=== PATIENT | female | born 1950 | race Caucasian/White ===

== ENCOUNTER 2016-11-11 15:58 | Observation (INO) ==
--- NOTE | 2016-11-11 16:28 | Emergency Department Note ---
Disposition Clinical Impression: Dehydration, Hyperglycemia, Delirium UTI (urinary tract infection) Qualifiers: Urinary tract infection type: site unspecified Hematuria presence: without hematuria Qualified Code(s): N39.0 - Urinary tract infection, site not specified Disposition: Admitted As Inpatient Condition: Good Referrals: Ronnell Spann MD [Primary Care Provider] - Forms: ED Satisfaction Letter Nausea/Vomiting/Diarrhea HPI - General Chief complaint: ED Nausea/Vomiting/Diarrhea Stated complaint: high BG Time Seen by Provider: 11/11/16 16:00 Source: patient, EMS Mode of arrival: private vehicle Limitations: no limitations Nursing Notes Reviewed: Yes Vital Signs Reviewed: Yes - History of Present Illness HPI Narrative: 66-year-old female history of diabetes, hypertension, CK D, chronic anemia requiring multiple transfusions in the past presents to the ER with a chief complaint of nausea vomiting generalized weakness and chest pain. Patient reports that she has felt weak for the last 2-3 days at home. She states during that time that she has been checking her blood glucose and that the machine just keeps registering high. She reports that her primary care provider contacted her as well telling her that he had changed her insulin but gave her the wrong type. Patient reports that she is not nauseated during this time and has had some retching at home. She has had decreased oral intake secondary to nauseated him. Patient reports this morning she also had some bleeding per rectum noted as dark. She is not on anticoagulation. She also states she has had chest pain this morning worse with exertion as well as shortness of breath. No other complaints. Pt Subjective Complaint: nausea, vomiting, other (Weakness) Onset (ago): day(s) (3) Associated Abdominal Pain: No Consistency: intermittent Improves with: nothing Worsens with: nonthing Context: other (History of similar symptoms) Associated symptoms: Reports: chest pain (Currently resolved), nausea/vomiting, weakness. Denies: cough, fever/chills - Related Data Home Medications Medication Instructions Recorded Confirmed Ondansetron HCl [Zofran] 4 mg PO TID PRN 05/18/16 11/11/16 Bupropion HCl [Wellbutrin Xl] 300 mg PO QAM 05/19/16 11/11/16 Pantoprazole Sodium [Protonix] 40 mg PO BID 05/19/16 11/11/16 Allopurinol [Zyloprim 100 MG] 100 mg PO DAILY 11/11/16 11/11/16 Duloxetine [Cymbalta] 30 mg PO DAILY 11/11/16 11/11/16 Hydroxychloroquine [Plaquenuil] 200 mg PO DAILY 11/11/16 11/11/16 Insulin Regular U-500 [HumuLIN R 75 unit SQ BID 11/11/16 11/11/16 U-500] Levothyroxine [Synthroid] 75 mcg PO QAM 11/11/16 11/11/16 Lisinopril [Zestril] 10 mg PO DAILY 11/11/16 11/11/16 OxyCODONE Immed Rel [Roxicodone 15 15 mg PO Q8H PRN 11/11/16 11/11/16 MG] Sucralfate [Carafate] 1 gm PO BID 11/11/16 11/11/16 Allergies Allergy/AdvReac Type Severity Reaction Status Date / Time benzoin AdvReac Rash Verified 07/07/16 12:14 morphine AdvReac Altered Verified 11/11/16 19:41 Mental Status All systems ED: reviewed and negative except as stated. Constitutional: Reports: weakness. Denies: fever Cardiovascular: Reports: chest pain, dyspnea on exertion Respiratory: Reports: dyspnea. Denies: cough Gastrointestinal: Reports: nausea, vomiting. Denies: abdominal pain, diarrhea Genitourinary: Reports: frequency (Decreased) Past Medical History - Past Medical History Attestation: Yes The following information was validated with the patient. Source: patient Medical history: Reports: arthritis, atrial fibrillation, diabetes, fibromyalgia , RA, other Surgical history: Reports: hysterectomy, knee replacement Psychiatric history: Reports: no psych history [employer] history: Reports: no [employer] history - Social History Smoking Status: Never smoker Smokeless Tobacco Status: No Alcohol use: Reports: none Drug use: Reports: none Physical Exam - General Limitations: no limitations General appearance: alert, in no apparent distress - Head Head exam: atraumatic, normocephalic, normal inspection - Eye Eye exam: Present: normal appearance, EOMI - ENT ENT exam: normal exam, mucous membranes dry - Neck Neck exam: Present: normal inspection - Chest Chest inspection: Present: normal inspection, symmetric chest wall rise - Respiratory Respiratory exam: Present: normal lung sounds bilaterally - Cardiovascular Cardiovascular exam: Present: normal rhythm, tachycardia, normal heart sounds - Abdominal Exam Abdominal exam: Present: soft, Non-Tender. Absent: tenderness - Extremities Exam Extremities exam: Present: normal inspection, full ROM - Expanded Upper Extremity Exam Shoulder exam: Present: normal inspection, full ROM Arm exam: Present: normal inspection, full ROM Elbow exam: Present: normal inspection, full ROM Forearm/Wrist exam: Present: normal inspection, full ROM Hand exam: Present: normal inspection, full ROM - Expanded Lower Extremity Exam Hip/Pelvis exam: Present: normal inspection, full ROM Upper leg exam: Present: normal inspection, full ROM Knee exam: Present: normal inspection, full ROM Lower leg exam: Present: normal inspection, full ROM Ankle exam: Present: normal inspection, full ROM Foot/toe exam: Present: normal inspection, full ROM - Neurological Exam Neurological exam: Present: alert - Psychiatric Psychiatric exam: Present: normal affect, normal mood - Skin Skin exam: Present: warm, dry, intact, normal color Course Course Narrative: Patient seen and examined. Vital signs reviewed. She is tachycardic here in the 110s. She appears dry on exam. We will start IV fluids with a 2 L bolus. Also will check labs to evaluate for DKA as the patient has a history in the past. We will also check a chest x-ray and UA for infectious etiologies of her hyperglycemia. Disposition pending. Will likely require admission. - Reevaluation(s) Reevaluation #1: Discussed results of lab work and imaging with the patient. Reevaluation #2: Patient became anxious, began screaming and pulled her IV. She reports that she is upset and that she will go to [place] so that she can have an oophorectomy. Patient seems to be confused at this time. We will get blood cultures and a CT scan of the head for evaluation. Reevaluation #3: Patient requested to speak with me. She is currently crying and wants to know what is going on. I discussed with her that we were scanning her head due to her acting different here. I asked her if she felt confused here and she says yes. She also reports that she has a lot going on and broke into tears at that time. Patient sent to CT for evaluation. Vital Signs Temperature 97.9 F 11/11/16 16:01 Pulse Rate 117 11/11/16 16:01 Respiratory Rate 16 11/11/16 16:01 Blood Pressure 137/84 11/11/16 16:01 O2 Sat by Pulse Oximetry 94 L 11/11/16 16:01 Temperature 97.9 F 11/11/16 16:01 Pulse Rate 117 11/11/16 16:01 Respiratory Rate 16 11/11/16 16:01 Blood Pressure 137/84 11/11/16 16:01 O2 Sat by Pulse Oximetry 94 L 11/11/16 16:01 Oxygen Delivery Oxygen Delivery Room Air Nausea/Vomiting/Diarrhea - MDM Narrative Medical decision making narrative: 66-year-old female presents to the ER due to generalized weakness nausea, vomiting and hyperglycemia. Patient reports symptoms for a few days in duration. She also reported that she was having blood in her stool however she is occult negative here. Her initial Accu-Chek was 379. Her VBG shows that she is not acidotic. We provided her with IV insulin here. Patient did appear dry on exam. She was given 3 L of normal saline for resuscitation. Her urinalysis does show positive nitrates with too numerous to count WBCs. Patient provided with IV antibiotics here. Patient attempted to get out of bed and removed her IV. She is emotionally labile here. She is confused reporting that she is going to [place] to have her ovaries removed now. Patient will be admitted to the hospital service for UTI altered mental status. - Lab Data Lab results reviewed: Yes I reviewed the patient's lab results. Result diagrams: 11/11/16 16:48 11/11/16 16:48 Lab Results 11/11/16 11/11/16 11/11/16 Range/Units 16:03 16:20 16:48 WBC 7.2 (4.3-11.1) K/mcL RBC 4.03 (3.82-4.97) M/mcL Hgb 11.8 (11.5-15.4) g/dL Hct 36.1 (35.3-44.9) % MCV 89.6 (83.0-100.0) fL MCH 29.3 (28.0-33.3) pg MCHC 32.7 (31.6-35.5) g/dL RDW 13.4 (11.5-14.5) % Plt Count 239 (140-400) K/mcL MPV 11.7 (9.4-12.4) fL Immature Gran % 0.4 (0-4) % Seg Neutrophils % 64.8 % Lymphocytes % 24.3 % Monocytes % 8.1 % Eosinophils % 1.7 % Basophils % 0.7 % Neutrophils # 4.6 (1.6-8.9) K/mcL Lymphocytes # 1.7 (0.6-4.6) K/mcL Monocytes # 0.6 (0.0-1.3) K/mcL Eosinophils # 0.1 (0.0-0.6) K/mcL Basophils # 0.1 (0.0-0.2) K/mcL VBG pH (7.32-7.42) pH Units VBG pCO2 (41-51) mmHg VBG pO2 (25-40) mmHg VBG HCO3 (21-27) mEq/L Sodium (136-145) mEq/L Potassium (3.5-4.5) mEq/L Chloride (98-109) mEq/L Carbon Dioxide (19-29) mEq/L BUN (7-20) mg/dL Creatinine (0.57-1.11) mg/dL Est GFR ( Amer) (> 60) Est GFR (Non-Af Amer) (> 60) BUN/Creatinine Ratio (6-26) Glucose (70-99) mg/dL POC Glucose 379 H (58-89) Calculated Osmolality (280-300) Calcium (8.6-10.8) mg/dL Total Bilirubin (0.2-1.2) mg/dL Direct Bilirubin (0.0-0.5) mg/dL Indirect Bilirubin (0.0-1.2) mg/dL AST (5-34) Units/L ALT (0-55) Units/L Alkaline Phosphatase (38-126) Units/L Troponin I (0-0.03) ng/mL Serum Total Protein (6.0-8.3) g/dL Albumin (3.5-5.0) g/dL Globulin (2.4-3.5) g/dL Albumin/Globulin Ratio (1.1-2.2) Beta-Hydroxybutyric Acd (0.02-0.27) mmol/L Urine Color (Yellow) Urine Clarity (Clear) Urine pH (5.0-8.0) pH Units Ur Specific [place] (1.010-1.025) Urine Protein (Neg-Trace) mg/dL Urine Glucose (UA) (Normal) mg/dL Urine Ketones (Negative) mg/dL Urine Blood (Negative) Urine Nitrite (Negative) Urine Bilirubin (Negative) Urine Urobilinogen (Normal) mg/dL Ur Leukocyte Esterase (Negative) Urine Microscopic RBC (0-3) per hpf Urine Microscopic WBC (0-3) per hpf Ur Squamous Epith Cells (None-Few) per lpf Urine Bacteria (None-Few) per hpf Hyaline Casts (None-Few) per lpf Ur Culture Indicated? (NO) Stool Occult Blood Negative (Negative) 11/11/16 11/11/16 11/11/16 Range/Units 16:48 16:48 16:48 WBC (4.3-11.1) K/mcL RBC (3.82-4.97) M/mcL Hgb (11.5-15.4) g/dL Hct (35.3-44.9) % MCV (83.0-100.0) fL MCH (28.0-33.3) pg MCHC (31.6-35.5) g/dL RDW (11.5-14.5) % Plt Count (140-400) K/mcL MPV (9.4-12.4) fL Immature Gran % (0-4) % Seg Neutrophils % % Lymphocytes % % Monocytes % % Eosinophils % % Basophils % % Neutrophils # (1.6-8.9) K/mcL Lymphocytes # (0.6-4.6) K/mcL Monocytes # (0.0-1.3) K/mcL Eosinophils # (0.0-0.6) K/mcL Basophils # (0.0-0.2) K/mcL VBG pH 7.40 (7.32-7.42) pH Units VBG pCO2 44 (41-51) mmHg VBG pO2 107 H (25-40) mmHg VBG HCO3 27.3 H (21-27) mEq/L Sodium 138 (136-145) mEq/L Potassium 4.3 (3.5-4.5) mEq/L Chloride 105 (98-109) mEq/L Carbon Dioxide 24 (19-29) mEq/L BUN 43 H (7-20) mg/dL Creatinine 1.06 (0.57-1.11) mg/dL Est GFR ( Amer) > 60 (> 60) Est GFR (Non-Af Amer) 52 L (> 60) BUN/Creatinine Ratio 41 H (6-26) Glucose 384 H (70-99) mg/dL POC Glucose (58-89) Calculated Osmolality 313 H (280-300) Calcium 9.1 (8.6-10.8) mg/dL Total Bilirubin 0.5 (0.2-1.2) mg/dL Direct Bilirubin 0.2 (0.0-0.5) mg/dL Indirect Bilirubin 0.3 (0.0-1.2) mg/dL AST 105 H (5-34) Units/L ALT 84 H (0-55) Units/L Alkaline Phosphatase 123 (38-126) Units/L Troponin I 0.02 (0-0.03) ng/mL Serum Total Protein 7.2 (6.0-8.3) g/dL Albumin 2.9 L (3.5-5.0) g/dL Globulin 4.3 H (2.4-3.5) g/dL Albumin/Globulin Ratio 0.7 L (1.1-2.2) Beta-Hydroxybutyric Acd 0.17 (0.02-0.27) mmol/L Urine Color (Yellow) Urine Clarity (Clear) Urine pH (5.0-8.0) pH Units Ur Specific [place] (1.010-1.025) Urine Protein (Neg-Trace) mg/dL Urine Glucose (UA) (Normal) mg/dL Urine Ketones (Negative) mg/dL Urine Blood (Negative) Urine Nitrite (Negative) Urine Bilirubin (Negative) Urine Urobilinogen (Normal) mg/dL Ur Leukocyte Esterase (Negative) Urine Microscopic RBC (0-3) per hpf Urine Microscopic WBC (0-3) per hpf Ur Squamous Epith Cells (None-Few) per lpf Urine Bacteria (None-Few) per hpf Hyaline Casts (None-Few) per lpf Ur Culture Indicated? (NO) Stool Occult Blood (Negative) 11/11/16 11/11/16 Range/Units 17:16 18:20 WBC (4.3-11.1) K/mcL RBC (3.82-4.97) M/mcL Hgb (11.5-15.4) g/dL Hct (35.3-44.9) % MCV (83.0-100.0) fL MCH (28.0-33.3) pg MCHC (31.6-35.5) g/dL RDW (11.5-14.5) % Plt Count (140-400) K/mcL MPV (9.4-12.4) fL Immature Gran % (0-4) % Seg Neutrophils % % Lymphocytes % % Monocytes % % Eosinophils % % Basophils % % Neutrophils # (1.6-8.9) K/mcL Lymphocytes # (0.6-4.6) K/mcL Monocytes # (0.0-1.3) K/mcL Eosinophils # (0.0-0.6) K/mcL Basophils # (0.0-0.2) K/mcL VBG pH (7.32-7.42) pH Units VBG pCO2 (41-51) mmHg VBG pO2 (25-40) mmHg VBG HCO3 (21-27) mEq/L Sodium (136-145) mEq/L Potassium (3.5-4.5) mEq/L Chloride (98-109) mEq/L Carbon Dioxide (19-29) mEq/L BUN (7-20) mg/dL Creatinine (0.57-1.11) mg/dL Est GFR ( Amer) (> 60) Est GFR (Non-Af Amer) (> 60) BUN/Creatinine Ratio (6-26) Glucose (70-99) mg/dL POC Glucose 286 H (58-89) Calculated Osmolality (280-300) Calcium (8.6-10.8) mg/dL Total Bilirubin (0.2-1.2) mg/dL Direct Bilirubin (0.0-0.5) mg/dL Indirect Bilirubin (0.0-1.2) mg/dL AST (5-34) Units/L ALT (0-55) Units/L Alkaline Phosphatase (38-126) Units/L Troponin I (0-0.03) ng/mL Serum Total Protein (6.0-8.3) g/dL Albumin (3.5-5.0) g/dL Globulin (2.4-3.5) g/dL Albumin/Globulin Ratio (1.1-2.2) Beta-Hydroxybutyric Acd (0.02-0.27) mmol/L Urine Color Yellow (Yellow) Urine Clarity Cloudy A (Clear) Urine pH 6.0 (5.0-8.0) pH Units Ur Specific [place] 1.024 (1.010-1.025) Urine Protein Negative (Neg-Trace) mg/dL Urine Glucose (UA) 500 H (Normal) mg/dL Urine Ketones Trace H (Negative) mg/dL Urine Blood Small H (Negative) Urine Nitrite Positive A (Negative) Urine Bilirubin Negative (Negative) Urine Urobilinogen Normal (Normal) mg/dL Ur Leukocyte Esterase Large H (Negative) Urine Microscopic RBC 0-3 (0-3) per hpf Urine Microscopic WBC TNTC H (0-3) per hpf Ur Squamous Epith Cells Many H (None-Few) per lpf Urine Bacteria Many H (None-Few) per hpf Hyaline Casts None Seen (None-Few) per lpf Ur Culture Indicated? YES A (NO) Stool Occult Blood (Negative) - Radiology Data Radiology results reviewed: Yes I reviewed the patient's radiology results. Chest X-Ray 11/11/16 16:17 IMPRESSION: No acute cardiopulmonary disease. Large retrocardiac hiatal hernia. D/ / Jose Stevens MD / Jose Stevens MD Interpreting Provider: Jose Stevens MD - EKG Data EKG attestation: Yes I reviewed and interpreted this EKG. EKG results narrative: EKG demonstrates sinus tachycardia with a rate of 114. Normal axis. [place] interval 151 QRS duration 81 QTC 398 there are T-wave inversions in leads [address] elevations or depressions. No acute ischemic findings. S.B.ALiza - S.Hafsa.Robe Situation: Demographics, MOA Background: Presenting Complaint, Relevant PMH, Meds, & Allergies Assessment: Vital Signs, Course and respsone to treatment, Exam Concerns, Patient/Family Expectation, Pertinant Lab Results, Outstanding Labs Recommendation: Barrier(s) to disposition, Recommendation based on pending studies, treatments, or consults SKaushikBRubens Report Given to: Dr. Mamadou Denney Repor Time: 19:52
[2016-11-11 17:01] LABS: Basophils # 0.1 K/mcL (0.0-0.2); Basophils % 0.7 %; Eosinophils # 0.1 K/mcL (0.0-0.6); Eosinophils % 1.7 %; Hematocrit 36.1 % (35.3-44.9); Hemoglobin 11.8 g/dL (11.5-15.4); Immature Granulocytes % 0.4 % (0-4); Lymphocytes # 1.7 K/mcL (0.6-4.6); Lymphocytes % 24.3 %; Mean Corpuscular HGB Conc 32.7 g/dL (31.6-35.5); Mean Corpuscular Hemoglobin 29.3 pg (28.0-33.3); Mean Corpuscular Volume 89.6 fL (83.0-100.0); Mean Platelet Volume 11.7 fL (9.4-12.4); Monocytes # 0.6 K/mcL (0.0-1.3); Monocytes % 8.1 %; Neutrophils # 4.6 K/mcL (1.6-8.9); Platelet Count 239 K/mcL (140-400); Red Blood Count 4.03 M/mcL (3.82-4.97); Red Cell Distribution Width 13.4 % (11.5-14.5); Segmented Neutrophils % 64.8 %
[2016-11-11 17:02] LABS: VBG HCO3 27.3 mEq/L (21-27); VBG PH 7.4 pH Units (7.32-7.42)
[2016-11-11 17:14] LABS: Beta-Hydroxybutyric Acid 0.17 mmol/L (0.02-0.27)
[2016-11-11 17:16] LABS: Alanine Aminotransferase 84 Units/L (0-55); Albumin 2.9 g/dL (3.5-5.0); Albumin/Globulin Ratio 0.7 (1.1-2.2); Alkaline Phosphatase 123 Units/L (38-126); Aspartate Amino Transferase 105 Units/L (5-34); BUN/Creatinine Ratio 41 (6-26); Bilirubin,Direct 0.2 mg/dL (0.0-0.5); Bilirubin,Indirect 0.3 mg/dL (0.0-1.2); Bilirubin,Total 0.5 mg/dL (0.2-1.2); Blood Urea Nitrogen 43 mg/dL (7-20); Calcium 9.1 mg/dL (8.6-10.8); Carbon Dioxide 24 mEq/L (19-29); Chloride 105 mEq/L (98-109); Globulin 4.3 g/dL (2.4-3.5); Glucose 384 mg/dL (70-99); Osmolality,Calculated 313 (280-300); Potassium 4.3 mEq/L (3.5-4.5); Sodium 138 mEq/L (136-145); Total Protein 7.2 g/dL (6.0-8.3); eGFR For African Americans > 60 (> 60); eGFR For Non-African Americans 52 (> 60)
[2016-11-11 17:23] LABS: Bilirubin,Urine Negative (Negative); Blood,Urine Small (Negative); Clarity,Urine Cloudy (Clear); Color,Urine Yellow (Yellow); Glucose,Urine (UA) 500 mg/dL (Normal); Ketones,Urine Trace mg/dL (Negative); Leukocyte Esterase,Urine Large (Negative); Nitrite,Urine Positive (Negative); Protein,Urine Negative (Neg-Trace); Specific Gravity,Urine 1.024 (1.010-1.025); Urobilinogen,Urine Normal (Normal)
[2016-11-11 17:35] LABS: Bacteria,Urine Many per hpf (None-Few); Hyaline Casts,Urine None Seen per lpf (None-Few); RBC,Urine 0-3 per hpf (0-3); Squamous Epithelial Cell,Urine Many per lpf (None-Few); WBC,Urine TNTC per hpf (0-3)
--- NOTE | 2016-11-11 17:48 | Emergency Department Note ---
Disposition Clinical Impression: UTI (urinary tract infection), Dehydration, Hyperglycemia, Delirium Disposition: Admitted As Inpatient Condition: Good General Adult HPI - General Chief complaint: ED Nausea/Vomiting/Diarrhea Stated complaint: high BG Time Seen by Provider: 11/11/16 16:00 Source: patient, EMS Mode of arrival: private vehicle Limitations: no limitations - History of Present Illness Pain Scale: 0 - Related Data Home Medications Medication Instructions Recorded Confirmed Ondansetron HCl [Zofran] 4 mg PO TID PRN 05/18/16 11/11/16 Bupropion HCl [Wellbutrin Xl] 300 mg PO QAM 05/19/16 11/11/16 Pantoprazole Sodium [Protonix] 40 mg PO BID 05/19/16 11/11/16 Allopurinol [Zyloprim 100 MG] 100 mg PO DAILY 11/11/16 11/11/16 Duloxetine [Cymbalta] 30 mg PO DAILY 11/11/16 11/11/16 Hydroxychloroquine [Plaquenuil] 200 mg PO DAILY 11/11/16 11/11/16 Insulin Regular U-500 [HumuLIN R 75 unit SQ BID 11/11/16 11/11/16 U-500] Levothyroxine [Synthroid] 75 mcg PO QAM 11/11/16 11/11/16 Lisinopril [Zestril] 10 mg PO DAILY 11/11/16 11/11/16 OxyCODONE Immed Rel [Roxicodone 15 15 mg PO Q8H PRN 11/11/16 11/11/16 MG] Sucralfate [Carafate] 1 gm PO BID 11/11/16 11/11/16 Allergies Allergy/AdvReac Type Severity Reaction Status Date / Time benzoin AdvReac Rash Verified 07/07/16 12:14 morphine AdvReac Altered Verified 11/11/16 19:41 Mental Status Constitutional: Reports: weakness. Denies: fever Cardiovascular: Reports: chest pain, dyspnea on exertion Respiratory: Reports: dyspnea. Denies: cough Gastrointestinal: Reports: nausea, vomiting. Denies: abdominal pain, diarrhea Genitourinary: Reports: frequency (Decreased) Past Medical History - Past Medical History Medical history: Reports: arthritis, atrial fibrillation, diabetes, fibromyalgia , RA, other Surgical history: Reports: hysterectomy, knee replacement Psychiatric history: Reports: no psych history INSURANCE ADMINISTRATIVE ASSISTANT history: Reports: no INSURANCE ADMINISTRATIVE ASSISTANT history - Social History Smoking Status: Never smoker Smokeless Tobacco Status: No Alcohol use: Reports: none Drug use: Reports: none Physical Exam - General Limitations: no limitations General appearance: alert, in no apparent distress Course - Reevaluation(s) Reevaluation #1: I saw the patient with the resident, Dr. Chambers. Patient presents with complaint of high sugar. Her sugar is high here. She talks about increased urine output. She a bit tachycardic but clinically looks a bit dehydrated. Lab workup does not show evidence of DKA. There is evidence of an elevated BUN which corroborates dehydration. Urinalysis also shows evidence of urinary tract infection. We are going to hydrate the patient with IV fluids. We will give her a dose of antibiotics to treat UTI. We counseled her on up appropriate use of insulin at home. Patient will be discharged to home. Time: 17:47 Vital Signs Temperature 97.9 F 11/11/16 16:01 Pulse Rate 117 11/11/16 16:01 Respiratory Rate 16 11/11/16 16:01 Blood Pressure 137/84 11/11/16 16:01 O2 Sat by Pulse Oximetry 94 L 11/11/16 16:01 Temperature 97.8 F 11/11/16 22:05 Pulse Rate 121 11/11/16 22:05 Respiratory Rate 14 11/11/16 22:05 Blood Pressure 136/82 11/11/16 22:05 O2 Sat by Pulse Oximetry 93 L 11/11/16 22:05 Oxygen Delivery Oxygen Delivery Room Air Medical Decision Making - Lab Data Result diagrams: 11/11/16 16:48 11/11/16 16:48 Lab Results 11/11/16 11/11/16 11/11/16 Range/Units 16:03 16:20 16:48 WBC 7.2 (4.3-11.1) K/mcL RBC 4.03 (3.82-4.97) M/mcL Hgb 11.8 (11.5-15.4) g/dL Hct 36.1 (35.3-44.9) % MCV 89.6 (83.0-100.0) fL MCH 29.3 (28.0-33.3) pg MCHC 32.7 (31.6-35.5) g/dL RDW 13.4 (11.5-14.5) % Plt Count 239 (140-400) K/mcL MPV 11.7 (9.4-12.4) fL Immature Gran % 0.4 (0-4) % Seg Neutrophils % 64.8 % Lymphocytes % 24.3 % Monocytes % 8.1 % Eosinophils % 1.7 % Basophils % 0.7 % Neutrophils # 4.6 (1.6-8.9) K/mcL Lymphocytes # 1.7 (0.6-4.6) K/mcL Monocytes # 0.6 (0.0-1.3) K/mcL Eosinophils # 0.1 (0.0-0.6) K/mcL Basophils # 0.1 (0.0-0.2) K/mcL VBG pH (7.32-7.42) pH Units VBG pCO2 (41-51) mmHg VBG pO2 (25-40) mmHg VBG HCO3 (21-27) mEq/L Sodium (136-145) mEq/L Potassium (3.5-4.5) mEq/L Chloride (98-109) mEq/L Carbon Dioxide (19-29) mEq/L BUN (7-20) mg/dL Creatinine (0.57-1.11) mg/dL Est GFR ( Amer) (> 60) Est GFR (Non-Af Amer) (> 60) BUN/Creatinine Ratio (6-26) Glucose (70-99) mg/dL POC Glucose 379 H (58-89) Calculated Osmolality (280-300) Calcium (8.6-10.8) mg/dL Total Bilirubin (0.2-1.2) mg/dL Direct Bilirubin (0.0-0.5) mg/dL Indirect Bilirubin (0.0-1.2) mg/dL AST (5-34) Units/L ALT (0-55) Units/L Alkaline Phosphatase (38-126) Units/L Troponin I (0-0.03) ng/mL Serum Total Protein (6.0-8.3) g/dL Albumin (3.5-5.0) g/dL Globulin (2.4-3.5) g/dL Albumin/Globulin Ratio (1.1-2.2) Beta-Hydroxybutyric Acd (0.02-0.27) mmol/L Urine Color (Yellow) Urine Clarity (Clear) Urine pH (5.0-8.0) pH Units Ur Specific Paige (1.010-1.025) Urine Protein (Neg-Trace) mg/dL Urine Glucose (UA) (Normal) mg/dL Urine Ketones (Negative) mg/dL Urine Blood (Negative) Urine Nitrite (Negative) Urine Bilirubin (Negative) Urine Urobilinogen (Normal) mg/dL Ur Leukocyte Esterase (Negative) Urine Microscopic RBC (0-3) per hpf Urine Microscopic WBC (0-3) per hpf Ur Squamous Epith Cells (None-Few) per lpf Urine Bacteria (None-Few) per hpf Hyaline Casts (None-Few) per lpf Ur Culture Indicated? (NO) Stool Occult Blood Negative (Negative) 11/11/16 11/11/16 11/11/16 Range/Units 16:48 16:48 16:48 WBC (4.3-11.1) K/mcL RBC (3.82-4.97) M/mcL Hgb (11.5-15.4) g/dL Hct (35.3-44.9) % MCV (83.0-100.0) fL MCH (28.0-33.3) pg MCHC (31.6-35.5) g/dL RDW (11.5-14.5) % Plt Count (140-400) K/mcL MPV (9.4-12.4) fL Immature Gran % (0-4) % Seg Neutrophils % % Lymphocytes % % Monocytes % % Eosinophils % % Basophils % % Neutrophils # (1.6-8.9) K/mcL Lymphocytes # (0.6-4.6) K/mcL Monocytes # (0.0-1.3) K/mcL Eosinophils # (0.0-0.6) K/mcL Basophils # (0.0-0.2) K/mcL VBG pH 7.40 (7.32-7.42) pH Units VBG pCO2 44 (41-51) mmHg VBG pO2 107 H (25-40) mmHg VBG HCO3 27.3 H (21-27) mEq/L Sodium 138 (136-145) mEq/L Potassium 4.3 (3.5-4.5) mEq/L Chloride 105 (98-109) mEq/L Carbon Dioxide 24 (19-29) mEq/L BUN 43 H (7-20) mg/dL Creatinine 1.06 (0.57-1.11) mg/dL Est GFR ( Amer) > 60 (> 60) Est GFR (Non-Af Amer) 52 L (> 60) BUN/Creatinine Ratio 41 H (6-26) Glucose 384 H (70-99) mg/dL POC Glucose (58-89) Calculated Osmolality 313 H (280-300) Calcium 9.1 (8.6-10.8) mg/dL Total Bilirubin 0.5 (0.2-1.2) mg/dL Direct Bilirubin 0.2 (0.0-0.5) mg/dL Indirect Bilirubin 0.3 (0.0-1.2) mg/dL AST 105 H (5-34) Units/L ALT 84 H (0-55) Units/L Alkaline Phosphatase 123 (38-126) Units/L Troponin I 0.02 (0-0.03) ng/mL Serum Total Protein 7.2 (6.0-8.3) g/dL Albumin 2.9 L (3.5-5.0) g/dL Globulin 4.3 H (2.4-3.5) g/dL Albumin/Globulin Ratio 0.7 L (1.1-2.2) Beta-Hydroxybutyric Acd 0.17 (0.02-0.27) mmol/L Urine Color (Yellow) Urine Clarity (Clear) Urine pH (5.0-8.0) pH Units Ur Specific Paige (1.010-1.025) Urine Protein (Neg-Trace) mg/dL Urine Glucose (UA) (Normal) mg/dL Urine Ketones (Negative) mg/dL Urine Blood (Negative) Urine Nitrite (Negative) Urine Bilirubin (Negative) Urine Urobilinogen (Normal) mg/dL Ur Leukocyte Esterase (Negative) Urine Microscopic RBC (0-3) per hpf Urine Microscopic WBC (0-3) per hpf Ur Squamous Epith Cells (None-Few) per lpf Urine Bacteria (None-Few) per hpf Hyaline Casts (None-Few) per lpf Ur Culture Indicated? (NO) Stool Occult Blood (Negative) 11/11/16 11/11/16 11/11/16 Range/Units 17:16 18:20 20:17 WBC (4.3-11.1) K/mcL RBC (3.82-4.97) M/mcL Hgb (11.5-15.4) g/dL Hct (35.3-44.9) % MCV (83.0-100.0) fL MCH (28.0-33.3) pg MCHC (31.6-35.5) g/dL RDW (11.5-14.5) % Plt Count (140-400) K/mcL MPV (9.4-12.4) fL Immature Gran % (0-4) % Seg Neutrophils % % Lymphocytes % % Monocytes % % Eosinophils % % Basophils % % Neutrophils # (1.6-8.9) K/mcL Lymphocytes # (0.6-4.6) K/mcL Monocytes # (0.0-1.3) K/mcL Eosinophils # (0.0-0.6) K/mcL Basophils # (0.0-0.2) K/mcL VBG pH (7.32-7.42) pH Units VBG pCO2 (41-51) mmHg VBG pO2 (25-40) mmHg VBG HCO3 (21-27) mEq/L Sodium (136-145) mEq/L Potassium (3.5-4.5) mEq/L Chloride (98-109) mEq/L Carbon Dioxide (19-29) mEq/L BUN (7-20) mg/dL Creatinine (0.57-1.11) mg/dL Est GFR ( Amer) (> 60) Est GFR (Non-Af Amer) (> 60) BUN/Creatinine Ratio (6-26) Glucose (70-99) mg/dL POC Glucose 286 H 260 H (58-89) Calculated Osmolality (280-300) Calcium (8.6-10.8) mg/dL Total Bilirubin (0.2-1.2) mg/dL Direct Bilirubin (0.0-0.5) mg/dL Indirect Bilirubin (0.0-1.2) mg/dL AST (5-34) Units/L ALT (0-55) Units/L Alkaline Phosphatase (38-126) Units/L Troponin I (0-0.03) ng/mL Serum Total Protein (6.0-8.3) g/dL Albumin (3.5-5.0) g/dL Globulin (2.4-3.5) g/dL Albumin/Globulin Ratio (1.1-2.2) Beta-Hydroxybutyric Acd (0.02-0.27) mmol/L Urine Color Yellow (Yellow) Urine Clarity Cloudy A (Clear) Urine pH 6.0 (5.0-8.0) pH Units Ur Specific Paige 1.024 (1.010-1.025) Urine Protein Negative (Neg-Trace) mg/dL Urine Glucose (UA) 500 H (Normal) mg/dL Urine Ketones Trace H (Negative) mg/dL Urine Blood Small H (Negative) Urine Nitrite Positive A (Negative) Urine Bilirubin Negative (Negative) Urine Urobilinogen Normal (Normal) mg/dL Ur Leukocyte Esterase Large H (Negative) Urine Microscopic RBC 0-3 (0-3) per hpf Urine Microscopic WBC TNTC H (0-3) per hpf Ur Squamous Epith Cells Many H (None-Few) per lpf Urine Bacteria Many H (None-Few) per hpf Hyaline Casts None Seen (None-Few) per lpf Ur Culture Indicated? YES A (NO) Stool Occult Blood (Negative) Attestation Statement - Attestation Attestation: I, Dr. Breaux, examined this patient [id number] and my medical decision- making was reviewed with Dr. Chambers, Resident Physician. I agree with the documented findings, disposition and treatment plan as described except to the extent set forth below. Please see my progress notes for details.
[2016-11-11] MEDS ORDERED: 0.9 % Sodium Chloride 1,000 ML IVC ONE (17:55)
[2016-11-11] MEDS ORDERED: Insulin Regular, Human 100 UNIT/ML IV ONE (18:05)
[2016-11-11] MEDS ORDERED: *HR* LORazepam 0.5 MG TABLET PO ONE (18:13)
--- NOTE | 2016-11-11 21:12 | Internal Med History&Physical ---
Date of Encounter: 11/11/16 Time of Encounter: 21:09 Assessment and Plan (1) UTI (urinary tract infection) Current visit: No Status: Acute Patient admitted due to generalized weakness and dehydration. Secondary to urinary tract infection, currently also with hyperglycemia. Will give IV fluids, continue with antibiotic therapy, follow cultures. Avoid nephrotoxic agents. DVT prophylaxis. Insulin therapy. Qualifiers: Urinary tract infection type: site unspecified Hematuria presence: with hematuria Qualified Code(s): N39.0 - Urinary tract infection, site not specified; R31.9 - Hematuria, unspecified (2) GLO (acute kidney injury) Current visit: No Status: Acute Continue with IV fluids. Likely prerenal in the setting of dehydration, nausea and vomiting. (3) Dehydration Current visit: Yes Status: Acute (4) Hyperglycemia Current visit: Yes Status: Acute Internal Medicine - H&P: HPI Chief complaint: Generalized weakness Admitted From: Emergency Dept Plans for Post Hospital Care: Home History of present illness: Ms. Ramachandran is a 66 year old female with past medical history of type 2 diabetes, rheumatoid arthritis, fibromyalgia, chronic kidney disease, renal disease, hepatitis C, hypertension, hypothyroidism. The patient states that since the last week has been feeling sick, weak, complaining of dysuria, intermittent chills and has been throwing up. Her appetite is poor. She went to see her primary care physician a few days ago. Today she was called by her doctor and she was recommended to come to the emergency department. Upon admission to the ER her blood pressure was 137/84, heart rate was 117, respiratory rate was 16 per minute, oxygen saturation was 94%. Temperature was 97.9. Initial workup revealed a WBC count of 7.2, hemoglobin 11.8, hematocrit 36.1 platelet count 239 ,000. Sodium 138, potassium 4.3, chloride 105, bicarbonate 24, BUN 43, creatinine 1.06, glucose 384. A urinalysis revealed numerous to count WBC. Chest x-ray did not reveal acute cardiopulmonary lesions, however it showed a retrocardiac hiatal hernia. A head CT was performed which revealed diffuse atrophy and mild chronic small vessel ischemic changes. The patient was admitted for further management and workup. In the emergency department she did receive a dose of Rocephin, some insulin and a dose of Ativan by mouth 0.5 mg. Past Med Surg Social Fam HX - Past Medical History Medical history: arthritis, atrial fibrillation, diabetes, fibromyalgia, RA, other Psychiatric history: no psych history - Past Surgical History Surgical History: hysterectomy, knee replacement - Social History Smoking Status: Never smoker Smokeless Tobacco Status: No Alcohol use: none Drug use: none - Family History Mother Adopted: No Family Member Ethnicity: Non- Living Status: Still Living Hx Family Cardiac Disorders: No Hx Family Respiratory Disorders: No Hx Family Cancer: Yes (Ovarian Ca METS to colon) Hx Family GI Disorders: No Hx Family Endocrine Disorder: No Hx Family Neuromuscular Disorders: No Hx Family Neurologic Disorders: No Hx Family HEENT Disorders: No Hx Family Autoimmune Disorders: No Internal Medicine - H&P: Meds Ondansetron HCl [Zofran] 4 mg PO TID PRN 05/18/16 [History] Bupropion HCl [Wellbutrin Xl] 300 mg PO QAM 05/19/16 [History] Pantoprazole Sodium [Protonix] 40 mg PO BID 05/19/16 [History] Allopurinol [Zyloprim 100 MG] 100 mg PO DAILY 11/11/16 [History] Duloxetine [Cymbalta] 30 mg PO DAILY 11/11/16 [History] Hydroxychloroquine [Plaquenuil] 200 mg PO DAILY 11/11/16 [History] Insulin Regular U-500 [HumuLIN R U-500] 75 unit SQ BID 11/11/16 [History] Levothyroxine [Synthroid] 75 mcg PO QAM 11/11/16 [History] Lisinopril [Zestril] 10 mg PO DAILY 11/11/16 [History] OxyCODONE Immed Rel [Roxicodone 15 MG] 15 mg PO Q8H PRN 11/11/16 [History] Sucralfate [Carafate] 1 gm PO BID 11/11/16 [History] Allergies benzoin Adverse Reaction (Verified 07/07/16 12:14) Rash morphine Adverse Reaction (Verified 11/11/16 19:41) Altered Mental Status Per ECW list. All Systems PM: A 10-system review of systems was performed and is negative for pertinent findings except as documented above in the HPI. - Constitutional Constitutional: as per HPI, anorexia, chills, fatigue, malaise, weakness, no fever(s), no night sweats - EENT Eyes: as per HPI, no change in vision, no discharge, no pain, no photophobia Ears: as per HPI, no ear discharge, no ear pain, no tinnitus Nose, mouth and throat: as per HPI, no dysphagia, no nasal discharge, no neck pain, no sore throat - Breasts Breasts: as per HPI - Cardiovascular Cardiovascular ROS IM: as per HPI, no chest pain, no diaphoresis, no dyspnea, no lightheadedness, no palpitations, no syncope - Respiratory Respiratory: as per HPI, no cough, no dyspnea, no wheezing, no excessive phlegm production - Gastrointestinal Gastrointestinal: as per HPI, no abdominal pain, no diarrhea, no hematemesis, no hematochezia, no melena, no nausea, no vomiting - Genitourinary Genitourinary: as per HPI, no change in urinary stream, no dysuria, no flank pain, no hematuria Menstruation: as per HPI - Musculoskeletal Musculoskeletal ROS IM: as per HPI, no numbness, no tingling - Integumentary Integumentary IM: as per HPI, no rash, no unusual bruising - Neurological Neurological ROS: as per HPI, no confusion, no convulsions, no focal weakness, no numbness, no tingling, no tremor(s) - Psychiatric Psychiatric: as per HPI - Endocrine Endocrine IM: as per HPI - Hematologic/Lymphatic Hematologic/Lymphatic: as per HPI, no easy bruising - Allergic/Immunologic Allergic/Immunologic: as per HPI - Constitutional Vitals: Temp Pulse Resp BP Pulse Ox 97.9 F 117 18 149/105 94 L 11/11/16 16:01 11/11/16 16:01 11/11/16 20:20 11/11/16 20:20 11/11/16 16:01 General appearance: Present: cooperative, A&O X 2, mild distress, pleasant Exam: Diet mucous membranes. Patient is alert, awake, oriented in person and place, not fully oriented in time. - Head Head exam: Present: atraumatic, normocephalic - Eye Eye exam: Present: PERRL, conjuntiva pink, sclera anicteric Pupils: Present: PERRL - Neck Neck exam general surgery: Present: supple, trachea midline. Absent: lymphadenopathy - Respiratory Respiratory exam: Present: CTAB. Absent: accessory muscle use, rales, rhonchi, wheezes - Cardiovascular Cardiovascular exam: Present: RRR, +S1, +S2. Absent: diastolic murmur, gallop, rubs, systolic murmur - GI/Abdominal GI/Abdominal exam: Present: normal bowel sounds, soft, no peritoneal signs. Absent: distended, tenderness - Extremities Exam Extremities exam: Present: warm, radial pulses palpable and symetrical. Absent : calf tenderness, cyanotic, pedal edema - Neurological Exam Neurological exam: Present: CN II-XII intact, oriented X3, no focal deficits. Absent: pronater drift, facial droop, speech deficit - Skin Skin exam: Present: dry, intact Internal Med - H&P Results - Labs CBC & Chem 7: 11/11/16 16:48 11/11/16 16:48
[2016-11-11] MEDS ORDERED: Acetaminophen 325 MG TABLET PO PRN (21:18)
[2016-11-11] MEDS ORDERED: *HR* Dextrose 50 % in Water (Syg) 50 ML SYRINGE IVP PRN (21:18)
[2016-11-11] MEDS ORDERED: Ondansetron 4 MG/2 ML VIAL IVP PRN (21:18)
[2016-11-11] MEDS ORDERED: D5% in Water 1,000 ML IVC PRN (21:18)
[2016-11-11] MEDS ORDERED: Dextrose Gel 15 GM PO PRN ×2 (21:18)
[2016-11-11] MEDS ORDERED: Naloxone 0.4 MG/ML INJ IVP PRN (21:18)
[2016-11-11] MEDS ORDERED: 0.9 % Sodium Chloride 500 ML IVC ONE (21:22)
[2016-11-11] MEDS ORDERED: Insulin DETEMIR 100 UNIT/ML X5UNITS SQ SCH (21:30)
[2016-11-11] MEDS: 0.9 % Sodium Chloride 1,000 ML IVC SCH ×3 (21:51→23:14)
[2016-11-12] MEDS: *HR* OxyCODONE Immed Rel 15 MG TABLET PO PRN ×3 (01:06→19:38)
[2016-11-12] MEDS: 0.9 % Sodium Chloride 1,000 ML IVC SCH ×2 (04:56→09:40)
[2016-11-12 05:04] LABS: Basophils % 0.5 %; Eosinophils # 0.1 K/mcL (0.0-0.6); Eosinophils % 1.5 %; Hematocrit 28.4 % (35.3-44.9); Immature Granulocytes % 0.4 % (0-4); Lymphocytes # 2.8 K/mcL (0.6-4.6); Lymphocytes % 35.2 %; Mean Corpuscular HGB Conc 33.5 g/dL (31.6-35.5); Mean Corpuscular Hemoglobin 29.9 pg (28.0-33.3); Mean Corpuscular Volume 89.3 fL (83.0-100.0); Mean Platelet Volume 12.1 fL (9.4-12.4); Monocytes # 0.8 K/mcL (0.0-1.3); Monocytes % 9.5 %; Neutrophils # 4.3 K/mcL (1.6-8.9); Platelet Count 230 K/mcL (140-400); Red Blood Count 3.18 M/mcL (3.82-4.97); Red Cell Distribution Width 13.6 % (11.5-14.5); Segmented Neutrophils % 52.9 %
[2016-11-12 05:15] LABS: Hemoglobin 9.5 g/dL (11.5-15.4)
[2016-11-12 05:17] LABS: Alanine Aminotransferase 77 Units/L (0-55); Albumin 2.6 g/dL (3.5-5.0); Albumin/Globulin Ratio 0.7 (1.1-2.2); Alkaline Phosphatase 116 Units/L (38-126); Aspartate Amino Transferase 90 Units/L (5-34); BUN/Creatinine Ratio 48 (6-26); Bilirubin,Total 0.4 mg/dL (0.2-1.2); Blood Urea Nitrogen 41 mg/dL (7-20); Calcium 8.2 mg/dL (8.6-10.8); Carbon Dioxide 23 mEq/L (19-29); Chloride 111 mEq/L (98-109); Globulin 3.6 g/dL (2.4-3.5); Glucose 314 mg/dL (70-99); Osmolality,Calculated 310 (280-300); Sodium 139 mEq/L (136-145); Total Protein 6.2 g/dL (6.0-8.3); eGFR For African Americans > 60 (> 60); eGFR For Non-African Americans > 60 (> 60)
[2016-11-12] MEDS: *HR* Heparin 5,000 UNIT/ML VIAL SQ SCH ×2 (05:37→17:23)
[2016-11-12] MEDS ORDERED: Famotidine 20 MG/2 ML VIAL IVP SCH (06:00)
[2016-11-12] MEDS ORDERED: Insulin LISPRO 300 UNITS/3 ML VIAL SQ SCH ×2 (07:30→21:00)
[2016-11-12] MEDS: BuPROPion XL (24 HR) 150 MG TABLET PO SCH (08:25)
[2016-11-12] MEDS: Insulin LISPRO 300 UNITS/3 ML VIAL SQ SCH ×6 (08:30→21:52)
[2016-11-12] MEDS: Insulin DETEMIR 100 UNIT/ML X5UNITS SQ SCH ×2 (08:37→21:53)
[2016-11-12] MEDS ORDERED: Magnesium Sulfate 2 GM in D5% in Water 100 ML IVPB ONE (11:25)
--- NOTE | 2016-11-12 16:20 | Internal Med Progress Note ---
Date of Encounter: 11/12/16 Time of Encounter: 09:55 - Assessment and plan (1) UTI (urinary tract infection) Current Visit: Yes Status: Acute Assessment and plan: Continue IV antibiotics. Urine culture positive for gram-positive cocci. Patient currently on ceftriaxone. Patient has previously been positive for staph aureus that is methicillin sensitive. For now will give 1 dose of IV vancomycin. Follow culture results. Qualifiers: Urinary tract infection type: acute cystitis Hematuria presence: with hematuria Qualified Code(s): N30.01 - Acute cystitis with hematuria (2) GLO (acute kidney injury) Current Visit: No Status: Acute Assessment and plan: With prerenal azotemia. Continue IV hydration. (3) Dehydration Current Visit: Yes Status: Acute (4) Hyperglycemia Current Visit: Yes Status: Acute Assessment and plan: From diabetes mellitus type 2. Improving. (5) Diabetes mellitus, type 2 Current Visit: Yes Status: Chronic Assessment and plan: Improving blood sugars. Adjusting insulin regimen accordingly. Continue diabetic diet. 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 Complains of nausea and feels hungry. Denies any dysuria. No fever or chills or night sweats. Tolerating clear liquid diet well. - Constitutional Vitals: Temp Pulse Resp BP Pulse Ox 98.7 F 75 17 145/93 98 11/12/16 15:25 11/12/16 15:25 11/12/16 15:25 11/12/16 15:25 11/12/16 15:25 General appearance: Present: cooperative, mild distress, A&O X 3, pleasant, answers questions appropriately - Neck Neck exam general surgery: Present: supple, trachea midline. Absent: lymphadenopathy - Respiratory Respiratory exam: Present: CTAB. Absent: accessory muscle use, rales, rhonchi, wheezes - Cardiovascular Cardiovascular exam: Present: RRR, +S1, +S2. Absent: diastolic murmur, gallop, rubs, systolic murmur - GI/Abdominal GI/Abdominal exam: Present: normal bowel sounds, soft, no peritoneal signs. Absent: distended, tenderness - Extremities Exam Extremities exam: Present: warm, radial pulses palpable and symetrical. Absent : calf tenderness, cyanotic, pedal edema - Neurological Exam Neurological exam: Present: CN II-XII intact, oriented X3, no focal deficits. Absent: facial droop, speech deficit - Skin Skin exam: Present: dry, intact Internal Medicine: Result - Labs CBC & Chem 7: 11/12/16 04:36 11/12/16 04:36 Labs: Short CBC 11/12/16 Range/Units 04:36 WBC 8.0 (4.3-11.1) K/mcL Hgb 9.5 L D (11.5-15.4) g/dL Hct 28.4 L (35.3-44.9) % Plt Count 230 (140-400) K/mcL Neutrophils # 4.3 (1.6-8.9) K/mcL BMP 11/12/16 04:36 Sodium 139 Potassium 4.0 Chloride 111 H Carbon Dioxide 23 BUN 41 H Creatinine 0.86 Glucose 314 H Calcium 8.2 L Liver Function 11/12/16 Range/Units 04:36 Total Bilirubin 0.4 (0.2-1.2) mg/dL AST 90 H (5-34) Units/L ALT 77 H (0-55) Units/L Alkaline Phosphatase 116 (38-126) Units/L Albumin 2.6 L (3.5-5.0) g/dL Consult Discharge Plan - Plan Referrals: Ronnell Spann MD [Primary Care Provider] - - Attending Attestation This document has been at least partially created by [employer] recognition technology by Dr. Umanzor. Errors in grammar, wording or other phrases may exist. If errors are found after the documentation is signed, they will be addressed individually in the addendum section of this document when appropriate.
[2016-11-12] MEDS ORDERED: Vancomycin 1,250 MG in D5% in Water 250 ML IVPB ONE (17:00)
[2016-11-12] MEDS ORDERED: Vancomycin 1,250 MG in D5% in Water 250 ML IVPB SCH (17:00)
--- NOTE | 2016-11-12 20:46 | Electrocardiograph Report ---
[place] [id number] Test Date: 2016-11-11 Pat Name: Yanci Ramacahndran Department: 103 Room: 3A13 Gender: F R D Internship: ERIC : 1950 Requested By: Dedrick Chambers Order Number: [id number] Reading MD: Geovany Stephens MD Measurements Intervals [place] Rate: 114 P: 21 [place]: 151 QRS: -16 QRSD: 81 T: 120 QT: 331 QTc: 398 Interpretive Statements SINUS TACHYCARDIA LEFT VENTRICULAR HYPERTROPHY AND ST-T CHANGE Electronically Signed On 11-12-2016 20:45:15 EDT by Geovany Stephens MD
[2016-11-13] MEDS: 0.9 % Sodium Chloride 1,000 ML IVC SCH ×5 (03:07→22:52)
[2016-11-13] MEDS: *HR* OxyCODONE Immed Rel 15 MG TABLET PO PRN ×3 (04:27→20:54)
[2016-11-13] MEDS: *HR* Heparin 5,000 UNIT/ML VIAL SQ SCH ×2 (05:44→17:34)
[2016-11-13 06:07] LABS: Basophils % 0.7 %; Eosinophils # 0.2 K/mcL (0.0-0.6); Eosinophils % 3.3 %; Hematocrit 24.1 % (35.3-44.9); Immature Granulocytes % 0.2 % (0-4); Lymphocytes # 2.3 K/mcL (0.6-4.6); Lymphocytes % 38.2 %; Mean Corpuscular Hemoglobin 28.9 pg (28.0-33.3); Mean Corpuscular Volume 90.6 fL (83.0-100.0); Mean Platelet Volume 11.4 fL (9.4-12.4); Monocytes # 0.4 K/mcL (0.0-1.3); Monocytes % 6.8 %; Neutrophils # 3.1 K/mcL (1.6-8.9); Platelet Count 209 K/mcL (140-400); Red Blood Count 2.66 M/mcL (3.82-4.97); Red Cell Distribution Width 14.5 % (11.5-14.5); Segmented Neutrophils % 50.8 %
[2016-11-13 06:08] LABS: Hemoglobin 7.7 g/dL (11.5-15.4)
[2016-11-13 06:18] LABS: BUN/Creatinine Ratio 22 (6-26); Blood Urea Nitrogen 18 mg/dL (7-20); Calcium 8.2 mg/dL (8.6-10.8); Carbon Dioxide 19 mEq/L (19-29); Chloride 114 mEq/L (98-109); Glucose 166 mg/dL (70-99); Osmolality,Calculated 300 (280-300); Potassium 3.8 mEq/L (3.5-4.5); Sodium 142 mEq/L (136-145); eGFR For African Americans > 60 (> 60); eGFR For Non-African Americans > 60 (> 60)
[2016-11-13] MEDS: BuPROPion XL (24 HR) 150 MG TABLET PO SCH (07:55)
[2016-11-13] MEDS: Insulin LISPRO 300 UNITS/3 ML VIAL SQ SCH ×7 (08:26→20:55)
[2016-11-13] MEDS: Insulin DETEMIR 100 UNIT/ML X5UNITS SQ SCH ×2 (08:27→20:55)
[2016-11-13] MEDS ORDERED: Famotidine 20 MG TABLET PO SCH ×2 (09:00)
[2016-11-13 12:36] LABS: Hematocrit 23.1 % (35.3-44.9); Hemoglobin 7.5 g/dL (11.5-15.4)
--- NOTE | 2016-11-13 15:48 | Internal Med Progress Note ---
Date of Encounter: 11/13/16 Time of Encounter: 09:50 - Assessment and plan (1) UTI (urinary tract infection) Current Visit: Yes Status: Acute Assessment and plan: Urine culture positive for sensitive staph aureus. Stop vancomycin and ceftriaxone. Change to oral Augmentin. Qualifiers: Urinary tract infection type: acute cystitis Hematuria presence: with hematuria Qualified Code(s): N30.01 - Acute cystitis with hematuria (2) GLO (acute kidney injury) Current Visit: No Status: Resolved Assessment and plan: This has now resolved. (3) Dehydration Current Visit: Yes Status: Acute Assessment and plan: Resolved now with IV hydration. (4) Hyperglycemia Current Visit: Yes Status: Acute (5) Diabetes mellitus, type 2 Current Visit: Yes Status: Chronic Assessment and plan: Blood sugars are elevated today. We will adjust insulin regimen. Continue to monitor blood sugars closely. Qualifiers: Diabetes mellitus complication status: with hyperglycemia Diabetes mellitus fpc insulin use: with rat exterminator use Qualified Code(s): E11.65 - Type 2 diabetes mellitus with hyperglycemia; Z79.4 - exterminator termite (current) use of insulin (6) Symptomatic anemia Current Visit: Yes Status: Acute Assessment and plan: Patient's hemoglobin is 7.7 this morning. Her hemoglobin level at baseline it is around 8 and 9. On initial presentation during this visit, her hemoglobin was 11.8 which is most likely due to hemoconcentration. With IV hydration and her levels have trended towards her baseline. However patient is asymptomatic currently and as such we will transfuse her 1 unit packed red blood cells. Recheck levels in the morning. Reviewing her labs, patient has had severe iron deficiency. Will start total Replacement therapy. - Subjective Interval history: Patient complains of dizziness while standing. Denies any melena or hematochezia. She has had chronic anemia and has received blood transfusions in the past. This was suspected to be related to uterine fibroids and she is in the process of scheduling a hysterectomy. - Constitutional Vitals: Temp Pulse Resp BP Pulse Ox 97.8 F 86 18 133/69 96 11/13/16 11:37 11/13/16 11:37 11/13/16 11:37 11/13/16 11:37 11/13/16 15:27 General appearance: Present: cooperative, mild distress, A&O X 3, pleasant, answers questions appropriately - Respiratory Respiratory exam: Present: CTAB. Absent: accessory muscle use, rales, rhonchi, wheezes - Cardiovascular Cardiovascular exam: Present: RRR, +S1, +S2. Absent: diastolic murmur, gallop, rubs, systolic murmur - GI/Abdominal GI/Abdominal exam: Present: normal bowel sounds, soft, no peritoneal signs. Absent: distended, tenderness - Extremities Exam Extremities exam: Present: warm, radial pulses palpable and symetrical. Absent : calf tenderness, cyanotic, pedal edema - Skin Skin exam: Present: dry, intact, pallor Internal Medicine: Result - Labs CBC & Chem 7: 11/13/16 12:30 11/13/16 05:37 Labs: Short CBC 11/13/16 11/13/16 Range/Units 05:37 12:30 WBC 6.1 (4.3-11.1) K/mcL Hgb 7.7 L D 7.5 L (11.5-15.4) g/dL Hct 24.1 L 23.1 L (35.3-44.9) % Plt Count 209 (140-400) K/mcL Neutrophils # 3.1 (1.6-8.9) K/mcL BMP 11/13/16 05:37 Sodium 142 Potassium 3.8 Chloride 114 H Carbon Dioxide 19 BUN 18 D Creatinine 0.82 Glucose 166 H Calcium 8.2 L Consult Discharge Plan - Plan Referrals: Ronnell Spann MD [Primary Care Provider] - 11/20/16 10:15 am - Attending Attestation This document has been at least partially created by [employer] recognition technology by Dr. Umanzor. Errors in grammar, wording or other phrases may exist. If errors are found after the documentation is signed, they will be addressed individually in the addendum section of this document when appropriate.
[2016-11-13] MEDS ORDERED: 0.9 % Sodium Chloride 250 ML ONE (16:06)
[2016-11-14] MEDS: *HR* Heparin 5,000 UNIT/ML VIAL SQ SCH (05:13)
[2016-11-14] MEDS: *HR* OxyCODONE Immed Rel 15 MG TABLET PO PRN ×2 (05:13→13:37)
[2016-11-14 06:15] LABS: Basophils # 0.1 K/mcL (0.0-0.2); Basophils % 0.8 %; Eosinophils # 0.3 K/mcL (0.0-0.6); Eosinophils % 4.1 %; Hematocrit 26.2 % (35.3-44.9); Hemoglobin 8.8 g/dL (11.5-15.4); Immature Granulocytes % 0.8 % (0-4); Lymphocytes # 1.8 K/mcL (0.6-4.6); Lymphocytes % 28.2 %; Mean Corpuscular HGB Conc 33.6 g/dL (31.6-35.5); Mean Corpuscular Volume 89.4 fL (83.0-100.0); Mean Platelet Volume 11.2 fL (9.4-12.4); Monocytes # 0.6 K/mcL (0.0-1.3); Monocytes % 9.5 %; Neutrophils # 3.6 K/mcL (1.6-8.9); Platelet Count 213 K/mcL (140-400); Red Blood Count 2.93 M/mcL (3.82-4.97); Red Cell Distribution Width 14.5 % (11.5-14.5); Segmented Neutrophils % 56.6 %
[2016-11-14] MEDS: 0.9 % Sodium Chloride 1,000 ML IVC SCH ×21 (07:55→09:07)
[2016-11-14] MEDS: BuPROPion XL (24 HR) 150 MG TABLET PO SCH (08:14)
[2016-11-14] MEDS: Insulin LISPRO 300 UNITS/3 ML VIAL SQ SCH ×4 (08:17→11:56)
[2016-11-14] MEDS: Insulin DETEMIR 100 UNIT/ML X5UNITS SQ SCH (08:37)
[2016-11-14] MEDS ORDERED: Famotidine 20 MG TABLET PO SCH (09:00)
[2016-11-14 11:53] VITALS: BP 121/65
--- NOTE | 2016-11-14 11:59 | Discharge Summary ---
Date of Encounter: 11/14/16 Time of Encounter: 11:30 - Discharge Diagnosis (1) UTI (urinary tract infection) Priority: Primary Status: Acute Qualifiers: Urinary tract infection type: acute cystitis Hematuria presence: with hematuria Qualified Code(s): N30.01 - Acute cystitis with hematuria (2) GLO (acute kidney injury) Priority: Secondary Status: Resolved (3) Dehydration Priority: Secondary Status: Acute (4) Hyperglycemia Priority: Secondary Status: Acute (5) Diabetes mellitus, type 2 Priority: Secondary Status: Chronic Qualifiers: Diabetes mellitus complication status: with hyperglycemia Diabetes mellitus terminologist insulin use: with terminologist use Qualified Code(s): E11.65 - Type 2 diabetes mellitus with hyperglycemia; Z79.4 - terminal gauger (current) use of insulin (6) Symptomatic anemia Priority: Secondary Status: Acute - Discharge Medications Prescriptions: Amoxicillin/Clavulanate [Augmentin] 875 mg PO BIDWM #22 tablet Ferrous Sulfate 325 mg PO BIDWM #60 tablet Home Medications: Ondansetron HCl [Zofran] 4 mg PO TID PRN 05/18/16 [History] Bupropion HCl [Wellbutrin Xl] 300 mg PO QAM 05/19/16 [History] Pantoprazole Sodium [Protonix] 40 mg PO BID 05/19/16 [History] Allopurinol [Zyloprim 100 MG] 100 mg PO DAILY 11/11/16 [History] Duloxetine [Cymbalta] 30 mg PO DAILY 11/11/16 [History] Hydroxychloroquine [Plaquenuil] 200 mg PO DAILY 11/11/16 [History] Insulin Regular U-500 [HumuLIN R U-500] 75 unit SQ BID 11/11/16 [History] Levothyroxine [Synthroid] 75 mcg PO QAM 11/11/16 [History] Lisinopril [Zestril] 10 mg PO DAILY 11/11/16 [History] OxyCODONE Immed Rel [Roxicodone 15 MG] 15 mg PO Q8H PRN 11/11/16 [History] Sucralfate [Carafate] 1 gm PO BID 11/11/16 [History] Amoxicillin/Clavulanate [Augmentin] 875 mg PO BIDWM #22 tablet 11/14/16 [Rx] Ferrous Sulfate 325 mg PO BIDWM #60 tablet 11/14/16 [Rx] Allergies/Adverse Reactions: Allergies benzoin Adverse Reaction (Verified 07/07/16 12:14) Rash morphine Adverse Reaction (Verified 11/11/16 19:41) Altered Mental Status Per ECW list. Date of admission: 11/11/16 20:07 Primary care physician: Ronnell Spann MD Consults: 11/11/16 21:20 Consult to Occupational Therapy [CONS] Routine Comment: Evaluate, develop and implement POC Consult to Physical Therapy [CONS] Routine Comment: Evaluate, develop and implement POC Consult to Shipping And Receiving Assistant [CONS] Routine Reason for SW Consult: serivces upon discharge Discharging clinician: Hubert Umanzor Anticipated date of discharge: 11/14/16 - Patient Status Disposition: Home, Self-Care Condition: Good Functional capacity at discharge: independent ambulation Overall status at discharge: patient is progressing back to baseline - Discharge Instructions Instructions: Urinary Tract Infection in Women (DC), Diabetes Mellitus Type 2 in Adults (DC), Anemia (GEN) Follow Up With: Ronnell Spann MD [Primary Care Provider] - 11/20/16 10:15 am - Diet and Activity Activity: resume usual activities as tolerated Diet: diabetic diet, low fat, low cholesterol, low salt diet Hospital course: Ms. Ramachandran is a 66 year old female patient with history of diabetes, rheumatoid arthritis, fibromyalgia hepatitis C, hypertension and hypothyroidism who was admitted she is with mild acute kidney injury, hyperglycemia and acute urinary tract infection. She was treated for this with IV antibiotic and IV hydration. Her urine culture was positive for staph aureus methicillin sensitive. She has now been placed on Augmentin to complete treatment course which she will continue to take at home. Her blood sugars have also improved overall. Her renal function has returned to baseline. Patient also has chronic anemia and has had previous negative GI workup. She is in the process of getting scheduled for hysterectomy due to suspected ovarian lesion And fibroids. Her hemoglobin decreased to 7.5 while here after IV hydration. Her baseline is usually around 8 and 9. She received 1 unit of packed red blood cell transfusion with improvement in her blood counts. She is now feeling much better and is stable to be discharged home. She will follow up with her primary care provider for further management. She plans to get her hysterectomy scheduled next week. At this time, I am also placing her on iron supplements. - Time Spent with Patient Total time spent providing and/or coordinating discharge services: Less than 30 minutes (25 min) - Constitutional Vitals: Temp Pulse Resp BP Pulse Ox 98.1 F 98 16 122/72 94 L 11/14/16 08:26 11/14/16 08:26 11/14/16 08:26 11/14/16 08:26 11/14/16 08:26 General appearance: Present: cooperative, A&O X 3, pleasant, no acute distress, answers questions appropriately - Respiratory Respiratory exam: Present: CTAB. Absent: accessory muscle use, rales, rhonchi, wheezes - Cardiovascular Cardiovascular exam: Present: RRR, +S1, +S2. Absent: diastolic murmur, gallop, rubs, systolic murmur - GI/Abdominal GI/Abdominal exam: Present: normal bowel sounds, soft, no peritoneal signs. Absent: distended, tenderness - Extremities Exam Extremities exam: Present: warm, radial pulses palpable and symetrical. Absent : calf tenderness, cyanotic, pedal edema - Neurological Exam Neurological exam: Present: CN II-XII intact, oriented X3, no focal deficits. Absent: facial droop, speech deficit - Skin Skin exam: Present: dry, intact - Attending Attestation This document has been at least partially created by [employer] voice recognition technology by Dr. Umanzor. Errors in grammar, wording or other phrases may exist. If errors are found after the documentation is signed, they will be addressed individually in the addendum section of this document when appropriate.
[2016-11-14] MEDS ORDERED: Aminoglycoside Consult 1 EACH MC ONE (14:10)
== END 2016-11-14 14:11 | disposition home or self-care (01) ==
LOC: EMEROO 15:58 → 3ANU 15:58 → SUATTDRO 21:33
PROVIDERS: ADMIT Internal Medicine; ATTEND Internal Medicine

== ENCOUNTER 2017-01-04 08:39 | Inpatient (IN) ==
[2017-01-04] MEDS ORDERED: Tdap (Boostrix) Vaccine 0.5 ML SYRINGE IM ONE (08:57)
[2017-01-04] MEDS ORDERED: 0.9 % Sodium Chloride 1,000 ML IVC ONE ×2 (08:57→09:39)
--- NOTE | 2017-01-04 09:02 | Emergency Department Note ---
Disposition Clinical Impression: Hyperglycemia, Sinus tachycardia Fall Qualifiers: Encounter type: initial encounter Qualified Code(s): W19.XXXA - Unspecified fall, initial encounter Disposition: Admitted As Inpatient Condition: Fair Referrals: Whit Valle CNP [Primary Care Provider] - Forms: ED Satisfaction Letter General Adult HPI - General Chief complaint: ED Fall Stated complaint: Fall/Hyperglycemia Time Seen by Provider: 01/04/17 08:43 Source: patient, EMS Mode of arrival: EMS Limitations: no limitations Nursing Notes Reviewed: Yes Vital Signs Reviewed: Yes - History of Present Illness HPI Narrative: 66-year-old female history of diabetes presents for evaluation for lightheadedness and fall. Patient reports that she felt lightheaded and dizzy this morning. Notes that she fell 3 this morning as well. Not able to accurately describe the fall. Patient denies any LOC. Denies any type of anticoagulation. Denies any specific head injury. States that she does live with family. Patient denies any specific prodrome prior to. No chest pain or short of breath. No fevers. No abdominal pain. Denies any diarrhea or constipation. Does note urinary frequency. Patient states she is postop from bilateral oophorectomy by Dr. Pollock at [facility] for ovarian mass which was benign. Reports that she does have some postoperative pain related to her incisions. Notes that she is "terrible diabetic". Has not taken her diabetes medication today. On arrival patient's blood sugar was noted to be 507. Reports she did take her insulin this morning. Pain Scale: 10 - Related Data Home Medications Medication Instructions Recorded Confirmed Ondansetron HCl [Zofran] 4 mg PO TID PRN 05/18/16 01/04/17 Bupropion HCl [Wellbutrin Xl] 300 mg PO QAM 05/19/16 01/04/17 Pantoprazole Sodium [Protonix] 40 mg PO BID 05/19/16 01/04/17 Allopurinol [Zyloprim 100 MG] 100 mg PO DAILY 11/11/16 01/04/17 Hydroxychloroquine [Plaquenuil] 200 mg PO DAILY 11/11/16 01/04/17 Levothyroxine [Synthroid] 75 mcg PO QAM 11/11/16 01/04/17 Lisinopril [Zestril] 10 mg PO DAILY 11/11/16 01/04/17 OxyCODONE Immed Rel [Roxicodone 15 15 mg PO Q8H PRN 11/11/16 01/04/17 MG] Sucralfate [Carafate] 1 gm PO BID 11/11/16 01/04/17 Insulin Glargine [Lantus] 30 unit SQ HS 01/04/17 01/04/17 Insulin LISPRO [Humalog Kwikpen 0 unit SQ TIDWM 01/04/17 01/04/17 U-100] Previous Rx's Medication Instructions Recorded Ferrous Sulfate 325 mg PO BIDWM #60 tablet 11/14/16 Allergies Allergy/AdvReac Type Severity Reaction Status Date / Time benzoin AdvReac Rash Verified 07/07/16 12:14 morphine AdvReac Altered Verified 11/11/16 19:41 Mental Status All systems ED: reviewed and negative except as stated. Constitutional: Reports: as per HPI. Denies: fever Eyes: Reports: as per HPI ENT ED: Reports: as per HPI Cardiovascular: Reports: as per HPI. Denies: chest pain, palpitations Respiratory: Reports: as per HPI. Denies: cough Gastrointestinal: Reports: as per HPI. Denies: nausea, vomiting Genitourinary: Reports: as per HPI Musculoskeletal: Reports: as per HPI Integumentary: Reports: as per HPI Neurological: Reports: as per HPI, weakness. Denies: headache Psychiatric: Reports: as per HPI Endocrine: Reports: as per HPI Hematological/Lymphatic: Reports: as per HPI Allergic/Immunologic: Reports: as per HPI Past Medical History - Past Medical History Medical history: Reports: arthritis, atrial fibrillation, diabetes, fibromyalgia , RA, other Surgical history: Reports: hysterectomy, knee replacement Psychiatric history: Reports: no psych history AIRDOX FITTER history: Reports: no AIRDOX FITTER history - Social History Smoking Status: Never smoker Smokeless Tobacco Status: No Alcohol use: Reports: none Drug use: Reports: none Physical Exam - General Limitations: no limitations General appearance: alert, in no apparent distress - Head Head exam: atraumatic, normocephalic, normal inspection, other (Superficial occipital scratch) - Eye Eye exam: Present: normal appearance, EOMI - ENT ENT exam: normal exam, mucous membranes dry - Neck Neck exam: Present: normal inspection, trachea midline - Chest Chest inspection: Present: normal inspection, symmetric chest wall rise - Respiratory Respiratory exam: Present: normal lung sounds bilaterally. Absent: respiratory distress - Cardiovascular Cardiovascular exam: Present: normal rhythm, tachycardia - Abdominal Exam Abdominal exam: Present: soft, tenderness (Mild), other (Suprapubic ecchymosis consistent with recent surgery. Small healing incisions consistent with recent laproscopic surgery). Absent: distention, guarding, rebound - Extremities Exam Extremities exam: Present: normal inspection. Absent: pedal edema - Expanded Upper Extremity Exam Shoulder exam: Present: normal inspection Arm exam: Present: normal inspection Elbow exam: Present: normal inspection Forearm/Wrist exam: Present: normal inspection Hand exam: Present: normal inspection - Expanded Lower Extremity Exam Hip/Pelvis exam: Present: normal inspection Upper leg exam: Present: normal inspection Knee exam: Present: normal inspection Lower leg exam: Present: normal inspection Ankle exam: Present: normal inspection - Back Exam Back exam: Present: normal inspection. Absent: CVA tenderness (R), CVA tenderness (L) - Neurological Exam Neurological exam: Present: alert, oriented X3, CN II-XII intact - Skin Skin exam: Present: warm, dry, intact, normal color Course Course Narrative: 66 yo female presents for evaluation of fall as well as hyperglycemia. Patient' s blood glucose was 507. Patient will get labs including CBC electrolytes ketones as well as a urine. Patient will also get an EKG and a head CT due to her fall. Patient's symptoms were treated with IV fluid hydration and likely require admission for further evaluation. - Reevaluation(s) Reevaluation #1: Patient reports that she is in pain primarily in her head has been taking Percocet at home for postoperative pain in her abdomen. Time: 09:35 Reevaluation #2: Patient seen and examined. Patient appears to be persistently tachycardic. Patient also appears to be dehydrated. Patient will get a another liter of fluid. Patient will be admitted to the hospitalist service for further evaluation monitoring. Time: 10:18 Reevaluation #3: Patient notes that her back hurts from the bed. Attempted to reposition the bed for comfort. Awaiting bed upstairs. Time: 11:08 Vital Signs Temperature 97.9 F 01/04/17 08:41 Pulse Rate 124 01/04/17 08:41 Respiratory Rate 16 01/04/17 08:41 Blood Pressure 168/93 01/04/17 08:41 O2 Sat by Pulse Oximetry 94 01/04/17 08:41 Temperature 97.9 F 01/04/17 08:41 Pulse Rate 122 01/04/17 10:00 Respiratory Rate 20 01/04/17 10:00 Blood Pressure 167/83 01/04/17 10:00 O2 Sat by Pulse Oximetry 97 01/04/17 10:00 Oxygen Delivery Oxygen Delivery Room Air Medical Decision Making - MDM Narrative Medical decision making narrative: 66-year-old female history of diabetes insulin-dependent presents for evaluation of fall and hyperglycemia. Patient states that she does not feel safe at home. Patient has fallen 3 times with no LOC. Does have superficial scratch on her occiput. Patient had a head CT which shows no acute outer maladies. Patient's tetanus was updated. Patient lab work shows hyperglycemia without evidence of DKA. Patient urine shows no signs of infection. Patient does have leukocytosis possibly related to her hyperglycemia. Patient will get a chest x-ray to screen for sources of infection. Patient will be admitted to the hospital service for further evaluation and monitoring for her hyperglycemia. Patient requests to go to [facility] as she does not feel safe at home patient has also been noncompliant with some of her home medications including her blood pressure and diabetes. Patient would likely benefit from PT OT evaluation. The patient's sugar was addressed with IV fluid hydration as well as insulin in the emergency department. Patient's pain was addressed with oral pain medicine. Patient's abdomen is soft and properly tender following her postoperative surgery. Do not feel the need for any abdominal imaging at this time. Patient does have a leukocytosis likely related to postoperative surgery or hyperglycemia stress-induced patient is also tachycardic. Do not believe that these 2 are appropriate to diagnose SEPSIS. Patient was not started on any antibiotics as there is no likely source of infection. There is no concerns for intra-abdominal infection. Discussed plan of care with the patient who agrees and all questions were answered. - Medical Records Medical records reviewed: Yes I reviewed the patient's medical records. - Lab Data Lab results reviewed: Yes I reviewed the patient's lab results. Result diagrams: 01/04/17 09:07 01/04/17 09:07 Lab Results 01/04/17 01/04/17 01/04/17 Range/Units 08:45 09:03 09:07 WBC 13.5 H (4.3-11.1) K/mcL RBC 4.11 (3.82-4.97) M/mcL Hgb 9.5 L (11.5-15.4) g/dL Hct 31.7 L (35.3-44.9) % MCV 77.1 L (83.0-100.0) fL MCH 23.1 L (28.0-33.3) pg MCHC 30.0 L (31.6-35.5) g/dL RDW 17.6 H (11.5-14.5) % Plt Count 376 (140-400) K/mcL MPV 10.3 (9.4-12.4) fL Immature Gran % 0.7 (0-4) % Seg Neutrophils % 79.2 % Lymphocytes % 12.0 % Monocytes % 7.0 % Eosinophils % 0.4 % Basophils % 0.7 % Neutrophils # 10.7 H (1.6-8.9) K/mcL Lymphocytes # 1.6 (0.6-4.6) K/mcL Monocytes # 1.0 (0.0-1.3) K/mcL Eosinophils # 0.1 (0.0-0.6) K/mcL Basophils # 0.1 (0.0-0.2) K/mcL VBG pH (7.32-7.42) pH Units VBG pCO2 (41-51) mmHg VBG pO2 (25-40) mmHg VBG HCO3 (21-27) mEq/L Sodium (136-145) mEq/L Potassium (3.5-4.5) mEq/L Chloride (98-109) mEq/L Carbon Dioxide (19-29) mEq/L BUN (7-20) mg/dL Creatinine (0.57-1.11) mg/dL Est GFR ( Amer) (> 60) Est GFR (Non-Af Amer) (> 60) BUN/Creatinine Ratio (6-26) Glucose (70-99) mg/dL POC Glucose 507 H* (58-89) Calculated Osmolality (280-300) Calcium (8.6-10.8) mg/dL Total Bilirubin (0.2-1.2) mg/dL AST (5-34) Units/L ALT (0-55) Units/L Alkaline Phosphatase (38-126) Units/L Troponin I (0-0.03) ng/mL Serum Total Protein (6.0-8.3) g/dL Albumin (3.5-5.0) g/dL Globulin (2.4-3.5) g/dL Albumin/Globulin Ratio (1.1-2.2) Beta-Hydroxybutyric Acd (0.02-0.27) mmol/L Urine Color Yellow (Yellow) Urine Clarity Clear (Clear) Urine pH 7.0 (5.0-8.0) pH Units Ur Specific [place] 1.024 (1.010-1.025) Urine Protein 100 H (Neg-Trace) mg/dL Urine Glucose (UA) >=1000 H (Normal) mg/dL Urine Ketones Negative (Negative) mg/dL Urine Blood Small H (Negative) Urine Nitrite Negative (Negative) Urine Bilirubin Negative (Negative) Urine Urobilinogen Normal (Normal) mg/dL Ur Leukocyte Esterase Negative (Negative) Urine Microscopic RBC 3-5 H (0-3) per hpf Urine Microscopic WBC 0-3 (0-3) per hpf Ur Squamous Epith Cells Many H (None-Few) per lpf Urine Bacteria None Seen (None-Few) per hpf Hyaline Casts None Seen (None-Few) per lpf 01/04/17 01/04/17 01/04/17 Range/Units 09:07 09:07 09:07 WBC (4.3-11.1) K/mcL RBC (3.82-4.97) M/mcL Hgb (11.5-15.4) g/dL Hct (35.3-44.9) % MCV (83.0-100.0) fL MCH (28.0-33.3) pg MCHC (31.6-35.5) g/dL RDW (11.5-14.5) % Plt Count (140-400) K/mcL MPV (9.4-12.4) fL Immature Gran % (0-4) % Seg Neutrophils % % Lymphocytes % % Monocytes % % Eosinophils % % Basophils % % Neutrophils # (1.6-8.9) K/mcL Lymphocytes # (0.6-4.6) K/mcL Monocytes # (0.0-1.3) K/mcL Eosinophils # (0.0-0.6) K/mcL Basophils # (0.0-0.2) K/mcL VBG pH (7.32-7.42) pH Units VBG pCO2 (41-51) mmHg VBG pO2 (25-40) mmHg VBG HCO3 (21-27) mEq/L Sodium 132 L (136-145) mEq/L Potassium 4.3 (3.5-4.5) mEq/L Chloride 98 (98-109) mEq/L Carbon Dioxide 23 (19-29) mEq/L BUN 20 (7-20) mg/dL Creatinine 1.14 H (0.57-1.11) mg/dL Est GFR ( Amer) 58 L (> 60) Est GFR (Non-Af Amer) 48 L (> 60) BUN/Creatinine Ratio 18 (6-26) Glucose 518 H* (70-99) mg/dL POC Glucose (58-89) Calculated Osmolality 300 (280-300) Calcium 9.4 (8.6-10.8) mg/dL Total Bilirubin 0.6 (0.2-1.2) mg/dL AST 59 H (5-34) Units/L ALT 46 (0-55) Units/L Alkaline Phosphatase 159 H (38-126) Units/L Troponin I 0.02 (0-0.03) ng/mL Serum Total Protein 8.8 H (6.0-8.3) g/dL Albumin 3.1 L (3.5-5.0) g/dL Globulin 5.7 H (2.4-3.5) g/dL Albumin/Globulin Ratio 0.5 L (1.1-2.2) Beta-Hydroxybutyric Acd 0.25 (0.02-0.27) mmol/L Urine Color (Yellow) Urine Clarity (Clear) Urine pH (5.0-8.0) pH Units Ur Specific [place] (1.010-1.025) Urine Protein (Neg-Trace) mg/dL Urine Glucose (UA) (Normal) mg/dL Urine Ketones (Negative) mg/dL Urine Blood (Negative) Urine Nitrite (Negative) Urine Bilirubin (Negative) Urine Urobilinogen (Normal) mg/dL Ur Leukocyte Esterase (Negative) Urine Microscopic RBC (0-3) per hpf Urine Microscopic WBC (0-3) per hpf Ur Squamous Epith Cells (None-Few) per lpf Urine Bacteria (None-Few) per hpf Hyaline Casts (None-Few) per lpf 01/04/17 Range/Units 09:07 WBC (4.3-11.1) K/mcL RBC (3.82-4.97) M/mcL Hgb (11.5-15.4) g/dL Hct (35.3-44.9) % MCV (83.0-100.0) fL MCH (28.0-33.3) pg MCHC (31.6-35.5) g/dL RDW (11.5-14.5) % Plt Count (140-400) K/mcL MPV (9.4-12.4) fL Immature Gran % (0-4) % Seg Neutrophils % % Lymphocytes % % Monocytes % % Eosinophils % % Basophils % % Neutrophils # (1.6-8.9) K/mcL Lymphocytes # (0.6-4.6) K/mcL Monocytes # (0.0-1.3) K/mcL Eosinophils # (0.0-0.6) K/mcL Basophils # (0.0-0.2) K/mcL VBG pH 7.41 (7.32-7.42) pH Units VBG pCO2 43 (41-51) mmHg VBG pO2 46 H (25-40) mmHg VBG HCO3 27.3 H (21-27) mEq/L Sodium (136-145) mEq/L Potassium (3.5-4.5) mEq/L Chloride (98-109) mEq/L Carbon Dioxide (19-29) mEq/L BUN (7-20) mg/dL Creatinine (0.57-1.11) mg/dL Est GFR ( Amer) (> 60) Est GFR (Non-Af Amer) (> 60) BUN/Creatinine Ratio (6-26) Glucose (70-99) mg/dL POC Glucose (58-89) Calculated Osmolality (280-300) Calcium (8.6-10.8) mg/dL Total Bilirubin (0.2-1.2) mg/dL AST (5-34) Units/L ALT (0-55) Units/L Alkaline Phosphatase (38-126) Units/L Troponin I (0-0.03) ng/mL Serum Total Protein (6.0-8.3) g/dL Albumin (3.5-5.0) g/dL Globulin (2.4-3.5) g/dL Albumin/Globulin Ratio (1.1-2.2) Beta-Hydroxybutyric Acd (0.02-0.27) mmol/L Urine Color (Yellow) Urine Clarity (Clear) Urine pH (5.0-8.0) pH Units Ur Specific [place] (1.010-1.025) Urine Protein (Neg-Trace) mg/dL Urine Glucose (UA) (Normal) mg/dL Urine Ketones (Negative) mg/dL Urine Blood (Negative) Urine Nitrite (Negative) Urine Bilirubin (Negative) Urine Urobilinogen (Normal) mg/dL Ur Leukocyte Esterase (Negative) Urine Microscopic RBC (0-3) per hpf Urine Microscopic WBC (0-3) per hpf Ur Squamous Epith Cells (None-Few) per lpf Urine Bacteria (None-Few) per hpf Hyaline Casts (None-Few) per lpf - Radiology Data Radiology results reviewed: Yes I reviewed the patient's radiology results. Head CT 01/04/17 08:57 IMPRESSION: No acute intracranial abnormality. D/ / Reji Shah MD / Reji Shah MD Interpreting Provider: Reji Shah MD Chest X-Ray 01/04/17 09:45 IMPRESSION: Stable large hiatal hernia. No focal airspace consolidation or pulmonary vascular congestion. D/ / Carlyle Taveras / Carlyle Taveras Interpreting Provider: Carlyle Taveras - EKG Data EKG #1 EKG attestation: Yes I reviewed and interpreted this EKG. EKG shows normal: sinus rhythm Rate: tachycardia Rhythm: NSR [place]/QRS: left axis deviation Voltage: c/w LVH QTc: other (386) Interpretation: no acute changes, unchanged when compared to prior tracing (date ) (11/11/16), nonspecific ST-T wave changes, LVH S.B.A.R. - S.B.A.R. Situation: Demographics Background: Presenting Complaint Assessment: Vital Signs, Course and respsone to treatment, Patient/Family Expectation, Pertinant Lab Results Recommendation: Barrier(s) to disposition, Recommendation based on pending studies, treatments, or consults [place] Report Given to: Dr. Nini Denney Repor Time: 10:16 Attestation Statement - Attestation Attestation: I examined this patient and my medical decision-making was reviewed with the PALLETIZER/PA/Advanced Practice Nurse/Resident Physician. I agree with the documented findings, disposition and treatment plan as described except to the extent set forth below. Patient to the emergency department with a chief complaint of feeling well. Frequent falls. Hit her head. Weakness. Belly pain. Patient had a recent nephrectomy. She has been weak and falling. Hit her head last night. Patient states she has a is chronically ill and cannot take care of her. Requesting placement to [facility]. On examination she has abrasion to her parietal scalp. Pupils equally reactive. Alert and oriented. Abdomen soft. Incisions healing with no signs of infection. Plan. Patient weak and falling. Unsafe for discharge. Hyperglycemic in the 500s. Patient is unable to care for herself. Patient will be admitted.
[2017-01-04 09:15] LABS: Bilirubin,Urine Negative (Negative); Blood,Urine Small (Negative); Clarity,Urine Clear (Clear); Color,Urine Yellow (Yellow); Glucose,Urine (UA) >=1000 mg/dL (Normal); Ketones,Urine Negative (Negative); Leukocyte Esterase,Urine Negative (Negative); Nitrite,Urine Negative (Negative); Protein,Urine 100 mg/dL (Neg-Trace); Specific Gravity,Urine 1.024 (1.010-1.025); Urobilinogen,Urine Normal (Normal)
[2017-01-04 09:16] LABS: Basophils # 0.1 K/mcL (0.0-0.2); Basophils % 0.7 %; Eosinophils # 0.1 K/mcL (0.0-0.6); Eosinophils % 0.4 %; Hematocrit 31.7 % (35.3-44.9); Hemoglobin 9.5 g/dL (11.5-15.4); Immature Granulocytes % 0.7 % (0-4); Lymphocytes # 1.6 K/mcL (0.6-4.6); Mean Corpuscular Hemoglobin 23.1 pg (28.0-33.3); Mean Corpuscular Volume 77.1 fL (83.0-100.0); Mean Platelet Volume 10.3 fL (9.4-12.4); Neutrophils # 10.7 K/mcL (1.6-8.9); Platelet Count 376 K/mcL (140-400); Red Blood Count 4.11 M/mcL (3.82-4.97); Red Cell Distribution Width 17.6 % (11.5-14.5); Segmented Neutrophils % 79.2 %
[2017-01-04 09:18] LABS: Bacteria,Urine None Seen per hpf (None-Few); Hyaline Casts,Urine None Seen per lpf (None-Few); Squamous Epithelial Cell,Urine Many per lpf (None-Few); WBC,Urine 0-3 per hpf (0-3)
[2017-01-04 09:24] LABS: VBG HCO3 27.3 mEq/L (21-27); VBG PH 7.41 pH Units (7.32-7.42)
[2017-01-04 09:30] LABS: Albumin 3.1 g/dL (3.5-5.0); Albumin/Globulin Ratio 0.5 (1.1-2.2); Bilirubin,Total 0.6 mg/dL (0.2-1.2); Calcium 9.4 mg/dL (8.6-10.8); Globulin 5.7 g/dL (2.4-3.5); Potassium 4.3 mEq/L (3.5-4.5); Total Protein 8.8 g/dL (6.0-8.3)
[2017-01-04] MEDS ORDERED: *HR* OxyCODONE/APAP 5/325 TABLET PO ONE (09:31)
[2017-01-04] MEDS ORDERED: Insulin Human Regular 10 UNIT in 0.9 % Sodium Chloride 10 ML IV ONE (09:39)
[2017-01-04] MEDS ORDERED: Naloxone 0.4 MG/ML INJ IVP PRN (13:12)
[2017-01-04] MEDS ORDERED: *HR* OxyCODONE Immed Rel 15 MG TABLET PO PRN (13:15)
[2017-01-04] MEDS ORDERED: *HR* Dextrose 50 % in Water (Syg) 50 ML SYRINGE IVP PRN (13:20)
[2017-01-04] MEDS ORDERED: Dextrose Gel 15 GM PO PRN ×2 (13:20)
[2017-01-04] MEDS ORDERED: D5% in Water 1,000 ML IVC PRN (13:20)
--- NOTE | 2017-01-04 13:40 | Internal Med History&Physical ---
<Lucille Scruggs - Last Filed: 01/04/17 14:08> Date of Encounter: 01/04/17 Time of Encounter: 13:36 Assessment and Plan (1) Hyperglycemia Current visit: Yes Status: Acute 1atient is a type II diabetic she has been unable to care for herself due to physical deconditioning. At times not eating or taking her insulin. On presentation today her blood sugar was 578. She appears dry. PH is 7.41 and iron gap was 11. We will continue with IV fluids 2 Accu-Cheks before meals at bedtime with sliding scale insulin as well as basal -goal is to maintain postprandial less than 180 3 diabetic diet (2) Physical deconditioning Current visit: Yes Status: Acute 1 patient states that she has been experiencing physical weakness as well as falls for several months. She recently underwent surgery and feels now unable to care for herself. She does not have any home health at home and relies on her who also is debilitated. We will consult PT and OT 2 will consult healthcare social worker for possible ECF placement 3 fall precautions (3) Fall Current visit: Yes Status: Acute 1 patient states that she falls frequently due to weakness and instability. Patient fell today striking her head no loss of consciousness she has superficial laceration to the back of her head. We will place patient on fall precautions 2 PT OT for evaluation Qualifiers: Encounter type: initial encounter Qualified Code(s): W19.XXXA - Unspecified fall, initial encounter (4) CKD (chronic kidney disease), stage III Current visit: No Status: Chronic 1atient has history of CK D stage creatinines 1.14 which is slightly elevated from baseline. We will give IV fluids 2 monitor creatinine as well as electrolytes 3 avoid nephrotoxins 4 monitor intake and output daily weight (5) Hypertension Current visit: No Status: Chronic 1 Will hold lisinopril for now due to elevated creatinine Will resume once back to baseline 2 low sodium diet Qualifiers: Hypertension type: essential hypertension Qualified Code(s): I10 - Essential (primary) hypertension (6) Depression Current visit: Yes Status: Acute 1Patient has a hx of depression, and has been experiencing life stresses as well as feeling overwhelmed, no interest in eating, fatigue . She is on wellbutrin and was to be added on a new antidepressant, however has not received in mail. We will conitnue wellbutrin and add celexa. She may benefit from outpt psych Qualifiers: Depression Type: unspecified Qualified Code(s): F32.9 - Major depressive disorder, single episode, unspecified (7) DVT prophylaxis Current visit: No Status: Acute Lovenox subcutaneous Internal Medicine - H&P: HPI Chief complaint: fall Admitted From: Emergency Dept Plans for Post Hospital Care: Home History of present illness: Ms. Ramachandran is a 66 year old female past medical history of diabetes type 2 hypertension CK 63 hepatitis C hypothyroidism anemia. According to the patient she has had a history of frequent falls and a decline in her ability to perform her ADLs. Approximately 1 week ago she underwent an oophorectomy at [place] for benign tumor. She states that she has been doing well postoperatively and has been taking it easy however this a.m. she got up to use the bathroom she felt unsteady and fell and hit her head. She did not lose consciousness however she did have a superficial wound to the back of her head. According to the patient she frequently feels lightheaded and weak when ambulating and frequency has her help her however he also is debilitated. Questionable performing ADLs she normally prepares meals however if she feels tired or weak she just does not cook and they do not eat. She denies any fevers chills nausea vomiting diarrhea cough or chest pain. She admits to surgical site pain which she states is controlled with pain medication. Patient was brought to the ER for further evaluation according to ER records CT of head was negative for any intracranial abnormalities but did reveal glucose of 518 creatinine 1.14 . Venous blood gas pH 7.4 anion gap was 11 urinalysis with no UTI chest x-ray was stable slight leukocytosis WBC 13.5 patient has been admitted for evaluation. Presently patient does not appear to be in respiratory distress she denies any chest pain or abdominal pain. Lung sounds are clear heart sounds S1 and S2 with no rubs clicks gallops or murmurs noted. No peripheral edema. Abdomen soft nontender incision site right lower quad without any redness swelling or drainage. During assessment patient requested several times to be placed in ECF for further strengthening. Requesting definitive treatment dictation. She voiced concerned about her safety as well as her that they both are unable take care of themselves. Patient does use a walker to ambulate she does not have any home health services at this time. We did speak about CODE STATUS patient became very tearful stating she would like to think about it. Presently patient is hemodynamically stable blood sugars down to 360 at this time. I reviewed this case with agrees with plan. Past Med Surg Social Fam HX - Past Medical History Medical history: arthritis, atrial fibrillation, diabetes, fibromyalgia, RA, other Psychiatric history: anxiety, depression - Past Surgical History Surgical History: hysterectomy, knee replacement - Social History Smoking Status: Never smoker Smokeless Tobacco Status: No Alcohol use: none Drug use: none - Family History Brother Hx Family Cardiac Disorders: Yes (cardiac bypass) Hx Family Cancer: Yes (colorectal) Mother Adopted: No Family Member Ethnicity: Non- Living Status: Still Living Hx Family Cardiac Disorders: No Hx Family Respiratory Disorders: No Hx Family Cancer: Yes (ovarian) Hx Family GI Disorders: No Hx Family Endocrine Disorder: No Hx Family Neuromuscular Disorders: No Hx Family Neurologic Disorders: No Hx Family HEENT Disorders: No Hx Family Autoimmune Disorders: No Internal Medicine - H&P: Meds Ondansetron HCl [Zofran] 4 mg PO TID PRN 05/18/16 [History] Bupropion HCl [Wellbutrin Xl] 300 mg PO QAM 05/19/16 [History] Pantoprazole Sodium [Protonix] 40 mg PO BID 05/19/16 [History] Allopurinol [Zyloprim 100 MG] 100 mg PO DAILY 11/11/16 [History] Hydroxychloroquine [Plaquenuil] 200 mg PO DAILY 11/11/16 [History] Levothyroxine [Synthroid] 75 mcg PO QAM 11/11/16 [History] Lisinopril [Zestril] 10 mg PO DAILY 11/11/16 [History] OxyCODONE Immed Rel [Roxicodone 15 MG] 15 mg PO Q8H PRN 11/11/16 [History] Sucralfate [Carafate] 1 gm PO BID 11/11/16 [History] Ferrous Sulfate 325 mg PO BIDWM #60 tablet 11/14/16 [Rx] Insulin Glargine [Lantus] 30 unit SQ HS 01/04/17 [History] Insulin LISPRO [Humalog Kwikpen U-100] 0 unit SQ TIDWM 01/04/17 [History] Allergies benzoin Adverse Reaction (Verified 07/07/16 12:14) Rash morphine Adverse Reaction (Verified 11/11/16 19:41) Altered Mental Status Per ECW list. All Systems PM: A 10-system review of systems was performed and is negative for pertinent findings except as documented above in the HPI. - Constitutional Constitutional: fatigue, falls, weakness, no chills, no fever(s), no night sweats - EENT Nose, mouth and throat: no dysphagia, no nasal discharge, no neck pain, no sore throat - Cardiovascular Cardiovascular ROS IM: no chest pain, no diaphoresis, no dyspnea, no lightheadedness, no palpitations, no syncope - Respiratory Respiratory: no cough, no dyspnea, no wheezing, no excessive phlegm production - Gastrointestinal Gastrointestinal: no abdominal pain, no diarrhea, no hematemesis, no hematochezia, no melena, no nausea, no vomiting - Genitourinary Genitourinary: no change in urinary stream, no dysuria, no flank pain, no hematuria - Musculoskeletal Musculoskeletal ROS IM: no numbness, no tingling - Integumentary Integumentary IM: no rash, no unusual bruising - Neurological Neurological ROS: no confusion, no convulsions, no focal weakness, no numbness, no tingling, no tremor(s) - Hematologic/Lymphatic Hematologic/Lymphatic: no easy bruising - Constitutional Vitals: Temp Pulse Resp BP Pulse Ox 96.4 F L 60 16 157/84 95 01/04/17 12:49 01/04/17 12:49 01/04/17 12:49 01/04/17 12:49 01/04/17 12:49 General appearance: Present: A&O X 3, answers questions appropriately - Head Head exam: Present: atraumatic, normocephalic - Eye Eye exam: Present: PERRL, conjuntiva pink, sclera anicteric Pupils: Present: PERRL - Neck Neck exam general surgery: Present: supple, trachea midline. Absent: lymphadenopathy - Respiratory Respiratory exam: Present: CTAB. Absent: accessory muscle use, rales, rhonchi, wheezes - Cardiovascular Cardiovascular exam: Present: RRR, +S1, +S2. Absent: diastolic murmur, gallop, rubs, systolic murmur - GI/Abdominal GI/Abdominal exam: Present: normal bowel sounds, soft, no peritoneal signs. Absent: distended, tenderness Additional comments: ncision to right lower quadrant well approximated with no redness swelling or drainage noted - Extremities Exam Extremities exam: Present: warm, radial pulses palpable and symetrical. Absent : calf tenderness, cyanotic, pedal edema - Neurological Exam Neurological exam: Present: CN II-XII intact, oriented X3, no focal deficits. Absent: pronater drift, facial droop, speech deficit - Skin Skin exam: Present: dry, intact Internal Med - H&P Results - Labs CBC & Chem 7: 01/04/17 09:07 01/04/17 09:07 - EKG Data EKG shows normal: sinus rhythm - EKG Data Prior EKG available for review: yes When compared to previous EKG: there is no significant change - Diagnostic Studies Other Images Additional comments: Head CT 01/04/17 08:57 IMPRESSION: No acute intracranial abnormality. D/ / Reji Shah MD / Reji Shah MD Interpreting Provider: Reji Shah MD Chest X-Ray 01/04/17 09:45 IMPRESSION: Stable large hiatal hernia. No focal airspace consolidation or pulmonary vascular congestion. D/ / Carlyle Taveras / Carlyle Taveras Interpreting Provider: Carlyle Taveras <Derek Terrazas - Last Filed: 01/04/17 15:50> Date of Encounter: 01/04/17 Internal Medicine - H&P: HPI History of present illness: Ms. Ramachandran is a 66 year old female All Systems PM: A 10-system review of systems was performed and is negative for pertinent findings except as documented above in the HPI. - Constitutional Vitals: Temp Pulse Resp BP Pulse Ox 96.4 F L 60 16 157/84 95 01/04/17 12:49 01/04/17 12:49 01/04/17 12:49 01/04/17 12:49 01/04/17 12:49 Internal Med - H&P Results - Labs CBC & Chem 7: 01/04/17 09:07 01/04/17 09:07 - Attending Attestation I examined this patient and my medical decision-making was reviewed with Ms. Scruggs. I agree with the documented findings, disposition and treatment plan as described except to the extent set forth below. Briefly, 66 yo CF wtih DM-2, HTN, Chronic Hep C presented due to recurrent falls and decline in her functional status. She recently underwent an oopherectomy at [place]. She recently fell but did not loose consciousness. On exam, clear lung sound. Heart sounds present with tachycardia. Labs reviewed. CXR personally reviewed - Stable large hiatal hernia Place under observation for uncontrolled DM-2 and falls. PT/OT IV fluids Adjust insulin regiment for optimal glucose control. CKD-3 HTN Depression - inadequately controlled on welbutrin. Add 2nd antidepressant and titrate gradually for optimal control. HARLAN Azevedo
[2017-01-04] MEDS: 0.9 % Sodium Chloride 1,000 ML IVC SCH (14:17)
[2017-01-04] MEDS: Insulin LISPRO 300 UNITS/3 ML VIAL SQ SCH ×2 (16:43→21:32)
[2017-01-04] MEDS: Sucralfate 1 GM TABLET PO SCH (20:07)
[2017-01-04] MEDS: *HR* OxyCODONE Immed Rel 15 MG TABLET PO PRN (20:08)
[2017-01-04] MEDS: Insulin DETEMIR 100 UNIT/ML X5UNITS SQ SCH (21:32)
[2017-01-04] MEDS ORDERED: *HR* HYDROmorphone (PF) 1 MG/ML SYRINGE IVP ONE (22:24)
[2017-01-05] MEDS: 0.9 % Sodium Chloride 1,000 ML IVC SCH ×2 (04:42→17:12)
[2017-01-05 06:04] LABS: Basophils # 0.1 K/mcL (0.0-0.2); Basophils % 0.5 %; Eosinophils # 0.3 K/mcL (0.0-0.6); Eosinophils % 2.2 %; Hematocrit 27.3 % (35.3-44.9); Hemoglobin 8.1 g/dL (11.5-15.4); Immature Granulocytes % 0.5 % (0-4); Lymphocytes # 2.5 K/mcL (0.6-4.6); Lymphocytes % 21.3 %; Mean Corpuscular HGB Conc 29.7 g/dL (31.6-35.5); Mean Corpuscular Hemoglobin 23.1 pg (28.0-33.3); Mean Platelet Volume 11.2 fL (9.4-12.4); Monocytes # 0.9 K/mcL (0.0-1.3); Platelet Count 320 K/mcL (140-400); Red Cell Distribution Width 17.7 % (11.5-14.5); Segmented Neutrophils % 67.5 %
[2017-01-05 06:30] LABS: BUN/Creatinine Ratio 18 (6-26); Blood Urea Nitrogen 14 mg/dL (7-20); Calcium 8.7 mg/dL (8.6-10.8); Carbon Dioxide 23 mEq/L (19-29); Chloride 108 mEq/L (98-109); Glucose 165 mg/dL (70-99); Osmolality,Calculated 292 (280-300); Potassium 3.5 mEq/L (3.5-4.5); eGFR For African Americans > 60 (> 60); eGFR For Non-African Americans > 60 (> 60)
[2017-01-05 06:33] LABS: Sodium 139 mEq/L (136-145)
[2017-01-05 06:39] LABS: Thyroid Stimulating Hormone 1.728 mcIU/mL (0.350-4.840)
[2017-01-05] MEDS: *HR* OxyCODONE Immed Rel 15 MG TABLET PO PRN ×3 (06:44→21:32)
[2017-01-05] MEDS: *HR* Enoxaparin 40 MG/0.4 ML SYRINGE SQ SCH (06:44)
[2017-01-05] MEDS: BuPROPion XL (24 HR) 150 MG TABLET PO SCH (08:39)
[2017-01-05] MEDS: Insulin LISPRO 300 UNITS/3 ML VIAL SQ SCH ×4 (08:40→21:35)
[2017-01-05] MEDS: Sucralfate 1 GM TABLET PO SCH ×2 (08:40→16:34)
[2017-01-05] MEDS ORDERED: *HR* Morphine 2 MG/ML SYRINGE IVP STA (16:06)
[2017-01-05] MEDS ORDERED: *HR* HYDROmorphone (PF) 1 MG/ML SYRINGE IVP STA (16:26)
--- NOTE | 2017-01-05 17:02 | Electrocardiograph Report ---
[place] [id number] Test Date: 2017-01-04 Pat Name: Yanci Ramachandran Department: 105 Room: 2A Gender: F Hotel [employer] Concierge: MSC : 1950 Requested By: Wilmer Barr Order Number: [id number] Reading MD: Kalia Jain Measurements Intervals [place] Rate: 120 P: 29 MT: 156 QRS: -11 QRSD: 77 T: 92 QT: 315 QTc: 386 Interpretive Statements SINUS TACHYCARDIA LEFT VENTRICULAR HYPERTROPHY AND ST-T CHANGE Electronically Signed On 01-05-2017 17:01:00 EDT by Kalia Jain
--- NOTE | 2017-01-05 17:07 | Internal Med Progress Note ---
Date of Encounter: 01/05/17 Time of Encounter: 11:30 - Assessment and plan (1) Hyperglycemia Current Visit: No Status: Acute Assessment and plan: Glucose initially over 500. It has improved after insulin therapy. We will continue monitoring fingerstick and insulin therapy for now. (2) Physical deconditioning Current Visit: Yes Status: Acute Assessment and plan: Evaluated by physical therapy, recommendation is rehabilitation at [facility] facility. (3) CKD (chronic kidney disease), stage III Current Visit: No Status: Chronic (4) Diabetes Current Visit: No Status: Chronic Qualifiers: Diabetes mellitus type: type 2 Diabetes mellitus complication status: with kidney complications Diabetes mellitus complication detail: with chronic kidney disease Diabetes mellitus longterm insulin use: with ferry terminal agent use Chronic kidney disease stage: stage 3 (moderate) Qualified Code(s): E11.22 - Type 2 diabetes mellitus with diabetic chronic kidney disease; N18.3 - Chronic kidney disease, stage 3 (moderate); Z79.4 - [facility] (current) use of insulin (5) DVT prophylaxis Current Visit: No Status: Acute Assessment and plan: lovenox - Subjective Interval history: The patient was seen and examined in rounds. She was complaining of back pain. She states that has had multiple falls at home. She lives with her . Denies fever. - Constitutional Vitals: Temp Pulse Resp BP Pulse Ox 98.8 F 110 18 174/77 93 01/05/17 15:49 01/05/17 15:49 01/05/17 15:49 01/05/17 15:49 01/05/17 15:49 General appearance: Present: cooperative, A&O X 3, obese, answers questions appropriately - Head Head exam: Present: atraumatic, normocephalic - Eye Eye exam: Present: PERRL, conjuntiva pink, sclera anicteric Pupils: Present: PERRL - Neck Neck exam general surgery: Present: supple, trachea midline. Absent: lymphadenopathy - Respiratory Respiratory exam: Present: CTAB. Absent: accessory muscle use, rales, rhonchi, wheezes - Cardiovascular Cardiovascular exam: Present: RRR, +S1, +S2. Absent: diastolic murmur, gallop, rubs, systolic murmur - GI/Abdominal GI/Abdominal exam: Present: normal bowel sounds, soft, no peritoneal signs. Absent: distended, tenderness - Extremities Exam Extremities exam: Present: warm, radial pulses palpable and symetrical. Absent : calf tenderness, cyanotic, pedal edema - Neurological Exam Neurological exam: Present: CN II-XII intact, oriented X3, no focal deficits. Absent: pronater drift, facial droop, speech deficit - Skin Skin exam: Present: dry, intact Internal Medicine: Result - Labs CBC & Chem 7: 01/05/17 05:05 01/05/17 05:05 Labs: Short CBC 01/05/17 Range/Units 05:05 WBC 11.8 H (4.3-11.1) K/mcL Hgb 8.1 L (11.5-15.4) g/dL Hct 27.3 L (35.3-44.9) % Plt Count 320 (140-400) K/mcL Neutrophils # 8.0 (1.6-8.9) K/mcL BMP 01/05/17 05:05 Sodium 139 D Potassium 3.5 Chloride 108 Carbon Dioxide 23 BUN 14 Creatinine 0.79 Glucose 165 H Calcium 8.7 Consult Discharge Plan - Plan Referrals: Whit Valle CNP [Primary Care Provider] - 01/14/17 10:40 am (Web Requested 01/04/17)
[2017-01-05] MEDS: Insulin DETEMIR 100 UNIT/ML X5UNITS SQ SCH (21:36)
[2017-01-05] MEDS ORDERED: *HR* HYDROmorphone (PF) 1 MG/ML SYRINGE IVP ONE (22:03)
--- NOTE | 2017-01-05 23:10 | Event Note ---
Date of Encounter: 01/05/17 Time of Encounter: 22:30 On-call Hospitalist note: RN paged me to evaluate the pt with Left eye lid droop and suspected facial droop. I have seen the pt. Pt reports that nurses before this shift told her that she has lid droop. She does not feel it and has no visual disturbances. She denies any droolind or speech problems. Denies new weakness of the extremities. O/E: Left upper eyelid droop present. Pupils equal size and reactive to light. No gross facial weakness or other cranial nerve weakness. No gross extremity weakness. Pt has some difficulty with movements due her RA. I do not think the pt has acute CVA or neurological insult. 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 I will sign out to the day team for further w/u or get info from PCP.
[2017-01-06] MEDS ORDERED: *HR* HYDROmorphone (PF) 1 MG/ML SYRINGE IVP ONE ×2 (03:35→08:22)
[2017-01-06 04:32] LABS: Basophils # 0.1 K/mcL (0.0-0.2); Basophils % 0.6 %; Eosinophils # 0.2 K/mcL (0.0-0.6); Eosinophils % 2.1 %; Hematocrit 25.7 % (35.3-44.9); Hemoglobin 7.8 g/dL (11.5-15.4); Lymphocytes # 2.8 K/mcL (0.6-4.6); Mean Corpuscular HGB Conc 30.4 g/dL (31.6-35.5); Mean Corpuscular Hemoglobin 23.8 pg (28.0-33.3); Mean Corpuscular Volume 78.4 fL (83.0-100.0); Mean Platelet Volume 10.6 fL (9.4-12.4); Monocytes # 1.1 K/mcL (0.0-1.3); Monocytes % 9.5 %; Neutrophils # 7.2 K/mcL (1.6-8.9); Platelet Count 294 K/mcL (140-400); Red Blood Count 3.28 M/mcL (3.82-4.97); Segmented Neutrophils % 62.8 %
[2017-01-06 04:49] LABS: BUN/Creatinine Ratio 15 (6-26); Blood Urea Nitrogen 12 mg/dL (7-20); Calcium 8.2 mg/dL (8.6-10.8); Carbon Dioxide 23 mEq/L (19-29); Chloride 107 mEq/L (98-109); Glucose 202 mg/dL (70-99); Osmolality,Calculated 290 (280-300); Potassium 3.5 mEq/L (3.5-4.5); Sodium 137 mEq/L (136-145); eGFR For African Americans > 60 (> 60); eGFR For Non-African Americans > 60 (> 60)
[2017-01-06] MEDS: Sucralfate 1 GM TABLET PO SCH ×2 (05:54→16:59)
[2017-01-06] MEDS: *HR* Enoxaparin 40 MG/0.4 ML SYRINGE SQ SCH (05:54)
[2017-01-06] MEDS: 0.9 % Sodium Chloride 1,000 ML IVC SCH (05:55)
[2017-01-06] MEDS: *HR* OxyCODONE Immed Rel 15 MG TABLET PO PRN ×3 (07:48→22:02)
[2017-01-06] MEDS: BuPROPion XL (24 HR) 150 MG TABLET PO SCH (08:03)
[2017-01-06] MEDS ORDERED: Sennosides/Docusate Sodium TABLET PO PRN (08:39)
[2017-01-06] MEDS: Ondansetron 4 MG/2 ML VIAL IVP PRN (10:00)
[2017-01-06] MEDS: Insulin LISPRO 300 UNITS/3 ML VIAL SQ SCH ×5 (10:00→21:01)
--- NOTE | 2017-01-06 11:46 | Internal Med Progress Note ---
Date of Encounter: 01/06/17 Time of Encounter: 11:44 - Subjective Interval history: Pt seen and examined at bedside. REports of headache at the site of the fall and states that she has chronic diffuse pain secondary to her rheumatoid arthritis. States the IV pain medications helped with her pain. As per patient's , patient has had a facial droop and droopy left eye lid for the past month. - Assessment and plan (1) Hyperglycemia Current Visit: No Status: Acute Assessment and plan: Glucose initially over 500. Improved with current insulin therapy will closely monitor continue SS insulin algorithm monitor FS and BG. (2) Headache Current Visit: No Status: Acute Assessment and plan: Concern for stroke overnight given facial droop and left eyelid droop, however after further evaluation, appears to be a chronic process Headache at the site of fall Pt reports of pain only being appropriately controlled with Dilaudid MRI report noted: No evidence of an acute infarct or intracranial mass. There is cerebral and cerebellar parenchymal volume loss with moderate chronic microvascular white matter ischemic disease noted supratentorially. Neurology consultation requested. (3) CKD (chronic kidney disease), stage III Current Visit: No Status: Chronic (4) Diabetes Current Visit: No Status: Chronic Qualifiers: Diabetes mellitus type: type 2 Diabetes mellitus complication status: with kidney complications Diabetes mellitus complication detail: with chronic kidney disease Diabetes mellitus mandrel puller insulin use: with mandrel puller use Chronic kidney disease stage: stage 3 (moderate) Qualified Code(s): E11.22 - Type 2 diabetes mellitus with diabetic chronic kidney disease; N18.3 - Chronic kidney disease, stage 3 (moderate); Z79.4 - nursing home (current) use of insulin (5) DVT prophylaxis Current Visit: No Status: Acute Assessment and plan: lovenox (6) Physical deconditioning Current Visit: Yes Status: Acute Assessment and plan: Evaluated by physical therapy, recommendation is rehabilitation at [facility]. (7) Hypertension: Current Visit: Yes Status: Chronic Assessment and plan: Continue home medications added Hydralazine 10mg IVP q6h PRN SBP>160 closely monitor BP - Constitutional Vitals: Temp Pulse Resp BP Pulse Ox 98.1 F 105 20 182/71 97 01/06/17 08:56 01/06/17 08:56 01/06/17 08:56 01/06/17 08:56 01/06/17 08:56 General appearance: Present: cooperative, A&O X 3, obese, answers questions appropriately - Head Head exam: Present: atraumatic, normocephalic - Eye Eye exam: Present: EOMI, conjuntiva pink, sclera anicteric (droopy left eye lid) - Respiratory Respiratory exam: Present: CTAB. Absent: accessory muscle use, rales, rhonchi, wheezes - Cardiovascular Cardiovascular exam: Present: RRR, +S1, +S2. Absent: diastolic murmur, gallop, rubs, systolic murmur - GI/Abdominal GI/Abdominal exam: Present: normal bowel sounds, soft, no peritoneal signs. Absent: distended, tenderness - Extremities Exam Extremities exam: Present: warm, radial pulses palpable and symetrical. Absent : calf tenderness, pedal edema - Neurological Exam Neurological exam: Present: alert, oriented X3, strengths equal and symetr throughout. Absent: pronater drift, facial droop, speech deficit - Psychiatric Psychiatric exam: Present: normal affect, normal mood Internal Medicine: Result - Labs CBC & Chem 7: 01/06/17 03:44 01/06/17 03:44 Labs: Short CBC 01/06/17 Range/Units 03:44 WBC 11.5 H (4.3-11.1) K/mcL Hgb 7.8 L (11.5-15.4) g/dL Hct 25.7 L (35.3-44.9) % Plt Count 294 (140-400) K/mcL Neutrophils # 7.2 (1.6-8.9) K/mcL BMP 01/06/17 03:44 Sodium 137 Potassium 3.5 Chloride 107 Carbon Dioxide 23 BUN 12 Creatinine 0.80 Glucose 202 H Calcium 8.2 L - Impressions Impressions Brain MRI 01/06/17 08:04 IMPRESSION: 1. Cerebral and cerebellar parenchymal volume loss with moderate chronic microvascular white matter ischemic disease noted supratentorially. 2. No evidence of an acute infarct or intracranial mass. 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 No acute fracture. D/ / 01/06/2017 10:36:02 Lalo Amezquita MD / chiquis Interpreting Provider: Lalo Amezquita MD Consult Discharge Plan - Plan Referrals: Whit Valle CNP [Primary Care Provider] - 01/14/17 10:40 am (Web Requested 01/04/17)
[2017-01-06] MEDS: *HR* OxyCODONE ER (12 HR) 10 MG TABLET PO SCH ×2 (13:16→20:57)
[2017-01-06] MEDS ORDERED: *HR* OxyCODONE Immed Rel 15 MG TABLET PO ONE (15:07)
--- NOTE | 2017-01-06 17:32 | Neurology - Consult Note ---
Date of Encounter: 01/06/17 Time of Encounter: 17:26 Assessment and Plan (1) Ptosis of eyelid, right Current Visit: Yes Status: Acute I believe that the right-sided ptosis is old. 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 I see no evidence to suspect an acute cerebral infarct. Although she does have slight flattening of the right nasolabial fold however the muscles of facial expression innervate equally symmetrically. She has no focal or lateralizing deficits. No further testing or workup are necessary at this time. Risk factor management for vascular disease processes is paramount. I will reevaluate her at your request. (2) Diabetic polyneuropathy Current Visit: Yes Status: Acute Patient does have decreased sensation to pinprick distally. She also has diminished deep tendon reflexes distally. She has some distal paresthesias. 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 Qualifiers: Diabetes mellitus type: type 2 Qualified Code(s): E11.42 - Type 2 diabetes mellitus with diabetic polyneuropathy History of Present Illness HPI: Ms. Ramachandran is a 66 year old female was seen for neurologic evaluation secondary to concerns about right-sided ptosis, and the question of a right facial droop. She is hospitalized secondary to hyperglycemia. She came in with a initial glucose of over 500. She also had generalized weakness due to deconditioning. She had a recent oophorectomy and had been at home unable to take care of herself. And with one of her falls she did strike the back of her head and encountered a scalp contusion. She denies any acute onset of visual changes, this includes diplopia, however she states that she has had intermittent diplopia in the past.. This includes monocular blindness or amaurosis. She denies any new onset numbness tingling or weakness of the face arms or legs. She does however have diabetic polyneuropathy. Apparently her told her that these changes and nothing new is noticed them for quite some time now. Upon admission her temperature was 97.9, pulse 124, blood pressure 168/93, respirations 16. She has had an MRI scan of the brain which reveals no evidence of an acute infarct. She does have generalized cerebral and cerebellar atrophy consistent with age. There are also microvascular ischemic changes present which is to be expected with a history of diabetes and hypertension. Past Med Surg Social Fam HX - Past Medical History Medical history: arthritis, atrial fibrillation, diabetes, fibromyalgia, RA, other Psychiatric history: anxiety, depression - Past Surgical History Surgical History: hysterectomy, knee replacement - Social History Smoking Status: Never smoker Smokeless Tobacco Status: No Alcohol use: none Drug use: none - Family History Brother Hx Family Cardiac Disorders: Yes (cardiac bypass) Hx Family Cancer: Yes (colorectal) Mother Adopted: No Family Member Ethnicity: Non- Living Status: Still Living Hx Family Cardiac Disorders: No Hx Family Respiratory Disorders: No Hx Family Cancer: Yes (ovarian) Hx Family GI Disorders: No Hx Family Endocrine Disorder: No Hx Family Neuromuscular Disorders: No Hx Family Neurologic Disorders: No Hx Family HEENT Disorders: No Hx Family Autoimmune Disorders: No Medications and Allergies Ondansetron HCl [Zofran] 4 mg PO TID PRN 05/18/16 [History] Bupropion HCl [Wellbutrin Xl] 300 mg PO QAM 05/19/16 [History] Pantoprazole Sodium [Protonix] 40 mg PO BID 05/19/16 [History] Allopurinol [Zyloprim 100 MG] 100 mg PO DAILY 11/11/16 [History] Hydroxychloroquine [Plaquenuil] 200 mg PO DAILY 11/11/16 [History] Levothyroxine [Synthroid] 75 mcg PO QAM 11/11/16 [History] Lisinopril [Zestril] 10 mg PO DAILY 11/11/16 [History] OxyCODONE Immed Rel [Roxicodone 15 MG] 15 mg PO Q8H PRN 11/11/16 [History] Sucralfate [Carafate] 1 gm PO BID 11/11/16 [History] Ferrous Sulfate 325 mg PO BIDWM #60 tablet 11/14/16 [Rx] Insulin Glargine [Lantus] 30 unit SQ HS 01/04/17 [History] Insulin LISPRO [Humalog Kwikpen U-100] 0 unit SQ TIDWM 01/04/17 [History] Allergies benzoin Adverse Reaction (Verified 07/07/16 12:14) Rash morphine Adverse Reaction (Verified 11/11/16 19:41) Altered Mental Status Per ECW list. All Systems: A 10-system review of systems was performed and is negative for pertinent findings except as documented above in the HPI. Review of Systems: 10 point review of systems is consistent with the history of present illness and otherwise negative. Physical Examination - Vital Signs Vital Signs: Initial Vital Signs Temp Pulse Resp BP Pulse Ox 97.9 F 124 16 168/93 94 01/04/17 08:41 01/04/17 08:41 01/04/17 08:41 01/04/17 08:41 01/04/17 08:41 - Neurologic Motor examination - right side: 4/5: hip flexors, tibialis Anterior, quadriceps , toe extension (EHL), plantarflexion, 5/5: deltoids, biceps, triceps, box repairer Motor examination - left side: 4/5: hip flexors, quadriceps, tibialis Anterior, toe extension (EHL), plantarflexion, 5/5: deltoids, biceps, triceps, box repairer Detailed sensory examination: other (There is decreased sensation to pinprick in a distal to proximal gradient.) Reflexes: Biceps: 1+ (Symmetrically), Triceps: 1+ (Symmetrically), Brachioradialis: 2+ (Symmetrically), Patella: 0 (Symmetrically), Achilles: 0 ( Symmetrically) Mental Status Examination: awake, alert, oriented to person, oriented to place, oriented to time, follows commands appropriately, answers questions appropriately, no agnosia, no aphasia, no aproxia Cranial nerve examination: PERRL, EOMI, corneal reflexes brisk symmetrically, sensory to face intact, mastication intact, no dysarthria, hearing is intact symmetrically, soft palate elevates bilaterally upon phonation, tongue protrudes midline Cranial Nerve Exam: ptosis: Right, flattening of masolabic/folds: Right Cerebellar examination: no dysmetria Results - Laboratory Findings CBC and BMP: 01/06/17 03:44 01/06/17 03:44 Abnormal lab findings: Abnormal lab results WBC 11.5 K/mcL (4.3-11.1) H 01/06/17 03:44 RBC 3.28 M/mcL (3.82-4.97) L 01/06/17 03:44 Hgb 7.8 g/dL (11.5-15.4) L 01/06/17 03:44 Hct 25.7 % (35.3-44.9) L 01/06/17 03:44 MCV 78.4 fL (83.0-100.0) L 01/06/17 03:44 MCH 23.8 pg (28.0-33.3) L 01/06/17 03:44 MCHC 30.4 g/dL (31.6-35.5) L 01/06/17 03:44 RDW 18.0 % (11.5-14.5) H 01/06/17 03:44 VBG pO2 46 mmHg (25-40) H 01/04/17 09:07 VBG HCO3 27.3 mEq/L (21-27) H 01/04/17 09:07 Glucose 202 mg/dL (70-99) H 01/06/17 03:44 POC Glucose 234 (58-89) H 01/05/17 21:05 Calcium 8.2 mg/dL (8.6-10.8) L 01/06/17 03:44 AST 59 Units/L (5-34) H 01/04/17 09:07 Alkaline Phosphatase 159 Units/L (38-126) H 01/04/17 09:07 Serum Total Protein 8.8 g/dL (6.0-8.3) H 01/04/17 09:07 Albumin 3.1 g/dL (3.5-5.0) L 01/04/17 09:07 Globulin 5.7 g/dL (2.4-3.5) H 01/04/17 09:07 Albumin/Globulin Ratio 0.5 (1.1-2.2) L 01/04/17 09:07 Urine Protein 100 mg/dL (Neg-Trace) H 01/04/17 09:03 Urine Glucose (UA) >=1000 mg/dL (Normal) H 01/04/17 09:03 Urine Blood Small (Negative) H 01/04/17 09:03 Urine Microscopic RBC 3-5 per hpf (0-3) H 01/04/17 09:03 Ur Squamous Epith Cells Many per lpf (None-Few) H 01/04/17 09:03 Consult Discharge Plan - Plan Referrals: Whit Valle, BLENDER CONVEYOR OPERATOR [Primary Care Provider] - 01/14/17 10:40 am (Web Requested 01/04/17)
[2017-01-06] MEDS: Insulin DETEMIR 100 UNIT/ML X5UNITS SQ SCH (21:00)
[2017-01-06] MEDS ORDERED: 0.9 % Sodium Chloride 500 ML IVC ONE (23:51)
[2017-01-07] MEDS ORDERED: *HR* HYDROmorphone (PF) 1 MG/ML SYRINGE IVP ONE (01:26)
[2017-01-07] MEDS: Acetaminophen 325 MG TABLET PO PRN ×2 (02:08→22:03)
[2017-01-07 06:27] LABS: Basophils % 0.4 %; Eosinophils % 0.2 %; Immature Granulocytes % 1.3 % (0-4); Mean Corpuscular Volume 79.4 fL (83.0-100.0)
[2017-01-07 06:29] LABS: Basophils # 0.1 K/mcL (0.0-0.2); Hematocrit 23.5 % (35.3-44.9); Hemoglobin 7.1 g/dL (11.5-15.4); Lymphocytes # 2.2 K/mcL (0.6-4.6); Lymphocytes % 15.9 %; Mean Corpuscular HGB Conc 30.2 g/dL (31.6-35.5); Mean Platelet Volume 10.9 fL (9.4-12.4); Monocytes # 1.9 K/mcL (0.0-1.3); Monocytes % 13.6 %; Neutrophils # 9.5 K/mcL (1.6-8.9); Platelet Count 285 K/mcL (140-400); Red Blood Count 2.96 M/mcL (3.82-4.97); Red Cell Distribution Width 18.8 % (11.5-14.5); Segmented Neutrophils % 68.6 %
[2017-01-07 06:43] LABS: BUN/Creatinine Ratio 13 (6-26); Blood Urea Nitrogen 14 mg/dL (7-20); Calcium 8.2 mg/dL (8.6-10.8); Carbon Dioxide 25 mEq/L (19-29); Chloride 104 mEq/L (98-109); Glucose 242 mg/dL (70-99); Osmolality,Calculated 288 (280-300); Phosphorous 3.5 mg/dL (2.3-4.7); Potassium 3.8 mEq/L (3.5-4.5); Sodium 135 mEq/L (136-145); eGFR For African Americans > 60 (> 60); eGFR For Non-African Americans 51 (> 60)
[2017-01-07 07:38] LABS: Anisocytosis 1+ (Not Present); Platelet Estimate Normal (Normal); Polychromasia 2+ (Not Present)
[2017-01-07] MEDS ORDERED: Magnesium Sulfate 2 GM in D5% in Water 100 ML IVPB ONE (08:01)
[2017-01-07 08:19] LABS: Basophils # 0.1 K/mcL (0.0-0.2); Basophils % 0.3 %; Eosinophils # 0.1 K/mcL (0.0-0.6); Eosinophils % 0.4 %; Hematocrit 26.3 % (35.3-44.9); Hemoglobin 7.8 g/dL (11.5-15.4); Lymphocytes # 2.6 K/mcL (0.6-4.6); Lymphocytes % 17.8 %; Mean Corpuscular HGB Conc 29.7 g/dL (31.6-35.5); Mean Corpuscular Hemoglobin 23.7 pg (28.0-33.3); Mean Corpuscular Volume 79.9 fL (83.0-100.0); Mean Platelet Volume 9.7 fL (9.4-12.4); Monocytes # 1.8 K/mcL (0.0-1.3); Monocytes % 12.8 %; Neutrophils # 9.7 K/mcL (1.6-8.9); Platelet Count 294 K/mcL (140-400); Red Blood Count 3.29 M/mcL (3.82-4.97); Red Cell Distribution Width 18.7 % (11.5-14.5); Segmented Neutrophils % 67.7 %
[2017-01-07] MEDS: Sucralfate 1 GM TABLET PO SCH ×2 (08:53→16:39)
[2017-01-07] MEDS: *HR* OxyCODONE ER (12 HR) 10 MG TABLET PO SCH ×2 (08:54→22:03)
[2017-01-07] MEDS: BuPROPion XL (24 HR) 150 MG TABLET PO SCH (08:54)
[2017-01-07] MEDS: *HR* Enoxaparin 40 MG/0.4 ML SYRINGE SQ SCH (08:56)
[2017-01-07] MEDS: Insulin LISPRO 300 UNITS/3 ML VIAL SQ SCH ×7 (08:56→22:05)
[2017-01-07] MEDS: Insulin DETEMIR 100 UNIT/ML X5UNITS SQ SCH ×2 (09:05→22:03)
[2017-01-07] MEDS ORDERED: Insulin DETEMIR 100 UNIT/ML X5UNITS SQ ONE (11:48)
[2017-01-07] MEDS: *HR* OxyCODONE Immed Rel 15 MG TABLET PO PRN ×2 (12:34→18:39)
[2017-01-07] MEDS ORDERED: Magnesium Sulfate 1 GM in D5% in Water 100 ML IVPB ONE (14:00)
[2017-01-07] MEDS ORDERED: *HR* OxyCODONE ER (12 HR) 10 MG TABLET PO ONE (14:24)
--- NOTE | 2017-01-07 15:06 | Internal Med Progress Note ---
Date of Encounter: 01/07/17 Time of Encounter: 12:35 - Subjective Interval history: Pt seen and examined at bedside. Reports of feeling better compared to the previous day but continues to have diffuse body pain. Noted to have worsening leukocytosis without any clear source. - Assessment and plan (1) Hyperglycemia Current Visit: No Status: Acute Assessment and plan: Hyperglycemia persists increased Levemir to 27units sq BID and premeal insulin to 10units sq TID will closely monitor continue SS insulin algorithm monitor FS and BG. (2) Headache Current Visit: No Status: Acute Assessment and plan: Improved at this time Neurology input appreciated and no further intervention recommended (3) CKD (chronic kidney disease), stage III Current Visit: No Status: Chronic (4) Diabetes Current Visit: No Status: Chronic Qualifiers: Diabetes mellitus type: type 2 Diabetes mellitus complication status: with kidney complications Diabetes mellitus complication detail: with chronic kidney disease Diabetes mellitus detention insulin use: with wire twister use Chronic kidney disease stage: stage 3 (moderate) Qualified Code(s): E11.22 - Type 2 diabetes mellitus with diabetic chronic kidney disease; N18.3 - Chronic kidney disease, stage 3 (moderate); Z79.4 - supervisor audit clerks (current) use of insulin (5) DVT prophylaxis Current Visit: No Status: Acute Assessment and plan: lovenox (6) Physical deconditioning Current Visit: Yes Status: Acute Assessment and plan: Evaluated by physical therapy, recommendation is rehabilitation at alf facility. Diffuse body pain, chronic in nature started long acting opioids (7) Hypertension: Current Visit: Yes Status: Chronic Assessment and plan: Continue home medications added Hydralazine 10mg IVP q6h PRN SBP>160 closely monitor BP (8) Leukocytosis: Current Visit: Yes Status: Acute Of unclear etiology Repeat CXR negative Clinically asymptomatic will obtain repeat UA, urine culture, blood culture, influenza screen monitor off abx at this time (9) Anemia Current Visit: Yes Status: Chronic H&H low but acceptable will obtain stool occult no active bleeding reported at this time continue to monitor and transfuse as needed - Constitutional Vitals: Temp Pulse Resp BP Pulse Ox 98.4 F 105 18 134/65 91 01/07/17 11:00 01/07/17 11:00 01/07/17 11:00 01/07/17 11:00 01/07/17 11:00 General appearance: Present: cooperative, A&O X 3, obese, answers questions appropriately - Head Head exam: Present: atraumatic, normocephalic - Eye Eye exam: Present: normal appearance, conjuntiva pink, sclera anicteric - Respiratory Respiratory exam: Present: CTAB. Absent: respiratory distress, wheezes - Cardiovascular Cardiovascular exam: Present: RRR, +S1, +S2. Absent: diastolic murmur, gallop, rubs, systolic murmur - GI/Abdominal GI/Abdominal exam: Present: normal bowel sounds, soft, no peritoneal signs. Absent: distended, tenderness - Extremities Exam Extremities exam: Present: warm, radial pulses palpable and symetrical. Absent : calf tenderness, cyanotic, pedal edema - Neurological Exam Neurological exam: Present: alert, oriented X3 Internal Medicine: Result - Labs CBC & Chem 7: 01/07/17 08:13 01/07/17 06:11 Labs: Short CBC 01/07/17 01/07/17 Range/Units 06:11 08:13 WBC 13.9 H 14.4 H (4.3-11.1) K/mcL Hgb 7.1 L 7.8 L (11.5-15.4) g/dL Hct 23.5 L 26.3 L (35.3-44.9) % Plt Count 285 294 (140-400) K/mcL Neutrophils # 9.5 H 9.7 H (1.6-8.9) K/mcL BMP 01/07/17 06:11 Sodium 135 L Potassium 3.8 Chloride 104 Carbon Dioxide 25 BUN 14 Creatinine 1.08 Glucose 242 H Calcium 8.2 L - Impressions Impressions Foot X-Ray 01/06/17 08:33 IMPRESSION: 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 No acute fracture. D/ / 01/06/2017 10:36:02 Lalo Amezquita MD / [facility] Interpreting Provider: Lalo Amezquita MD Chest X-Ray 01/07/17 11:46 IMPRESSION: 1. Pulmonary vascular congestion and mild cardiomegaly. 2. Moderate to large hiatal hernia. D/ / Geovany Davila MD / Geovany Davila MD Interpreting Provider: Geovany Davila MD Consult Discharge Plan - Plan Referrals: Whit Valle CNP [Primary Care Provider] - 01/14/17 10:40 am (Web Requested 01/04/17)
--- NOTE | 2017-01-07 16:41 | Electrocardiograph Report ---
[address] [place], [place] [address] Test Date: 2017-01-07 Pat Name: Yanci Ramachandran Department: 112 Room: 2A Gender: F Community Health Consultant: : 1950 Requested By: Jennifer Peguero Order Number: [id number] Reading MD: Sena Jain Measurements Intervals [place] Rate: 114 P: 25 MI: 156 QRS: -12 QRSD: 78 T: 94 QT: 345 QTc: 413 Interpretive Statements SINUS TACHYCARDIA VOLTAGE CRITERIA FOR LVH MODERATE T-WAVE ABNORMALITY, CONSIDER LATERAL ISCHEMIA Electronically Signed On 01-07-2017 16:39:14 EDT by Sena Jain
[2017-01-08] MEDS: *HR* OxyCODONE Immed Rel 15 MG TABLET PO PRN ×4 (04:17→23:14)
[2017-01-08 05:55] LABS: Hemoglobin 6.9 g/dL (11.5-15.4); Mean Corpuscular Volume 79.9 fL (83.0-100.0); Mean Platelet Volume 10.7 fL (9.4-12.4); Platelet Count 290 K/mcL (140-400); Red Blood Count 2.88 M/mcL (3.82-4.97); Red Cell Distribution Width 19.6 % (11.5-14.5)
[2017-01-08] MEDS: *HR* Enoxaparin 40 MG/0.4 ML SYRINGE SQ SCH (06:00)
[2017-01-08 06:21] LABS: Calcium 8.4 mg/dL (8.6-10.8); Potassium 3.8 mEq/L (3.5-4.5)
[2017-01-08 06:23] LABS: Lymphocytes # 2.5 K/mcL (0.6-4.6); Monocytes # 1.4 K/mcL (0.0-1.3)
[2017-01-08 06:24] LABS: Anisocytosis 1+ (Not Present); Platelet Estimate Normal (Normal); Polychromasia 2+ (Not Present)
[2017-01-08 06:55] LABS: Bilirubin,Urine Small (Negative); Blood,Urine Small (Negative); Clarity,Urine Cloudy (Clear); Color,Urine Dark Yellow (Yellow); Glucose,Urine (UA) 250 mg/dL (Normal); Ketones,Urine Negative (Negative); Leukocyte Esterase,Urine Moderate (Negative); Nitrite,Urine Negative (Negative); PH,Urine 5.5 pH Units (5.0-8.0); Protein,Urine 30 mg/dL (Neg-Trace); Specific Gravity,Urine 1.024 (1.010-1.025); Urobilinogen,Urine Normal (Normal)
[2017-01-08 06:58] LABS: Hyaline Casts,Urine Few per lpf (None-Few); RBC,Urine 0-3 per hpf (0-3); Squamous Epithelial Cell,Urine Many per lpf (None-Few)
[2017-01-08 07:09] LABS: WBC,Urine 30-50 per hpf (0-3)
[2017-01-08 07:10] LABS: Bacteria,Urine Many per hpf (None-Few)
[2017-01-08] MEDS ORDERED: Vancomycin 1,500 MG in D5% in Water 250 ML IVPB SCH (08:14)
[2017-01-08] MEDS: Sucralfate 1 GM TABLET PO SCH ×2 (08:42→15:56)
[2017-01-08] MEDS: BuPROPion XL (24 HR) 150 MG TABLET PO SCH (08:43)
[2017-01-08] MEDS: *HR* OxyCODONE ER (12 HR) 10 MG TABLET PO SCH ×2 (08:43→22:18)
[2017-01-08] MEDS: 0.9 % Sodium Chloride 1,000 ML IVC SCH ×2 (08:44→18:44)
[2017-01-08] MEDS: Insulin DETEMIR 100 UNIT/ML X5UNITS SQ SCH ×2 (08:44→22:19)
[2017-01-08] MEDS: Insulin LISPRO 300 UNITS/3 ML VIAL SQ SCH ×7 (08:44→22:19)
[2017-01-08] MEDS: Piperacillin/Tazobactam 3.375 GM in D5% in Water (Mini-Bag+) 100 ML IVPB SCH ×2 (11:43→15:47)
--- NOTE | 2017-01-08 12:22 | Internal Med Progress Note ---
Date of Encounter: 01/08/17 Time of Encounter: 12:20 - Subjective Interval history: Pt seen and examined at bedside. Reports of being slightly better than yesterday. Reports of dysuria continues to have diffuse body aches - Assessment and plan (1) Sepsis Likely secondary to UTI, however unclear etiology and given worsening leukocytosis, will empirically treat for sepsis for unknown etiology Started empiric IV abx IV fluids f/u blood and urine cultures monitor temp (2)Anemia Noted to have drop in H&H noed history of iron deficiency anemia and currently on iron supplementation will transfuse 2unit PRBC will send occult stool closely monitor no acute bleeding reported at this time (3) Hyperglycemia Current Visit: No Status: Acute Assessment and plan: BG better controlled continue Levemir and humalog continue sliding scale insulin algorithm will closely monitor continue SS insulin algorithm monitor FS and BG. (4) Headache Current Visit: No Status: Acute Assessment and plan: Improved at this time Neurology input appreciated and no further intervention recommended (5) CKD (chronic kidney disease), stage III Current Visit: No Status: Chronic (6) Diabetes Current Visit: No Status: Chronic Qualifiers: Diabetes mellitus type: type 2 Diabetes mellitus complication status: with kidney complications Diabetes mellitus complication detail: with chronic kidney disease Diabetes mellitus roasterman insulin use: with roasterman use Chronic kidney disease stage: stage 3 (moderate) Qualified Code(s): E11.22 - Type 2 diabetes mellitus with diabetic chronic kidney disease; N18.3 - Chronic kidney disease, stage 3 (moderate); Z79.4 - rn long term care (current) use of insulin (7) DVT prophylaxis Current Visit: No Status: Acute Assessment and plan: IPCD (8) Physical deconditioning Current Visit: Yes Status: Acute Assessment and plan: Evaluated by physical therapy, recommendation is rehabilitation at long-term facility. Diffuse body pain, chronic in nature started long acting opioids (Oxycodone 15 q4h prn breakthrough pain Oxocontin 20bid ) (9) Hypertension: Current Visit: Yes Status: Chronic Assessment and plan: Continue home medications added Hydralazine 10mg IVP q6h PRN SBP>160 closely monitor BP (10) Leukocytosis: Current Visit: Yes Status: Acute as listed above - Constitutional Vitals: Temp Pulse Resp BP Pulse Ox 97.9 F 101 16 102/56 96 01/08/17 11:04 01/08/17 11:04 01/08/17 11:04 01/08/17 11:04 01/08/17 11:04 General appearance: Present: cooperative, A&O X 3, morbidly obese, answers questions appropriately - Head Head exam: Present: atraumatic, normocephalic - Respiratory Respiratory exam: Present: CTAB. Absent: accessory muscle use, rales, rhonchi, wheezes - Cardiovascular Cardiovascular exam: Present: RRR, +S1, +S2. Absent: diastolic murmur, gallop, rubs, systolic murmur - GI/Abdominal GI/Abdominal exam: Present: normal bowel sounds, soft, no peritoneal signs. Absent: distended, tenderness - Extremities Exam Extremities exam: Present: warm, radial pulses palpable and symetrical. Absent : calf tenderness, cyanotic, pedal edema - Neurological Exam Neurological exam: Present: alert, oriented X3 - Psychiatric Psychiatric exam: Present: normal affect, normal mood Internal Medicine: Result - Labs CBC & Chem 7: 01/08/17 12:29 01/08/17 05:30 Labs: Short CBC 01/08/17 Range/Units 05:30 WBC 17.9 H (4.3-11.1) K/mcL Hgb 6.9 L (11.5-15.4) g/dL Hct 23.0 L (35.3-44.9) % Plt Count 290 (140-400) K/mcL Neutrophils # 14.0 H (1.6-8.9) K/mcL BMP 01/08/17 05:30 Sodium 134 L Potassium 3.8 Chloride 103 Carbon Dioxide 24 BUN 20 Creatinine 1.28 H Glucose 183 H Calcium 8.4 L Urine 01/08/17 Range/Units 06:30 Urine Color Dark Yellow (Yellow) Urine Clarity Cloudy A (Clear) Urine pH 5.5 (5.0-8.0) pH Units Ur Specific [employer] [place] 1.024 (1.010-1.025) Urine Protein 30 H (Neg-Trace) mg/dL Urine Glucose (UA) 250 H (Normal) mg/dL - Impressions Impressions Chest X-Ray 01/07/17 11:46 IMPRESSION: 1. Pulmonary vascular congestion and mild cardiomegaly. 2. Moderate to large hiatal hernia. D/ / Geovany Davila MD / Geovany Davila MD Interpreting Provider: Geovany Davila MD Consult Discharge Plan - Plan Referrals: Whit Valle CNP [Primary Care Provider] - 01/14/17 10:40 am (Web Requested 01/04/17)
[2017-01-08 12:36] LABS: Basophils % 0.2 %; Eosinophils # 0.1 K/mcL (0.0-0.6); Eosinophils % 0.3 %; Hematocrit 24.4 % (35.3-44.9); Lymphocytes # 2.1 K/mcL (0.6-4.6); Lymphocytes % 13.2 %; Mean Corpuscular HGB Conc 28.7 g/dL (31.6-35.5); Mean Corpuscular Hemoglobin 23.3 pg (28.0-33.3); Mean Corpuscular Volume 81.1 fL (83.0-100.0); Mean Platelet Volume 10.7 fL (9.4-12.4); Monocytes # 1.4 K/mcL (0.0-1.3); Monocytes % 8.6 %; Neutrophils # 12.2 K/mcL (1.6-8.9); Platelet Count 318 K/mcL (140-400); Red Blood Count 3.01 M/mcL (3.82-4.97); Red Cell Distribution Width 19.8 % (11.5-14.5); Segmented Neutrophils % 76.7 %
[2017-01-08] MEDS: Sennosides/Docusate Sodium TABLET PO SCH ×2 (13:00→22:19)
[2017-01-08 13:06] LABS: Anisocytosis 1+ (Not Present); Hypochromasia Present (Not Present); Platelet Estimate Normal (Normal); Polychromasia 1+ (Not Present)
[2017-01-08] MEDS ORDERED: 0.9 % Sodium Chloride 250 ML ONE ×2 (15:15→18:49)
[2017-01-09] MEDS: Vancomycin 1,250 MG in D5% in Water 250 ML IVPB SCH ×2 (00:18→12:00)
[2017-01-09] MEDS: Piperacillin/Tazobactam 3.375 GM in D5% in Water (Mini-Bag+) 100 ML IVPB SCH ×3 (00:19→17:17)
[2017-01-09] MEDS: Acetaminophen 325 MG TABLET PO PRN (00:20)
[2017-01-09] MEDS ORDERED: *HR* Metoprolol 5 MG/5 ML VIAL IVP ONE (01:26)
[2017-01-09] MEDS ORDERED: Furosemide 40 MG/4 ML VIAL IVP ONE (01:27)
[2017-01-09 05:38] LABS: Basophils # 0.1 K/mcL (0.0-0.2); Basophils % 0.3 %; Eosinophils # 0.1 K/mcL (0.0-0.6); Eosinophils % 0.4 %; Hematocrit 30.6 % (35.3-44.9); Immature Granulocytes % 1.1 % (0-4); Lymphocytes # 2.5 K/mcL (0.6-4.6); Mean Corpuscular HGB Conc 29.7 g/dL (31.6-35.5); Mean Corpuscular Hemoglobin 24.1 pg (28.0-33.3); Mean Corpuscular Volume 81.2 fL (83.0-100.0); Mean Platelet Volume 10.7 fL (9.4-12.4); Monocytes # 1.8 K/mcL (0.0-1.3); Monocytes % 9.6 %; Neutrophils # 14.3 K/mcL (1.6-8.9); Platelet Count 354 K/mcL (140-400); Red Blood Count 3.77 M/mcL (3.82-4.97); Red Cell Distribution Width 19.7 % (11.5-14.5); Segmented Neutrophils % 75.6 %
[2017-01-09 05:45] LABS: Hemoglobin 9.1 g/dL (11.5-15.4)
[2017-01-09 05:52] LABS: Magnesium 1.8 mg/dL (1.6-2.6); Phosphorous 3.8 mg/dL (2.3-4.7); Potassium 4.2 mEq/L (3.5-4.5)
[2017-01-09] MEDS: Sucralfate 1 GM TABLET PO SCH ×2 (06:17→17:17)
[2017-01-09] MEDS: *HR* OxyCODONE Immed Rel 15 MG TABLET PO PRN ×4 (06:17→22:42)
[2017-01-09] MEDS: BuPROPion XL (24 HR) 150 MG TABLET PO SCH (08:35)
[2017-01-09] MEDS: Sennosides/Docusate Sodium TABLET PO SCH ×2 (08:36→20:24)
[2017-01-09] MEDS: *HR* OxyCODONE ER (12 HR) 10 MG TABLET PO SCH ×2 (08:36→20:24)
[2017-01-09] MEDS: Insulin LISPRO 300 UNITS/3 ML VIAL SQ SCH ×7 (08:38→20:36)
[2017-01-09] MEDS: Insulin DETEMIR 100 UNIT/ML X5UNITS SQ SCH ×2 (08:44→20:32)
[2017-01-09] MEDS ORDERED: Insulin DETEMIR 100 UNIT/ML X5UNITS SQ ONE (11:05)
--- NOTE | 2017-01-09 12:41 | Internal Med Progress Note ---
Date of Encounter: 01/09/17 Time of Encounter: 08:50 - Subjective Interval history: Pt seen and examined at bedside. Reports of feeling significantly better compared to the previous day. Denies any headache, fever, chills at this time. States this is the best she has felt in days. - Assessment and plan (1) Sepsis Of unclear etiology continues to have worsening leukocytosis despite empiric IV abx coverage Urine and blood cultures NGTD no clinical signs of infectious etiology present Infectious disease consultation request pt has no clinical signs suspicious for meningitis therefore will hold off on LP at this time until further input from Infectious disease (2)Anemia s/p PRBC transfusion H&H within acceptable range will closely monitor will send occult stool closely monitor no acute bleeding reported at this time (3) Hyperglycemia secondary to DM Current Visit: No Status: Acute Assessment and plan: hyperglycemia persists but better controlled levemir and humalog dosing adjusted continue Levemir and humalog continue sliding scale insulin algorithm will closely monitor continue SS insulin algorithm monitor FS and BG. (4) Headache Current Visit: No Status: Acute Assessment and plan: Improved at this time Neurology input appreciated and no further intervention recommended (5) CKD (chronic kidney disease), stage III Current Visit: No Status: Chronic (6) Diabetes Current Visit: No Status: Chronic Qualifiers: Diabetes mellitus type: type 2 Diabetes mellitus complication status: with kidney complications Diabetes mellitus complication detail: with chronic kidney disease Diabetes mellitus termite helper insulin use: with penitentiary use Chronic kidney disease stage: stage 3 (moderate) Qualified Code(s): E11.22 - Type 2 diabetes mellitus with diabetic chronic kidney disease; N18.3 - Chronic kidney disease, stage 3 (moderate); Z79.4 - half-way (current) use of insulin (7) DVT prophylaxis Current Visit: No Status: Acute Assessment and plan: IPCD (8) Physical deconditioning Current Visit: Yes Status: Acute Assessment and plan: Evaluated by physical therapy, recommendation is rehabilitation at detention facility. Diffuse body pain, chronic in nature continue long acting opioids (Oxycodone 15 q4h prn breakthrough pain Oxocontin 20bid ) stool softeners for constipation (9) Hypertension: Current Visit: Yes Status: Chronic Assessment and plan: BP within acceptable range Continue home medications added Hydralazine 10mg IVP q6h PRN SBP>160 closely monitor BP (10) Leukocytosis: Current Visit: Yes Status: Acute as listed above - Constitutional Vitals: Temp Pulse Resp BP Pulse Ox 97.8 F 100 18 128/65 90 01/09/17 10:23 01/09/17 10:23 01/09/17 10:23 01/09/17 10:23 01/09/17 10:23 General appearance: Present: cooperative, A&O X 3, morbidly obese, no acute distress, answers questions appropriately - Head Head exam: Present: atraumatic, normocephalic - Eye Eye exam: Present: normal appearance, conjuntiva pink, sclera anicteric - Respiratory Respiratory exam: Present: CTAB. Absent: accessory muscle use, rales, rhonchi, wheezes - Cardiovascular Cardiovascular exam: Present: RRR, +S1, +S2. Absent: diastolic murmur, gallop, rubs, systolic murmur - GI/Abdominal GI/Abdominal exam: Present: normal bowel sounds, soft, no peritoneal signs. Absent: distended, tenderness - Extremities Exam Extremities exam: Present: warm, radial pulses palpable and symetrical. Absent : calf tenderness, cyanotic, pedal edema - Neurological Exam Neurological exam: Present: alert, oriented X3 - Psychiatric Psychiatric exam: Present: normal affect, normal mood Internal Medicine: Result - Labs CBC & Chem 7: 01/09/17 04:58 01/09/17 04:58 Labs: Short CBC 01/09/17 Range/Units 04:58 WBC 18.9 H (4.3-11.1) K/mcL Hgb 9.1 L D (11.5-15.4) g/dL Hct 30.6 L (35.3-44.9) % Plt Count 354 (140-400) K/mcL Neutrophils # 14.3 H (1.6-8.9) K/mcL BMP 01/09/17 04:58 Sodium 134 L Potassium 4.2 Chloride 102 Carbon Dioxide 23 BUN 28 H Creatinine 1.43 H Glucose 244 H Calcium 9.0 - VTE Documentation of Mechanical Device: Intermittent pneumatic compression device Consult Discharge Plan - Plan Referrals: Whit Valle CNP [Primary Care Provider] - 01/14/17 10:40 am (Web Requested 01/04/17)
--- NOTE | 2017-01-09 15:03 | Infectious Disease Consult ---
Date of Encounter: 01/09/17 Time of Encounter: 15:02 Assessment and Plan (1) Sepsis Status: Acute Assessment and plan: Patient has severe sepsis. 3 SIRS criteria plus endorgan damage. Source of sepsis not clear. Possible sources include dental. Noninfectious etiology is high on my differential especially with the patient has history of rheumatoid arthritis and gout. Patient stated that she had severe joint pain all over 2 days ago. Other possible causes of fever and leukocytosis would include ileus. Patient has not had a bowel movement since admission which been 5 days Chest x-ray was done, urinalysis was done, blood cultures were obtained, influenza A and B antigen were done and patient workup has been negative so far. She has been on vancomycin and Zosyn 2 days, not sure what we are treating at this point, contemplating stopping antibiotics adverse and continuing until we find out what else could be going on. Since patient does meet severe sepsis criteria, I'll probably continue the Vanco and Zosyn for at least another 24 hours while at check abdominal KUB, dental x-ray, inflammatory markers. Fever reviewed labs to see if the patient was on steroids but she wasn't. This presents a complex case that is very interesting. The other issue is patient does not appear ill or toxic. Qualifiers: Sepsis type: sepsis due to unspecified organism Qualified Code(s): A41.9 - Sepsis, unspecified organism (2) Hepatitis C Status: Acute Qualifiers: Viral hepatitis chronicity: chronic Hepatic coma status: without hepatic coma Qualified Code(s): B18.2 - Chronic viral hepatitis C (3) Rheumatoid arthritis Status: Acute Qualifiers: Rheumatoid arthritis location: unspecified site Rheumatoid factor presence : unspecified presence Qualified Code(s): M06.9 - Rheumatoid arthritis, unspecified (4) Gout Status: Acute Assessment and plan: No obvious gout attack Could theoretically still be a culprit for fever and leukocytosis Recommend checking uric acid level Qualifiers: Gout site: ankle Gout etiology: idiopathic Laterality: unspecified laterality Chronicity: unspecified Qualified Code(s): M10.079 - Idiopathic gout, unspecified ankle and foot (5) Arthralgia Status: Acute Assessment and plan: No obvious joint deformity, edema, erythema or tenderness at this point Qualifiers: Joint pain location: unspecified Qualified Code(s): M25.50 - Pain in unspecified joint (6) Constipation Status: Acute Assessment and plan: Get KUB Notify hospitalist to give her aggressive laxative since today is day 546 with no bowel movement Qualifiers: Constipation type: unspecified constipation type Qualified Code(s): K59.00 - Constipation, unspecified (7) Poor dentition Status: Acute Assessment and plan: No obvious infection noted but I believe it's worth it to get an x-ray of this teeth to rule out dental abscess. Especially that the patient is diabetic and maybe she has decreased pain sensation. (8) Status post oophorectomy Status: Acute Assessment and plan: Surgical wound okay, abdominal exam is benign I don't believe Intra-Op abdominal issues is the source for the fever and leukocytosis, but if we can't find any other source, consider getting either ultrasound or repeat abdominal CT scan with oral contrast. (9) Diabetes mellitus, type 2 Status: Chronic Qualifiers: Diabetes mellitus complication status: with hyperglycemia Diabetes mellitus longterm insulin use: with longterm use Qualified Code(s): E11.65 - Type 2 diabetes mellitus with hyperglycemia; Z79.4 - senior care (current) use of insulin (10) Hypertension Status: Chronic Qualifiers: Hypertension type: essential hypertension Qualified Code(s): I10 - Essential (primary) hypertension (11) GLO (acute kidney injury) Status: Resolved Infectious Disease HPI - Data of Consult Patient: new to practice Consult date: 01/09/17 Requesting Physician: Jennifer Peguero MD Primary Care Provider: Whit Valle CNP - Consult Narrative Reason for consult: sepsis History of present illness: Ms. Ramachandran is a 66 year old female Patient is a 66-year-old gentleman admitted on 01/04/2017 with a fall and deconditioning, we are consult on 01/09/2017 for sepsis with patient has leukocytosis of 19,000 and persistent fever. Patient is 66-year-old woman with significant past medical history including diabetes mellitus type 2, hypertension, hepatitis C, hypothyroidism, anemia and chronic kidney disease stage III came in to [place] on 01/04/17 status post fall that is recurrent and decline in her ability to perform her daily activities. Records patient underwent an oophorectomy at [facility] for a benign tumor. Apparently postoperatively she did well but then upon discharge she was weak at home and had multiple falls. Patient has been feeling weak and lightheaded since then. Patient apparently denied any fevers or chills prior to admission no nausea or vomiting no diarrhea no cough no chest pain no URI symptoms. Patient was evaluated in the ER and admitted for further workup. Since admission, patient initially had no fever and initial WBC was 13.5 with normal differential. Her glucose was 518. A UA was done and came back negative. A chest x-ray was obtained and revealed stable large hiatal hernia. No focal airspace consolidation or pulmonary vascular congestion. During the hospital stay, patient spiked a fever of 101.4 on 01/07/2017 and her WBC jumped up to 14.4. Patient had blood cultures obtained on 524 2 out of 2 sets nasotracheal swab for influenza A and B antigen a UA and urine culture and patient was started on empiric vancomycin and Zosyn. So far all the cultures have been negative influenza and B antigen swab was also negative. Patient had MRI of the brain which was not impressive for any acute process. Repeat chest x-ray reveals no consolidation or pneumonia. Repeat urine culture reveals no growth. We were asked to evaluate the patients make further recommendations. On further questioning, patient tells me that she has rheumatoid arthritis diagnosed with 15 years ago not on any immunosuppressive therapy or biological. She also has hepatitis C that she acquired from her work. Review of system on the patient is positive for constipation, patient has not had a bowel movement since she has been here. Patient denies any abdominal pain nausea or vomiting or diarrhea. Patient had a lot of scopic oophorectomy and the wound looks great no signs of infection. Patient also denies any headache, neck stiffness, URI symptoms, sore throat, chest pain, shortness of breath, cough, urinary symptoms. On further questioning she does tell me that she has poor dentition that she needs to take out but she hasnt but is not having active dental pain. I also asked her if she has any joint pain because she also has a history of gout which usually at fax her feet she states. She states that 2 days ago she thought she was in a have a rheumatoid arthritis flare because every joint in her body was hurting. Patient tells me now shes feeling somewhat better. CC: Jennifer Peguero MD Past Med Surg Social Fam HX - Past Medical History Medical history: arthritis, atrial fibrillation, diabetes, fibromyalgia, RA, other Psychiatric history: anxiety, depression - Past Surgical History Surgical History: hysterectomy, knee replacement - Social History Smoking Status: Never smoker Smokeless Tobacco Status: No Alcohol use: none Drug use: none - Family History Brother Hx Family Cardiac Disorders: Yes (cardiac bypass) Hx Family Cancer: Yes (colorectal) Mother Adopted: No Family Member Ethnicity: Non- Living Status: Still Living Hx Family Cardiac Disorders: No Hx Family Respiratory Disorders: No Hx Family Cancer: Yes (ovarian) Hx Family GI Disorders: No Hx Family Endocrine Disorder: No Hx Family Neuromuscular Disorders: No Hx Family Neurologic Disorders: No Hx Family HEENT Disorders: No Hx Family Autoimmune Disorders: No Infectious Disease-CN:Meds Ondansetron HCl [Zofran] 4 mg PO TID PRN 05/18/16 [History] Bupropion HCl [Wellbutrin Xl] 300 mg PO QAM 05/19/16 [History] Pantoprazole Sodium [Protonix] 40 mg PO BID 05/19/16 [History] Allopurinol [Zyloprim 100 MG] 100 mg PO DAILY 11/11/16 [History] Hydroxychloroquine [Plaquenuil] 200 mg PO DAILY 11/11/16 [History] Levothyroxine [Synthroid] 75 mcg PO QAM 11/11/16 [History] Lisinopril [Zestril] 10 mg PO DAILY 11/11/16 [History] OxyCODONE Immed Rel [Roxicodone 15 MG] 15 mg PO Q8H PRN 11/11/16 [History] Sucralfate [Carafate] 1 gm PO BID 11/11/16 [History] Ferrous Sulfate 325 mg PO BIDWM #60 tablet 11/14/16 [Rx] Insulin Glargine [Lantus] 30 unit SQ HS 01/04/17 [History] Insulin LISPRO [Humalog Kwikpen U-100] 0 unit SQ TIDWM 01/04/17 [History] Allergies benzoin Adverse Reaction (Verified 07/07/16 12:14) Rash morphine Adverse Reaction (Verified 11/11/16 19:41) Altered Mental Status Per ECW list. Review of systems: 10 point review of systems done, negative other for what is mentioned in history of present illness. Exam - Constitutional Vitals: Temp Pulse Resp BP Pulse Ox 97.8 F 100 18 128/65 90 01/09/17 10:23 01/09/17 10:23 01/09/17 10:23 01/09/17 10:23 01/09/17 12:00 General appearance: cooperative, no acute distress, no febrile - Head Head exam: Present: atraumatic, normocephalic - Eye Eye exam: Present: EOMI, PERRL, sclera anicteric - ENT Additional comments: Poor dentition. No oral lesions or oral thrush noted. No obvious dental abscesses noted - Neck Neck exam: Present: full ROM. Absent: meningismus - Respiratory Respiratory exam: Present: CTAB. Absent: wheezes - Cardiovascular Cardiovascular exam: Present: RRR, +S1, +S2 - GI/Abdominal GI/Abdominal exam: Present: hypoactive bowel sounds, soft. Absent: tenderness Additional comments: Surgical wound fully healed. No abdominal wall erythema. - Extremities Exam Extremities exam: Present: full ROM. Absent: pedal edema Additional comments: Joints appear normal, no obvious joint edema, erythema or tenderness. - Neurological Exam Neurological exam: Present: alert, oriented X3 - Psychiatric Psychiatric exam: Present: normal affect, normal mood - Skin Skin exam: Present: normal color. Absent: rash Infectious Disease CN: Results - Labs CBC & Chem 7: 01/09/17 04:58 01/09/17 04:58 - VTE Documentation of Mechanical Device: Intermittent pneumatic compression device Consult Discharge Plan - Plan Referrals: Whit Valle CNP [Primary Care Provider] - 01/14/17 10:40 am (Web Requested 01/04/17)
[2017-01-10] MEDS ORDERED: Vancomycin 1,250 MG in D5% in Water 250 ML IVPB SCH
[2017-01-10] MEDS: Piperacillin/Tazobactam 3.375 GM in D5% in Water (Mini-Bag+) 100 ML IVPB SCH ×4 (00:01→23:52)
[2017-01-10] MEDS ORDERED: *HR* HYDROmorphone (PF) 1 MG/ML SYRINGE IVP ONE ×2 (02:11→09:39)
[2017-01-10] MEDS: *HR* OxyCODONE Immed Rel 15 MG TABLET PO PRN ×5 (04:11→22:40)
[2017-01-10 05:00] LABS: Basophils # 0.1 K/mcL (0.0-0.2); Basophils % 0.4 %; Eosinophils # 0.1 K/mcL (0.0-0.6); Eosinophils % 0.5 %; Hematocrit 30.7 % (35.3-44.9); Hemoglobin 9.4 g/dL (11.5-15.4); Immature Granulocytes % 0.9 % (0-4); Lymphocytes # 1.4 K/mcL (0.6-4.6); Lymphocytes % 9.9 %; Mean Corpuscular HGB Conc 30.6 g/dL (31.6-35.5); Mean Corpuscular Hemoglobin 23.9 pg (28.0-33.3); Mean Corpuscular Volume 77.9 fL (83.0-100.0); Mean Platelet Volume 10.2 fL (9.4-12.4); Monocytes # 1.2 K/mcL (0.0-1.3); Monocytes % 8.5 %; Neutrophils # 11.3 K/mcL (1.6-8.9); Platelet Count 401 K/mcL (140-400); Red Blood Count 3.94 M/mcL (3.82-4.97); Red Cell Distribution Width 19.6 % (11.5-14.5); Segmented Neutrophils % 79.8 %
[2017-01-10 05:15] LABS: BUN/Creatinine Ratio 21 (6-26); Blood Urea Nitrogen 19 mg/dL (7-20); Carbon Dioxide 25 mEq/L (19-29); Chloride 103 mEq/L (98-109); Glucose 92 mg/dL (70-99); Magnesium 1.5 mg/dL (1.6-2.6); Osmolality,Calculated 284 (280-300); Phosphorous 2.9 mg/dL (2.3-4.7); Potassium 3.6 mEq/L (3.5-4.5); Sodium 136 mEq/L (136-145); eGFR For African Americans > 60 (> 60); eGFR For Non-African Americans > 60 (> 60)
[2017-01-10] MEDS: Sucralfate 1 GM TABLET PO SCH ×2 (06:39→16:51)
[2017-01-10] MEDS ORDERED: *HR* Metoprolol 5 MG/5 ML VIAL IVP PRN (07:42)
[2017-01-10] MEDS ORDERED: Magnesium Sulfate 1 GM in D5% in Water 100 ML IVPB ONE (07:42)
[2017-01-10] MEDS: Insulin LISPRO 300 UNITS/3 ML VIAL SQ SCH ×7 (07:44→20:51)
[2017-01-10] MEDS: BuPROPion XL (24 HR) 150 MG TABLET PO SCH (08:33)
[2017-01-10] MEDS: *HR* OxyCODONE ER (12 HR) 10 MG TABLET PO SCH ×2 (08:33→20:37)
[2017-01-10] MEDS: Insulin DETEMIR 100 UNIT/ML X5UNITS SQ SCH ×2 (08:34→20:51)
[2017-01-10] MEDS: Sennosides/Docusate Sodium TABLET PO SCH ×2 (08:34→20:37)
[2017-01-10] MEDS: Vancomycin 1,000 MG in D5% in Water 250 ML IVPB SCH ×2 (09:24→20:33)
[2017-01-10 10:29] LABS: C-Reactive Protein 238 mg/L (Less than 5)
--- NOTE | 2017-01-10 10:55 | Internal Med Progress Note ---
Date of Encounter: 01/10/17 Time of Encounter: 09:15 - Subjective Interval history: Pt seen and examined at bedside. Reports of diffuse body pain consistent with her rheumatoid arthritis flare up. States the pain is always this severe when she gets her flare ups. She was lying in bed crying because of the pain. Noted to be hypertensive and tachycardic - Assessment and plan (1) Sepsis Of unclear etiology improvement in leukocytosis will continue empiric IV abx at this time Urine and blood cultures NGTD no clinical signs of infectious etiology present Infectious disease consultation appreciated GLO resolved noted to elevated ESR and CRP which are consistent with a RA flare, will start Prednisolone 15mg PO qd in addition to continuation of her home medications (2)Anemia s/p PRBC transfusion (11/08/16) H&H within acceptable range will closely monitor will send occult stool closely monitor no acute bleeding reported at this time (3) Hyperglycemia secondary to DM Current Visit: No Status: Acute Assessment and plan: BG better controlled continue Levemir and humalog continue sliding scale insulin algorithm will closely monitor continue SS insulin algorithm monitor FS and BG. 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 Diffuse body pain, chronic in nature continue long acting opioids (Oxycodone 15 q4h prn breakthrough pain Oxocontin 20bid ) stool softeners for constipation (9) Hypertension: Current Visit: Yes Status: Chronic Assessment and plan: BP within acceptable range Continue home medications added Hydralazine 10mg IVP q6h PRN SBP>160 closely monitor BP (10) Leukocytosis: Current Visit: Yes Status: Acute as listed above (11) Rheumatoid Arthritis appears to have RA flare will start Prednisolone 15mg PO qd continue pain meds closely monitor continue home meds - Constitutional Vitals: Temp Pulse Resp BP Pulse Ox 98.7 F 95 16 741/74 91 01/10/17 09:41 01/10/17 09:41 01/10/17 09:41 01/10/17 09:41 01/10/17 09:41 General appearance: Present: cooperative, mild distress (diffuse body pain), A& O X 3, morbidly obese, answers questions appropriately - Head Head exam: Present: atraumatic, normocephalic - Eye Eye exam: Present: normal appearance, conjuntiva pink, sclera anicteric - Respiratory Respiratory exam: Present: CTAB. Absent: accessory muscle use, rales, rhonchi, wheezes - Cardiovascular Cardiovascular exam: Present: RRR, +S1, +S2. Absent: diastolic murmur, gallop, rubs, systolic murmur - GI/Abdominal GI/Abdominal exam: Present: normal bowel sounds, soft, no peritoneal signs. Absent: distended, tenderness - Extremities Exam Extremities exam: Present: warm, radial pulses palpable and symetrical. Absent : calf tenderness, pedal edema - Neurological Exam Neurological exam: Present: alert, oriented X3. Absent: speech deficit - Psychiatric Psychiatric exam: Present: normal affect, normal mood Internal Medicine: Result - Labs CBC & Chem 7: 01/10/17 04:49 01/10/17 04:49 Labs: Short CBC 01/10/17 Range/Units 04:49 WBC 14.1 H (4.3-11.1) K/mcL Hgb 9.4 L (11.5-15.4) g/dL Hct 30.7 L (35.3-44.9) % Plt Count 401 H (140-400) K/mcL Neutrophils # 11.3 H (1.6-8.9) K/mcL BMP 01/10/17 04:49 Sodium 136 Potassium 3.6 Chloride 103 Carbon Dioxide 25 BUN 19 Creatinine 0.91 Glucose 92 Calcium 9.0 - Impressions Impressions KUB X-Ray 01/09/17 16:38 IMPRESSION: No air-filled dilated loops of bowel. Right basilar atelectasis. D/ / Jena Richmond MD / Jena Richmond MD Interpreting Provider: Jena Richmond MD - VTE Documentation of Mechanical Device: Intermittent pneumatic compression device Consult Discharge Plan - Plan Referrals: Whit Valle CNP [Primary Care Provider] - 01/14/17 10:40 am (Web Requested 01/04/17)
[2017-01-10] MEDS: PrednisoLONE Oral Soln 15 MG/5 ML UDC PO SCH (11:52)
[2017-01-11] MEDS: Acetaminophen 325 MG TABLET PO PRN (01:20)
[2017-01-11] MEDS: *HR* OxyCODONE Immed Rel 15 MG TABLET PO PRN ×5 (02:55→20:18)
[2017-01-11] MEDS: Sucralfate 1 GM TABLET PO SCH ×2 (06:58→16:09)
[2017-01-11 07:07] LABS: Hematocrit 30.1 % (35.3-44.9); Hemoglobin 9.2 g/dL (11.5-15.4); Immature Granulocytes % 0.9 % (0-4); Lymphocytes % 14.1 %; Mean Corpuscular HGB Conc 30.6 g/dL (31.6-35.5); Mean Corpuscular Volume 78.4 fL (83.0-100.0); Mean Platelet Volume 10.4 fL (9.4-12.4); Monocytes % 9.9 %; Platelet Count 434 K/mcL (140-400); Red Blood Count 3.84 M/mcL (3.82-4.97); Red Cell Distribution Width 19.9 % (11.5-14.5); Segmented Neutrophils % 73.8 %
[2017-01-11 07:08] LABS: Basophils # 0.1 K/mcL (0.0-0.2); Basophils % 0.4 %; Eosinophils # 0.1 K/mcL (0.0-0.6); Eosinophils % 0.9 %; Lymphocytes # 1.8 K/mcL (0.6-4.6); Monocytes # 1.3 K/mcL (0.0-1.3); Neutrophils # 9.5 K/mcL (1.6-8.9)
[2017-01-11 07:14] LABS: BUN/Creatinine Ratio 20 (6-26); Blood Urea Nitrogen 17 mg/dL (7-20); Carbon Dioxide 28 mEq/L (19-29); Chloride 102 mEq/L (98-109); Glucose 108 mg/dL (70-99); Magnesium 1.4 mg/dL (1.6-2.6); Osmolality,Calculated 286 (280-300); Sodium 137 mEq/L (136-145); eGFR For African Americans > 60 (> 60); eGFR For Non-African Americans > 60 (> 60)
[2017-01-11] MEDS: Insulin LISPRO 300 UNITS/3 ML VIAL SQ SCH ×7 (07:16→21:21)
[2017-01-11] MEDS: Insulin DETEMIR 100 UNIT/ML X5UNITS SQ SCH ×2 (07:26→21:21)
[2017-01-11] MEDS: Piperacillin/Tazobactam 3.375 GM in D5% in Water (Mini-Bag+) 100 ML IVPB SCH ×2 (07:41→16:09)
[2017-01-11] MEDS: Vancomycin 1,000 MG in D5% in Water 250 ML IVPB SCH ×2 (07:41→20:15)
[2017-01-11] MEDS: BuPROPion XL (24 HR) 150 MG TABLET PO SCH (07:48)
[2017-01-11] MEDS: *HR* OxyCODONE ER (12 HR) 10 MG TABLET PO SCH ×2 (07:49→21:22)
[2017-01-11] MEDS: Sennosides/Docusate Sodium TABLET PO SCH ×2 (07:49→20:17)
[2017-01-11] MEDS ORDERED: Potassium Chloride 40 MEQ, Lidocaine 1% 2 ML in D5% in Water 500 ML IVPB ONE (08:03)
[2017-01-11] MEDS ORDERED: Magnesium Sulfate 2 GM in D5% in Water 100 ML IVPB ONE (08:03)
[2017-01-11] MEDS: PrednisoLONE Oral Soln 15 MG/5 ML UDC PO SCH (10:34)
--- NOTE | 2017-01-11 12:06 | Internal Med Progress Note ---
Date of Encounter: 01/11/17 Time of Encounter: 12:03 - Subjective Interval history: Pt seen and examined at bedside. Reports of feeling significantly better compared to the previous day. States she was able to get up and go shower. She as started on steroid therapy yesterday. continues to remain hypertensive but denies any headache or distress at this time. - Assessment and plan (1) Sepsis Improving Of unclear etiology improvement in leukocytosis will continue empiric IV abx at this time Urine and blood cultures NGTD no clinical signs of infectious etiology present Infectious disease consultation appreciated GLO resolved noted to elevated ESR and CRP which are consistent with a RA flare, continue Prednisolone 15mg PO qd in addition to continuation of her home medications (2)Anemia s/p PRBC transfusion (11/08/16) H&H within acceptable range will closely monitor occult stool positive closely monitor no acute bleeding reported at this time clinically stable, will consult GI (3) Hyperglycemia secondary to DM Current Visit: No Status: Acute Assessment and plan: BG better controlled continue Levemir and humalog continue sliding scale insulin algorithm will closely monitor continue SS insulin algorithm monitor FS and BG. (4) Headache Current Visit: No Status: Acute Assessment and plan: Improved at this time Neurology input appreciated and no further intervention recommended (5) CKD (chronic kidney disease), stage III Current Visit: No Status: Chronic (6) Diabetes Current Visit: No Status: Chronic Qualifiers: Diabetes mellitus type: type 2 Diabetes mellitus complication status: with kidney complications Diabetes mellitus complication detail: with chronic kidney disease Diabetes mellitus fpc insulin use: with fpc use Chronic kidney disease stage: stage 3 (moderate) Qualified Code(s): E11.22 - Type 2 diabetes mellitus with diabetic chronic kidney disease; N18.3 - Chronic kidney disease, stage 3 (moderate); Z79.4 - shelter (current) use of insulin (7) DVT prophylaxis Current Visit: No Status: Acute Assessment and plan: IPCD (8) Physical deconditioning Current Visit: Yes Status: Acute Assessment and plan: Evaluated by physical therapy, recommendation is rehabilitation at [facility] facility. Diffuse body pain, chronic in nature continue long acting opioids (Oxycodone 15 q4h prn breakthrough pain Oxocontin 20bid ) stool softeners for constipation (9) Hypertension: Current Visit: Yes Status: Chronic Assessment and plan: continues to remain hypertensive Added Metoprolol 12.5mg PO q12h continue Lisinopril Hydralazine 10mg IVP q6h PRN SBP>160 closely monitor BP (10) Leukocytosis: Current Visit: Yes Status: Acute as listed above (11) Rheumatoid Arthritis clinically improving will continue Prednisolone 15mg PO qd continue pain meds closely monitor continue home meds (12) Electrolyte abnormality Hypomagnesemia and Hypokalemia Mg and K supplemented continue to monitor electrolytes and replace as needed - Constitutional Vitals: Temp Pulse Resp BP Pulse Ox 98.3 F 94 16 160/56 94 01/11/17 10:45 01/11/17 10:45 01/11/17 10:45 01/11/17 10:45 01/11/17 10:45 General appearance: Present: cooperative, A&O X 3, morbidly obese, no acute distress, answers questions appropriately - Head Head exam: Present: atraumatic, normocephalic - Eye Eye exam: Present: normal appearance, conjuntiva pink, sclera anicteric - Respiratory Respiratory exam: Present: CTAB. Absent: accessory muscle use, rales, rhonchi, wheezes - Cardiovascular Cardiovascular exam: Present: RRR, +S1, +S2. Absent: diastolic murmur, gallop, rubs, systolic murmur - GI/Abdominal GI/Abdominal exam: Present: distended (obese), normal bowel sounds, soft, no peritoneal signs. Absent: tenderness - Extremities Exam Extremities exam: Present: warm, radial pulses palpable and symetrical. Absent : calf tenderness, cyanotic, pedal edema - Neurological Exam Neurological exam: Present: alert, oriented X3 - Psychiatric Psychiatric exam: Present: normal affect, normal mood Internal Medicine: Result - Labs CBC & Chem 7: 01/11/17 06:50 01/11/17 06:50 Labs: Short CBC 01/11/17 Range/Units 06:50 WBC 12.8 H (4.3-11.1) K/mcL Hgb 9.2 L (11.5-15.4) g/dL Hct 30.1 L (35.3-44.9) % Plt Count 434 H (140-400) K/mcL Neutrophils # 9.5 H (1.6-8.9) K/mcL BMP 01/11/17 06:50 Sodium 137 Potassium 3.0 L Chloride 102 Carbon Dioxide 28 BUN 17 Creatinine 0.83 Glucose 108 H Calcium 9.0 - VTE Documentation of Mechanical Device: Intermittent pneumatic compression device Consult Discharge Plan - Plan Referrals: Whit Valle CNP [Primary Care Provider] - 01/14/17 10:40 am (Web Requested 01/04/17)
[2017-01-12] MEDS: Piperacillin/Tazobactam 3.375 GM in D5% in Water (Mini-Bag+) 100 ML IVPB SCH ×2 (00:18→07:56)
[2017-01-12] MEDS: *HR* OxyCODONE Immed Rel 15 MG TABLET PO PRN ×5 (00:19→19:46)
[2017-01-12] MEDS: Sennosides/Docusate Sodium TABLET PO SCH (07:14)
[2017-01-12] MEDS: *HR* OxyCODONE ER (12 HR) 10 MG TABLET PO SCH ×2 (07:54→21:55)
[2017-01-12] MEDS: BuPROPion XL (24 HR) 150 MG TABLET PO SCH (07:54)
[2017-01-12] MEDS: Sucralfate 1 GM TABLET PO SCH ×3 (07:54→17:19)
[2017-01-12] MEDS: Vancomycin 1,000 MG in D5% in Water 250 ML IVPB SCH (07:55)
[2017-01-12] MEDS: Insulin LISPRO 300 UNITS/3 ML VIAL SQ SCH ×7 (07:57→21:12)
[2017-01-12 07:58] LABS: Basophils # 0.1 K/mcL (0.0-0.2); Basophils % 0.5 %; Eosinophils # 0.1 K/mcL (0.0-0.6); Eosinophils % 0.5 %; Hematocrit 33.3 % (35.3-44.9); Immature Granulocytes % 0.8 % (0-4); Lymphocytes # 1.5 K/mcL (0.6-4.6); Mean Corpuscular Hemoglobin 23.5 pg (28.0-33.3); Mean Corpuscular Volume 78.4 fL (83.0-100.0); Monocytes # 1.3 K/mcL (0.0-1.3); Monocytes % 9.8 %; Neutrophils # 10.3 K/mcL (1.6-8.9); Platelet Count 466 K/mcL (140-400); Red Blood Count 4.25 M/mcL (3.82-4.97); Red Cell Distribution Width 19.7 % (11.5-14.5); Segmented Neutrophils % 77.4 %
[2017-01-12] MEDS: Lisinopril 20 MG TABLET PO SCH ×2 (08:01→10:01)
[2017-01-12] MEDS: Insulin DETEMIR 100 UNIT/ML X5UNITS SQ SCH ×2 (08:01→21:55)
[2017-01-12] MEDS: Ondansetron 4 MG/2 ML VIAL IVP PRN (08:08)
[2017-01-12 08:11] LABS: BUN/Creatinine Ratio 17 (6-26); Blood Urea Nitrogen 14 mg/dL (7-20); Calcium 9.1 mg/dL (8.6-10.8); Carbon Dioxide 26 mEq/L (19-29); Chloride 102 mEq/L (98-109); Glucose 161 mg/dL (70-99); Magnesium 1.2 mg/dL (1.6-2.6); Osmolality,Calculated 290 (280-300); Phosphorous 2.7 mg/dL (2.3-4.7); Potassium 3.2 mEq/L (3.5-4.5); Sodium 138 mEq/L (136-145); eGFR For African Americans > 60 (> 60); eGFR For Non-African Americans > 60 (> 60)
[2017-01-12] MEDS ORDERED: Lisinopril 20 MG TABLET PO SCH (09:00)
[2017-01-12] MEDS ORDERED: Aminoglycoside Consult 1 EACH MC ONE (09:09)
[2017-01-12] MEDS: PrednisoLONE Oral Soln 15 MG/5 ML UDC PO SCH (10:04)
[2017-01-12] MEDS ORDERED: Magnesium Sulfate 2 GM in D5% in Water 100 ML IVPB ONE (13:23)
[2017-01-12] MEDS ORDERED: Sennosides/Docusate Sodium TABLET PO PRN (13:25)
--- NOTE | 2017-01-12 13:29 | Internal Med Progress Note ---
Date of Encounter: 01/12/17 Time of Encounter: 13:25 - Subjective Interval history: Pt seen and examined at bedside. States she feels better but the pain persists. Reports of diarrhea however noted to be on multiple laxatives. Clinically improving, vitals WNL, afebrile, blood and urine cultures negative. Will d/c abx at this time. Pt informed about the positive occult stool. She wishes to do further GI work up as outpatient - Assessment and plan (1) Sepsis Resolved Blood, Respiratory, Influenza, Urine cultures negative Clinically improving afebrile Will discontinue all antibiotics at this time Leukocytosis can be secondary to the RA flare and current steroid use if becomes febrile, will repeat cultures and restart abx Likely d/c to ECF if remains clinically stable overnight noted to elevated ESR and CRP which are consistent with a RA flare, continue Prednisolone 15mg PO qd in addition to continuation of her home medications (2)Anemia s/p PRBC transfusion (11/08/16) H&H within acceptable range will closely monitor occult stool positive: pt does not want any GI work up as inpatient, would defer to outpatient closely monitor no acute bleeding reported at this time (3) Hyperglycemia secondary to DM Current Visit: No Status: Acute Assessment and plan: BG better controlled continue Levemir and humalog continue sliding scale insulin algorithm will closely monitor continue SS insulin algorithm monitor FS and BG. (4) Headache Current Visit: No Status: Acute Assessment and plan: Improved at this time Neurology input appreciated and no further intervention recommended (5) CKD (chronic kidney disease), stage III Current Visit: No Status: Chronic (6) Diabetes Current Visit: No Status: Chronic Qualifiers: Diabetes mellitus type: type 2 Diabetes mellitus complication status: with kidney complications Diabetes mellitus complication detail: with chronic kidney disease Diabetes mellitus fci insulin use: with terminologist use Chronic kidney disease stage: stage 3 (moderate) Qualified Code(s): E11.22 - Type 2 diabetes mellitus with diabetic chronic kidney disease; N18.3 - Chronic kidney disease, stage 3 (moderate); Z79.4 - terminal operator (current) use of insulin (7) DVT prophylaxis Current Visit: No Status: Acute Assessment and plan: IPCD (8) Physical deconditioning Current Visit: Yes Status: Acute Assessment and plan: Evaluated by physical therapy, recommendation is rehabilitation at [facility]. Diffuse body pain, chronic in nature continue long acting opioids (Oxycodone 15 q4h prn breakthrough pain Oxocontin 20bid ) discontinued stool softeners/laxatives (9) Hypertension: Current Visit: Yes Status: Chronic Assessment and plan: BP better controlled continue Metoprolol 12.5mg PO q12h continue Lisinopril Hydralazine 10mg IVP q6h PRN SBP>160 closely monitor BP (10) Leukocytosis: Current Visit: Yes Status: Acute as listed above (11) Rheumatoid Arthritis clinically improving will continue Prednisolone 15mg PO qd continue pain meds closely monitor continue home meds (12) Electrolyte abnormality Hypomagnesemia and Hypokalemia Mg and K supplemented continue to monitor electrolytes and replace as needed - Constitutional Vitals: Temp Pulse Resp BP Pulse Ox 98 F 73 18 147/64 94 01/12/17 10:33 01/12/17 10:33 01/12/17 10:33 01/12/17 10:33 01/12/17 10:33 General appearance: Present: cooperative, A&O X 3, morbidly obese, no acute distress, answers questions appropriately - Head Head exam: Present: atraumatic, normocephalic - Eye Eye exam: Present: normal appearance, conjuntiva pink, sclera anicteric - Respiratory Respiratory exam: Present: CTAB. Absent: accessory muscle use, rales, rhonchi, wheezes - Cardiovascular Cardiovascular exam: Present: RRR, +S1, +S2. Absent: diastolic murmur, gallop, rubs, systolic murmur - GI/Abdominal GI/Abdominal exam: Present: normal bowel sounds, soft, no peritoneal signs. Absent: distended, tenderness - Extremities Exam Extremities exam: Present: warm, radial pulses palpable and symetrical. Absent : calf tenderness, pedal edema - Neurological Exam Neurological exam: Present: alert, oriented X3 - Psychiatric Psychiatric exam: Present: normal affect, normal mood Internal Medicine: Result - Labs CBC & Chem 7: 01/12/17 07:46 01/12/17 07:46 Labs: Short CBC 01/12/17 Range/Units 07:46 WBC 13.2 H (4.3-11.1) K/mcL Hgb 10.0 L (11.5-15.4) g/dL Hct 33.3 L (35.3-44.9) % Plt Count 466 H (140-400) K/mcL Neutrophils # 10.3 H (1.6-8.9) K/mcL BMP 01/12/17 07:46 Sodium 138 Potassium 3.2 L Chloride 102 Carbon Dioxide 26 BUN 14 Creatinine 0.84 Glucose 161 H Calcium 9.1 - VTE Documentation of Mechanical Device: Intermittent pneumatic compression device Consult Discharge Plan - Plan Referrals: Whit Valle CNP [Primary Care Provider] - 01/14/17 10:40 am (Web Requested 01/04/17)
[2017-01-12] MEDS ORDERED: Magnesium Sulfate 1 GM in D5% in Water 100 ML IVPB ONE (18:00)
[2017-01-13] MEDS: *HR* OxyCODONE Immed Rel 15 MG TABLET PO PRN ×5 (00:58→22:21)
[2017-01-13 05:14] LABS: Basophils # 0.1 K/mcL (0.0-0.2); Basophils % 0.4 %; Eosinophils # 0.1 K/mcL (0.0-0.6); Eosinophils % 0.6 %; Hematocrit 34.2 % (35.3-44.9); Hemoglobin 10.1 g/dL (11.5-15.4); Immature Granulocytes % 1.1 % (0-4); Lymphocytes # 1.6 K/mcL (0.6-4.6); Lymphocytes % 13.6 %; Mean Corpuscular HGB Conc 29.5 g/dL (31.6-35.5); Mean Corpuscular Hemoglobin 23.6 pg (28.0-33.3); Mean Corpuscular Volume 79.9 fL (83.0-100.0); Mean Platelet Volume 10.2 fL (9.4-12.4); Monocytes % 8.2 %; Neutrophils # 8.8 K/mcL (1.6-8.9); Platelet Count 522 K/mcL (140-400); Red Blood Count 4.28 M/mcL (3.82-4.97); Red Cell Distribution Width 19.9 % (11.5-14.5); Segmented Neutrophils % 76.1 %
[2017-01-13 05:30] LABS: BUN/Creatinine Ratio 17 (6-26); Blood Urea Nitrogen 15 mg/dL (7-20); Calcium 9.2 mg/dL (8.6-10.8); Carbon Dioxide 28 mEq/L (19-29); Chloride 104 mEq/L (98-109); Glucose 91 mg/dL (70-99); Osmolality,Calculated 290 (280-300); Phosphorous 3.9 mg/dL (2.3-4.7); Potassium 3.4 mEq/L (3.5-4.5); Sodium 140 mEq/L (136-145); eGFR For African Americans > 60 (> 60); eGFR For Non-African Americans > 60 (> 60)
[2017-01-13] MEDS: *HR* OxyCODONE ER (12 HR) 10 MG TABLET PO SCH ×2 (07:55→20:31)
[2017-01-13] MEDS: Sucralfate 1 GM TABLET PO SCH ×2 (07:55→15:48)
[2017-01-13] MEDS: BuPROPion XL (24 HR) 150 MG TABLET PO SCH (07:55)
[2017-01-13] MEDS: Lisinopril 20 MG TABLET PO SCH (07:55)
[2017-01-13] MEDS: Insulin LISPRO 300 UNITS/3 ML VIAL SQ SCH ×7 (08:00→20:30)
[2017-01-13] MEDS: Insulin DETEMIR 100 UNIT/ML X5UNITS SQ SCH ×2 (08:04→20:30)
[2017-01-13] MEDS: predniSONE 10 MG TABLET PO SCH (10:16)
--- NOTE | 2017-01-13 10:27 | Infectious Disease Progress No ---
Date of Encounter: 01/14/17 Time of Encounter: 10:24 - Assessment and Plan (1) Sepsis Current Visit: Yes Status: Acute The patient had severe sepsis. She had three SIRS criteria plus EOD. Source unclear, but possible sources include dental. Improved. She has been afebrile since 01/07/17. She continues to have leukocytosis, but this is improved and she remains on steroids, which is likely contributing to the leukocytosis. Tachycardia has resolved. Non-infectious etiology also possibility --> gout + RA. Patient has very poor dentition with history of broken teeth. She was scheduled to see a dentist for extraction this week. Get dental x-rays to evaluate for infectious etiology. ESR and CRP markedly elevated. Blood cultures drawn 01/07/17 and 01/08/17 are NGTD x 4 sets. Urine culture was interpreted as grossly mixed yohan, but the patient has no urinary complaints. Antibiotics discontinued by the primary team 01/12/17. The patient remains afebrile. Continue to observe off antibiotics. Qualifiers: Sepsis type: sepsis due to unspecified organism Qualified Code(s): A41.9 - Sepsis, unspecified organism (2) Gout Current Visit: Yes Status: Acute No obvious gout attach, but theoretically could still be the cause of the patient's fever and leukocytosis. Check uric acid level. Qualifiers: Gout site: ankle Gout etiology: idiopathic Laterality: unspecified laterality Chronicity: unspecified Qualified Code(s): M10.079 - Idiopathic gout, unspecified ankle and foot (3) Arthralgia Current Visit: Yes Status: Acute Location: generalized. No evidence of joint deformity, edema, erythema, or tenderness noted on exam. Qualifiers: Joint pain location: unspecified Qualified Code(s): M25.50 - Pain in unspecified joint (4) Poor dentition Current Visit: Yes Status: Acute The patient reports that she has several broken teeth on the bottom and was scheduled to see a dentist this week for extraction. Clinically, there does not appear to be pain or tenderness or abscess, but given that the patient has diabetes, she could have a decreased pain sensation. Get dental x-ray to evaluate for possible infectious etiology. (5) Constipation Current Visit: Yes Status: Resolved KUB negative for ileus or obstruction. Received aggressive laxative regimen with good results. Qualifiers: Constipation type: unspecified constipation type Qualified Code(s): K59.00 - Constipation, unspecified (6) Rheumatoid arthritis Current Visit: Yes Status: Acute ESR and CRP markedly elevated. Not on treatment prior to admission due to history of Hep C. Follows with Rheumatology in [place]. Qualifiers: Rheumatoid arthritis location: unspecified site Rheumatoid factor presence : unspecified presence Qualified Code(s): M06.9 - Rheumatoid arthritis, unspecified (7) Status post oophorectomy Current Visit: Yes Status: Acute (8) Diabetes mellitus, type 2 Current Visit: No Status: Chronic Qualifiers: Diabetes mellitus complication status: with hyperglycemia Diabetes mellitus senior contracts administrator insulin use: with fpc use Qualified Code(s): E11.65 - Type 2 diabetes mellitus with hyperglycemia; Z79.4 - FDC (current) use of insulin (9) Hepatitis C Current Visit: Yes Status: Acute Qualifiers: Viral hepatitis chronicity: chronic Hepatic coma status: without hepatic coma Qualified Code(s): B18.2 - Chronic viral hepatitis C (10) Hypertension Current Visit: No Status: Chronic Qualifiers: Hypertension type: essential hypertension Qualified Code(s): I10 - Essential (primary) hypertension - Subjective Interval history: Patient seen and examined. Weekend notes reviewed. No acute events noted. Patient lying flat in bed with legs elevated. States she has generalized pain in several joints, but states it seems to be better today. She denies any fevers , chills, or rigors. Denies chest pain, shortness of breath, or cough. She reports some intermittent nausea that she attributes to taking a lot of medications. She denies abdominal pain and states her appetite is okay. She denies any vomiting, but does report diarrhea since being given an aggressive laxative regimen a few days ago. She denies any warm or erythematous joints. She denies any urinary complaints. She denies any oral thrush or skin lesions. Infect Dis PN-Objective Data - Labs CBC & Chem 7: 01/13/17 04:54 01/13/17 04:54 Labs: Laboratory Results - last 24 hr 01/12/17 01/13/17 01/13/17 20:53 04:54 04:54 WBC 11.5 H RBC 4.28 Hgb 10.1 L Hct 34.2 L MCV 79.9 L MCH 23.6 L MCHC 29.5 L RDW 19.9 H Plt Count 522 H MPV 10.2 Immature Gran % 1.1 Seg Neutrophils % 76.1 Lymphocytes % 13.6 Monocytes % 8.2 Eosinophils % 0.6 Basophils % 0.4 Neutrophils # 8.8 Lymphocytes # 1.6 Monocytes # 1.0 Eosinophils # 0.1 Basophils # 0.1 Sodium 140 Potassium 3.4 L Chloride 104 Carbon Dioxide 28 BUN 15 Creatinine 0.87 Est GFR ( Amer) > 60 Est GFR (Non-Af Amer) > 60 BUN/Creatinine Ratio 17 Glucose 91 POC Glucose 103 H Calculated Osmolality 290 Calcium 9.2 Phosphorus 3.9 Magnesium 2.0 01/13/17 07:17 WBC RBC Hgb Hct MCV MCH MCHC RDW Plt Count MPV Immature Gran % Seg Neutrophils % Lymphocytes % Monocytes % Eosinophils % Basophils % Neutrophils # Lymphocytes # Monocytes # Eosinophils # Basophils # Sodium Potassium Chloride Carbon Dioxide BUN Creatinine Est GFR ( Amer) Est GFR (Non-Af Amer) BUN/Creatinine Ratio Glucose POC Glucose 168 H Calculated Osmolality Calcium Phosphorus Magnesium Cultures: Serology 01/10/17 Range/Units 11:55 Stool Occult Blood Positive A (Negative) Exam - Constitutional Vitals: Temp Pulse Resp BP Pulse Ox 97.7 F 78 16 158/80 92 01/13/17 07:08 01/13/17 07:08 01/13/17 07:08 01/13/17 07:08 01/13/17 07:08 General appearance: cooperative, no acute distress, obese - Head Head exam: Present: atraumatic, normal inspection, normocephalic - Eye Eye exam: Present: EOMI, normal appearance, PERRL Pupils: Present: normal accommodation - ENT ENT exam: Present: mucous membranes moist - Neck Neck exam: Present: normal inspection. Absent: full ROM (ROM limited due to pain.) - Respiratory Respiratory exam: Present: CTAB. Absent: rales, respiratory distress, rhonchi, wheezes - Cardiovascular Cardiovascular exam: Present: RRR, +S1, +S2 - GI/Abdominal GI/Abdominal exam: Present: normal bowel sounds, soft. Absent: distended, tenderness - Extremities Exam Extremities exam: Present: normal inspection. Absent: joint swelling, pedal edema, tenderness - Neurological Exam Neurological exam: Present: alert, oriented X3, no focal deficits - Psychiatric Psychiatric exam: Present: normal affect, normal mood - Skin Skin exam: Present: dry, intact, normal color, warm - VTE Documentation of Mechanical Device: Intermittent pneumatic compression device Consult Discharge Plan - Plan Additional Instructions: Please have your PCP or [facility] PCP refer you to:Dr. Kuldip Cary, Rheumatology - [address] [facility], [place] [address] Phone [phone] Please follow-up with your primary care physician within 5 days after your discharge from the hospital. Please continue steroid taper. Prednisone 15 mg 4 days followed by prednisone 10 mg 4 days followed by prednisone 5 mg 4 days. Your home dose of lisinopril has been increased to 20 mg daily due to elevated blood pressure readings. Please call closely monitor her blood pressure after discharge and informe your primary care physician of this change. Resume all your other home medications as prescribed by your primary care physician. Referrals: Whit Valle, SAM [Primary Care Provider] - (Please follow up with your PCP at the [facility]) Stew Aviles DO [Partnered Physician] - 02/02/17 9:30 am (GI BLEED) Prescriptions: OxyCODONE ER (12 HR) [OxyCONTIN] 20 mg PO BID #20 tab.er.12h OxyCODONE Immed Rel [Roxicodone 15 MG] 15 mg PO Q8H PRN #20 tablet PRN Reason: Pain - Attending Attestation I examined this patient and my medical decision-making was reviewed with the FOUR H AGENT/PA/Advanced Practice Nurse/Resident Physician. I agree with the documented findings, disposition and treatment plan as described except to the extent set forth below.
--- NOTE | 2017-01-13 14:17 | Discharge Summary ---
Date of Encounter: 01/13/17 Time of Encounter: 14:13 - Discharge Diagnosis (1) Diabetes Priority: Secondary Status: Chronic Qualifiers: Diabetes mellitus type: type 2 Diabetes mellitus complication status: with kidney complications Diabetes mellitus complication detail: with chronic kidney disease Diabetes mellitus client service representative insulin use: with client service representative use Chronic kidney disease stage: stage 3 (moderate) Qualified Code(s): E11.22 - Type 2 diabetes mellitus with diabetic chronic kidney disease; N18.3 - Chronic kidney disease, stage 3 (moderate); Z79.4 - retirement (current) use of insulin (2) GLO (acute kidney injury) Priority: Secondary Status: Resolved (3) Chronic pain Priority: Secondary Status: Chronic Qualifiers: Qualified Code(s): G89.29 - Other chronic pain (4) DVT prophylaxis Priority: Secondary Status: Acute (5) Anemia Priority: Secondary Status: Acute Qualifiers: Anemia type: iron deficiency Iron deficiency anemia type: unspecified iron deficiency Qualified Code(s): D50.9 - Iron deficiency anemia, unspecified (6) Hyperglycemia Priority: Primary Status: Acute (7) Fall Priority: Primary Status: Acute Qualifiers: Encounter type: initial encounter Qualified Code(s): W19.XXXA - Unspecified fall, initial encounter (8) Physical deconditioning Priority: Primary Status: Acute (9) Hypertension Priority: Secondary Status: Chronic Qualifiers: Hypertension type: essential hypertension Qualified Code(s): I10 - Essential (primary) hypertension (10) Depression Priority: Secondary Status: Acute Qualifiers: Depression Type: unspecified Qualified Code(s): F32.9 - Major depressive disorder, single episode, unspecified - Discharge Medications Prescriptions: RX: OxyCODONE ER (12 HR) [OxyCONTIN] 20 mg PO BID #20 tab.er.12h RX: OxyCODONE Immed Rel [Roxicodone 15 MG] 15 mg PO Q8H PRN #20 tablet PRN Reason: Pain Home Medications: RX: Ondansetron HCl [Zofran] 4 mg PO TID PRN 05/18/16 [History] RX: Bupropion HCl [Wellbutrin Xl] 300 mg PO QAM 05/19/16 [History] RX: Pantoprazole Sodium [Protonix] 40 mg PO BID 05/19/16 [History] RX: Allopurinol [Zyloprim 100 MG] 100 mg PO DAILY 11/11/16 [History] RX: Hydroxychloroquine [Plaquenuil] 200 mg PO DAILY 11/11/16 [History] RX: Levothyroxine [Synthroid] 75 mcg PO QAM 11/11/16 [History] RX: Sucralfate [Carafate] 1 gm PO BID 11/11/16 [History] RX: Ferrous Sulfate 325 mg PO BIDWM #60 tablet 11/14/16 [Rx] RX: Insulin Glargine [Lantus] 30 unit SQ HS 01/04/17 [History] RX: Insulin LISPRO [Humalog Kwikpen U-100] 0 unit SQ TIDWM 01/04/17 [History] RX: Lisinopril [Zestril] 20 mg PO DAILY tablet 01/13/17 [Rx] RX: OxyCODONE ER (12 HR) [OxyCONTIN] 20 mg PO BID #20 tab.er.12h 01/13/17 [Rx] RX: OxyCODONE Immed Rel [Roxicodone 15 MG] 15 mg PO Q8H PRN #20 tablet 01/13/17 [Rx] RX: Sennosides/Docusate Sodium [Senna Plus] 2 each PO BID PRN #0 tablet [Rx] RX: predniSONE [PredniSONE] 5 mg PO DAILY@1100 tablet 01/13/17 [Rx] RX: predniSONE [PredniSONE] 10 mg PO DAILY@1100 tablet 01/13/17 [Rx] RX: predniSONE [PredniSONE] 15 mg PO DAILY@1100 tablet 01/13/17 [Rx] Allergies/Adverse Reactions: Allergies benzoin Adverse Reaction (Verified 07/07/16 12:14) Rash morphine Adverse Reaction (Verified 11/11/16 19:41) Altered Mental Status Per ECW list. Date of admission: 01/08/17 14:16 Primary care physician: Whit Valle CNP Consults: 01/09/17 07:35 Consult to Infectious Diseases [CONS] Stat Consulting Provider: Infectious Disease Ivonne Reason for Consult: sepsis of unknown etiology Call Completed: Yes Discharging clinician: Jennifer Peguero Anticipated date of discharge: 01/13/17 - Patient Status Disposition: Transfer SNF Condition: Good Functional capacity at discharge: uses cane/walker Overall status at discharge: patient is back to baseline - Discharge Instructions Follow Up With: Whit Valle CNP [Primary Care Provider] - (Please follow up with your PCP at the [facility]) Stew Aviles DO [Partnered Physician] - 02/02/17 9:30 am (GI BLEED) Additional Instructions: Please have your PCP or ECF PCP refer you to:Dr. Kuldip Cary, Rheumatology - [address] [place] [address] Phone [phone] Please follow-up with your primary care physician within 5 days after your discharge from the hospital. Please continue steroid taper. Prednisone 15 mg 4 days followed by prednisone 10 mg 4 days followed by prednisone 5 mg 4 days. Your home dose of lisinopril has been increased to 20 mg daily due to elevated blood pressure readings. Please call closely monitor her blood pressure after discharge and informe your primary care physician of this change. Resume all your other home medications as prescribed by your primary care physician. - Diet and Activity Activity: as per physical therapy Diet: diabetic diet, low salt diet Hospital course: Ms. Ramachandran is a 66 year old female with past medical history of diabetes, hypertension, CKD, hepatitis C, hypothyroidism, rheumatoid arthritis who was admitted status post fall and was noted to have hyperglycemia. Patient reported of having generalized weakness due to which she was unable to care for herself and unable to take her insulin dosing as prescribed. Patient's hospital course was complicated with sepsis of unclear etiology for which she was empirically treated with IV antibiotics. Patient was also noted to have rheumatoid arthritis flareup for which he was started on PO steroids. Patient responded well to therapy with improvement in her pain and her leukocytosis. No clear etiology of her sepsis was identified and her antibiotics were discontinued as patient began to clinically improve. She was evaluated by physical therapy and ECF was recommended. At this time patient is hemodynamically stable and will be discharged to [facility] with a steroid taper. She is to follow-up with her primary care physician, front desk worker after her discharge from the hospital. Patient demonstrates understanding of her diagnosis and agrees with the discharge care and plan. - Time Spent with Patient Total time spent providing and/or coordinating discharge services: Greater than 30 minutes - Constitutional Vitals: Temp Pulse Resp BP Pulse Ox 97.6 F 78 16 134/73 93 01/13/17 12:36 01/13/17 12:36 01/13/17 12:36 01/13/17 12:36 01/13/17 12:36 General appearance: Present: cooperative, A&O X 3, morbidly obese, no acute distress, answers questions appropriately - Head Head exam: Present: atraumatic, normocephalic - Eye Eye exam: Present: normal appearance, conjuntiva pink, sclera anicteric - Respiratory Respiratory exam: Present: CTAB. Absent: accessory muscle use, rales, rhonchi, wheezes - Cardiovascular Cardiovascular exam: Present: RRR, +S1, +S2. Absent: diastolic murmur, gallop, rubs, systolic murmur - GI/Abdominal GI/Abdominal exam: Present: normal bowel sounds, soft, no peritoneal signs. Absent: distended, tenderness - Extremities Exam Extremities exam: Present: warm, radial pulses palpable and symetrical. Absent : calf tenderness - Neurological Exam Neurological exam: Present: alert, oriented X3 - Psychiatric Psychiatric exam: Present: normal affect, normal mood - VTE Documentation of Mechanical Device: Intermittent pneumatic compression device
--- NOTE | 2017-01-13 14:25 | Physician Discharge Referral ---
ExtendedCare Referral Info Transfer To: [facility] Provider in Charge after Transfer: PCP - Diagnosis (1) Diabetes Priority: Secondary Status: Chronic (2) GLO (acute kidney injury) Priority: Secondary Status: Resolved (3) Chronic pain Priority: Secondary Status: Chronic (4) DVT prophylaxis Priority: Secondary Status: Acute (5) Anemia Priority: Secondary Status: Acute (6) Hyperglycemia Priority: Secondary Status: Acute (7) Fall Priority: Primary Status: Acute (8) Physical deconditioning Priority: Primary Status: Acute (9) Hypertension Priority: Secondary Status: Chronic (10) Depression Priority: Secondary Status: Acute - Transfer Medications Prescriptions: OxyCODONE ER (12 HR) [OxyCONTIN] 20 mg PO BID #20 tab.er.12h OxyCODONE Immed Rel [Roxicodone 15 MG] 15 mg PO Q8H PRN #20 tablet PRN Reason: Pain Home Medications: Ondansetron HCl [Zofran] 4 mg PO TID PRN 05/18/16 [History] Bupropion HCl [Wellbutrin Xl] 300 mg PO QAM 05/19/16 [History] Pantoprazole Sodium [Protonix] 40 mg PO BID 05/19/16 [History] Allopurinol [Zyloprim 100 MG] 100 mg PO DAILY 11/11/16 [History] Hydroxychloroquine [Plaquenuil] 200 mg PO DAILY 11/11/16 [History] Levothyroxine [Synthroid] 75 mcg PO QAM 11/11/16 [History] Sucralfate [Carafate] 1 gm PO BID 11/11/16 [History] Ferrous Sulfate 325 mg PO BIDWM #60 tablet 11/14/16 [Rx] Insulin Glargine [Lantus] 30 unit SQ HS 01/04/17 [History] Insulin LISPRO [Humalog Kwikpen U-100] 0 unit SQ TIDWM 01/04/17 [History] Lisinopril [Zestril] 20 mg PO DAILY tablet 01/13/17 [Rx] OxyCODONE ER (12 HR) [OxyCONTIN] 20 mg PO BID #20 tab.er.12h 01/13/17 [Rx] OxyCODONE Immed Rel [Roxicodone 15 MG] 15 mg PO Q8H PRN #20 tablet 01/13/17 [Rx] Sennosides/Docusate Sodium [Senna Plus] 2 each PO BID PRN #0 tablet 01/13/17 [Rx ] predniSONE [PredniSONE] 5 mg PO DAILY@1100 tablet 01/13/17 [Rx] predniSONE [PredniSONE] 10 mg PO DAILY@1100 tablet 01/13/17 [Rx] predniSONE [PredniSONE] 15 mg PO DAILY@1100 tablet 01/13/17 [Rx] Allergies/Adverse Reactions: Allergies benzoin Adverse Reaction (Verified 07/07/16 12:14) Rash morphine Adverse Reaction (Verified 11/11/16 19:41) Altered Mental Status Per ECW list. - Respiratory Orders Smoking Cessation: Smoking cessation has been advised. For more information, call the [place] Tobacco Quit Line at 1-508-VWGR-NOW. - Treatments List/Other: Please have your PCP or ECF PCP refer you to:Dr. Kuldip Cary, Rheumatology - [address] [id number] Phone [phone] Please follow-up with your primary care physician within 5 days after your discharge from the hospital. Please continue steroid taper. Prednisone 15 mg 4 days followed by prednisone 10 mg 4 days followed by prednisone 5 mg 4 days. Your home dose of lisinopril has been increased to 20 mg daily due to elevated blood pressure readings. Please call closely monitor her blood pressure after discharge and informe your primary care physician of this change. Resume all your other home medications as prescribed by your primary care physician. Please follow up with Dr. Aviles FOR positive stool occult test to rule out any GI bleed. CERTIFICATION: I certify that the transfer of the above named patient to an Extended Care Facility is necessary for the continuing treatment of the diagnosis listed. The above information is true and accurate reflection of patient's current condition. Confidential - Redisclosure prohibited without a patient's written consent.
[2017-01-14] MEDS: *HR* OxyCODONE Immed Rel 15 MG TABLET PO PRN ×3 (02:55→17:16)
[2017-01-14] MEDS: Sucralfate 1 GM TABLET PO SCH ×2 (07:47→17:17)
[2017-01-14] MEDS: Lisinopril 20 MG TABLET PO SCH (07:53)
[2017-01-14] MEDS: *HR* OxyCODONE ER (12 HR) 10 MG TABLET PO SCH ×2 (07:53→20:32)
[2017-01-14] MEDS: Insulin LISPRO 300 UNITS/3 ML VIAL SQ SCH ×7 (07:54→23:58)
[2017-01-14] MEDS: BuPROPion XL (24 HR) 150 MG TABLET PO SCH (07:54)
[2017-01-14] MEDS: Insulin DETEMIR 100 UNIT/ML X5UNITS SQ SCH ×2 (07:54→23:58)
--- NOTE | 2017-01-14 10:38 | Infectious Disease Progress No ---
Date of Encounter: 01/14/17 Time of Encounter: 10:36 - Assessment and Plan (1) Sepsis Status: Acute The patient had severe sepsis. She had three SIRS criteria plus EOD. Source remains unclear, possible non-infectious etiologies are possible --> gout or RA flare. Improved. She has been afebrile since 01/07/17. She continues to have leukocytosis, but this is improved and she remains on steroids, which is likely contributing to the leukocytosis. Tachycardia has resolved. Patient has very poor dentition with history of broken teeth. She was scheduled to see a dentist for extraction this week. Get dental x-rays to evaluate for infectious etiology. ESR and CRP markedly elevated. Blood cultures drawn 01/07/17 and 01/08/17 are negative x 4 sets. Urine culture was interpreted as grossly mixed yohan, but the patient has no urinary complaints. Antibiotics discontinued by the primary team 01/12/17. The patient remains afebrile. Continue to observe off antibiotics. Qualifiers: Sepsis type: sepsis due to unspecified organism Qualified Code(s): A41.9 - Sepsis, unspecified organism (2) Gout Status: Acute No obvious gout attack, but theoretically could still be the cause of the patient's fever and leukocytosis. Check uric acid level. Qualifiers: Gout site: ankle Gout etiology: idiopathic Laterality: unspecified laterality Chronicity: unspecified Qualified Code(s): M10.079 - Idiopathic gout, unspecified ankle and foot (3) Arthralgia Status: Acute Location: generalized. No evidence of joint deformity, edema, erythema, or tenderness noted on exam. Qualifiers: Joint pain location: unspecified Qualified Code(s): M25.50 - Pain in unspecified joint (4) Poor dentition Status: Acute The patient reports that she has several broken teeth on the bottom and was scheduled to see a dentist this week for extraction. Clinically, there does not appear to be pain or tenderness or abscess, but given that the patient has diabetes, she could have a decreased pain sensation. Get dental x-ray to evaluate for possible infectious etiology. (5) Diarrhea Status: Acute The patient reports several loose stools yesterday with bowel incontinence. Likely secondary to aggressive laxative regimen given 01/09-01/11, but given that the patient has had antibiotics during her hospital stay, C. diff is a possibility. Today, she reports one loose stool as of the time of the exam, but states it seems more formed today. If diarrhea persists, consider checking C. diff given the patient's recent antibiotic use, but as of right now, the patient does not meet testing criteria. If she has four loose, watery stools, place in contact/C. diff precautions, start empiric Flagyl 500mg PO TID until testing complete and send stool for C. diff PCR. Advised the patient to force fluids to maintain hydration. Qualifiers: Diarrhea type: unspecified type Qualified Code(s): R19.7 - Diarrhea, unspecified (6) Constipation Status: Resolved KUB negative for ileus or obstruction. Received aggressive laxative regimen and now has diarrhea. Qualifiers: Constipation type: unspecified constipation type Qualified Code(s): K59.00 - Constipation, unspecified (7) Rheumatoid arthritis Status: Acute ESR and CRP markedly elevated. Not on treatment prior to admission due to history of Hep C. Follows with Rheumatology in [place]. Qualifiers: Rheumatoid arthritis location: unspecified site Rheumatoid factor presence : unspecified presence Qualified Code(s): M06.9 - Rheumatoid arthritis, unspecified (8) Status post oophorectomy Status: Acute Abdominal incisions well-healed with no abdominal exam abnormalities. 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 No acute events noted overnight. Patient lying flat in bed during exam. States she has generalized pain in several joints, but states it seems to be better today. She denies any new pain. She denies any fevers, chills, or rigors. Denies chest pain, shortness of breath, or cough. She reports some intermittent nausea. She denies abdominal pain and states her appetite is okay. She denies any vomiting, but does report diarrhea since being given an aggressive laxative regimen a few days ago. She states she had several loose bowel movements yesterday and reports some incontinence. She reports she thinks her stool is more formed today and she has only had 1 BM this morning. She denies any warm or erythematous joints. She denies any urinary complaints, but reports only voided a small amount of urine this morning. She denies any oral thrush or skin lesions. Infect Dis PN-Objective Data - Labs CBC & Chem 7: 01/13/17 04:54 01/13/17 04:54 Labs: Laboratory Results - last 24 hr 01/13/17 01/13/17 01/13/17 01:12 11:49 15:58 POC Glucose 62 98 H 221 H 01/14/17 07:51 POC Glucose 171 H Cultures: Serology 01/10/17 Range/Units 11:55 Stool Occult Blood Positive A (Negative) Exam - Constitutional Vitals: Temp Pulse Resp BP Pulse Ox 98 F 77 18 147/72 94 01/14/17 04:34 01/14/17 04:34 01/14/17 04:34 01/14/17 04:34 01/14/17 08:00 General appearance: cooperative, no acute distress, obese - Head Head exam: Present: atraumatic, normal inspection, normocephalic - Eye Eye exam: Present: EOMI, normal appearance, PERRL Pupils: Present: normal accommodation - ENT ENT exam: Present: mucous membranes moist Additional comments: Poor dentition noted with several broken teeth noted to the lower gum line. - Neck Neck exam: Present: normal inspection - Respiratory Respiratory exam: Present: CTAB. Absent: rales, respiratory distress, rhonchi, wheezes - Cardiovascular Cardiovascular exam: Present: irregular rhythm. Absent: tachycardia - GI/Abdominal GI/Abdominal exam: Present: distended (obese), normal bowel sounds, soft. Absent: tenderness Additional comments: Well-healed surgical stab incisions noted x 3. Scabs noted to the umbilical and RLQ incisions. No erythema, warmth, or tenderness noted. - Extremities Exam Extremities exam: Present: normal inspection. Absent: joint swelling, pedal edema, tenderness - Neurological Exam Neurological exam: Present: alert, oriented X3, no focal deficits - Psychiatric Psychiatric exam: Present: normal affect, normal mood - Skin Skin exam: Present: dry, intact, normal color, warm - VTE Documentation of Mechanical Device: Intermittent pneumatic compression device Consult Discharge Plan - Plan Instructions: Fall Prevention (DC) Additional Instructions: Please have your PCP or [facility] PCP refer you to:Dr. Kuldip Cary, Rheumatology - [address] [facility], [place] [address] Phone [phone] Please follow-up with your primary care physician within 5 days after your discharge from the hospital. Please continue steroid taper. Prednisone 15 mg 4 days followed by prednisone 10 mg 4 days followed by prednisone 5 mg 4 days. Your home dose of lisinopril has been increased to 20 mg daily due to elevated blood pressure readings. Please call closely monitor her blood pressure after discharge and informe your primary care physician of this change. Resume all your other home medications as prescribed by your primary care physician. Referrals: Whit Valle, RODEO CLOWN [Primary Care Provider] - (Please follow up with your PCP at the [facility]) Stew Aviles DO [Partnered Physician] - 02/02/17 9:30 am (GI BLEED) Prescriptions: OxyCODONE ER (12 HR) [OxyCONTIN] 20 mg PO BID #20 tab.er.12h OxyCODONE Immed Rel [Roxicodone 15 MG] 15 mg PO Q8H PRN #20 tablet PRN Reason: Pain - Attending Attestation I examined this patient and my medical decision-making was reviewed with the RANCH COOK/PA/Advanced Practice Nurse/Resident Physician. I agree with the documented findings, disposition and treatment plan as described except to the extent set forth below.
--- NOTE | 2017-01-14 10:52 | Internal Med Progress Note ---
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 insulin use: with longterm use Chronic kidney disease stage: stage 3 (moderate) Qualified Code(s): E11.22 - Type 2 diabetes mellitus with diabetic chronic kidney disease; N18.3 - Chronic kidney disease, stage 3 (moderate); Z79.4 - MCC (current) use of insulin (2) GLO (acute kidney injury) Current Visit: No Status: Resolved (3) Chronic pain Current Visit: No Status: Chronic Qualifiers: Chronic pain type: other chronic pain Qualified Code(s): G89.29 - Other chronic pain (4) DVT prophylaxis Current Visit: No Status: Acute (5) Anemia Current Visit: No Status: Acute Qualifiers: Anemia type: iron deficiency Iron deficiency anemia type: unspecified iron deficiency Qualified Code(s): D50.9 - Iron deficiency anemia, unspecified (6) Hyperglycemia Current Visit: Yes Status: Acute (7) Fall Current Visit: Yes Status: Acute Qualifiers: Encounter type: initial encounter Qualified Code(s): W19.XXXA - Unspecified fall, initial encounter (8) Physical deconditioning Current Visit: Yes Status: Acute (9) Hypertension Current Visit: No Status: Chronic Qualifiers: Hypertension type: essential hypertension Qualified Code(s): I10 - Essential (primary) hypertension (10) Depression Current Visit: Yes Status: Acute Qualifiers: Depression Type: unspecified Qualified Code(s): F32.9 - Major depressive disorder, single episode, unspecified - Subjective Interval history: Pt seen and examined at bedside. Reports of feeling significantly better and states she had two bowel movements this morning. Pt denies any discomfort at this time. discharge pending ECF placement Vitals WNL continue prednisone taper and home meds - Constitutional Vitals: Temp Pulse Resp BP Pulse Ox 98 F 77 18 147/72 94 01/14/17 04:34 01/14/17 04:34 01/14/17 04:34 01/14/17 04:34 01/14/17 08:00 General appearance: Present: cooperative, A&O X 3, morbidly obese, no acute distress, answers questions appropriately - Head Head exam: Present: atraumatic, normocephalic - Eye Eye exam: Present: normal appearance, conjuntiva pink, sclera anicteric - Respiratory Respiratory exam: Present: CTAB. Absent: respiratory distress, wheezes - Cardiovascular Cardiovascular exam: Present: RRR, +S1, +S2 - GI/Abdominal GI/Abdominal exam: Present: normal bowel sounds, soft. Absent: tenderness - Extremities Exam Extremities exam: Present: warm, radial pulses palpable and symetrical. Absent : calf tenderness, pedal edema, tenderness - Neurological Exam Neurological exam: Present: alert, oriented X3 - Psychiatric Psychiatric exam: Present: normal affect, normal mood Internal Medicine: Result - Labs CBC & Chem 7: 01/13/17 04:54 01/13/17 04:54 - VTE Documentation of Mechanical Device: Intermittent pneumatic compression device Consult Discharge Plan - Plan Additional Instructions: Please have your PCP or [facility] PCP refer you to:Dr. Kuldip Cary, Rheumatology - [address] [place] [address] Phone [phone] Please follow-up with your primary care physician within 5 days after your discharge from the hospital. Please continue steroid taper. Prednisone 15 mg 4 days followed by prednisone 10 mg 4 days followed by prednisone 5 mg 4 days. Your home dose of lisinopril has been increased to 20 mg daily due to elevated blood pressure readings. Please call closely monitor her blood pressure after discharge and informe your primary care physician of this change. Resume all your other home medications as prescribed by your primary care physician. Referrals: Whit Valle CNP [Primary Care Provider] - (Please follow up with your PCP at the [facility]) Stew Aviles DO [Partnered Physician] - 02/02/17 9:30 am (GI BLEED) Prescriptions: OxyCODONE ER (12 HR) [OxyCONTIN] 20 mg PO BID #20 tab.er.12h OxyCODONE Immed Rel [Roxicodone 15 MG] 15 mg PO Q8H PRN #20 tablet PRN Reason: Pain
[2017-01-14] MEDS: predniSONE 10 MG TABLET PO SCH (11:44)
[2017-01-14 19:46] LABS: Bilirubin,Urine Negative (Negative); Blood,Urine Negative (Negative); Clarity,Urine Clear (Clear); Color,Urine Yellow (Yellow); Glucose,Urine (UA) Normal (Normal); Ketones,Urine Negative (Negative); Leukocyte Esterase,Urine Small (Negative); Nitrite,Urine Negative (Negative); Protein,Urine 30 mg/dL (Neg-Trace); Specific Gravity,Urine 1.018 (1.010-1.025); Urobilinogen,Urine Normal (Normal)
[2017-01-14 19:56] LABS: Squamous Epithelial Cell,Urine Moderate per lpf (None-Few)
[2017-01-14 19:57] LABS: Bacteria,Urine Few per hpf (None-Few); RBC,Urine 0-3 per hpf (0-3); WBC,Urine 0-3 per hpf (0-3); Yeast,Urine Few per hpf (None Seen)
[2017-01-15] MEDS: *HR* OxyCODONE Immed Rel 15 MG TABLET PO PRN ×2 (01:43→13:39)
[2017-01-15] MEDS: Sucralfate 1 GM TABLET PO SCH (07:58)
[2017-01-15] MEDS: *HR* OxyCODONE ER (12 HR) 10 MG TABLET PO SCH (08:02)
[2017-01-15] MEDS: Lisinopril 20 MG TABLET PO SCH (08:02)
[2017-01-15] MEDS: BuPROPion XL (24 HR) 150 MG TABLET PO SCH (08:03)
[2017-01-15] MEDS: Insulin LISPRO 300 UNITS/3 ML VIAL SQ SCH ×4 (08:03→11:54)
[2017-01-15] MEDS: Insulin DETEMIR 100 UNIT/ML X5UNITS SQ SCH (08:03)
[2017-01-15] MEDS: predniSONE 10 MG TABLET PO SCH (10:56)
--- NOTE | 2017-01-15 11:08 | Infectious Disease Progress No ---
Date of Encounter: 01/15/17 Time of Encounter: 11:04 - Assessment and Plan (1) Sepsis Current Visit: Yes Status: Acute The patient had severe sepsis. She had three SIRS criteria plus EOD. Source unclear, but possible sources include dental. Improved. She has been afebrile since 01/07/17. Her persistent leukocytosis was likely secondary to steroid use. Non-infectious etiology also possibility --> gout + RA. ESR and CRP markedly elevated. Blood cultures drawn 01/07/17 and 01/08/17 are negative x 4 sets. Urine culture was interpreted as grossly mixed yohan, but the patient has no urinary complaints. A repeat UA was completed yesterday that showed small leukocyte esterase, but a large amount of epithelial cells, indicating contamination of the specimen. Urine culture is pending. Low index of suspicion for UTI given that the patient is asymptomatic. Antibiotics discontinued by the primary team 01/12/17. The patient remains afebrile. Continue to observe off antibiotics. Qualifiers: Sepsis type: sepsis due to unspecified organism Qualified Code(s): A41.9 - Sepsis, unspecified organism (2) Gout Current Visit: Yes Status: Acute No obvious gout attach, but theoretically could still be the cause of the patient's fever and leukocytosis. Qualifiers: Gout site: ankle Gout etiology: idiopathic Laterality: unspecified laterality Chronicity: unspecified Qualified Code(s): M10.079 - Idiopathic gout, unspecified ankle and foot (3) Arthralgia Current Visit: Yes Status: Acute Location: generalized. No evidence of joint deformity, edema, erythema, or tenderness noted on exam. Improved based on patient reports. Qualifiers: Joint pain location: unspecified Qualified Code(s): M25.50 - Pain in unspecified joint (4) Poor dentition Current Visit: Yes Status: Acute The patient reports that she has several broken teeth on the bottom and was scheduled to see a dentist this week for extraction. Clinically, there does not appear to be pain or tenderness or abscess, but given that the patient has diabetes, she could have a decreased pain sensation. (5) Diarrhea Current Visit: Yes Status: Acute Improved. Continue to force fluids. Low index of suspicion for C. diff. Qualifiers: Diarrhea type: unspecified type Qualified Code(s): R19.7 - Diarrhea, unspecified (6) Constipation Current Visit: Yes Status: Resolved KUB negative for ileus or obstruction. Received aggressive laxative regimen with good results. Qualifiers: Constipation type: unspecified constipation type Qualified Code(s): K59.00 - Constipation, unspecified (7) Rheumatoid arthritis Current Visit: Yes Status: Acute ESR and CRP markedly elevated. Not on treatment prior to admission due to history of Hep C. Follows with Rheumatology in [place]. Qualifiers: Rheumatoid arthritis location: unspecified site Rheumatoid factor presence : unspecified presence Qualified Code(s): M06.9 - Rheumatoid arthritis, unspecified (8) Status post oophorectomy Current Visit: Yes Status: Acute Abdominal incisions well-healed with no abdominal exam abnormalities. 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 No acute events noted overnight. Patient lying in bed during exam. States she has generalized pain in several joints, but states it seems to be better today. She denies any new pain. She denies any fevers, chills, or rigors. Denies chest pain, shortness of breath, or cough. Denies nausea, vomiting, or constipation. Reports two loose stools yesterday, but none today. She denies abdominal pain and states her appetite is okay. She denies any urinary complaints, but states she was told she has a UTI. She denies any oral thrush or skin lesions. Infect Dis PN-Objective Data - Labs CBC & Chem 7: 01/13/17 04:54 01/13/17 04:54 Labs: Laboratory Results - last 24 hr 01/13/17 01/13/17 01/13/17 19:57 19:58 20:29 POC Glucose 45 L* 47 L* 75 Urine Color Urine Clarity Urine pH Ur Specific [place] Urine Protein Urine Glucose (UA) Urine Ketones Urine Blood Urine Nitrite Urine Bilirubin Urine Urobilinogen Ur Leukocyte Esterase Urine Microscopic RBC Urine Microscopic WBC Ur Squamous Epith Cells Urine Bacteria Urine Yeast Ur Culture Indicated? 01/14/17 01/14/17 01/14/17 11:16 16:12 19:15 POC Glucose 74 153 H Urine Color Yellow Urine Clarity Clear Urine pH 6.0 Ur Specific [place] 1.018 Urine Protein 30 H Urine Glucose (UA) Normal Urine Ketones Negative Urine Blood Negative Urine Nitrite Negative Urine Bilirubin Negative Urine Urobilinogen Normal Ur Leukocyte Esterase Small H Urine Microscopic RBC 0-3 Urine Microscopic WBC 0-3 Ur Squamous Epith Cells Moderate H Urine Bacteria Few Urine Yeast Few H Ur Culture Indicated? YES A 01/14/17 01/15/17 20:56 08:02 POC Glucose 141 H 171 H Urine Color Urine Clarity Urine pH Ur Specific [place] Urine Protein Urine Glucose (UA) Urine Ketones Urine Blood Urine Nitrite Urine Bilirubin Urine Urobilinogen Ur Leukocyte Esterase Urine Microscopic RBC Urine Microscopic WBC Ur Squamous Epith Cells Urine Bacteria Urine Yeast Ur Culture Indicated? Cultures: Serology 01/14/17 01/10/17 Range/Units 19:15 11:55 Urine Color Yellow (Yellow) Urine Clarity Clear (Clear) Urine pH 6.0 (5.0-8.0) pH Units Ur Specific [place] 1.018 (1.010-1.025) Urine Protein 30 H (Neg-Trace) mg/dL Urine Glucose (UA) Normal (Normal) mg/dL Urine Ketones Negative (Negative) mg/dL Urine Blood Negative (Negative) Urine Nitrite Negative (Negative) Urine Bilirubin Negative (Negative) Urine Urobilinogen Normal (Normal) mg/dL Ur Leukocyte Esterase Small H (Negative) Urine Microscopic RBC 0-3 (0-3) per hpf Urine Microscopic WBC 0-3 (0-3) per hpf Ur Squamous Epith Cells Moderate H (None-Few) per lpf Urine Bacteria Few (None-Few) per hpf Urine Yeast Few H (None Seen) per hpf Ur Culture Indicated? YES A (NO) Stool Occult Blood Positive A (Negative) Exam - Constitutional Vitals: Temp Pulse Resp BP Pulse Ox 98.3 F 86 16 176/80 95 01/15/17 07:59 01/15/17 07:59 01/15/17 07:59 01/15/17 07:59 01/15/17 08:17 General appearance: cooperative, no acute distress, obese - Head Head exam: Present: atraumatic, normal inspection, normocephalic - Eye Eye exam: Present: EOMI, normal appearance, PERRL Pupils: Present: normal accommodation - ENT ENT exam: Present: mucous membranes moist - Neck Neck exam: Present: normal inspection - Respiratory Respiratory exam: Present: CTAB. Absent: rales, respiratory distress, rhonchi, wheezes - Cardiovascular Cardiovascular exam: Present: RRR, +S1, +S2 - GI/Abdominal GI/Abdominal exam: Present: normal bowel sounds, soft. Absent: distended, tenderness - Extremities Exam Extremities exam: Present: normal inspection. Absent: joint swelling, pedal edema, tenderness - Neurological Exam Neurological exam: Present: alert, oriented X3, no focal deficits - Psychiatric Psychiatric exam: Present: normal affect, normal mood - Skin Skin exam: Present: dry, intact, normal color, warm - VTE Documentation of Mechanical Device: Intermittent pneumatic compression device Consult Discharge Plan - Plan Additional Instructions: Please have your PCP or [facility] PCP refer you to:Dr. Kuldip Cary, Rheumatology - [address] [place] [address] Phone [phone] Please follow-up with your primary care physician within 5 days after your discharge from the hospital. Please continue steroid taper. Prednisone 15 mg 4 days followed by prednisone 10 mg 4 days followed by prednisone 5 mg 4 days. Your home dose of lisinopril has been increased to 20 mg daily due to elevated blood pressure readings. Please call closely monitor her blood pressure after discharge and informe your primary care physician of this change. Resume all your other home medications as prescribed by your primary care physician. Referrals: Whit Valle CNP [Primary Care Provider] - (Please follow up with your PCP at the [facility]) Stew Aviles DO [Partnered Physician] - 02/02/17 9:30 am (GI BLEED) Prescriptions: OxyCODONE ER (12 HR) [OxyCONTIN] 20 mg PO BID #20 tab.er.12h OxyCODONE Immed Rel [Roxicodone 15 MG] 15 mg PO Q8H PRN #20 tablet PRN Reason: Pain
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
[2017-01-15 15:13] VITALS: BP 146/67
[2017-01-17] MEDS ORDERED: predniSONE 10 MG TABLET PO SCH (11:00)
[2017-01-21] MEDS ORDERED: predniSONE 5 MG TABLET PO SCH (11:00)
== END 2017-01-15 16:05 | DRG 872 ==
LOC: 2ANU 08:39 → EMEROO 08:39 → 2ANU 12:40 → SUATTDRO 12:43
PROVIDERS: ADMIT Internal Medicine; ATTEND Internal Medicine

== ENCOUNTER 2017-02-19 10:32 | Observation (INO) ==
[2017-02-19 10:55] LABS: Hematocrit 38.4 % (35.3-44.9); Hemoglobin 11.7 g/dL (11.5-15.4); Immature Platelets 7.9 % (1.1-6.1); Mean Corpuscular HGB Conc 30.5 g/dL (31.6-35.5); Mean Corpuscular Hemoglobin 23.3 pg (28.0-33.3); Mean Corpuscular Volume 76.5 fL (83.0-100.0); Red Blood Count 5.02 M/mcL (3.82-4.97); Red Cell Distribution Width 21.7 % (11.5-14.5)
[2017-02-19 11:08] LABS: BUN/Creatinine Ratio 14 (6-26); Blood Urea Nitrogen 14 mg/dL (7-20); Calcium 9.5 mg/dL (8.6-10.8); Carbon Dioxide 24 mEq/L (19-29); Chloride 101 mEq/L (98-109); Glucose 414 mg/dL (70-99); Osmolality,Calculated 300 (280-300); Potassium 4.5 mEq/L (3.5-4.5); Sodium 136 mEq/L (136-145); eGFR For African Americans > 60 (> 60); eGFR For Non-African Americans 57 (> 60)
--- NOTE | 2017-02-19 11:34 | Emergency Department Note ---
Disposition Clinical Impression: Toe abrasion, non-infected, Syncope Fall Qualifiers: Encounter type: initial encounter Qualified Code(s): W19.XXXA - Unspecified fall, initial encounter Contusion of arm, left Qualifiers: Encounter type: initial encounter Qualified Code(s): S40.022A - Contusion of left upper arm, initial encounter Disposition: Admitted As Inpatient Condition: Fair Neuro HPI - General Chief Complaint: ED Neuro Symptoms/Deficit Stated Complaint: R/O CVA Time Seen by Provider: 02/19/17 10:38 Source: EMS Limitations: no limitations Nursing Notes Reviewed: Yes Vital Signs Reviewed: Yes - History of Present Illness HPI Narrative: I did see the patient upon arrival and the story is that her has recently been admitted to the hospital and she has a difficult time with ambulation and she did fall last night and thinks this is because she tripped and fell but is not positive. She did hit her head. No known loss of consciousness. Does have chronic pain from rheumatoid arthritis but no new pain. She does not have any numbness or weakness of extremities. The patient was recently diagnosed with bronchitis and does have rhinorrhea, cough, sneezing. No fever or blurred vision. No bruising of the skin or skin rash, blood in the urine or stool. Social history: No smoking. Lives at home. - Related Data Home Medications: Home Medications Medication Instructions Recorded Confirmed Ondansetron HCl [Zofran] 4 mg PO TID PRN 05/18/16 01/04/17 Bupropion HCl [Wellbutrin Xl] 300 mg PO QAM 05/19/16 01/04/17 Pantoprazole Sodium [Protonix] 40 mg PO BID 05/19/16 01/04/17 Allopurinol [Zyloprim 100 MG] 100 mg PO DAILY 11/11/16 01/04/17 Hydroxychloroquine [Plaquenuil] 200 mg PO DAILY 11/11/16 01/04/17 Levothyroxine [Synthroid] 75 mcg PO QAM 11/11/16 01/04/17 Sucralfate [Carafate] 1 gm PO BID 11/11/16 01/04/17 Insulin Glargine [Lantus] 30 unit SQ HS 01/04/17 01/04/17 Insulin LISPRO [Humalog Kwikpen 0 unit SQ TIDWM 01/04/17 01/04/17 U-100] Previous Rx's Medication Instructions Recorded Ferrous Sulfate 325 mg PO BIDWM #60 tablet 11/14/16 Lisinopril [Zestril] 20 mg PO DAILY tablet 01/13/17 OxyCODONE ER (12 HR) [OxyCONTIN] 20 mg PO BID #20 tab.er.12h 01/13/17 OxyCODONE Immed Rel [Roxicodone 15 15 mg PO Q8H PRN #20 tablet 01/13/17 MG] Sennosides/Docusate Sodium [Senna 2 each PO BID PRN #0 tablet 01/13/17 Plus] predniSONE [PredniSONE] 5 mg PO DAILY@1100 tablet 01/13/17 predniSONE [PredniSONE] 10 mg PO DAILY@1100 tablet 01/13/17 predniSONE [PredniSONE] 15 mg PO DAILY@1100 tablet 01/13/17 Allergies/Adverse Reactions: Allergies Allergy/AdvReac Type Severity Reaction Status Date / Time benzoin AdvReac Rash Verified 07/07/16 12:14 morphine AdvReac Altered Verified 11/11/16 19:41 Mental Status Review of Systems: No known loss of consciousness. Does have chronic pain from rheumatoid arthritis but no new pain. She does not have any numbness or weakness of extremities. The patient was recently diagnosed with bronchitis and does have rhinorrhea, cough, sneezing. No fever or blurred vision. No bruising of the skin or skin rash, blood in the urine or stool. Past Medical History - Past Medical History Medical history: Reports: arthritis, atrial fibrillation, diabetes, fibromyalgia , RA, other Surgical history: Reports: hysterectomy, knee replacement Psychiatric history: Reports: anxiety, depression DISTRIBUTION ASSOCIATE history: Reports: no DISTRIBUTION ASSOCIATE history - Social History Smoking Status: Never smoker Smokeless Tobacco Status: No Alcohol use: Reports: none Drug use: Reports: none Physical Exam CONSTITUTIONAL: Chronically debilitated appearing, she is alert, she does not know the month, does know the year HEAD: Normocephalic; atraumatic. EYES: PERRL, EOMI, no scleral icterus NOSE: The nose is normal in appearance without rhinorrhea NECK: Supple without rigidity, no MELISA, does have minimal to moderate midline posterior cervical spine pain with palpation. RESP: Normal chest excursion with respiration; breath sounds clear and equal bilaterally; no wheezes, rhonchi, or rales CARD: Regular rhythm, without murmurs, rub or gallop ABD: Non-distended; non-tender, soft, without rigidity, rebound or guarding SKIN: Normal for age and race; warm and dry; no apparent lesions, no rash NEUROLOGICAL: Patient is alert and oriented times three. Cranial nerves III- XII are intac except that there is a droop of the left eyelid and possibly some droop of the face when asked to smile but this is not definitive . Sensory and motor functions are intact. Strength is 5/5 for flexion and extension in all 4 extremities. Finger to nose testing is equal and normal bilaterally. - General Limitations: no limitations General appearance: alert, in no apparent distress Course Vital Signs Temperature 97.5 F L 02/19/17 10:33 Pulse Rate 111 02/19/17 10:33 Respiratory Rate 22 02/19/17 10:33 Blood Pressure 154/104 02/19/17 10:33 O2 Sat by Pulse Oximetry 95 02/19/17 10:33 Temperature 97.5 F L 02/19/17 10:33 Pulse Rate 101 02/19/17 12:27 Respiratory Rate 18 02/19/17 12:49 Blood Pressure 129/80 02/19/17 12:49 O2 Sat by Pulse Oximetry 98 02/19/17 12:27 Oxygen Delivery Oxygen Delivery Nasal Cannula Neuro Symptoms/Deficit - MDM Narrative Medical decision making narrative: I did review the patient's labs without significant abnormality, head CT, neck CT will be done. The patient will be admitted due to her altered consciousness and facial droop symptoms. Also does have a torn toenail on the right great toe and this will get a x-ray as well as an x-ray of left shoulder and humerus because she does have a bruise over the left mid upper arm [address] is negative. Left humerus x-rays negative. Right great toe foot x-ray is pending. I have spoke with Dr. Orellana who is the hospitalist involvement the patient. Concern is possible syncope. The patient will be monitored. She is not sure if she tripped and fell or passed out and fell. She also does have some minor neurologic symptoms including some minimal confusion. This will need to be further assessed as an inpatient. The social services counselor did see the patient here and is going to speak with the who is currently admitted. I did review the patient's EKG showing sinus tachycardia with a rate of 102 and some T-wave inversion in 1 and aVL which is similar to the previous EKG from January 08. Patient is remained stable during her emergency department course. 1231 I did speak with the radiologist and the foot x-ray does not show a fracture of the great toe. 1319 - Medical Records Medical records reviewed: Yes I reviewed the patient's medical records. - Lab Data Lab results reviewed: Yes I reviewed the patient's lab results. Result diagrams: 02/19/17 10:49 02/19/17 10:45 Lab Results 02/19/17 02/19/17 02/19/17 Range/Units 10:36 10:45 10:49 WBC 9.1 (4.3-11.1) K/mcL RBC 5.02 H (3.82-4.97) M/mcL Hgb 11.7 (11.5-15.4) g/dL Hct 38.4 (35.3-44.9) % MCV 76.5 L (83.0-100.0) fL MCH 23.3 L (28.0-33.3) pg MCHC 30.5 L (31.6-35.5) g/dL RDW 21.7 H (11.5-14.5) % Plt Count 284 (140-400) K/mcL MPV 11.0 (9.4-12.4) fL Immature Plt Fraction 7.9 H (1.1-6.1) % Sodium 136 (136-145) mEq/L Potassium 4.5 (3.5-4.5) mEq/L Chloride 101 (98-109) mEq/L Carbon Dioxide 24 (19-29) mEq/L BUN 14 (7-20) mg/dL Creatinine 0.98 (0.57-1.11) mg/dL Est GFR ( Amer) > 60 (> 60) Est GFR (Non-Af Amer) 57 L (> 60) BUN/Creatinine Ratio 14 (6-26) Glucose 414 H (70-99) mg/dL POC Glucose 339 H (58-89) Calculated Osmolality 300 (280-300) Calcium 9.5 (8.6-10.8) mg/dL - Radiology Data Radiology results reviewed: Yes I reviewed the patient's radiology results. Head CT 02/19/17 10:41 IMPRESSION: No acute intracranial abnormality. Diffuse atrophic changes with findings suggesting chronic microvascular ischemia D/ / Geovany Worley MD / Geovany Worley MD Interpreting Provider: Geovany Worley MD Humerus X-Ray 02/19/17 11:36 IMPRESSION: 1. Unremarkable radiographs of the left humerus. D/ / Alvaro Gomez MD / Alvaro Gomez MD Interpreting Provider: Alvaro Gomez MD - EKG Data EKG attestation: Yes I reviewed and interpreted this EKG. TPA Checklist - LKW: 3-4.5 hrs Add. Warnings/Precautions Patient/family understanding: The patient/family members have been counseled and understood the risk, benefit , and alternatives of treatment.
[2017-02-19] MEDS ORDERED: Ketorolac 15 MG/ML VIAL IVP ONE (12:47)
[2017-02-19] MEDS ORDERED: Acetaminophen 325 MG TABLET PO PRN (13:08)
[2017-02-19] MEDS ORDERED: Naloxone 0.4 MG/ML INJ IVP PRN (13:08)
--- NOTE | 2017-02-19 13:20 | Electrocardiograph Report ---
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
--- NOTE | 2017-02-19 13:44 | Internal Med History&Physical ---
<Enrico Melendrez - Last Filed: 02/19/17 16:27> Date of Encounter: 02/19/17 Time of Encounter: 12:30 Assessment and Plan (1) CVA (cerebral vascular accident) Current visit: Yes Status: Acute Mrs. Ramachandran presents with chief complaint of fall and stroke symptoms. Patient reports that she fell yesterday and the day before yesterday. She states that she falls frequently but is not sure why. She states she has a history of falls for over a year. She does not recall if she blacked out during her falls or what happened. Upon admission to the ED, Mrs. Ramachandran has marked dropping in the right eye as well as the right side of her mouth. Her speech is markedly slurred as well. She also has some drooling from the right side of her mouth. She reports bilateral weakness of her extremities during examination. Tongue is midline in examination and she is alert and oriented x3. Patient has a large bruise on her left upper arm that she states is from her fall yesterday. XR of humerus shows no fracture. Will follow NIHSS protocol with patient being placed on bed rest. Patient is outside of window for TPA. Will administer aspirin 325 mg daily and will hold patient's BP medication to allow for permissive HTN. Will begin statin therapy with Lipitor 40 mg daily. Echocardiogram, MRI of head/ brain, and bilateral carotid Doppler duplex imaging ordered. IV fluids 0.9 NS ordered. SW, PT, and OT consults ordered for possible placement to skilled rehab facility post-discharge. Speech therapy and neuro consults ordered. Medium -dose insulin sliding scale ordered to address current hyperglycemia. Continuous cardiac telemetry ordered. Patient to be monitored closely for signs of additional stroke or bleeding. Qualifiers: CVA mechanism: unspecified Qualified Code(s): I63.9 - Cerebral infarction, unspecified (2) Sinus tachycardia Current visit: Yes Status: Acute Patient presents with acute sinus tachycardia. By stress and anxiety related to current health condition and being hospitalized. Will consider IV or PO cardizem for heart rate control. (3) Generalized weakness Current visit: Yes Status: Acute Patient presents with acute generalized weakness which she reports became worse over the past 48 hours. She has a history of arthritis, fibromyalgia, and rheumatoid arthritis which she states is debilitating at times. Patient also reports a history of falls related to weakness. Patient to be placed on bedrest. Consult PT and OT placed to assess patient for ambulation needs and possible skilled rehabilitation post discharge. (4) Toe abrasion, non-infected Current visit: Yes Status: Acute Patient presents with acute abrasion right foot with trauma to toenail of great toe. X-ray ordered right foot. Will await results. (5) Contusion of arm, left Current visit: Yes Status: Acute Patient presents with acute contusion of left arm related to fall she sustained yesterday. Patient has no idea how she fell or what happened. 2-view XR of left humerus shows the left humerus is intact with no fracture or osseous destructive lesion. No appreciable soft tissue swelling. Will administer pain medication when necessary. Qualifiers: Encounter type: initial encounter Qualified Code(s): S40.022A - Contusion of left upper arm, initial encounter (6) Atrial fibrillation Current visit: Yes Status: Chronic Patient has a history of chronic atrial fibrillation without anticoagulation. Patient states she was previously on blood thinners which made her sick. Aspirin 325 mg daily ordered. Continuous cardiac telemetry ordered. Qualifiers: Atrial fibrillation type: unspecified Qualified Code(s): I48.91 - Unspecified atrial fibrillation (7) Musculoskeletal pain, chronic Current visit: Yes Status: Chronic Patient has a history of chronic arthritis, fibromyalgia, and severe RA. Will monitor patient for pain and administer pain medications when necessary based on severity. (8) Fall Current visit: Yes Status: Chronic Patient has history of chronic falls that she reports have been occurring for the past year. Most recently, patient fell yesterday and day before yesterday most likely due to CVA. Patient be placed on bedrest status. Consults for social work, physical therapy, and occupational therapy placed to assess patient 's ambulation deeds and possible need for rehabilitation skilled services post discharge. Qualifiers: Encounter type: initial encounter Qualified Code(s): W19.XXXA - Unspecified fall, initial encounter (9) Diabetes Current visit: Yes Status: Chronic Patient presents with history of chronic diabetes. Will continue patient's insulin. Blood glucose checks ACHS. Hypoglycemia protocol ordered. 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 Heparin 5,000 units SQ Q8 ordered. Monitor patient for signs of bleeding. Internal Medicine - H&P: HPI Chief complaint: Stroke symptoms/Fall Admitted From: Emergency Dept Plans for Post Hospital Care: Transfer Inp Rehab Fac History of present illness: Mrs. Ramachandran is a 66 year old female who presents from the ED with chief complaint of fall and stroke symptoms. Patient reports that she fell yesterday and the day before yesterday. She states that she falls frequently but is not sure why. She states she has a history of falls for over a year. Patient reports that she was at [facility] for rehab January 15 for approximately two weeks and was sent home. She states she felt ill and weak from being in rehab and came to the hospital because she thought she had bronchitis or pneumonia. She states her WBC was >20,000 and was placed on IV antibiotics during admission. She also reports that she has arthritis and RA that is very painful and debilitating. She does not recall if she blacked out during her falls or what happened. Upon admission to the ED, Mrs. Ramachandran has marked dropping in the right eye as well as the right side of her mouth. Her speech is markedly slurred as well. She also has some drooling from the right side of her mouth. She reports bilateral weakness of her extremities during examination. Tongue is midline in examination and she is alert and oriented x3. Patient has a large bruise on her left upper arm that she states is from her fall yesterday. She states that she cannot get up on her own and this causes falls at home. Patient is very tearful and anxious during examination regarding her prognosis as well as her being admitted here currently. She states repeatedly that she wants to see him. She denies any nausea, vomiting, headache, vision changes, fever, chills, no unusual bleeding in stool or urine. Overall impression of the CT performed of the head today w/o contrast shows diffuse atrophic changes with findings suggesting chronic microvascular ischemia. 2-View XR of the humerus shows left humerus is intact with no fracture or osseous destructive lesion. No appreciable soft tissue swelling. Patient has a medical history of arthritis, atrial fibrillation, diabetes with insulin dependency, thyroid disease, fibromyalgia and severe RA. Patient is currently not on any anticoagulation. She states she was on blood thinners previously but they made her sick. Patient is at high risk for additional CVA and will be placed as inpatient with stroke protocol and continuous cardiac telemetry. Patient is outside the window for TPA since her fall related to stroke symptoms occurred yesterday. Will hold patient's BP medication to allow for permissive HTN due to CVA. Social work, physical therapy, and occupational therapy consult placed. Patient will require inpatient rehabilitation services post discharge. Patient to be monitored closely for additional signs of stroke or CVA. Time spent with patient greater than 50 minutes Past Med Surg Social Fam HX - Past Medical History Source: patient Medical history: arthritis, atrial fibrillation, diabetes, fibromyalgia, RA, thyroid disease Psychiatric history: anxiety, depression - Past Surgical History Surgical History: cholecystectomy, hysterectomy (Total), knee replacement ( Bilateral ), other (Mass removed from ovary prior to hysterectomy) - Social History Smoking Status: Never smoker Smokeless Tobacco Status: No Alcohol use: none Drug use: none Occupational status: retired Current living situation: With Family Activity Level: Uses cane/walker Recent Out of Country Travel Within the Last 8 Weeks: No Exposure or Possible Exposure to Illness During Travel: No - Family History Brother Race: Family Member Ethnicity: Non- Living Status: Still Living Hx Family Cardiac Disorders: Yes (CABG, HD) Hx Family Cancer: Yes (Colon) Hx Family Endocrine Disorder: Yes (DM) Mother Adopted: No Race: Family Member Ethnicity: Non- Living Status: Still Living Hx Family Cardiac Disorders: No Hx Family Respiratory Disorders: No Hx Family Cancer: Yes (Ovarian with metastatis to colon) Hx Family GI Disorders: No Hx Family Endocrine Disorder: No Hx Family Neuromuscular Disorders: No Hx Family Neurologic Disorders: No Hx Family HEENT Disorders: No Hx Family Autoimmune Disorders: No Father Race: Family Member Ethnicity: Non- Living Status: Age at : 63 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 Hx Family Respiratory Disorders: Yes (COPD, silicosis of the lung from coal mine ) Internal Medicine - H&P: Meds Ondansetron HCl [Zofran] 4 mg PO TID PRN 05/18/16 [History] Bupropion HCl [Wellbutrin Xl] 300 mg PO QAM 05/19/16 [History] Pantoprazole Sodium [Protonix] 40 mg PO BID 05/19/16 [History] Allopurinol [Zyloprim 100 MG] 100 mg PO DAILY 11/11/16 [History] Hydroxychloroquine [Plaquenuil] 200 mg PO DAILY 11/11/16 [History] Levothyroxine [Synthroid] 75 mcg PO QAM 11/11/16 [History] Sucralfate [Carafate] 1 gm PO BID 11/11/16 [History] Ferrous Sulfate 325 mg PO BIDWM #60 tablet 11/14/16 [Rx] Insulin Glargine [Lantus] 30 unit SQ HS 01/04/17 [History] Insulin LISPRO [Humalog Kwikpen U-100] 0 unit SQ TIDWM 01/04/17 [History] Lisinopril [Zestril] 20 mg PO DAILY tablet 01/13/17 [Rx] OxyCODONE ER (12 HR) [OxyCONTIN] 20 mg PO BID #20 tab.er.12h 01/13/17 [Rx] OxyCODONE Immed Rel [Roxicodone 15 MG] 15 mg PO Q8H PRN #20 tablet 01/13/17 [Rx] Sennosides/Docusate Sodium [Senna Plus] 2 each PO BID PRN #0 tablet 01/13/17 [Rx ] predniSONE [PredniSONE] 5 mg PO DAILY@1100 tablet 01/13/17 [Rx] predniSONE [PredniSONE] 10 mg PO DAILY@1100 tablet 01/13/17 [Rx] predniSONE [PredniSONE] 15 mg PO DAILY@1100 tablet 01/13/17 [Rx] Allergies benzoin Adverse Reaction (Verified 07/07/16 12:14) Rash morphine Adverse Reaction (Verified 11/11/16 19:41) Altered Mental Status Per ECW list. All Systems PM: A 10-system review of systems was performed and is negative for pertinent findings except as documented above in the HPI. - Constitutional Constitutional: as per HPI, falls, weakness, no chills, no fever(s), no night sweats - EENT Eyes: no change in vision, no discharge, no pain, no photophobia Ears: no ear discharge, no ear pain, no tinnitus Nose, mouth and throat: no dysphagia, no nasal discharge, no neck pain, no sore throat - Breasts Breasts: as per HPI - Cardiovascular Cardiovascular ROS IM: as per HPI, irregular heart rhythm, no chest pain, no diaphoresis, no dyspnea, no lightheadedness, no palpitations, no syncope - Respiratory Respiratory: no cough, no dyspnea, no wheezing, no excessive phlegm production - Gastrointestinal Gastrointestinal: no abdominal pain, no diarrhea, no hematemesis, no hematochezia, no melena, no nausea, no vomiting - Genitourinary Genitourinary: no change in urinary stream, no dysuria, no flank pain, no hematuria Menstruation: as per HPI, post hysterectomy - Musculoskeletal Musculoskeletal ROS IM: as per HPI, arthralgias, muscle weakness, myalgias - Integumentary Integumentary IM: no rash, no unusual bruising - Neurological Neurological ROS: as per HPI, abnormal speech, disequilibrium, frequent falls, weakness - Psychiatric Psychiatric: as per HPI, anxiety (Related to 's current hospitalization and her unknown prognosis), depression - Endocrine Endocrine IM: as per HPI - Hematologic/Lymphatic Hematologic/Lymphatic: no easy bruising - Allergic/Immunologic Allergic/Immunologic: as per HPI - Constitutional Vitals: Temp Pulse Resp BP Pulse Ox 97.5 F L 101 18 129/80 98 02/19/17 10:33 02/19/17 12:27 02/19/17 12:49 02/19/17 12:49 02/19/17 12:27 General appearance: Present: cooperative, A&O X 3, obese, severe distress ( Related to her current prognosis and hospitalized ), answers questions appropriately (Speech is markedly slurred) - Head Head exam: Present: atraumatic, normocephalic - Eye Eye exam: Present: PERRL, conjuntiva pink, sclera anicteric Pupils: Present: PERRL Additional comments: Visible right eye droop. - ENT ENT exam: Present: normal exam, normal external ear exam - Neck Neck exam general surgery: Present: normal inspection, supple, trachea midline. Absent: lymphadenopathy - Respiratory Respiratory exam: Present: CTAB. Absent: accessory muscle use, rales, rhonchi, wheezes - Cardiovascular Cardiovascular exam: Present: irregular rhythm, tachycardia - GI/Abdominal GI/Abdominal exam: Present: hernia, normal bowel sounds, soft, no peritoneal signs. Absent: distended, tenderness - Rectal Rectal exam: Present: deferred - Additional comments: exam deferred. - Extremities Exam Extremities exam: Present: warm, radial pulses palpable and symetrical. Absent : calf tenderness, cyanotic, pedal edema Additional comments: Patient has dislodged toenail of right great toe due to her fall. She is not sure how it happened. - Back Exam Back exam: Present: normal inspection - Neurological Exam Neurological exam: Present: alert, oriented X3, facial droop, speech deficit - Psychiatric Psychiatric exam: Present: anxious, depressed - Skin Skin exam: Present: abrasion (Right great toe has loose toenail due to her fall yesterday. ), dry, intact Internal Med - H&P Results - Labs CBC & Chem 7: 02/19/17 13:30 02/19/17 13:30 - EKG Data EKG shows normal: sinus rhythm Rate: tachycardia - EKG Data Prior EKG available for review: no EKG comments: 02/19/17 13:57 EKG dated 02/19/17 shows sinus tachycardia with frequent supraventricular premature complexes, voltage criteria for LVH, nonspecific T-wave abnormality. <Jm Holman - Last Filed: 02/19/17 16:46> Date of Encounter: 02/19/17 Internal Medicine - H&P: HPI History of present illness: Ms. Ramachandran is a 66 year old female All Systems PM: A 10-system review of systems was performed and is negative for pertinent findings except as documented above in the HPI. - Constitutional Vitals: Temp Pulse Resp BP Pulse Ox 97.9 F 93 18 150/73 98 02/19/17 13:34 02/19/17 13:34 02/19/17 13:34 02/19/17 13:34 02/19/17 13:34 Internal Med - H&P Results - Labs CBC & Chem 7: 02/19/17 13:30 02/19/17 13:30 Labs: Short CBC 02/19/17 Range/Units 13:30 WBC 8.2 (4.3-11.1) K/mcL Hgb 12.0 (11.5-15.4) g/dL Hct 39.7 (35.3-44.9) % Plt Count 295 (140-400) K/mcL Neutrophils # 5.6 (1.6-8.9) K/mcL BMP 02/19/17 13:30 Sodium 138 Potassium 4.7 H Chloride 102 Carbon Dioxide 29 BUN 14 Creatinine 0.92 Glucose 391 H Calcium 9.1 Cardiac Enzymes 02/19/17 Range/Units 13:30 Troponin I 0.01 (0-0.03) ng/mL - Attending Attestation I have seen and examined the patient at around 15:45. I will discuss about the patient with Enrico Melendrez NP. I have reviewed the orders and the note. Patient is a 66-year-old female with a past history of arthritis, atrial fibrillation, diabetes, fibromyalgia, rheumatoid arthritis, anxiety and depression and thyroid disease. She presents to the ED with complaints of fall and slurred speech. Symptoms seemed to have started yesterday. No aggravating or alleviating factors. No other associated symptoms. Patient states she fell yesterday and the day before as well. She has been having frequent falls and is unsure why. Patient is unable to recall if she had a syncopal episode. Patient does have obvious facial drooping or slurred speech. She does have multiple bruises likely due to falls. Patient denies chest pain, denies shortness of breath denies palpitations or headache. Denies vomiting or abdominal pain or diarrhea. On examination patient is somnolent but easily arousable. Not in any distress. No family members at bedside. Initial evaluation in the ED with CT head negative for acute intracranial process. Symptoms seem to have started more than 12 hours ago, and patient is likely poor candidate for TPA for this reason. EKG shows sinus tachycardia with no acute ST changes from previous EKG. Patient is being admitted for acute CVA. Neurology consult is needed. MRI brain is pending along with the echocardiogram and carotid Doppler. Patient has been explained about her condition and plan of care. CODE STATUS full code. Heart rate 93, blood pressure 150/73, O2 sat 98% on 2 L nasal cannula, heart S1- S2 positive no murmurs or rubs lungs bilateral good entry no wheezes or crackles , abdomen soft nontender no masses or guarding. Neuro - left eyelid drooping and drooping of the face, slurred speech, no obvious deficits in extremities.
[2017-02-19 13:56] LABS: Basophils % 0.5 %; Eosinophils # 0.1 K/mcL (0.0-0.6); Eosinophils % 1.2 %; Hematocrit 39.7 % (35.3-44.9); Immature Granulocytes % 0.6 % (0-4); Lymphocytes # 1.8 K/mcL (0.6-4.6); Lymphocytes % 22.2 %; Mean Corpuscular HGB Conc 30.2 g/dL (31.6-35.5); Mean Corpuscular Hemoglobin 23.2 pg (28.0-33.3); Mean Corpuscular Volume 76.6 fL (83.0-100.0); Mean Platelet Volume 11.4 fL (9.4-12.4); Monocytes # 0.6 K/mcL (0.0-1.3); Monocytes % 7.4 %; Neutrophils # 5.6 K/mcL (1.6-8.9); Platelet Count 295 K/mcL (140-400); Red Blood Count 5.18 M/mcL (3.82-4.97); Red Cell Distribution Width 21.8 % (11.5-14.5); Segmented Neutrophils % 68.1 %
[2017-02-19 14:01] LABS: INR 1.1; Prothrombin Time 12.1 Seconds (9.4-12.1)
[2017-02-19 14:04] LABS: Activated Partial Thrombo Time 31.1 Seconds (26.0-36.0)
[2017-02-19] MEDS ORDERED: *HR* Dextrose 50 % in Water (Syg) 50 ML SYRINGE IVP PRN ×2 (14:06→14:36)
[2017-02-19] MEDS ORDERED: D5% in Water 1,000 ML IVC PRN ×2 (14:06→14:36)
[2017-02-19] MEDS ORDERED: Dextrose Gel 15 GM PO PRN ×4 (14:06→14:36)
[2017-02-19 14:08] LABS: BUN/Creatinine Ratio 15 (6-26); Blood Urea Nitrogen 14 mg/dL (7-20); Calcium 9.1 mg/dL (8.6-10.8); Carbon Dioxide 29 mEq/L (19-29); Chloride 102 mEq/L (98-109); Glucose 391 mg/dL (70-99); Osmolality,Calculated 303 (280-300); Potassium 4.7 mEq/L (3.5-4.5); Sodium 138 mEq/L (136-145); eGFR For African Americans > 60 (> 60); eGFR For Non-African Americans > 60 (> 60)
[2017-02-19 14:10] LABS: Chol/HDL Ratio 4.1 (0-4.9)
[2017-02-19] MEDS ORDERED: 0.9 % Sodium Chloride 1,000 ML IVC SCH (14:30)
[2017-02-19] MEDS: *HR* Heparin 5,000 UNIT/ML VIAL SQ SCH ×2 (19:05→21:28)
[2017-02-19] MEDS: Aspirin Enteric Coated 325 MG Tablet PO SCH (19:05)
[2017-02-19] MEDS: Insulin LISPRO 300 UNITS/3 ML VIAL SQ SCH ×2 (19:08→23:55)
[2017-02-19] MEDS ORDERED: *HR* OxyCODONE Immed Rel 15 MG TABLET PO PRN ×2 (20:18→20:29)
[2017-02-19] MEDS ORDERED: Sennosides/Docusate Sodium TABLET PO PRN (20:18)
[2017-02-19] MEDS ORDERED: *HR* OxyCODONE ER (12 HR) 10 MG TABLET PO SCH (21:00)
[2017-02-19] MEDS ORDERED: Insulin Human Regular 7 UNIT in 0.9 % Sodium Chloride 10 ML IV ONE (21:16)
[2017-02-19] MEDS: *HR* OxyCODONE ER (12 HR) 20 MG TABLET PO SCH (21:28)
[2017-02-20] MEDS: *HR* Heparin 5,000 UNIT/ML VIAL SQ SCH ×3 (04:53→21:29)
[2017-02-20] MEDS: Insulin LISPRO 300 UNITS/3 ML VIAL SQ SCH ×4 (04:59→21:32)
[2017-02-20] MEDS: *HR* OxyCODONE ER (12 HR) 20 MG TABLET PO SCH (08:45)
[2017-02-20] MEDS: Lisinopril 20 MG TABLET PO SCH (08:46)
[2017-02-20] MEDS: Aspirin Enteric Coated 325 MG Tablet PO SCH (08:46)
[2017-02-20] MEDS: BuPROPion XL (24 HR) 150 MG TABLET PO SCH (08:46)
[2017-02-20] MEDS ORDERED: Pantoprazole 40 MG VIAL IVP SCH (09:00)
[2017-02-20] MEDS ORDERED: NON-FORMULARY MEDICATION 1 EACH EACH (Insulin Glargine [Lantus] 30 UNIT) SQ SCH (12:15)
[2017-02-20] MEDS: *HR* OxyCODONE Immed Rel 15 MG TABLET PO PRN ×2 (12:56→19:34)
[2017-02-20] MEDS: Insulin DETEMIR 100 UNIT/ML X5UNITS SQ SCH (12:59)
--- NOTE | 2017-02-20 15:33 | Neurology - Consult Note ---
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 However she does have slight ptosis of the left eye with sparing of pupillary function. She does report some left orbital pain to 3 days ago. This is a common scenario involved with a pupillary sparing cranial nerve III palsy. Although she does have slight flattening of the left nasolabial fold, the muscles of facial expression elevate normally. I see no evidence on her examination to support cerebral infarct. (2) Sensory ataxia Current Visit: Yes Status: Acute I believe that the repeated falls that she is experiencing is due to sensory ataxia associated with poorly controlled diabetes mellitus. Essentially she has a very significant sensory polyneuropathy, which interferes with proprioception. This therefore places her at significant risk for falls. Her diabetes is poorly controlled. I would simply recommend ongoing aggressive management of her diabetes and other stroke risk factors. I will reevaluate her at your request. History of Present Illness HPI: Ms. Ramachandran is a 66 year old female who is being seen for neurologic consultation secondary to repeated episodes of falling as well as ptosis of the left eye and a question of left facial droop and possible cerebral infarct. She informs me that she has been falling quite frequently as of late. She does have diabetes and states that her sugars have been running in the 300s lately. She states that she has had some pain of the left orbit over the last several days.. Apparently after being hospitalized and was noticed that she may also had some left facial drooping and he was a question of cerebral infarct. The MRI however does not reveal evidence of an acute infarct. She denies diplopia. She is just received some pain medicines she states and was initially confused however during the course of my visit she became more coherent. Past Med Surg Social Fam HX - Past Medical History Medical history: arthritis, atrial fibrillation, diabetes, fibromyalgia, RA, thyroid disease Psychiatric history: anxiety, depression - Past Surgical History Surgical History: cholecystectomy, hysterectomy (Total), knee replacement ( Bilateral ), other (Mass removed from ovary prior to hysterectomy) - Social History Smoking Status: Never smoker Smokeless Tobacco Status: No Alcohol use: none Drug use: none - Family History Brother Race: Family Member Ethnicity: Non- Living Status: Still Living Hx Family Cardiac Disorders: Yes (CABG, HD) Hx Family Cancer: Yes (Colon) Hx Family Endocrine Disorder: Yes (DM) Father Race: Family Member Ethnicity: Non- Living Status: Age at : 63 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 Hx Family Respiratory Disorders: Yes (COPD, silicosis of the lung from coal mine ) Mother Adopted: No Race: Family Member Ethnicity: Non- Living Status: Still Living Hx Family Cardiac Disorders: No Hx Family Respiratory Disorders: No Hx Family Cancer: Yes (Ovarian with metastatis to colon) Hx Family GI Disorders: No Hx Family Endocrine Disorder: No Hx Family Neuromuscular Disorders: No Hx Family Neurologic Disorders: No Hx Family HEENT Disorders: No Hx Family Autoimmune Disorders: No Medications and Allergies Ondansetron HCl [Zofran] 4 mg PO TID PRN 05/18/16 [History] Bupropion HCl [Wellbutrin Xl] 300 mg PO QAM 05/19/16 [History] Pantoprazole Sodium [Protonix] 40 mg PO BID 05/19/16 [History] Allopurinol [Zyloprim 100 MG] 100 mg PO DAILY 11/11/16 [History] Hydroxychloroquine [Plaquenuil] 200 mg PO DAILY 11/11/16 [History] Levothyroxine [Synthroid] 75 mcg PO QAM 11/11/16 [History] Ferrous Sulfate 325 mg PO BIDWM #60 tablet 11/14/16 [Rx] Insulin Glargine [Lantus] 30 unit SQ HS 01/04/17 [History] Insulin LISPRO [Humalog Kwikpen U-100] 0 unit SQ TIDWM 01/04/17 [History] Lisinopril [Zestril] 20 mg PO DAILY tablet 01/13/17 [Rx] Sennosides/Docusate Sodium [Senna Plus] 2 each PO BID PRN #0 tablet 01/13/17 [Rx ] Allergies benzoin Adverse Reaction (Verified 07/07/16 12:14) Rash morphine Adverse Reaction (Verified 11/11/16 19:41) Altered Mental Status Per ECW list. All Systems: A 10-system review of systems was performed and is negative for pertinent findings except as documented above in the HPI. Review of Systems: Review of systems is consistent with a history of present illness and otherwise negative. Physical Examination - Vital Signs Vital Signs: Initial Vital Signs Temp Pulse Resp BP Pulse Ox 97.5 F L 111 22 154/104 95 02/19/17 10:33 02/19/17 10:33 02/19/17 10:33 02/19/17 10:33 02/19/17 10:33 - Exam Exam: Neurologic examination is performed and finds the following: Cerebral functions-she is alert and oriented to person place and time, follows commands and answers questions appropriately. There is no agnosia, aphasia, or apraxia. Judgment and abstract thinking are currently intact. Cranial nerve was-pupils are equal and reactive at about 3 mm. She does have a slight left ptosis. Extraocular motility is intact. Sensory to face is intact , mastication is intact. There is slight flattening of the left nasolabial fold. However when she smiles the muscles of facial expression elevate normally of the upper and lower face. I see no evidence to support a central 7 or a peripheral seventh nerve palsy. Hearing is intact symmetrically, soft palate elevates bilaterally upon phonation, tongue protrudes midline. Motor exam-is normal strength bulk and tone of both upper and lower extremities. Tone is equal bilaterally. There is no atrophy present. Distal strength of the upper and lower extremities is fairly good. Sensory exam-she does have a profound sensory gradient distal to proximal. She does not identify the pinprick is normal into leg above her knee. Proprioception of the small joints distally is somewhat diminished. Deep tendon reflexes-absent at the Achilles and patellar symmetrically. Trace of the right biceps triceps and brachial radialis. No long tract signs are present. Results - Laboratory Findings CBC and BMP: 02/19/17 13:30 02/19/17 13:30 Abnormal lab findings: Abnormal lab results RBC 5.18 M/mcL (3.82-4.97) H 02/19/17 13:30 MCV 76.6 fL (83.0-100.0) L 02/19/17 13:30 MCH 23.2 pg (28.0-33.3) L 02/19/17 13:30 MCHC 30.2 g/dL (31.6-35.5) L 02/19/17 13:30 RDW 21.8 % (11.5-14.5) H 02/19/17 13:30 Immature Plt Fraction 7.9 % (1.1-6.1) H 02/19/17 10:49 Potassium 4.7 mEq/L (3.5-4.5) H 02/19/17 13:30 Glucose 391 mg/dL (70-99) H 02/19/17 13:30 POC Glucose 305 (58-89) H 02/20/17 04:57 Calculated Osmolality 303 (280-300) H 02/19/17 13:30 HDL Cholesterol 33 mg/dL (40-59) L 02/19/17 13:30 Consult Discharge Plan - Plan Referrals: Whit Valle, HYDRAULIC GOVERNOR ASSEMBLER [Primary Care Provider] -
--- NOTE | 2017-02-20 15:38 | Internal Med Progress Note ---
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 No clear signs of 7 he as patient does have good motor activity. Evaluated by neurology. We will continue current management with risk reduction including aspirin, statin. Control blood sugars better. Physical therapy and speech therapy. (2) Atrial fibrillation Current Visit: Yes Status: Chronic Assessment and plan: Patient has history of A. fib but is currently in sinus rhythm and in sinus tachycardia. Not on anticoagulation per patient preference. Has been placed on aspirin 325 mg. Awaiting results of 2-D echocardiogram. Qualifiers: Atrial fibrillation type: unspecified Qualified Code(s): I48.91 - Unspecified atrial fibrillation (3) Contusion of arm, left Current Visit: Yes Status: Acute Assessment and plan: No signs of fracture. Supportive care. Pain control. Qualifiers: Encounter type: initial encounter Qualified Code(s): S40.022A - Contusion of left upper arm, initial encounter (4) CVA (cerebral vascular accident) Current Visit: Yes Status: Ruled-out Assessment and plan: MRI of the brain does not show any acute stroke. Patient does not appear to be having acute CVA. Qualifiers: CVA mechanism: unspecified Qualified Code(s): I63.9 - Cerebral infarction, unspecified (5) Diabetes mellitus, type 2 Current Visit: Yes Status: Chronic Assessment and plan: Uncontrolled blood sugars. We will increase insulin regimen. Place patient on diabetic diet. Diabetes education. Qualifiers: Diabetes mellitus complication status: with hyperglycemia Diabetes mellitus long term acute care registered nurse insulin use: with senior living use Qualified Code(s): E11.65 - Type 2 diabetes mellitus with hyperglycemia; Z79.4 - [facility] (current) use of insulin (6) Fall Current Visit: Yes Status: Chronic Assessment and plan: Physical therapy evaluation. Patient may need placement to skilled rehabilitation. Qualifiers: Encounter type: initial encounter Qualified Code(s): W19.XXXA - Unspecified fall, initial encounter (7) Musculoskeletal pain, chronic Current Visit: Yes Status: Chronic Assessment and plan: On chronic narcotic therapy and Plaquenil for rheumatoid arthritis. (8) Sensory ataxia Current Visit: Yes Status: Acute (9) Sinus tachycardia Current Visit: Yes Status: Acute Assessment and plan: Patient remains tachycardic. Check TSH. As patient also has underlying history of A. fib, We will start patient on metoprolol. (10) DVT prophylaxis Current Visit: Yes Status: Acute Assessment and plan: On subcutaneous heparin - Subjective Interval history: Patient is awake and alert. In her left leg over her foot since her fall. She also has drooping of her left eyelid. Complains of drooling from the left side of her mouth. Denies any upper or lower extremity weakness. Also concerned about hiatal hernia for which she was supposed to see his surgeon yesterday but could not make it to her appointment. - Constitutional Vitals: Temp Pulse Resp BP Pulse Ox 97.5 F L 105 20 143/87 92 02/20/17 06:57 02/20/17 08:10 02/20/17 08:10 02/20/17 08:10 02/20/17 09:37 General appearance: Present: cooperative, mild distress, A&O X 3, obese, answers questions appropriately - Eye Eye exam: Present: EOMI, PERRL, conjuntiva pink, sclera anicteric Additional comments: Left Sided ptosis - Neck Neck exam general surgery: Present: supple, trachea midline. Absent: lymphadenopathy - Respiratory Respiratory exam: Present: CTAB. Absent: accessory muscle use, rales, rhonchi, wheezes - Cardiovascular Cardiovascular exam: Present: RRR, +S1, +S2. Absent: diastolic murmur, gallop, rubs, systolic murmur - GI/Abdominal GI/Abdominal exam: Present: normal bowel sounds, soft, no peritoneal signs. Absent: distended, tenderness - Extremities Exam Extremities exam: Present: warm, radial pulses palpable and symetrical. Absent : calf tenderness, cyanotic, pedal edema Additional comments: Erythema and subtotal dislocation of the left great toenail. - Neurological Exam Neurological exam: Present: oriented X3, no focal deficits. Absent: facial droop, speech deficit Additional comments: Ptosis of the left eye. Flattening of the left nasolabial fold. Does have good facial movements. Decreased sensation over her feet. Normal strength in all 4 extremities. - Skin Skin exam: Present: dry, intact Internal Medicine: Result - Labs CBC & Chem 7: 02/19/17 13:30 02/19/17 13:30 - ABG Interpretation ABG results: PT/INR, D-dimer PT 12.1 Seconds (9.4-12.1) 02/19/17 13:30 - Impressions Impressions Brain MRI 02/19/17 14:32 IMPRESSION: 1. No acute intracranial abnormality. 2. Mild chronic white matter microvascular ischemic changes. D/ / Shyam Thornton MD / Shyam Thornton MD Interpreting Provider: Shyam Thornton MD Videofluoroscopic Swallow 02/20/17 00:01 IMPRESSION: Transient penetration with thin liquids. No evidence of erica aspiration. Please see separate speech pathology report for full discussion of findings and recommendations. D/ / Marcus Duarte MD / Marcus Duarte MD Interpreting Provider: Marcus Duarte MD Humerus X-Ray 02/20/17 09:30 IMPRESSION: No acute osseous abnormality. AC joint degenerative changes D/ / Geovany Worley MD / Geovany Worley MD Interpreting Provider: Geovany Worley MD Consult Discharge Plan - Plan Referrals: Ronnell Spann MD [Non-Partnered Physician] -
[2017-02-20] MEDS: *HR* HYDROmorphone (PF) 1 MG/ML SYRINGE IVP PRN ×2 (17:59→22:09)
[2017-02-20] MEDS: Metoprolol XL (24 HR) Succ 25 MG TAB.ER.24H PO SCH (17:59)
--- NOTE | 2017-02-20 18:51 | Carotid Imaging Report ---
Carotid Duplex Patient Name:Yanci Ramachandran Order Number:[id number] Procedure Date:02/20/2017 Date:1950ge:66 yrs Gender:Female Location:[facility] Room #: 2NE19 Business Planning Analyst:Maira Marie MD:Jm Holman MD organic section technical lead:Whit Valle, PLASTIC MOLDING OPERATOR Reading MD:Heriberto Louise MD Study Quality:Good Primary Indications:Acute cerebrovascular accident Risk Factors Yes/No Hypertension Yes Diabetes Yes Hypercholesterolemia Yes Impressions: The bilateral carotid arteries have minimal plaque throughout. Recommendations: After imaging the patient returned to their room. Findings Carotid Duplex: Right: There is nonstenotic plaque in the right bifurcation. There is smooth homogeneous plaque. Left: There is nonstenotic plaque in the left bifurcation. There is smooth homogeneous plaque. Prior Study: No prior study available for comparison. Carotid Results Right PSV EDV Assessment Proximal CCA 94 14 Normal Mid CCA 59 9 Normal Distal CCA 67 13 Normal Bifurcation 56 10 Non Stenotic Plaque Proximal ICA 71 15 Normal Mid ICA 60 20 Normal Distal ICA 82 21 Normal ECA 116 8 Normal Vertebral Artery 60 13 Normal Left PSV EDV Assessment Proximal CCA 122 14 Normal Mid CCA 86 13 Normal Distal CCA 74 16 Normal Bifurcation 98 21 Non Stenotic Plaque Proximal ICA 66 18 Normal Mid ICA 79 22 Normal Distal ICA 97 28 Normal ECA 124 20 Normal Vertebral Artery 67 15 Normal Ratio's Right ICA/CCA Ratio: 1.38 ICA/CCA Values: 82/59 Left ICA/CCA Ratio: 1.12 ICA/CCA Values: 97/86 Updated by Heriberto Louise MD on 02/20/2017 6:46:30 PM electronically signed on 02/20/2017 6:47:08 PM with status of Final
[2017-02-21 01:52] LABS: Basophils # 0.1 K/mcL (0.0-0.2); Basophils % 0.6 %; Eosinophils # 0.2 K/mcL (0.0-0.6); Eosinophils % 2.4 %; Hematocrit 32.9 % (35.3-44.9); Immature Granulocytes % 1.3 % (0-4); Lymphocytes # 1.9 K/mcL (0.6-4.6); Lymphocytes % 21.4 %; Mean Corpuscular HGB Conc 30.4 g/dL (31.6-35.5); Mean Corpuscular Hemoglobin 23.5 pg (28.0-33.3); Mean Corpuscular Volume 77.2 fL (83.0-100.0); Monocytes % 10.5 %; Neutrophils # 5.8 K/mcL (1.6-8.9); Platelet Count 303 K/mcL (140-400); Red Blood Count 4.26 M/mcL (3.82-4.97); Red Cell Distribution Width 21.5 % (11.5-14.5); Segmented Neutrophils % 63.8 %
[2017-02-21 02:07] LABS: BUN/Creatinine Ratio 13 (6-26); Blood Urea Nitrogen 11 mg/dL (7-20); Carbon Dioxide 24 mEq/L (19-29); Chloride 104 mEq/L (98-109); Glucose 179 mg/dL (70-99); Osmolality,Calculated 286 (280-300); Potassium 4.3 mEq/L (3.5-4.5); Sodium 136 mEq/L (136-145); eGFR For African Americans > 60 (> 60); eGFR For Non-African Americans > 60 (> 60)
[2017-02-21] MEDS: *HR* HYDROmorphone (PF) 1 MG/ML SYRINGE IVP PRN ×3 (02:52→23:08)
[2017-02-21] MEDS: *HR* Heparin 5,000 UNIT/ML VIAL SQ SCH ×3 (05:52→21:13)
[2017-02-21] MEDS: *HR* OxyCODONE Immed Rel 15 MG TABLET PO PRN ×4 (05:58→22:05)
[2017-02-21] MEDS: Lisinopril 20 MG TABLET PO SCH (09:02)
[2017-02-21] MEDS: Metoprolol XL (24 HR) Succ 25 MG TAB.ER.24H PO SCH (09:03)
[2017-02-21] MEDS: BuPROPion XL (24 HR) 150 MG TABLET PO SCH (09:03)
[2017-02-21] MEDS: Aspirin Enteric Coated 325 MG Tablet PO SCH (09:03)
[2017-02-21] MEDS: Insulin LISPRO 300 UNITS/3 ML VIAL SQ SCH ×4 (09:19→22:07)
[2017-02-21] MEDS: Ondansetron 4 MG/2 ML VIAL IVP PRN ×2 (09:19→19:44)
[2017-02-21] MEDS ORDERED: *HR* OxyCODONE Immed Rel 15 MG TABLET PO ONE (09:44)
[2017-02-21] MEDS: Insulin DETEMIR 100 UNIT/ML X5UNITS SQ SCH ×2 (10:16→22:07)
--- NOTE | 2017-02-21 13:30 | Internal Med Progress Note ---
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 Follow outpatient with neurology (2) Atrial fibrillation Current Visit: Yes Status: Chronic Assessment and plan: In sinus rhythm. Rate controlled. Not on anticoagulation per patient preference due to adverse reaction to prior anticoagulation attempts. Qualifiers: Atrial fibrillation type: unspecified Qualified Code(s): I48.91 - Unspecified atrial fibrillation (3) Contusion of arm, left Current Visit: Yes Status: Acute Assessment and plan: Continue physical therapy. Recommended placement to skilled rehabilitation due to recurrent falls. Qualifiers: Encounter type: initial encounter Qualified Code(s): S40.022A - Contusion of left upper arm, initial encounter (4) Diabetes mellitus, type 2 Current Visit: Yes Status: Chronic Assessment and plan: Blood sugars remain elevated. We will further increase long-acting insulin coverage and sliding scale coverage. Qualifiers: Diabetes mellitus complication status: with hyperglycemia Diabetes mellitus senior living insulin use: with terminal gauger supervisor use Qualified Code(s): E11.65 - Type 2 diabetes mellitus with hyperglycemia; Z79.4 - middle or intermediate school principal (current) use of insulin (5) Fall Current Visit: Yes Status: Chronic Assessment and plan: Evaluated by physical therapy and recommended placement to skilled rehabilitation. recreation worker notified and will make arrangements for this. Qualifiers: Encounter type: initial encounter Qualified Code(s): W19.XXXA - Unspecified fall, initial encounter (6) Musculoskeletal pain, chronic Current Visit: Yes Status: Chronic Assessment and plan: Complains of right shoulder pain. X-ray of the shoulder shows degenerative acromioclavicular joint changes. Patient follows up with rheumatology as outpatient. We will recommend continued follow-up and possibly steroid injection into the joint for symptom relief. (7) Sensory ataxia Current Visit: Yes Status: Acute Assessment and plan: Continue physical therapy. Patient needs better control of her diabetes. (8) Sinus tachycardia Current Visit: Yes Status: Resolved (9) DVT prophylaxis Current Visit: Yes Status: Acute Assessment and plan: On subcutaneous heparin - Subjective Interval history: Has ptosis involving the left eye. Speech is better. No more drooling. Denies any focal weakness anywhere else. Complains of right shoulder pain. Also continue pain and redness in her right foot over her great toe - Constitutional Vitals: Temp Pulse Resp BP Pulse Ox 98.3 F 86 15 137/74 94 02/21/17 11:32 02/21/17 11:32 02/21/17 11:32 02/21/17 11:32 02/21/17 11:32 General appearance: Present: cooperative, mild distress, A&O X 3, obese, answers questions appropriately - Respiratory Respiratory exam: Present: CTAB. Absent: accessory muscle use, rales, rhonchi, wheezes - Cardiovascular Cardiovascular exam: Present: RRR, +S1, +S2. Absent: diastolic murmur, gallop, rubs, systolic murmur - Extremities Exam Extremities exam: Present: warm, radial pulses palpable and symetrical. Absent : calf tenderness, cyanotic, pedal edema Additional comments: Subtotal dislocation of the right great toenail - Neurological Exam Neurological exam: Present: CN II-XII intact, oriented X3, no focal deficits. Absent: facial droop, speech deficit Additional comments: Ptosis of the left eye - Skin Skin exam: Present: dry, intact Internal Medicine: Result - Labs CBC & Chem 7: 02/21/17 01:23 02/21/17 01:23 Labs: Short CBC 02/21/17 Range/Units 01:23 WBC 9.0 (4.3-11.1) K/mcL Hgb 10.0 L D (11.5-15.4) g/dL Hct 32.9 L (35.3-44.9) % Plt Count 303 (140-400) K/mcL Neutrophils # 5.8 (1.6-8.9) K/mcL BMP 02/21/17 01:23 Sodium 136 Potassium 4.3 Chloride 104 Carbon Dioxide 24 BUN 11 Creatinine 0.88 Glucose 179 H Calcium 9.0 - ABG Interpretation ABG results: PT/INR, D-dimer PT 12.1 Seconds (9.4-12.1) 02/19/17 13:30 - Impressions Impressions Videofluoroscopic Swallow 02/20/17 00:01 IMPRESSION: Transient penetration with thin liquids. No evidence of erica aspiration. Please see separate speech pathology report for full discussion of findings and recommendations. D/ / Marcus Duarte MD / Marcus Duarte MD Interpreting Provider: Marcus Duarte MD Consult Discharge Plan - Plan Referrals: Ronnell Spann MD [Non-Partnered Physician] -
[2017-02-22] MEDS: *HR* HYDROmorphone (PF) 1 MG/ML SYRINGE IVP PRN ×2 (05:52→15:52)
[2017-02-22] MEDS: *HR* Heparin 5,000 UNIT/ML VIAL SQ SCH ×3 (05:54→21:36)
[2017-02-22] MEDS: *HR* OxyCODONE Immed Rel 15 MG TABLET PO PRN ×4 (07:56→21:35)
[2017-02-22] MEDS: Lisinopril 20 MG TABLET PO SCH (07:57)
[2017-02-22] MEDS: Insulin DETEMIR 100 UNIT/ML X5UNITS SQ SCH ×2 (07:57→21:35)
[2017-02-22] MEDS: Metoprolol XL (24 HR) Succ 25 MG TAB.ER.24H PO SCH (07:57)
[2017-02-22] MEDS: BuPROPion XL (24 HR) 150 MG TABLET PO SCH (07:57)
[2017-02-22] MEDS: Aspirin Enteric Coated 325 MG Tablet PO SCH (07:57)
[2017-02-22] MEDS: Insulin LISPRO 300 UNITS/3 ML VIAL SQ SCH ×5 (07:58→21:34)
--- NOTE | 2017-02-22 11:40 | Podiatry Consult Note ---
Date of Encounter: 02/22/17 Time of Encounter: 10:45 Assessment and Plan (1) Contusion of toe with damage to nail Current visit: Yes Status: Acute I had a thorough review with the patient regarding her injury/condition, my findings, and recommendations for treatment. discussed the damage to the nail and how it is lifted and very loose with dried blood underneath the nail. treatment options discussed with patient and she elected to proceed with total right hallux nail avulsion after having the risks vs benefits, potential complications and consequences discussed at length including but not limited to infection, bleeding, swelling, numbness, tingling, delayed wound healing, loss of toe/partial foot, no nail regrowth, need for surgery. below procedure performed without incident. encouraged glycemic control. leave bandage clean, dry, and intact for 2 days then cover with antibiotic ointment and bandaid. f/u as out patient with Dr. Oshea. 5cc of 1% lidocaine plain was injected into the patients right hallux after cleansing the skin with alcohol. the right hallux was prepped with betadine. sterile instrumentation was then used to avulse the right hallux nail entirely. there was no nail bed laceration upon flushing out the blood from under the nail and there was no active bleeding. there was no purulence expressed. antibiotic ointment, adaptic, 2x2 gauze and loosely applied coban applied to the toe. Qualifiers: Encounter type: initial encounter Toe: great toe Laterality: right Qualified Code(s): S90.211A - Contusion of right great toe with damage to nail, initial encounter (2) Onycholysis of toenail Current visit: Yes Status: Acute see above (3) Pain in toe of right foot Current visit: Yes Status: Acute elevate foot of bed. avoid pressure directly on top of right hallux. (4) Dermatophytosis of nail Current visit: Yes Status: Acute discussed with patient can be managed as an outpatient with topical or oral lamisil. History of Present Illness HPI: Ms. Ramachandran is a 66 year old diabetic female who is admitted s/p fall and possible stroke at home. she says when she fell she does not recall injuring herself but says she must have because the right big toe hurt and she thinks she hit it on the coffee table at home. she says it has been really loose and painful since the fall. denies seeing drainage other than blood. Dr. Oshea was consulted to see the patient but when he went to see her she was off the floor in a test. She had previously not wanted anyone but Dr. Oshea to see her. The hospitalist called again today asking that someone try to see her. she denies f/ c/n/v. Past Med Surg Social Fam HX - Past Medical History Medical history: arthritis, atrial fibrillation, diabetes, fibromyalgia, RA, thyroid disease Psychiatric history: anxiety, depression - Past Surgical History Surgical History: cholecystectomy, hysterectomy (Total), knee replacement ( Bilateral ), other (Mass removed from ovary prior to hysterectomy) - Social History Smoking Status: Never smoker Smokeless Tobacco Status: No Alcohol use: none Drug use: none - Family History Brother Race: Family Member Ethnicity: Non- Living Status: Still Living Hx Family Cardiac Disorders: Yes (CABG, HD) Hx Family Cancer: Yes (Colon) Hx Family Endocrine Disorder: Yes (DM) Father Race: Family Member Ethnicity: Non- Living Status: Age at : 63 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 Hx Family Respiratory Disorders: Yes (COPD, silicosis of the lung from coal mine ) Mother Adopted: No Race: Family Member Ethnicity: Non- Living Status: Still Living Hx Family Cardiac Disorders: No Hx Family Respiratory Disorders: No Hx Family Cancer: Yes (Ovarian with metastatis to colon) Hx Family GI Disorders: No Hx Family Endocrine Disorder: No Hx Family Neuromuscular Disorders: No Hx Family Neurologic Disorders: No Hx Family HEENT Disorders: No Hx Family Autoimmune Disorders: No Medications and Allergies Ondansetron HCl [Zofran] 4 mg PO TID PRN 05/18/16 [History] Bupropion HCl [Wellbutrin Xl] 300 mg PO QAM 05/19/16 [History] Pantoprazole Sodium [Protonix] 40 mg PO BID 05/19/16 [History] Allopurinol [Zyloprim 100 MG] 100 mg PO DAILY 11/11/16 [History] Hydroxychloroquine [Plaquenuil] 200 mg PO DAILY 11/11/16 [History] Levothyroxine [Synthroid] 75 mcg PO QAM 11/11/16 [History] Ferrous Sulfate 325 mg PO BIDWM #60 tablet 11/14/16 [Rx] Insulin Glargine [Lantus] 30 unit SQ HS 01/04/17 [History] Insulin LISPRO [Humalog Kwikpen U-100] 0 unit SQ TIDWM 01/04/17 [History] Lisinopril [Zestril] 20 mg PO DAILY tablet 01/13/17 [Rx] Sennosides/Docusate Sodium [Senna Plus] 2 each PO BID PRN #0 tablet 01/13/17 [Rx ] Allergies benzoin Adverse Reaction (Verified 07/07/16 12:14) Rash morphine Adverse Reaction (Verified 11/11/16 19:41) Altered Mental Status Per ECW list. All Systems Reviewed: A 10-system review of systems was performed and is negative for pertinent findings except as documented above in the HPI. - Constitutional Constitutional: as per HPI, no fever(s) - Cardiovascular Cardiovascular: no chest pain - Respiratory Respiratory: no cough, no wheezing - Musculoskeletal Musculoskeletal: as per HPI Physical Exam - Constitutional Vitals: Temp Pulse Resp BP Pulse Ox 98.6 F 88 15 122/81 93 02/22/17 07:35 02/22/17 07:35 02/22/17 07:35 02/22/17 07:35 02/22/17 07:35 Exam: well developed and nourished female in no acute distress Vasc: CFT < 3 sec x 5 digits right foot. warm to touch. minimal edema right hallux. Derm: severe onycholysis and dried blood under the thick dystrophic right hallux nail. no erythema surrounding the digit. no purulence. no fluctuance. the nail plate is not intact with the nail bed of the right hallux and is attached via the proximal lateral nail fold. The right hallux toenail is point upward at a nearly 90 degree angle. Musc: right hallux nail is painful to touch the area of the toenail. no pain compression of the distal phalanx without touching the nail. Neuro: altered sensation but intact to light touch. Results - Labs Result Diagrams: 02/21/17 01:23 02/21/17 01:23 Labs: Abnormal lab results Hgb 10.0 g/dL (11.5-15.4) L D 02/21/17 01:23 Hct 32.9 % (35.3-44.9) L 02/21/17 01:23 MCV 77.2 fL (83.0-100.0) L 02/21/17 01:23 MCH 23.5 pg (28.0-33.3) L 02/21/17 01:23 MCHC 30.4 g/dL (31.6-35.5) L 02/21/17 01:23 RDW 21.5 % (11.5-14.5) H 02/21/17 01:23 Immature Plt Fraction 7.9 % (1.1-6.1) H 02/19/17 10:49 Glucose 179 mg/dL (70-99) H 02/21/17 01:23 POC Glucose 291 (58-89) H 02/21/17 15:59 HDL Cholesterol 33 mg/dL (40-59) L 02/19/17 13:30 TSH 5.000 mcIU/mL (0.350-4.840) H 02/21/17 01:23 All other labs normal. Consult Discharge Plan - Plan Referrals: Ronnell Spann MD [Non-Partnered Physician] -
--- NOTE | 2017-02-22 13:14 | Internal Med Progress Note ---
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 Follow up outpatient with neurology. Awaiting placement to skilled rehabilitation Due to recurrent falls. (2) Atrial fibrillation Current Visit: Yes Status: Chronic Assessment and plan: rate controlled. Qualifiers: Atrial fibrillation type: unspecified Qualified Code(s): I48.91 - Unspecified atrial fibrillation (3) Contusion of arm, left Current Visit: Yes Status: Acute Assessment and plan: Improving Qualifiers: Encounter type: initial encounter Qualified Code(s): S40.022A - Contusion of left upper arm, initial encounter (4) Diabetes mellitus, type 2 Current Visit: Yes Status: Chronic Assessment and plan: Blood sugars are better controlled but still remain elevated. We will add nutritional coverage in addition to current insulin regimen. 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 Evaluated by physical therapy. Recommend placement to skilled rehabilitation. Qualifiers: Encounter type: initial encounter Qualified Code(s): W19.XXXA - Unspecified fall, initial encounter (6) Musculoskeletal pain, chronic Current Visit: Yes Status: Chronic Assessment and plan: Acute worsening of chronic pain. Receiving narcotic medications and intravenous low-dose Dilaudid. Moderate risk for complications (7) Sensory ataxia Current Visit: Yes Status: Acute Assessment and plan: Likely from diabetic neuropathy (8) Sinus tachycardia Current Visit: Yes Status: Resolved (9) DVT prophylaxis Current Visit: Yes Status: Acute - Subjective Interval history: Patient complains of right shoulder pain although it is improving after she received Dilaudid last night. Denies any fever or chills. No new episodes of focal weakness or numbness. no speech difficulty - Constitutional Vitals: Temp Pulse Resp BP Pulse Ox 98.6 F 88 15 122/81 93 02/22/17 07:35 02/22/17 07:35 02/22/17 07:35 02/22/17 07:35 02/22/17 07:35 General appearance: Present: cooperative, mild distress, A&O X 3, obese, answers questions appropriately - Eye Eye exam: Present: EOMI, PERRL, conjuntiva pink, sclera anicteric Additional comments: Left eye ptosis - Neck Neck exam general surgery: Present: supple, trachea midline. Absent: lymphadenopathy - Respiratory Respiratory exam: Present: CTAB. Absent: accessory muscle use, rales, rhonchi, wheezes - Cardiovascular Cardiovascular exam: Present: RRR, +S1, +S2. Absent: diastolic murmur, gallop, rubs, systolic murmur - Neurological Exam Neurological exam: Present: oriented X3, no focal deficits. Absent: facial droop, speech deficit Additional comments: Ptosis of the left eye - Skin Skin exam: Present: dry, intact Internal Medicine: Result - Labs CBC & Chem 7: 02/21/17 01:23 02/21/17 01:23 - ABG Interpretation ABG results: PT/INR, D-dimer PT 12.1 Seconds (9.4-12.1) 02/19/17 13:30 Consult Discharge Plan - Plan Referrals: Ronnell Spann MD [Non-Partnered Physician] -
[2017-02-23] MEDS: *HR* OxyCODONE Immed Rel 15 MG TABLET PO PRN ×5 (01:32→21:36)
[2017-02-23] MEDS: *HR* Heparin 5,000 UNIT/ML VIAL SQ SCH ×3 (06:47→21:36)
[2017-02-23] MEDS: Insulin LISPRO 300 UNITS/3 ML VIAL SQ SCH ×7 (09:43→21:35)
[2017-02-23] MEDS: Aspirin Enteric Coated 81 MG Tablet PO SCH (10:38)
[2017-02-23] MEDS: Insulin DETEMIR 100 UNIT/ML X5UNITS SQ SCH ×2 (10:38→21:35)
[2017-02-23] MEDS: Metoprolol XL (24 HR) Succ 25 MG TAB.ER.24H PO SCH (10:38)
[2017-02-23] MEDS: Lisinopril 20 MG TABLET PO SCH (10:39)
[2017-02-23] MEDS: BuPROPion XL (24 HR) 150 MG TABLET PO SCH (10:39)
--- NOTE | 2017-02-23 13:17 | Discharge Summary ---
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 Priority: Primary Status: Acute (2) Atrial fibrillation Priority: Secondary Status: Chronic Qualifiers: Atrial fibrillation type: unspecified Qualified Code(s): I48.91 - Unspecified atrial fibrillation (3) Contusion of arm, left Priority: Secondary Status: Acute Qualifiers: Encounter type: initial encounter Qualified Code(s): S40.022A - Contusion of left upper arm, initial encounter (4) Diabetes mellitus, type 2 Priority: Secondary Status: Chronic Qualifiers: Diabetes mellitus complication status: with hyperglycemia Diabetes mellitus halfway insulin use: with halfway use Qualified Code(s): E11.65 - Type 2 diabetes mellitus with hyperglycemia; Z79.4 - [facility] (current) use of insulin (5) Fall Priority: Secondary Status: Chronic Qualifiers: Encounter type: initial encounter Qualified Code(s): W19.XXXA - Unspecified fall, initial encounter (6) Musculoskeletal pain, chronic Priority: Secondary Status: Chronic (7) Sensory ataxia Priority: Secondary Status: Acute (8) Sinus tachycardia Priority: Secondary Status: Resolved (9) DVT prophylaxis Priority: Secondary Status: Acute - Discharge Medications Prescriptions: OxyCODONE Immed Rel [Roxicodone 15 MG] 15 mg PO Q4HR PRN #14 tablet PRN Reason: Moderate Pain Home Medications: Ondansetron HCl [Zofran] 4 mg PO TID PRN 05/18/16 [History] Bupropion HCl [Wellbutrin Xl] 300 mg PO QAM 05/19/16 [History] Pantoprazole Sodium [Protonix] 40 mg PO BID 05/19/16 [History] Allopurinol [Zyloprim 100 MG] 100 mg PO DAILY 11/11/16 [History] Hydroxychloroquine [Plaquenuil] 200 mg PO DAILY 11/11/16 [History] Levothyroxine [Synthroid] 75 mcg PO QAM 11/11/16 [History] Ferrous Sulfate 325 mg PO BIDWM #60 tablet 11/14/16 [Rx] Insulin Glargine [Lantus] 30 unit SQ HS 01/04/17 [History] Insulin LISPRO [Humalog Kwikpen U-100] 0 unit SQ TIDWM 01/04/17 [History] Lisinopril [Zestril] 20 mg PO DAILY tablet 01/13/17 [Rx] Sennosides/Docusate Sodium [Senna Plus] 2 each PO BID PRN #0 tablet 01/13/17 [Rx ] Aspirin Enteric Coated [Aspirin EC] 81 mg PO DAILY #0 tablet.dr 02/23/17 [Rx] Atorvastatin [Lipitor] 40 mg PO HS tablet 02/23/17 [Rx] Lidocaine Patch [Lidoderm 5% patch] 1 each TP DAILY adh..patch 02/23/17 [Rx] Metoprolol XL (24 HR) Succ [Toprol Xl] 25 mg PO DAILY #0 tab.er.24h 02/23/17 [Rx ] OxyCODONE Immed Rel [Roxicodone 15 MG] 15 mg PO Q4HR PRN #14 tablet 02/23/17 [Rx ] Allergies/Adverse Reactions: Allergies benzoin Adverse Reaction (Verified 07/07/16 12:14) Rash morphine Adverse Reaction (Verified 11/11/16 19:41) Altered Mental Status Per ECW list. Date of admission: 02/19/17 13:08 Primary care physician: Whit Valle CNP Consults: 02/19/17 14:33 Consult to Neurology [CONS] Routine Consulting Provider: Neurology [facility] Reason for Consult: Acute CVA Call Completed: No 02/19/17 14:35 Consult to Speech Therapy [CONS] Routine Comment: Evaluate, develop and implement POC Reason for Consult: slurred speech, acute CVA Call Completed: No 02/19/17 16:06 Consult to Nutrition [CONS] Routine Comment: Consulting Provider: NUTRITION Reason for Dietary Consult: Other 02/20/17 09:31 Consult to Podiatry [CONS] Routine Consulting Provider: Podiatry [facility] Reason for Consult: Great toe nail pain after fall on right foot Time Notified: 09:31 Call Completed: Yes Discharging clinician: Hubert Umanzor Anticipated date of discharge: 02/23/17 - Patient Status Disposition: Transfer SNF Condition: Good Functional capacity at discharge: uses cane/walker Overall status at discharge: patient is progressing back to baseline - Discharge Instructions Instructions: Oxycodone/Acetaminophen (By mouth), Transient Ischemic Attack (DC ), Atrial Fibrillation (DC), Urinary Tract Infection in Women (DC), Chronic Kidney Disease (DC), Chronic Kidney Disease (GEN), Syncope (DC), Diabetes Mellitus Type 2 in Adults (DC), Sepsis (DC), Ischemic Stroke (DC), Chronic Hypertension (DC), Anemia (GEN), Fall Prevention (DC) Follow Up With: Ronnell Spann MD [Non-Partnered Physician] - Additional Instructions: Follow Up with neurology in 1-2 weeks for left-sided third nerve palsy with pupillary sparing - Diet and Activity Activity: as per physical therapy Diet: diabetic diet, low fat, low cholesterol, low salt diet Hospital course: Ms. Ramachandran is a 66 year old female patient with history of atrial fibrillation, diabetes, fibromyalgia, diabetic neuropathy who was admitted here for possible TIA. She had symptoms of left-sided facial droop with some drooling and slurred speech and recurrent falls. CT scan of the head that was done initially did not show any acute stroke. Patient underwent MRI of the brain which again did not show any acute stroke. Neurology was consulted and after evaluating the patient, they believe that the patient developed third with pupillary sparing. The patient does have left eye ptosis. Her speech is much better and her facial droop seems to have resolved soon after hospitalization. Patient was recommended medical management and physical therapy. She is on aspirin and statin. She was evaluated by physical therapy and recommended placement to skilled rehabilitation. She will be discharged there once she has a bed available and insurance authorization. Other issues during her stay include uncontrolled diabetes for which she was given insulin. Her blood sugars have improved since admission. She does have diabetic neuropathy and may have sensory ataxia causing an increased risk of falls. Patient also had a broken right sided great toenail and podiatry evaluated the patient and the toenail was removed. Since then patient has been doing well. Patient has history of chronic pain and fibromyalgia and she was complaining of bilateral shoulder pain. X-rays of the shoulder joint revealed no fracture. Patient does have right-sided degenerative changes at the acromioclavicular joint. She does follow up with rheumatology for chronic fibromyalgia and arthritis. She can follow-up further with them as outpatient. - Time Spent with Patient Total time spent providing and/or coordinating discharge services: Greater than 30 minutes (40 min) - Constitutional Vitals: Temp Pulse Resp BP Pulse Ox 98.4 F 94 17 108/60 94 02/23/17 11:03 02/23/17 11:03 02/23/17 11:03 02/23/17 11:03 02/23/17 11:03 General appearance: Present: cooperative, mild distress, A&O X 3, obese, answers questions appropriately - Eye Eye exam: Present: EOMI, PERRL, conjuntiva pink, sclera anicteric Additional comments: Left eyelid ptosis improving - Respiratory Respiratory exam: Present: CTAB. Absent: accessory muscle use, rales, rhonchi, wheezes - Cardiovascular Cardiovascular exam: Present: RRR, +S1, +S2. Absent: diastolic murmur, gallop, rubs, systolic murmur - GI/Abdominal GI/Abdominal exam: Present: normal bowel sounds, soft, no peritoneal signs. Absent: distended, tenderness - Extremities Exam Extremities exam: Present: warm, radial pulses palpable and symetrical. Absent : calf tenderness, cyanotic, pedal edema Additional comments: Right great toenail has now been removed and wound bandaged. Appears clean and healing. - Neurological Exam Neurological exam: Present: oriented X3, no focal deficits. Absent: facial droop, speech deficit
--- NOTE | 2017-02-23 13:28 | Physician Discharge Referral ---
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 Priority: Primary Status: Acute (2) Atrial fibrillation Priority: Secondary Status: Chronic (3) Contusion of arm, left Priority: Secondary Status: Acute (4) Diabetes mellitus, type 2 Priority: Secondary Status: Chronic (5) Fall Priority: Secondary Status: Chronic (6) Musculoskeletal pain, chronic Priority: Secondary Status: Chronic (7) Sensory ataxia Priority: Secondary Status: Acute (8) Sinus tachycardia Priority: Secondary Status: Resolved (9) DVT prophylaxis Priority: Secondary Status: Acute - Transfer Medications Prescriptions: OxyCODONE Immed Rel [Roxicodone 15 MG] 15 mg PO Q4HR PRN #14 tablet PRN Reason: Moderate Pain Home Medications: Ondansetron HCl [Zofran] 4 mg PO TID PRN 05/18/16 [History] Bupropion HCl [Wellbutrin Xl] 300 mg PO QAM 05/19/16 [History] Pantoprazole Sodium [Protonix] 40 mg PO BID 05/19/16 [History] Allopurinol [Zyloprim 100 MG] 100 mg PO DAILY 11/11/16 [History] Hydroxychloroquine [Plaquenuil] 200 mg PO DAILY 11/11/16 [History] Levothyroxine [Synthroid] 75 mcg PO QAM 11/11/16 [History] Ferrous Sulfate 325 mg PO BIDWM #60 tablet 11/14/16 [Rx] Insulin Glargine [Lantus] 30 unit SQ HS 01/04/17 [History] Insulin LISPRO [Humalog Kwikpen U-100] 0 unit SQ TIDWM 01/04/17 [History] Lisinopril [Zestril] 20 mg PO DAILY tablet 01/13/17 [Rx] Sennosides/Docusate Sodium [Senna Plus] 2 each PO BID PRN #0 tablet 01/13/17 [Rx ] Aspirin Enteric Coated [Aspirin EC] 81 mg PO DAILY #0 tablet.dr 02/23/17 [Rx] Atorvastatin [Lipitor] 40 mg PO HS tablet 02/23/17 [Rx] Lidocaine Patch [Lidoderm 5% patch] 1 each TP DAILY adh..patch 02/23/17 [Rx] Metoprolol XL (24 HR) Succ [Toprol Xl] 25 mg PO DAILY #0 tab.er.24h 02/23/17 [Rx ] OxyCODONE Immed Rel [Roxicodone 15 MG] 15 mg PO Q4HR PRN #14 tablet 02/23/17 [Rx ] Allergies/Adverse Reactions: Allergies benzoin Adverse Reaction (Verified 07/07/16 12:14) Rash morphine Adverse Reaction (Verified 11/11/16 19:41) Altered Mental Status Per ECW list. - Respiratory Orders Smoking Cessation: Smoking cessation has been advised. For more information, call the [place] Tobacco Quit Line at 0-233-MIVH-NOW. - Ancillary Orders May consult with Dentist, Group Reservations Coordinator, Early Childhood Lead Teacher PRN - Advance Directives Code Status: Full Code - Rehabiliation Orders Rehab Potential: Fair Rehab Orders: Evaluation for Physical Therapy, Evaluation for Occupational Therapy - Diet Orders No Concentrated Sweets (diabetic), Cardiac CERTIFICATION: I certify that the transfer of the above named patient to an Extended Care Facility is necessary for the continuing treatment of the diagnosis listed. The above information is true and accurate reflection of patient's current condition. Confidential - Redisclosure prohibited without a patient's written consent.
[2017-02-24] MEDS: *HR* OxyCODONE Immed Rel 15 MG TABLET PO PRN ×3 (00:44→09:41)
[2017-02-24] MEDS: *HR* Heparin 5,000 UNIT/ML VIAL SQ SCH (05:25)
[2017-02-24] MEDS: Lisinopril 20 MG TABLET PO SCH (09:26)
[2017-02-24] MEDS: BuPROPion XL (24 HR) 150 MG TABLET PO SCH (09:26)
[2017-02-24] MEDS: Metoprolol XL (24 HR) Succ 25 MG TAB.ER.24H PO SCH (09:26)
[2017-02-24] MEDS: Aspirin Enteric Coated 81 MG Tablet PO SCH (09:26)
[2017-02-24] MEDS: Insulin DETEMIR 100 UNIT/ML X5UNITS SQ SCH (09:27)
[2017-02-24] MEDS: Insulin LISPRO 300 UNITS/3 ML VIAL SQ SCH ×4 (09:28→12:19)
[2017-02-24] MEDS ORDERED: Methyl Salicylate/Menthol 28 GM TUBE TP PRN (10:55)
--- NOTE | 2017-02-24 10:57 | Internal Med Progress Note ---
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 Follow up outpatient with neurology. (2) Atrial fibrillation Current Visit: Yes Status: Chronic Assessment and plan: rate controlled. Continue current medications. Qualifiers: Atrial fibrillation type: unspecified Qualified Code(s): I48.91 - Unspecified atrial fibrillation (3) Diabetes mellitus, type 2 Current Visit: Yes Status: Chronic Assessment and plan: Blood sugars are better controlled but still remain elevated. Increase the dose of basal coverage to 34 units twice a day. 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 Concurrent medications. Qualifiers: Hypertension type: essential hypertension Qualified Code(s): I10 - Essential (primary) hypertension - Subjective Interval history: Patient complaining of 9/10 pain in her right shoulder without any radiation. She states that this pain is from her fall prior to presentation to the hospital. She denies any dizziness or changes in her vision or double vision. - Constitutional Vitals: Temp Pulse Resp BP Pulse Ox 98.5 F 78 18 108/67 95 02/24/17 07:36 02/24/17 07:36 02/24/17 07:36 02/24/17 07:36 02/24/17 07:36 General appearance: Present: cooperative, mild distress, A&O X 3, obese, answers questions appropriately Exam: Gen.: Sitting in bed. No acute distress. Chest: Clear to auscultation bilaterally. No adventitious sounds present. CVS: First and second heart sounds present. No murmurs, rubs or gallops. Abdomen: Soft, nontender, nondistended. Bowel sounds present. No hepatosplenomegaly. Skin: No decubitus ulcers appreciated. Crusted blood over the toenail of the great toe. No erythema. No purulence. Internal Medicine: Result - Labs CBC & Chem 7: 02/21/17 01:23 02/21/17 01:23 - ABG Interpretation ABG results: PT/INR, D-dimer PT 12.1 Seconds (9.4-12.1) 02/19/17 13:30 Consult Discharge Plan - Plan Instructions: Oxycodone/Acetaminophen (By mouth), Transient Ischemic Attack (DC ), Atrial Fibrillation (DC), Urinary Tract Infection in Women (DC), Chronic Kidney Disease (DC), Chronic Kidney Disease (GEN), Syncope (DC), Diabetes Mellitus Type 2 in Adults (DC), Sepsis (DC), Ischemic Stroke (DC), Chronic Hypertension (DC), Anemia (GEN), Fall Prevention (DC) Additional Instructions: Follow Up with neurology in 1-2 weeks for left-sided third nerve palsy with pupillary sparing Referrals: Ronnell Spann MD [Non-Partnered Physician] - Prescriptions: OxyCODONE Immed Rel [Roxicodone 15 MG] 15 mg PO Q4HR PRN #14 tablet PRN Reason: Moderate Pain
[2017-02-24 12:03] VITALS: BP 116/56
[2017-02-24] MEDS ORDERED: Neosporin OINT 15 GM TUBE TP SCH (21:00)
[2017-02-24] MEDS ORDERED: Insulin DETEMIR 100 UNIT/ML X5UNITS SQ SCH (21:00)
== END 2017-02-24 14:55 | DRG 123 ==
LOC: EMEROO 10:32 → 2NENU 10:32
PROVIDERS: ADMIT Family Medicine; ATTEND Internal Medicine

== ENCOUNTER 2019-05-11 18:45 | Inpatient (IN) ==
[2019-05-11 20:07] LABS: Basophils # 0.1 K/mcL (0.0-0.2); Basophils % 0.6 %; Eosinophils # 0.2 K/mcL (0.0-0.6); Eosinophils % 2.1 %; Hematocrit 27.2 % (35.3-44.9); Hemoglobin 8.2 g/dL (11.5-15.4); Immature Granulocytes % 0.3 % (0-4); Lymphocytes # 1.2 K/mcL (0.6-4.6); Lymphocytes % 14.8 %; Mean Corpuscular HGB Conc 30.1 g/dL (31.6-35.5); Mean Corpuscular Hemoglobin 26.5 pg (28.0-33.3); Mean Platelet Volume 10.9 fL (9.4-12.4); Monocytes # 0.7 K/mcL (0.0-1.3); Monocytes % 8.3 %; Neutrophils # 5.9 K/mcL (1.6-8.9); Platelet Count 173 K/mcL (140-400); Red Blood Count 3.09 M/mcL (3.82-4.97); Red Cell Distribution Width 14.2 % (11.5-14.5); Segmented Neutrophils % 73.9 %; White Blood Count 7.9 K/mcL (4.3-11.1)
[2019-05-11 20:23] LABS: Albumin 2.4 g/dL (3.5-5.7); Albumin/Globulin Ratio 0.5 (1.1-2.2); Bilirubin,Direct 0.1 mg/dL (0.0-0.2); Bilirubin,Indirect 0.2 mg/dL (0.0-1.2); Bilirubin,Total 0.3 mg/dL (0.3-1.0); Globulin 4.6 g/dL (2.4-3.5)
[2019-05-11 20:25] LABS: INR 1.1; Potassium 3.4 mEq/L (3.5-5.1); Prothrombin Time 12.9 Seconds (9.4-12.1); Troponin I 0.03 ng/mL (< 0.04)
[2019-05-11 20:28] LABS: Activated Partial Thrombo Time 34.9 Seconds (26.0-36.0)
[2019-05-11 21:53] LABS: Bilirubin,Urine Negative (Negative); Blood,Urine Small (Negative); Clarity,Urine Clear (Clear); Color,Urine Yellow (Yellow); Glucose,Urine (UA) 100 mg/dL (Normal); Ketones,Urine Negative (Negative); Leukocyte Esterase,Urine Negative (Negative); Nitrite,Urine Negative (Negative); Protein,Urine >=300 mg/dL (Neg-Trace); Specific Gravity,Urine 1.016 (1.010-1.025); Urobilinogen,Urine Normal (Normal)
[2019-05-11] MEDS ORDERED: Furosemide 20 MG/2 ML VIAL IVP ONE ×2 (22:00→22:36)
[2019-05-11 22:05] LABS: Squamous Epithelial Cell,Urine Many per lpf (None-Few); WBC,Urine 0-3 per hpf (0-3)
[2019-05-11 22:06] LABS: Bacteria,Urine None Seen per hpf (None-Few); Hyaline Casts,Urine None Seen per lpf (None-Few)
[2019-05-11] MEDS ORDERED: Naloxone 0.4 MG/ML INJ IVP PRN (23:16)
[2019-05-11] MEDS ORDERED: *HR* Dextrose 50 % in Water (Syg) 50 ML SYRINGE IVP PRN (23:19)
[2019-05-11] MEDS ORDERED: D5% in Water 1,000 ML IVC PRN (23:19)
[2019-05-11] MEDS ORDERED: Dextrose Gel 15 GM/37.5 ML TUBE PO PRN ×2 (23:19)
[2019-05-12] MEDS ORDERED: Insulin LISPRO 300 UNITS/3 ML VIAL SQ SCH
[2019-05-12] MEDS ORDERED: Chloraseptic Spray 177 ML BOTTLE MM PRN (03:15)
[2019-05-12] MEDS: Benzonatate 100 MG CAPSULE PO PRN ×3 (03:52→11:26)
[2019-05-12] MEDS: *HR* Heparin 5,000 UNIT/ML VIAL SQ SCH ×2 (05:23→16:20)
[2019-05-12 05:29] LABS: Basophils # 0.1 K/mcL (0.0-0.2); Basophils % 0.6 %; Eosinophils # 0.4 K/mcL (0.0-0.6); Eosinophils % 4.8 %; Hematocrit 27.9 % (35.3-44.9); Hemoglobin 8.6 g/dL (11.5-15.4); Immature Granulocytes % 0.4 % (0-4); Lymphocytes # 1.3 K/mcL (0.6-4.6); Lymphocytes % 16.8 %; Mean Corpuscular HGB Conc 30.8 g/dL (31.6-35.5); Mean Corpuscular Hemoglobin 27.3 pg (28.0-33.3); Mean Corpuscular Volume 88.6 fL (83.0-100.0); Mean Platelet Volume 11.8 fL (9.4-12.4); Monocytes # 0.6 K/mcL (0.0-1.3); Monocytes % 7.5 %; Neutrophils # 5.4 K/mcL (1.6-8.9); Nucleated Red Blood Cells 0.3 /100 WBC (0); Platelet Count 164 K/mcL (140-400); Red Blood Count 3.15 M/mcL (3.82-4.97); Red Cell Distribution Width 14.3 % (11.5-14.5); Segmented Neutrophils % 69.9 %; White Blood Count 7.7 K/mcL (4.3-11.1)
[2019-05-12 05:53] LABS: Albumin 2.4 g/dL (3.5-5.7); Albumin/Globulin Ratio 0.5 (1.1-2.2); Bilirubin,Total 0.4 mg/dL (0.3-1.0); Calcium 8.2 mg/dL (8.6-10.3); Globulin 4.7 g/dL (2.4-3.5); Total Protein 7.1 g/dL (6.4-8.9)
[2019-05-12] MEDS ORDERED: Furosemide 40 MG/4 ML VIAL IVP ONE (06:32)
[2019-05-12] MEDS: Insulin LISPRO 300 UNITS/3 ML VIAL SQ SCH ×4 (08:28→20:43)
[2019-05-12] MEDS ORDERED: Pantoprazole 40 MG VIAL IVP SCH ×2 (09:00)
[2019-05-12] MEDS ORDERED: Albumin 25% 25gram/100mL 25 GM/100 ML IV.SOLN IVPB SCH (13:33)
[2019-05-12] MEDS ORDERED: Furosemide 40 MG/4 ML VIAL IVP SCH (13:45)
[2019-05-12 14:05] LABS: Protein/Creatinine Ratio,Urine 7.46 mg/mg (0.00-0.20); Sodium, Urine 123.5 mEq/L
[2019-05-12] MEDS: Albumin 25% 25gram/100mL 25 GM/100 ML IV.SOLN IVPB SCH (14:29)
[2019-05-12 15:45] LABS: Hepatitis B Surface Antigen Nonreactive (Nonreactive)
[2019-05-12 16:13] LABS: Hepatitis B Core IgM Nonreactive (Nonreactive)
[2019-05-12 16:16] LABS: Hepatitis A Antibody IgM Nonreactive (Nonreactive)
[2019-05-12] MEDS: Furosemide 40 MG/4 ML VIAL IVP SCH (16:20)
[2019-05-12] MEDS: Gabapentin 100 MG CAPSULE PO SCH (20:43)
[2019-05-12] MEDS: Melatonin 3 MG TABLET PO PRN (20:43)
[2019-05-12 20:51] LABS: Hepatitis C Virus Antibody Reactive (Nonreactive)
[2019-05-13 04:54] LABS: Folate 15.5 ng/mL (3.0-16.0)
[2019-05-13 04:55] LABS: Vitamin B12 577 pg/mL (250-1100)
[2019-05-13 05:34] LABS: Vitamin D 25 Hydroxy < 5 ng/mL (30-80)
[2019-05-13] MEDS: Albumin 25% 25gram/100mL 25 GM/100 ML IV.SOLN IVPB SCH ×2 (06:10→15:07)
[2019-05-13] MEDS: Levothyroxine 25 MCG TABLET PO SCH (06:10)
[2019-05-13] MEDS: *HR* Heparin 5,000 UNIT/ML VIAL SQ SCH ×2 (06:10→16:56)
[2019-05-13] MEDS: Insulin LISPRO 300 UNITS/3 ML VIAL SQ SCH ×4 (07:46→20:51)
[2019-05-13] MEDS: Furosemide 40 MG/4 ML VIAL IVP SCH ×2 (08:33→16:56)
[2019-05-13] MEDS: Ondansetron ODT 4 MG TAB.RAPDIS SL PRN (08:52)
[2019-05-13 09:19] LABS: Calcium 8.2 mg/dL (8.6-10.3); Potassium 3.7 mEq/L (3.5-5.1)
[2019-05-13 10:06] LABS: Hematocrit 25.8 % (35.3-44.9); Hemoglobin 7.9 g/dL (11.5-15.4); Mean Corpuscular HGB Conc 30.6 g/dL (31.6-35.5); Mean Corpuscular Hemoglobin 26.6 pg (28.0-33.3); Mean Corpuscular Volume 86.9 fL (83.0-100.0); Mean Platelet Volume 11.5 fL (9.4-12.4); Platelet Count 142 K/mcL (140-400); Red Blood Count 2.97 M/mcL (3.82-4.97); Red Cell Distribution Width 14.2 % (11.5-14.5); White Blood Count 5.1 K/mcL (4.3-11.1)
[2019-05-13] MEDS: Benzonatate 100 MG CAPSULE PO PRN ×2 (13:47→23:00)
[2019-05-13] MEDS: amLODIPine 5 MG TABLET PO SCH (20:51)
[2019-05-13] MEDS: Gabapentin 100 MG CAPSULE PO SCH (20:51)
[2019-05-13] MEDS: Melatonin 3 MG TABLET PO PRN (22:01)
[2019-05-14] MEDS: Albumin 25% 25gram/100mL 25 GM/100 ML IV.SOLN IVPB SCH ×2 (06:01→16:00)
[2019-05-14] MEDS: *HR* Heparin 5,000 UNIT/ML VIAL SQ SCH ×2 (06:01→17:31)
[2019-05-14] MEDS: Levothyroxine 25 MCG TABLET PO SCH (06:01)
[2019-05-14] MEDS: Benzonatate 100 MG CAPSULE PO PRN ×2 (06:01→21:58)
[2019-05-14 08:06] LABS: Hematocrit 21.8 % (35.3-44.9); Hemoglobin 6.6 g/dL (11.5-15.4); Mean Corpuscular HGB Conc 30.3 g/dL (31.6-35.5); Mean Corpuscular Hemoglobin 26.2 pg (28.0-33.3); Mean Corpuscular Volume 86.5 fL (83.0-100.0); Mean Platelet Volume 12.1 fL (9.4-12.4); Platelet Count 123 K/mcL (140-400); Red Blood Count 2.52 M/mcL (3.82-4.97); Red Cell Distribution Width 14.2 % (11.5-14.5); White Blood Count 4.1 K/mcL (4.3-11.1)
[2019-05-14 08:28] LABS: Calcium 8.3 mg/dL (8.6-10.3); Potassium 3.6 mEq/L (3.5-5.1)
[2019-05-14] MEDS: amLODIPine 5 MG TABLET PO SCH (08:29)
[2019-05-14] MEDS: Insulin LISPRO 300 UNITS/3 ML VIAL SQ SCH ×4 (08:29→20:03)
[2019-05-14] MEDS: Furosemide 40 MG/4 ML VIAL IVP SCH ×2 (08:30→17:32)
[2019-05-14] MEDS ORDERED: 0.9 % Sodium Chloride 250 ML IVC SCH (08:45)
[2019-05-14] MEDS ORDERED: Furosemide 20 MG/2 ML VIAL IVP ONE (10:18)
[2019-05-14] MEDS ORDERED: 0.9 % Sodium Chloride 250 ML ONE (10:27)
[2019-05-14] MEDS: Ipratropium/Albuterol Neb 3 ML IH PRN ×2 (14:58→19:51)
[2019-05-14 16:17] LABS: Hematocrit 29.9 % (35.3-44.9)
[2019-05-14 16:22] LABS: Hemoglobin 9.5 g/dL (11.5-15.4)
[2019-05-14] MEDS: Gabapentin 100 MG CAPSULE PO SCH (20:02)
[2019-05-14 22:11] LABS: Hematocrit 25.2 % (35.3-44.9)
[2019-05-14 22:12] LABS: Hemoglobin 7.9 g/dL (11.5-15.4)
[2019-05-15] MEDS: Benzonatate 100 MG CAPSULE PO PRN ×2 (05:08→16:51)
[2019-05-15] MEDS: Levothyroxine 25 MCG TABLET PO SCH (05:08)
[2019-05-15] MEDS: *HR* Heparin 5,000 UNIT/ML VIAL SQ SCH ×2 (05:08→16:52)
[2019-05-15] MEDS: Albumin 25% 25gram/100mL 25 GM/100 ML IV.SOLN IVPB SCH (05:09)
[2019-05-15] MEDS: Ipratropium/Albuterol Neb 3 ML IH PRN ×2 (05:29→13:29)
[2019-05-15 06:53] LABS: Hematocrit 25.1 % (35.3-44.9); Hemoglobin 7.8 g/dL (11.5-15.4); Mean Corpuscular HGB Conc 31.1 g/dL (31.6-35.5); Mean Corpuscular Hemoglobin 27.4 pg (28.0-33.3); Mean Corpuscular Volume 88.1 fL (83.0-100.0); Mean Platelet Volume 12.4 fL (9.4-12.4); Platelet Count 122 K/mcL (140-400); Red Blood Count 2.85 M/mcL (3.82-4.97); Red Cell Distribution Width 14.2 % (11.5-14.5); White Blood Count 6.3 K/mcL (4.3-11.1)
[2019-05-15 07:11] LABS: Calcium 8.4 mg/dL (8.6-10.3); Potassium 3.5 mEq/L (3.5-5.1)
[2019-05-15] MEDS: Furosemide 40 MG/4 ML VIAL IVP SCH ×2 (08:09→16:51)
[2019-05-15] MEDS: amLODIPine 5 MG TABLET PO SCH (08:09)
[2019-05-15] MEDS: Insulin LISPRO 300 UNITS/3 ML VIAL SQ SCH ×4 (08:17→20:38)
[2019-05-15] MEDS ORDERED: NON-FORMULARY MEDICATION 1 EACH EACH (Pantoprazole Sodium [Protonix] 40 MG) PO SCH (09:00)
[2019-05-15] MEDS: Ondansetron ODT 4 MG TAB.RAPDIS SL PRN (09:45)
[2019-05-15 14:41] LABS: Hematocrit 27.7 % (35.3-44.9); Hemoglobin 8.7 g/dL (11.5-15.4)
[2019-05-15] MEDS: Gabapentin 100 MG CAPSULE PO SCH (20:38)
[2019-05-15] MEDS: Sennosides 8.6 MG TABLET PO PRN (20:38)
[2019-05-15 21:00] LABS: Hematocrit 28.6 % (35.3-44.9); Hemoglobin 8.9 g/dL (11.5-15.4)
[2019-05-16] MEDS: Levothyroxine 25 MCG TABLET PO SCH (04:37)
[2019-05-16] MEDS: Ipratropium/Albuterol Neb 3 ML IH PRN ×2 (04:37→10:01)
[2019-05-16] MEDS: *HR* Heparin 5,000 UNIT/ML VIAL SQ SCH (04:42)
[2019-05-16 06:07] LABS: Hematocrit 27.4 % (35.3-44.9); Hemoglobin 8.5 g/dL (11.5-15.4); Mean Corpuscular Hemoglobin 27.4 pg (28.0-33.3); Mean Corpuscular Volume 88.4 fL (83.0-100.0); Mean Platelet Volume 12.3 fL (9.4-12.4); Platelet Count 137 K/mcL (140-400); Red Cell Distribution Width 14.6 % (11.5-14.5); White Blood Count 8.9 K/mcL (4.3-11.1)
[2019-05-16 06:24] LABS: Calcium 8.8 mg/dL (8.6-10.3); Potassium 3.9 mEq/L (3.5-5.1)
[2019-05-16] MEDS: Ondansetron ODT 4 MG TAB.RAPDIS SL PRN (08:00)
[2019-05-16] MEDS: amLODIPine 5 MG TABLET PO SCH (08:01)
[2019-05-16] MEDS: Insulin LISPRO 300 UNITS/3 ML VIAL SQ SCH ×4 (08:02→19:44)
[2019-05-16] MEDS: Sennosides 8.6 MG TABLET PO PRN (08:14)
[2019-05-16] MEDS ORDERED: Albuterol 2.5 MG/3 ML NEBULIZER IH PRN (11:36)
[2019-05-16] MEDS: Acetaminophen 325 MG TABLET PO PRN (12:52)
[2019-05-16] MEDS: Ipratropium/Albuterol Neb 3 ML IH SCH ×4 (14:58→23:25)
[2019-05-16] MEDS: MethylPREDNISolone 40 MG/ML VIAL IVP SCH (17:14)
[2019-05-16] MEDS: Insulin DETEMIR 100 UNIT/ML X5UNITS SQ SCH (19:42)
[2019-05-16] MEDS: Gabapentin 100 MG CAPSULE PO SCH (19:42)
[2019-05-16 22:21] LABS: HCV Quant Log 6.19 log IU/mL
[2019-05-16] MEDS: Melatonin 3 MG TABLET PO PRN (22:56)
[2019-05-17] MEDS: Ipratropium/Albuterol Neb 3 ML IH SCH ×6 (03:33→23:45)
[2019-05-17] MEDS: Levothyroxine 25 MCG TABLET PO SCH (05:55)
[2019-05-17] MEDS: MethylPREDNISolone 40 MG/ML VIAL IVP SCH ×2 (05:55→18:00)
[2019-05-17 08:26] LABS: Hemoglobin 8.7 g/dL (11.5-15.4); Mean Corpuscular HGB Conc 31.1 g/dL (31.6-35.5); Mean Corpuscular Hemoglobin 27.5 pg (28.0-33.3); Mean Corpuscular Volume 88.6 fL (83.0-100.0); Mean Platelet Volume 12.4 fL (9.4-12.4); Platelet Count 139 K/mcL (140-400); Red Blood Count 3.16 M/mcL (3.82-4.97); Red Cell Distribution Width 14.9 % (11.5-14.5); White Blood Count 7.8 K/mcL (4.3-11.1)
[2019-05-17 08:33] LABS: Calcium 8.9 mg/dL (8.6-10.3); Potassium 4.2 mEq/L (3.5-5.1)
[2019-05-17] MEDS: amLODIPine 5 MG TABLET PO SCH (09:27)
[2019-05-17] MEDS: Insulin LISPRO 300 UNITS/3 ML VIAL SQ SCH ×6 (09:28→20:12)
[2019-05-17] MEDS ORDERED: Insulin Human Regular 10 UNIT in 0.9 % Sodium Chloride 10 ML IV ONE (11:04)
[2019-05-17 11:34] LABS: HCV Quant Interpretation DETECTED (Not Detected)
[2019-05-17 12:23] LABS: Estimated Average Glucose 192 mg/dl
[2019-05-17] MEDS: Insulin DETEMIR 100 UNIT/ML X5UNITS SQ SCH (20:13)
[2019-05-17] MEDS: Gabapentin 100 MG CAPSULE PO SCH (20:14)
[2019-05-17] MEDS: Acetaminophen 325 MG TABLET PO PRN (21:47)
[2019-05-18] MEDS: Melatonin 3 MG TABLET PO PRN ×2 (00:05→22:04)
[2019-05-18 01:52] LABS: Hematocrit 30.1 % (35.3-44.9); Hemoglobin 9.3 g/dL (11.5-15.4); Mean Corpuscular HGB Conc 30.9 g/dL (31.6-35.5); Mean Corpuscular Hemoglobin 27.5 pg (28.0-33.3); Mean Corpuscular Volume 89.1 fL (83.0-100.0); Mean Platelet Volume 12.3 fL (9.4-12.4); Platelet Count 171 K/mcL (140-400); Red Blood Count 3.38 M/mcL (3.82-4.97); Red Cell Distribution Width 15.7 % (11.5-14.5)
[2019-05-18 01:59] LABS: White Blood Count 13.7 K/mcL (4.3-11.1)
[2019-05-18 02:05] LABS: Calcium 9.2 mg/dL (8.6-10.3); Potassium 4.1 mEq/L (3.5-5.1)
[2019-05-18] MEDS: Ipratropium/Albuterol Neb 3 ML IH SCH ×5 (03:17→19:35)
[2019-05-18] MEDS: Levothyroxine 25 MCG TABLET PO SCH (05:25)
[2019-05-18] MEDS: MethylPREDNISolone 40 MG/ML VIAL IVP SCH (05:25)
[2019-05-18] MEDS: Insulin LISPRO 300 UNITS/3 ML VIAL SQ SCH ×7 (08:29→22:00)
[2019-05-18] MEDS: amLODIPine 5 MG TABLET PO SCH (08:31)
[2019-05-18] MEDS: Acetaminophen 325 MG TABLET PO PRN (13:11)
[2019-05-18] MEDS: *HR* Heparin 5,000 UNIT/ML VIAL SQ SCH (16:51)
[2019-05-18] MEDS: Budesonide/Formoterol 160/4.5 1 PUFF INH IH SCH (19:35)
[2019-05-18] MEDS: Gabapentin 100 MG CAPSULE PO SCH (22:04)
[2019-05-18] MEDS: Insulin DETEMIR 100 UNIT/ML X5UNITS SQ SCH (22:05)
[2019-05-19] MEDS: Ipratropium/Albuterol Neb 3 ML IH SCH ×6 (00:10→19:50)
[2019-05-19 04:32] LABS: Hemoglobin 9.3 g/dL (11.5-15.4); Mean Corpuscular Hemoglobin 27.6 pg (28.0-33.3); Mean Platelet Volume 12.2 fL (9.4-12.4); Platelet Count 188 K/mcL (140-400); Red Blood Count 3.37 M/mcL (3.82-4.97); Red Cell Distribution Width 16.3 % (11.5-14.5); White Blood Count 11.3 K/mcL (4.3-11.1)
[2019-05-19 04:52] LABS: Magnesium 1.9 mg/dL (1.6-2.6); Phosphorous 4.2 mg/dL (2.7-4.5)
[2019-05-19] MEDS: Levothyroxine 25 MCG TABLET PO SCH (06:04)
[2019-05-19] MEDS: *HR* Heparin 5,000 UNIT/ML VIAL SQ SCH ×2 (06:04→16:54)
[2019-05-19] MEDS: Budesonide/Formoterol 160/4.5 1 PUFF INH IH SCH ×2 (07:31→19:49)
[2019-05-19] MEDS: amLODIPine 5 MG TABLET PO SCH (07:42)
[2019-05-19] MEDS: Insulin LISPRO 300 UNITS/3 ML VIAL SQ SCH ×7 (07:42→20:22)
[2019-05-19] MEDS: Benzonatate 100 MG CAPSULE PO PRN ×3 (07:42→23:55)
[2019-05-19] MEDS: predniSONE 20 MG TABLET PO SCH (07:42)
[2019-05-19] MEDS: Sennosides 8.6 MG TABLET PO PRN (07:43)
[2019-05-19] MEDS ORDERED: Albumin 25% 25gram/100mL 25 GM/100 ML IV.SOLN IVPB ONE (10:20)
[2019-05-19] MEDS: hydrALAZINE 25 MG TABLET PO SCH ×3 (11:49→23:55)
[2019-05-19] MEDS ORDERED: Furosemide 40 MG/4 ML VIAL IVP ONE (12:30)
[2019-05-19] MEDS: Melatonin 3 MG TABLET PO PRN (20:27)
[2019-05-19] MEDS: Insulin DETEMIR 100 UNIT/ML X5UNITS SQ SCH (20:27)
[2019-05-19] MEDS: Gabapentin 100 MG CAPSULE PO SCH (20:27)
[2019-05-20] MEDS: Ipratropium/Albuterol Neb 3 ML IH SCH ×6 (00:14→20:10)
[2019-05-20 04:09] LABS: Hematocrit 27.7 % (35.3-44.9); Hemoglobin 8.6 g/dL (11.5-15.4); Mean Corpuscular Hemoglobin 28.2 pg (28.0-33.3); Mean Corpuscular Volume 90.8 fL (83.0-100.0); Mean Platelet Volume 12.1 fL (9.4-12.4); Platelet Count 157 K/mcL (140-400); Red Blood Count 3.05 M/mcL (3.82-4.97); Red Cell Distribution Width 16.6 % (11.5-14.5); White Blood Count 8.1 K/mcL (4.3-11.1)
[2019-05-20 04:29] LABS: Calcium 8.8 mg/dL (8.6-10.3); Magnesium 1.8 mg/dL (1.6-2.6); Phosphorous 3.7 mg/dL (2.7-4.5)
[2019-05-20] MEDS: *HR* Heparin 5,000 UNIT/ML VIAL SQ SCH (06:42)
[2019-05-20] MEDS: Benzonatate 100 MG CAPSULE PO PRN ×3 (06:43→20:47)
[2019-05-20] MEDS: Levothyroxine 25 MCG TABLET PO SCH (06:44)
[2019-05-20] MEDS: Budesonide/Formoterol 160/4.5 1 PUFF INH IH SCH ×2 (07:55→20:09)
[2019-05-20] MEDS: predniSONE 20 MG TABLET PO SCH (08:23)
[2019-05-20] MEDS: amLODIPine 5 MG TABLET PO SCH (08:23)
[2019-05-20] MEDS: Insulin LISPRO 300 UNITS/3 ML VIAL SQ SCH ×7 (08:24→20:49)
[2019-05-20] MEDS: hydrALAZINE 25 MG TABLET PO SCH ×2 (08:24→16:14)
[2019-05-20] MEDS ORDERED: *HR* Heparin 5,000 UNIT/ML VIAL ONE (14:39)
[2019-05-20] MEDS ORDERED: 0.9 % Sodium Chloride 250 ML IVC PRN (16:51)
[2019-05-20] MEDS ORDERED: *HR* Heparin 10,000 UNIT/10 ML VIAL IV PRN ×2 (16:51)
[2019-05-20] MEDS ORDERED: 0.9 % Sodium Chloride 1,000 ML ONE (17:00)
[2019-05-20] MEDS ORDERED: 0.9 % Sodium Chloride 1,000 ML PRIME SCH (17:00)
[2019-05-20 19:30] LABS: Hepatitis B Surface Antigen Nonreactive (Nonreactive)
[2019-05-20 20:32] LABS: Hepatitis B Surface Antibody < 3.10 mIU/mL
[2019-05-20] MEDS: Gabapentin 100 MG CAPSULE PO SCH (20:48)
[2019-05-20] MEDS: Melatonin 3 MG TABLET PO PRN (20:48)
[2019-05-20] MEDS: Ondansetron ODT 4 MG TAB.RAPDIS SL PRN (20:48)
[2019-05-20] MEDS: Insulin DETEMIR 100 UNIT/ML X5UNITS SQ SCH (20:49)
[2019-05-21] MEDS: Ipratropium/Albuterol Neb 3 ML IH SCH ×6 (00:25→20:08)
[2019-05-21] MEDS: hydrALAZINE 25 MG TABLET PO SCH ×4 (00:46→23:02)
[2019-05-21] MEDS: Levothyroxine 25 MCG TABLET PO SCH (05:49)
[2019-05-21] MEDS: Acetaminophen 325 MG TABLET PO PRN ×3 (05:49→23:01)
[2019-05-21 06:19] LABS: Hematocrit 25.8 % (35.3-44.9); Mean Corpuscular Hemoglobin 27.7 pg (28.0-33.3); Mean Corpuscular Volume 89.3 fL (83.0-100.0); Mean Platelet Volume 11.6 fL (9.4-12.4); Platelet Count 144 K/mcL (140-400); Red Blood Count 2.89 M/mcL (3.82-4.97); Red Cell Distribution Width 17.2 % (11.5-14.5)
[2019-05-21 06:40] LABS: Calcium 8.5 mg/dL (8.6-10.3)
[2019-05-21] MEDS: Budesonide/Formoterol 160/4.5 1 PUFF INH IH SCH ×2 (07:15→20:08)
[2019-05-21] MEDS ORDERED: 0.9 % Sodium Chloride 250 ML IVC PRN (07:29)
[2019-05-21] MEDS ORDERED: *HR* Heparin 10,000 UNIT/10 ML VIAL IV PRN ×2 (07:29)
[2019-05-21] MEDS ORDERED: 0.9 % Sodium Chloride 1,000 ML PRIME SCH (07:30)
[2019-05-21] MEDS: predniSONE 20 MG TABLET PO SCH (07:57)
[2019-05-21] MEDS: Benzonatate 100 MG CAPSULE PO PRN ×3 (07:57→23:02)
[2019-05-21] MEDS: Insulin LISPRO 300 UNITS/3 ML VIAL SQ SCH ×7 (07:58→19:44)
[2019-05-21] MEDS: Insulin DETEMIR 100 UNIT/ML X5UNITS SQ SCH ×2 (07:58→19:43)
[2019-05-21] MEDS: amLODIPine 5 MG TABLET PO SCH ×2 (11:19→13:17)
[2019-05-21] MEDS: Metoprolol XL (24 HR) Succ 25 MG TAB.ER.24H PO SCH (13:12)
[2019-05-21] MEDS: Melatonin 3 MG TABLET PO PRN (19:40)
[2019-05-21] MEDS: Gabapentin 100 MG CAPSULE PO SCH (19:40)
[2019-05-22] MEDS: Ipratropium/Albuterol Neb 3 ML IH SCH ×7 (00:08→23:18)
[2019-05-22] MEDS: Levothyroxine 25 MCG TABLET PO SCH (06:22)
[2019-05-22 06:57] LABS: Hematocrit 27.3 % (35.3-44.9); Hemoglobin 8.3 g/dL (11.5-15.4); Mean Corpuscular HGB Conc 30.4 g/dL (31.6-35.5); Mean Corpuscular Hemoglobin 27.4 pg (28.0-33.3); Mean Corpuscular Volume 90.1 fL (83.0-100.0); Mean Platelet Volume 11.7 fL (9.4-12.4); Platelet Count 153 K/mcL (140-400); Red Blood Count 3.03 M/mcL (3.82-4.97); Red Cell Distribution Width 17.7 % (11.5-14.5); White Blood Count 11.4 K/mcL (4.3-11.1)
[2019-05-22 07:16] LABS: Calcium 8.6 mg/dL (8.6-10.3); Potassium 4.3 mEq/L (3.5-5.1)
[2019-05-22] MEDS: Budesonide/Formoterol 160/4.5 1 PUFF INH IH SCH ×2 (07:24→20:18)
[2019-05-22] MEDS: Insulin LISPRO 300 UNITS/3 ML VIAL SQ SCH ×7 (08:44→22:13)
[2019-05-22] MEDS: amLODIPine 5 MG TABLET PO SCH (08:45)
[2019-05-22] MEDS: Metoprolol XL (24 HR) Succ 25 MG TAB.ER.24H PO SCH (08:46)
[2019-05-22] MEDS: hydrALAZINE 25 MG TABLET PO SCH ×2 (08:46→16:12)
[2019-05-22] MEDS: Benzonatate 100 MG CAPSULE PO PRN (08:46)
[2019-05-22] MEDS: Insulin DETEMIR 100 UNIT/ML X5UNITS SQ SCH ×2 (08:53→22:11)
[2019-05-22] MEDS ORDERED: predniSONE 20 MG TABLET PO SCH (09:00)
[2019-05-22] MEDS: Sennosides 8.6 MG TABLET PO PRN (16:12)
[2019-05-22] MEDS: *HR* Heparin 5,000 UNIT/ML VIAL SQ SCH (17:02)
[2019-05-22] MEDS: Melatonin 3 MG TABLET PO PRN (22:12)
[2019-05-22] MEDS: Gabapentin 100 MG CAPSULE PO SCH (22:13)
[2019-05-23] MEDS: hydrALAZINE 25 MG TABLET PO SCH ×3 (01:12→17:44)
[2019-05-23 01:46] LABS: Hemoglobin 8.5 g/dL (11.5-15.4); Mean Corpuscular HGB Conc 31.5 g/dL (31.6-35.5); Mean Corpuscular Hemoglobin 28.1 pg (28.0-33.3); Mean Corpuscular Volume 89.4 fL (83.0-100.0); Mean Platelet Volume 12.1 fL (9.4-12.4); Platelet Count 162 K/mcL (140-400); Red Blood Count 3.02 M/mcL (3.82-4.97); Red Cell Distribution Width 17.8 % (11.5-14.5); White Blood Count 12.1 K/mcL (4.3-11.1)
[2019-05-23 01:57] LABS: Calcium 8.6 mg/dL (8.6-10.3); Potassium 4.3 mEq/L (3.5-5.1)
[2019-05-23] MEDS: Ipratropium/Albuterol Neb 3 ML IH SCH ×6 (03:23→23:42)
[2019-05-23] MEDS: *HR* Heparin 5,000 UNIT/ML VIAL SQ SCH ×2 (05:45→18:09)
[2019-05-23] MEDS: Levothyroxine 25 MCG TABLET PO SCH (05:46)
[2019-05-23] MEDS: Budesonide/Formoterol 160/4.5 1 PUFF INH IH SCH ×2 (07:23→20:34)
[2019-05-23] MEDS ORDERED: 0.9 % Sodium Chloride 250 ML IVC PRN (07:57)
[2019-05-23] MEDS ORDERED: *HR* Heparin 10,000 UNIT/10 ML VIAL IV PRN (07:57)
[2019-05-23] MEDS ORDERED: 0.9 % Sodium Chloride 1,000 ML PRIME SCH (08:00)
[2019-05-23] MEDS: predniSONE 20 MG TABLET PO SCH (08:24)
[2019-05-23] MEDS: Insulin LISPRO 300 UNITS/3 ML VIAL SQ SCH ×7 (08:25→20:31)
[2019-05-23] MEDS: Insulin DETEMIR 100 UNIT/ML X5UNITS SQ SCH ×2 (08:29→20:30)
[2019-05-23] MEDS ORDERED: *HR* LORazepam 2 MG/ML VIAL IVP STA (09:37)
[2019-05-23] MEDS: Acetaminophen 325 MG TABLET PO PRN (11:27)
[2019-05-23] MEDS ORDERED: *HR* HYDROcodone/Acet 5/325 mg TABLET PO ONE (12:03)
[2019-05-23] MEDS: Metoprolol XL (24 HR) Succ 25 MG TAB.ER.24H PO SCH (13:21)
[2019-05-23] MEDS: amLODIPine 5 MG TABLET PO SCH (13:22)
[2019-05-23] MEDS: *HR* HYDROcodone/Acet 5/325 mg TABLET PO PRN (15:46)
[2019-05-23] MEDS: *HR* LORazepam 2 MG/ML VIAL IVP PRN (17:44)
[2019-05-23] MEDS: Gabapentin 100 MG CAPSULE PO SCH (20:30)
[2019-05-23] MEDS: Melatonin 3 MG TABLET PO PRN (20:53)
[2019-05-24] MEDS: *HR* HYDROcodone/Acet 5/325 mg TABLET PO PRN ×3 (00:09→16:57)
[2019-05-24] MEDS: hydrALAZINE 25 MG TABLET PO SCH ×3 (00:09→16:10)
[2019-05-24] MEDS: Ipratropium/Albuterol Neb 3 ML IH SCH ×6 (03:44→23:31)
[2019-05-24] MEDS: Levothyroxine 25 MCG TABLET PO SCH (05:08)
[2019-05-24] MEDS: *HR* Heparin 5,000 UNIT/ML VIAL SQ SCH (05:08)
[2019-05-24 05:47] LABS: Magnesium 1.9 mg/dL (1.6-2.6); Phosphorous 4.2 mg/dL (2.7-4.5)
[2019-05-24 05:48] LABS: Calcium 8.4 mg/dL (8.6-10.3); Potassium 4.1 mEq/L (3.5-5.1)
[2019-05-24 05:59] LABS: Hematocrit 25.8 % (35.3-44.9); Hemoglobin 7.9 g/dL (11.5-15.4); Mean Corpuscular HGB Conc 30.6 g/dL (31.6-35.5); Mean Corpuscular Hemoglobin 27.8 pg (28.0-33.3); Mean Corpuscular Volume 90.8 fL (83.0-100.0); Mean Platelet Volume 12.2 fL (9.4-12.4); Platelet Count 120 K/mcL (140-400); Red Blood Count 2.84 M/mcL (3.82-4.97); White Blood Count 9.5 K/mcL (4.3-11.1)
[2019-05-24] MEDS: Budesonide/Formoterol 160/4.5 1 PUFF INH IH SCH ×2 (07:10→19:52)
[2019-05-24] MEDS: predniSONE 20 MG TABLET PO SCH (08:14)
[2019-05-24] MEDS: Insulin DETEMIR 100 UNIT/ML X5UNITS SQ SCH ×2 (08:15→20:02)
[2019-05-24] MEDS: Insulin LISPRO 300 UNITS/3 ML VIAL SQ SCH ×7 (08:16→20:03)
[2019-05-24] MEDS: *HR* LORazepam 2 MG/ML VIAL IVP PRN ×2 (08:19→20:50)
[2019-05-24] MEDS ORDERED: 0.9 % Sodium Chloride 250 ML IVC PRN (08:20)
[2019-05-24] MEDS: amLODIPine 5 MG TABLET PO SCH (12:10)
[2019-05-24] MEDS: Metoprolol XL (24 HR) Succ 25 MG TAB.ER.24H PO SCH (12:10)
[2019-05-24] MEDS: Benzonatate 100 MG CAPSULE PO PRN ×2 (12:15→20:02)
[2019-05-24] MEDS: Gabapentin 100 MG CAPSULE PO SCH (20:02)
[2019-05-25] MEDS: hydrALAZINE 25 MG TABLET PO SCH ×3 (00:48→18:14)
[2019-05-25] MEDS: Ipratropium/Albuterol Neb 3 ML IH SCH ×6 (03:47→23:23)
[2019-05-25] MEDS: Levothyroxine 25 MCG TABLET PO SCH (05:43)
[2019-05-25 06:05] LABS: Hematocrit 25.7 % (35.3-44.9); Hemoglobin 8.1 g/dL (11.5-15.4); Mean Corpuscular HGB Conc 31.5 g/dL (31.6-35.5); Mean Corpuscular Hemoglobin 27.7 pg (28.0-33.3); Platelet Count 135 K/mcL (140-400); Red Blood Count 2.92 M/mcL (3.82-4.97); Red Cell Distribution Width 18.3 % (11.5-14.5); White Blood Count 10.9 K/mcL (4.3-11.1)
[2019-05-25 06:54] LABS: Calcium 8.4 mg/dL (8.6-10.3); Potassium 4.8 mEq/L (3.5-5.1)
[2019-05-25] MEDS ORDERED: 0.9 % Sodium Chloride 250 ML IVC PRN (07:36)
[2019-05-25] MEDS ORDERED: *HR* Heparin 10,000 UNIT/10 ML VIAL IV PRN ×2 (07:36)
[2019-05-25] MEDS: Budesonide/Formoterol 160/4.5 1 PUFF INH IH SCH ×2 (07:38→19:39)
[2019-05-25] MEDS ORDERED: 0.9 % Sodium Chloride 1,000 ML PRIME SCH (07:45)
[2019-05-25] MEDS: predniSONE 20 MG TABLET PO SCH (07:53)
[2019-05-25] MEDS: *HR* LORazepam 2 MG/ML VIAL IVP PRN ×2 (07:53→20:49)
[2019-05-25] MEDS: *HR* HYDROcodone/Acet 5/325 mg TABLET PO PRN (07:53)
[2019-05-25] MEDS: Insulin LISPRO 300 UNITS/3 ML VIAL SQ SCH ×7 (07:54→20:50)
[2019-05-25] MEDS: Insulin DETEMIR 100 UNIT/ML X5UNITS SQ SCH ×2 (08:43→20:51)
[2019-05-25] MEDS: Metoprolol XL (24 HR) Succ 25 MG TAB.ER.24H PO SCH (13:04)
[2019-05-25] MEDS: amLODIPine 5 MG TABLET PO SCH (13:04)
[2019-05-25] MEDS: Benzonatate 100 MG CAPSULE PO PRN (20:19)
[2019-05-25] MEDS: Gabapentin 100 MG CAPSULE PO SCH (20:48)
[2019-05-25] MEDS: Acetaminophen 325 MG TABLET PO PRN (22:32)
[2019-05-26] MEDS: *HR* HYDROcodone/Acet 5/325 mg TABLET PO PRN ×2 (00:18→06:51)
[2019-05-26] MEDS: hydrALAZINE 25 MG TABLET PO SCH ×4 (00:19→23:16)
[2019-05-26] MEDS: Melatonin 3 MG TABLET PO PRN ×2 (01:04→23:19)
[2019-05-26] MEDS: Ipratropium/Albuterol Neb 3 ML IH SCH ×6 (04:33→23:36)
[2019-05-26 05:01] LABS: Hematocrit 25.3 % (35.3-44.9); Hemoglobin 7.8 g/dL (11.5-15.4); Mean Corpuscular HGB Conc 30.8 g/dL (31.6-35.5); Mean Corpuscular Hemoglobin 27.4 pg (28.0-33.3); Mean Corpuscular Volume 88.8 fL (83.0-100.0); Mean Platelet Volume 12.3 fL (9.4-12.4); Platelet Count 134 K/mcL (140-400); Red Blood Count 2.85 M/mcL (3.82-4.97); Red Cell Distribution Width 18.4 % (11.5-14.5); White Blood Count 10.8 K/mcL (4.3-11.1)
[2019-05-26 05:11] LABS: Calcium 8.3 mg/dL (8.6-10.3); Potassium 4.4 mEq/L (3.5-5.1)
[2019-05-26] MEDS: Levothyroxine 25 MCG TABLET PO SCH (06:51)
[2019-05-26] MEDS: Budesonide/Formoterol 160/4.5 1 PUFF INH IH SCH ×2 (07:44→20:36)
[2019-05-26] MEDS: predniSONE 10 MG TABLET PO SCH (08:38)
[2019-05-26] MEDS: Insulin DETEMIR 100 UNIT/ML X5UNITS SQ SCH ×2 (08:38→20:53)
[2019-05-26] MEDS: Metoprolol XL (24 HR) Succ 25 MG TAB.ER.24H PO SCH (08:38)
[2019-05-26] MEDS: amLODIPine 5 MG TABLET PO SCH (08:38)
[2019-05-26] MEDS: Insulin LISPRO 300 UNITS/3 ML VIAL SQ SCH ×7 (08:39→20:53)
[2019-05-26] MEDS: *HR* LORazepam 2 MG/ML VIAL IVP PRN (08:39)
[2019-05-26] MEDS: *HR* LORazepam 0.5 MG TABLET PO PRN (16:04)
[2019-05-26] MEDS: Gabapentin 100 MG CAPSULE PO SCH (20:53)
[2019-05-27] MEDS: *HR* HYDROcodone/Acet 5/325 mg TABLET PO PRN ×2 (01:29→08:12)
[2019-05-27 04:14] LABS: Hematocrit 26.6 % (35.3-44.9); Hemoglobin 8.5 g/dL (11.5-15.4)
[2019-05-27] MEDS: Ipratropium/Albuterol Neb 3 ML IH SCH ×3 (04:20→11:10)
[2019-05-27 04:27] LABS: Calcium 8.4 mg/dL (8.6-10.3)
[2019-05-27] MEDS: Levothyroxine 25 MCG TABLET PO SCH (05:49)
[2019-05-27] MEDS: Budesonide/Formoterol 160/4.5 1 PUFF INH IH SCH (07:21)
[2019-05-27] MEDS ORDERED: *HR* Heparin 10,000 UNIT/10 ML VIAL IV PRN ×2 (07:23)
[2019-05-27] MEDS ORDERED: 0.9 % Sodium Chloride 250 ML IVC PRN (07:23)
[2019-05-27] MEDS ORDERED: 0.9 % Sodium Chloride 1,000 ML PRIME SCH (07:30)
[2019-05-27] MEDS: predniSONE 10 MG TABLET PO SCH (08:07)
[2019-05-27] MEDS: Insulin LISPRO 300 UNITS/3 ML VIAL SQ SCH ×4 (08:08→13:48)
[2019-05-27] MEDS: Insulin DETEMIR 100 UNIT/ML X5UNITS SQ SCH (08:11)
[2019-05-27] MEDS: *HR* LORazepam 0.5 MG TABLET PO PRN ×2 (08:12→13:55)
[2019-05-27 13:24] VITALS: BP 149/64
[2019-05-27] MEDS: hydrALAZINE 25 MG TABLET PO SCH (13:46)
[2019-05-27] MEDS: Metoprolol XL (24 HR) Succ 25 MG TAB.ER.24H PO SCH (13:46)
[2019-05-27] MEDS: amLODIPine 5 MG TABLET PO SCH (13:46)
[2019-05-27] MEDS ORDERED: FLU Vac QV 19-20 (6Month+)/PF 0.5 ML SYRINGE IM ONE (16:16)
== END 2019-05-27 16:38 | disposition home health service (06) | DRG 682 ==
LOC: 2ANU 18:45 → EMEROOARM 18:45 → 2ANU 22:46 → SUATTDRO 22:46
PROVIDERS: ADMIT Internal Medicine; ATTEND Family Medicine

== ENCOUNTER 2019-06-12 23:03 | Observation (INO) ==
[2019-06-12 23:56] LABS: Basophils % 0.5 %; Eosinophils # 0.1 K/mcL (0.0-0.6); Eosinophils % 2.6 %; Hematocrit 29.9 % (35.3-44.9); Hemoglobin 9.2 g/dL (11.5-15.4); Immature Granulocytes % 0.2 % (0-4); Lymphocytes # 0.9 K/mcL (0.6-4.6); Lymphocytes % 21.5 %; Mean Corpuscular HGB Conc 30.8 g/dL (31.6-35.5); Mean Corpuscular Hemoglobin 29.1 pg (28.0-33.3); Mean Corpuscular Volume 94.6 fL (83.0-100.0); Mean Platelet Volume 11.9 fL (9.4-12.4); Monocytes # 0.3 K/mcL (0.0-1.3); Monocytes % 7.2 %; Neutrophils # 2.9 K/mcL (1.6-8.9); Platelet Count 142 K/mcL (140-400); Red Blood Count 3.16 M/mcL (3.82-4.97); Red Cell Distribution Width 18.1 % (11.5-14.5); White Blood Count 4.2 K/mcL (4.3-11.1)
[2019-06-13 00:02] LABS: Calcium 8.2 mg/dL (8.6-10.3); Potassium 4.4 mEq/L (3.5-5.1)
[2019-06-13 00:07] LABS: Troponin I 0.06 ng/mL (< 0.04)
[2019-06-13] MEDS: Aspirin 81 MG TAB.CHEW PO SCH ×2 (01:01→08:34)
[2019-06-13] MEDS ORDERED: *HR* HYDROmorphone (PF) 1 MG/ML SYRINGE IVP ONE (03:27)
[2019-06-13] MEDS ORDERED: Ondansetron 4 MG/2 ML VIAL IVP PRN (05:28)
[2019-06-13] MEDS ORDERED: Melatonin 3 MG TABLET PO PRN (05:33)
[2019-06-13] MEDS ORDERED: D5% in Water 1,000 ML IVC PRN (06:22)
[2019-06-13] MEDS ORDERED: Dextrose Gel 15 GM/37.5 ML TUBE PO PRN ×2 (06:22)
[2019-06-13] MEDS ORDERED: *HR* Dextrose 50 % in Water (Syg) 50 ML SYRINGE IVP PRN (06:22)
[2019-06-13] MEDS ORDERED: Furosemide 40 MG/4 ML VIAL IVP ONE (07:00)
[2019-06-13] MEDS ORDERED: Furosemide 40 MG/4 ML VIAL ONE (08:10)
[2019-06-13] MEDS: Levothyroxine 25 MCG TABLET PO SCH (08:34)
[2019-06-13] MEDS: Insulin LISPRO 300 UNITS/3 ML VIAL SQ SCH ×3 (08:34→16:20)
[2019-06-13] MEDS ORDERED: Perflutren Lipid Microsphere 1.3 ML in 0.9 % Sodium Chloride 8.7 ML IVP ONE (09:18)
[2019-06-13] MEDS ORDERED: Insulin DETEMIR 100 UNIT/ML X5UNITS SQ SCH (21:00)
[2019-06-14 05:17] LABS: Basophils % 0.8 %; Eosinophils # 0.2 K/mcL (0.0-0.6); Eosinophils % 2.9 %; Hematocrit 33.8 % (35.3-44.9); Hemoglobin 10.3 g/dL (11.5-15.4); Immature Granulocytes % 0.4 % (0-4); Lymphocytes # 1.6 K/mcL (0.6-4.6); Lymphocytes % 30.1 %; Mean Corpuscular HGB Conc 30.5 g/dL (31.6-35.5); Mean Corpuscular Hemoglobin 28.8 pg (28.0-33.3); Mean Corpuscular Volume 94.4 fL (83.0-100.0); Mean Platelet Volume 12.1 fL (9.4-12.4); Monocytes # 0.5 K/mcL (0.0-1.3); Monocytes % 9.4 %; Neutrophils # 2.9 K/mcL (1.6-8.9); Platelet Count 170 K/mcL (140-400); Red Blood Count 3.58 M/mcL (3.82-4.97); Red Cell Distribution Width 18.1 % (11.5-14.5); Segmented Neutrophils % 56.4 %; White Blood Count 5.2 K/mcL (4.3-11.1)
[2019-06-14 05:37] LABS: Calcium 8.2 mg/dL (8.6-10.3); Potassium 4.5 mEq/L (3.5-5.1)
[2019-06-14 05:39] LABS: Troponin I 0.04 ng/mL (< 0.04)
[2019-06-14] MEDS: Levothyroxine 25 MCG TABLET PO SCH (05:40)
[2019-06-14 07:34] VITALS: BP 156/70
[2019-06-14] MEDS: Insulin LISPRO 300 UNITS/3 ML VIAL SQ SCH (07:47)
[2019-06-14] MEDS ORDERED: Aspirin Enteric Coated 81 MG Tablet PO SCH (09:00)
== END 2019-06-14 09:55 | disposition home health service (06) ==
LOC: EMEROOARM 23:03 → 2ANU 23:03 → SUATTDRO 06-13 05:13 → 2ANU 06-13 06:15
PROVIDERS: ADMIT Internal Medicine; ATTEND Family Medicine

== ENCOUNTER 2019-10-03 23:47 | Observation (INO) ==
[2019-10-04] MEDS ORDERED: 0.9 % Sodium Chloride 250 ML IVC ONE (00:07)
[2019-10-04 00:47] LABS: Basophils % 0.6 %; Eosinophils # 0.2 K/mcL (0.0-0.6); Hematocrit 18.5 % (35.3-44.9); Immature Granulocytes % 0.3 % (0-4); Lymphocytes # 0.7 K/mcL (0.6-4.6); Lymphocytes % 11.4 %; Mean Corpuscular HGB Conc 30.3 g/dL (31.6-35.5); Mean Corpuscular Hemoglobin 28.6 pg (28.0-33.3); Mean Corpuscular Volume 94.4 fL (83.0-100.0); Mean Platelet Volume 11.3 fL (9.4-12.4); Monocytes # 0.6 K/mcL (0.0-1.3); Monocytes % 9.2 %; Platelet Count 142 K/mcL (140-400); Red Blood Count 1.96 M/mcL (3.82-4.97); Red Cell Distribution Width 15.7 % (11.5-14.5); Segmented Neutrophils % 75.5 %; White Blood Count 6.4 K/mcL (4.3-11.1)
[2019-10-04 00:51] LABS: Hemoglobin 5.6 g/dL (11.5-15.4); Neutrophils # 4.8 K/mcL (1.6-8.9)
[2019-10-04 01:07] LABS: Alanine Aminotransferase 19 Units/L (7-52); Albumin 2.4 g/dL (3.5-5.7); Albumin/Globulin Ratio 0.6 (1.1-2.2); Alkaline Phosphatase 97 Units/L (34-104); Aspartate Amino Transferase 45 Units/L (13-39); BUN/Creatinine Ratio 18 (6-26); Bilirubin,Total 0.4 mg/dL (0.3-1.0); Blood Urea Nitrogen 59 mg/dL (8-23); Calcium 8.2 mg/dL (8.6-10.3); Carbon Dioxide 23 mEq/L (23-29); Chloride 106 mEq/L (98-107); Glucose 161 mg/dL (70-105); Osmolality,Calculated 308 (280-300); Potassium 3.6 mEq/L (3.5-5.1); Sodium 139 mEq/L (136-145); Total Protein 6.4 g/dL (6.4-8.9); eGFR For African Americans 17 (> 60); eGFR For Non-African Americans 14 (> 60)
[2019-10-04 01:09] LABS: Troponin I < 0.03 ng/mL (< 0.04)
[2019-10-04] MEDS ORDERED: Pantoprazole 40 MG VIAL IVP ONE (01:28)
[2019-10-04] MEDS ORDERED: 0.9 % Sodium Chloride 250 ML ONE (01:31)
[2019-10-04] MEDS ORDERED: Pantoprazole 40 MG in 0.9 % Sodium Chloride 50 ML IVPB ONE (01:55)
[2019-10-04] MEDS ORDERED: Naloxone 0.4 MG/ML INJ IVP PRN (02:34)
[2019-10-04] MEDS ORDERED: *HR* LORazepam 0.5 MG TABLET PO PRN (02:41)
[2019-10-04] MEDS ORDERED: D5% in Water 1,000 ML IVC PRN (02:52)
[2019-10-04] MEDS ORDERED: *HR* Dextrose 50 % in Water (Syg) 50 ML SYRINGE IVP PRN (02:52)
[2019-10-04] MEDS ORDERED: Dextrose Gel 15 GM/37.5 ML TUBE PO PRN ×2 (02:52)
[2019-10-04] MEDS ORDERED: Octreotide 50 MCG/ML INJ IVP ONE ×3 (03:02→05:30)
[2019-10-04] MEDS ORDERED: Octreotide 400 MCG in 0.9 % Sodium Chloride 100 ML IVC SCH (03:15)
[2019-10-04 03:21] LABS: Bilirubin,Urine Negative (Negative); Blood,Urine Negative (Negative); Clarity,Urine Clear (Clear); Color,Urine Yellow (Yellow); Glucose,Urine (UA) 100 mg/dL (Normal); Ketones,Urine Negative (Negative); Leukocyte Esterase,Urine Negative (Negative); Nitrite,Urine Negative (Negative); Protein,Urine 100 mg/dL (Neg-Trace); Specific Gravity,Urine 1.014 (1.010-1.025); Urobilinogen,Urine Normal (Normal)
[2019-10-04 03:23] LABS: Bacteria,Urine None Seen per hpf (None-Few); Hyaline Casts,Urine None Seen per lpf (None-Few); RBC,Urine 0-3 per hpf (0-3); Squamous Epithelial Cell,Urine Many per lpf (None-Few); WBC,Urine 0-3 per hpf (0-3)
[2019-10-04] MEDS ORDERED: 0.9 % Sodium Chloride 250 ML IVC SCH (03:45)
[2019-10-04] MEDS ORDERED: Acetaminophen 325 MG TABLET PO PRN (04:22)
[2019-10-04] MEDS: Octreotide 400 MCG in 0.9 % Sodium Chloride 100 ML IVC SCH ×3 (05:29→20:24)
[2019-10-04] MEDS: Ondansetron 4 MG/2 ML VIAL IVP PRN ×2 (05:44→16:49)
[2019-10-04] MEDS ORDERED: Ondansetron 4 MG/2 ML VIAL IVP ONE (06:11)
[2019-10-04] MEDS: Pantoprazole 40 MG VIAL IVP SCH ×2 (06:17→16:45)
[2019-10-04] MEDS: Insulin LISPRO 300 UNITS/3 ML VIAL SQ SCH ×3 (06:20→16:45)
[2019-10-04] MEDS: Levothyroxine 25 MCG TABLET PO SCH (06:23)
[2019-10-04] MEDS: cefTRIAXone 1,000 MG in Water for inj. (sterile) 10 ML IVP SCH (07:54)
[2019-10-04 10:56] LABS: INR 1.1; Prothrombin Time 12.6 Seconds (9.4-12.1)
[2019-10-04 13:51] LABS: Hematocrit 26.9 % (35.3-44.9)
[2019-10-04 13:54] LABS: Hemoglobin 8.7 g/dL (11.5-15.4)
[2019-10-04 14:13] LABS: Albumin 2.6 g/dL (3.5-5.7); Albumin/Globulin Ratio 0.6 (1.1-2.2); Calcium 8.4 mg/dL (8.6-10.3); Globulin 4.1 g/dL (2.4-3.5); Phosphorous 4.1 mg/dL (2.7-4.5); Potassium 4.2 mEq/L (3.5-5.1); Total Protein 6.7 g/dL (6.4-8.9)
[2019-10-04] MEDS ORDERED: Melatonin 3 MG TABLET PO PRN (16:55)
[2019-10-04 20:24] LABS: Hematocrit 25.9 % (35.3-44.9); Hemoglobin 8.3 g/dL (11.5-15.4)
[2019-10-04] MEDS ORDERED: Insulin DETEMIR 100 UNIT/ML X5UNITS SQ SCH (21:00)
[2019-10-05] MEDS: Octreotide 400 MCG in 0.9 % Sodium Chloride 100 ML IVC SCH (03:17)
[2019-10-05 05:44] LABS: Basophils % 0.7 %; Eosinophils # 0.2 K/mcL (0.0-0.6); Eosinophils % 3.7 %; Hematocrit 25.6 % (35.3-44.9); Hemoglobin 8.1 g/dL (11.5-15.4); Immature Granulocytes % 0.4 % (0-4); Lymphocytes # 0.7 K/mcL (0.6-4.6); Lymphocytes % 12.3 %; Mean Corpuscular HGB Conc 31.6 g/dL (31.6-35.5); Mean Corpuscular Hemoglobin 28.6 pg (28.0-33.3); Mean Corpuscular Volume 90.5 fL (83.0-100.0); Mean Platelet Volume 11.7 fL (9.4-12.4); Monocytes # 0.6 K/mcL (0.0-1.3); Monocytes % 10.5 %; Neutrophils # 3.9 K/mcL (1.6-8.9); Platelet Count 137 K/mcL (140-400); Red Blood Count 2.83 M/mcL (3.82-4.97); Segmented Neutrophils % 72.4 %; White Blood Count 5.4 K/mcL (4.3-11.1)
[2019-10-05 06:06] LABS: Calcium 8.1 mg/dL (8.6-10.3)
[2019-10-05] MEDS: Pantoprazole 40 MG VIAL IVP SCH (06:08)
[2019-10-05] MEDS: Insulin LISPRO 300 UNITS/3 ML VIAL SQ SCH ×2 (06:08)
[2019-10-05] MEDS: Levothyroxine 25 MCG TABLET PO SCH (06:08)
[2019-10-05 07:52] VITALS: BP 176/65
[2019-10-05] MEDS: cefTRIAXone 1,000 MG in Water for inj. (sterile) 10 ML IVP SCH (08:19)
== END 2019-10-05 12:28 | disposition home or self-care (01) ==
LOC: EMEROOARM 23:47 → 2ANU 23:47 → SUATTDRO 10-04 02:02 → 2ANU 10-04 02:37
PROVIDERS: ADMIT Student in an Organized Health Care Education/Training Program; ATTEND Internal Medicine

== ENCOUNTER 2019-10-14 17:42 | Inpatient (IN) ==
[2019-10-14 18:48] LABS: Basophils # 0.1 K/mcL (0.0-0.2); Basophils % 0.7 %; Eosinophils # 0.2 K/mcL (0.0-0.6); Eosinophils % 2.4 %; Hematocrit 26.9 % (35.3-44.9); Hemoglobin 8.3 g/dL (11.5-15.4); Immature Granulocytes % 0.9 % (0-4); Lymphocytes # 1.2 K/mcL (0.6-4.6); Lymphocytes % 18.1 %; Mean Corpuscular HGB Conc 30.9 g/dL (31.6-35.5); Mean Corpuscular Hemoglobin 28.4 pg (28.0-33.3); Mean Corpuscular Volume 92.1 fL (83.0-100.0); Mean Platelet Volume 11.6 fL (9.4-12.4); Monocytes # 0.6 K/mcL (0.0-1.3); Monocytes % 8.5 %; Neutrophils # 4.6 K/mcL (1.6-8.9); Platelet Count 154 K/mcL (140-400); Red Blood Count 2.92 M/mcL (3.82-4.97); Red Cell Distribution Width 15.7 % (11.5-14.5); Segmented Neutrophils % 69.4 %; White Blood Count 6.7 K/mcL (4.3-11.1)
[2019-10-14 19:11] LABS: Troponin I < 0.03 ng/mL (< 0.04)
[2019-10-14 19:14] LABS: Alanine Aminotransferase 12 Units/L (7-52); Albumin 2.5 g/dL (3.5-5.7); Albumin/Globulin Ratio 0.6 (1.1-2.2); Alkaline Phosphatase 123 Units/L (34-104); Aspartate Amino Transferase 29 Units/L (13-39); BUN/Creatinine Ratio 12 (6-26); Bilirubin,Total 0.6 mg/dL (0.3-1.0); Blood Urea Nitrogen 56 mg/dL (8-23); Calcium 7.9 mg/dL (8.6-10.3); Carbon Dioxide 22 mEq/L (23-29); Chloride 106 mEq/L (98-107); Globulin 4.1 g/dL (2.4-3.5); Glucose 245 mg/dL (70-105); Osmolality,Calculated 306 (280-300); Sodium 136 mEq/L (136-145); Total Protein 6.6 g/dL (6.4-8.9); eGFR For African Americans 11 (> 60); eGFR For Non-African Americans 9 (> 60)
[2019-10-14] MEDS ORDERED: Furosemide 40 MG/4 ML VIAL IVP ONE (20:07)
[2019-10-14] MEDS ORDERED: Naloxone 0.4 MG/ML INJ IVP PRN (20:42)
[2019-10-14] MEDS ORDERED: D5% in Water 1,000 ML IVC PRN (20:45)
[2019-10-14] MEDS ORDERED: *HR* Dextrose 50 % in Water (Syg) 50 ML SYRINGE IVP PRN (20:45)
[2019-10-14] MEDS ORDERED: Dextrose Gel 15 GM/37.5 ML TUBE PO PRN ×2 (20:45)
[2019-10-14] MEDS ORDERED: Ipratropium/Albuterol Neb 3 ML IH PRN (20:47)
[2019-10-14] MEDS ORDERED: Sennosides/Docusate Sodium TABLET PO PRN (21:34)
[2019-10-14] MEDS: Insulin DETEMIR 100 UNIT/ML X5UNITS SQ SCH (21:54)
[2019-10-14] MEDS: Furosemide 20 MG/2 ML VIAL IVP SCH (21:54)
[2019-10-14] MEDS ORDERED: levoFLOXacin 750 MG/150 ML 750 MG/150 ML BAG IVPB SCH (23:00)
[2019-10-15 05:54] LABS: Basophils # 0.1 K/mcL (0.0-0.2); Basophils % 1.1 %; Eosinophils # 0.2 K/mcL (0.0-0.6); Eosinophils % 4.3 %; Hematocrit 22.9 % (35.3-44.9); Immature Granulocytes % 0.7 % (0-4); Lymphocytes # 1.3 K/mcL (0.6-4.6); Lymphocytes % 22.6 %; Mean Corpuscular HGB Conc 30.6 g/dL (31.6-35.5); Mean Corpuscular Hemoglobin 28.7 pg (28.0-33.3); Mean Corpuscular Volume 93.9 fL (83.0-100.0); Mean Platelet Volume 12.2 fL (9.4-12.4); Monocytes # 0.7 K/mcL (0.0-1.3); Neutrophils # 3.3 K/mcL (1.6-8.9); Platelet Count 131 K/mcL (140-400); Red Blood Count 2.44 M/mcL (3.82-4.97); Red Cell Distribution Width 15.9 % (11.5-14.5); Segmented Neutrophils % 59.3 %; White Blood Count 5.6 K/mcL (4.3-11.1)
[2019-10-15 05:57] LABS: INR 1.2; Prothrombin Time 13.6 Seconds (9.4-12.1)
[2019-10-15 06:00] LABS: Activated Partial Thrombo Time 35.5 Seconds (26.0-36.0)
[2019-10-15 06:12] LABS: Calcium 7.7 mg/dL (8.6-10.3); Phosphorous 5.1 mg/dL (2.7-4.5); Potassium 4.1 mEq/L (3.5-5.1); Uric Acid 11.2 mg/dL (2.3-7.6)
[2019-10-15] MEDS: Insulin LISPRO 300 UNITS/3 ML VIAL SQ SCH ×3 (08:27→17:23)
[2019-10-15] MEDS: Furosemide 20 MG/2 ML VIAL IVP SCH (08:28)
[2019-10-15] MEDS: Insulin DETEMIR 100 UNIT/ML X5UNITS SQ SCH ×2 (08:29→21:27)
[2019-10-15] MEDS ORDERED: Furosemide 20 MG/2 ML VIAL IVP ONE (10:09)
[2019-10-15] MEDS: Piperacillin/Tazobactam 3.375 GM in 0.9 % Sodium Chloride Mini Bag 100 ML IVPB SCH ×2 (10:34→21:29)
[2019-10-15] MEDS: polyethylene glycoL 3350 17 GM POWD.PACK PO SCH (10:45)
[2019-10-15] MEDS: metOLazone 5 MG TABLET PO SCH (10:45)
[2019-10-15] MEDS ORDERED: 0.9 % Sodium Chloride 250 ML ONE (14:40)
[2019-10-15] MEDS: Acetaminophen 325 MG TABLET PO PRN (19:47)
[2019-10-15] MEDS: Furosemide 40 MG/4 ML VIAL IVP SCH (21:27)
[2019-10-15 22:51] LABS: Bacteria,Urine None Seen per hpf (None-Few); Bilirubin,Urine Negative (Negative); Blood,Urine Small (Negative); Clarity,Urine Cloudy (Clear); Color,Urine Yellow (Yellow); Glucose,Urine (UA) Normal (Normal); Hyaline Casts,Urine None Seen per lpf (None-Few); Ketones,Urine Negative (Negative); Leukocyte Esterase,Urine Trace (Negative); Nitrite,Urine Negative (Negative); Protein,Urine 100 mg/dL (Neg-Trace); Specific Gravity,Urine 1.015 (1.010-1.025); Squamous Epithelial Cell,Urine Many per lpf (None-Few); Urobilinogen,Urine Normal (Normal)
[2019-10-15 22:54] LABS: Protein/Creatinine Ratio,Urine 2.16 mg/mg (0.00-0.20); Sodium, Urine 78.3 mEq/L
[2019-10-16] MEDS: Acetaminophen 325 MG TABLET PO PRN ×2 (05:17→21:08)
[2019-10-16] MEDS: Ondansetron ODT 4 MG TAB.RAPDIS PO PRN (07:55)
[2019-10-16] MEDS: Furosemide 40 MG/4 ML VIAL IVP SCH (07:56)
[2019-10-16] MEDS: metOLazone 5 MG TABLET PO SCH (07:56)
[2019-10-16] MEDS: Insulin LISPRO 300 UNITS/3 ML VIAL SQ SCH ×3 (07:56→16:52)
[2019-10-16] MEDS: Piperacillin/Tazobactam 3.375 GM in 0.9 % Sodium Chloride Mini Bag 100 ML IVPB SCH ×2 (07:57→21:09)
[2019-10-16] MEDS: Insulin DETEMIR 100 UNIT/ML X5UNITS SQ SCH ×2 (07:57→21:09)
[2019-10-16] MEDS: polyethylene glycoL 3350 17 GM POWD.PACK PO SCH (07:58)
[2019-10-16 11:14] LABS: Basophils # 0.1 K/mcL (0.0-0.2); Basophils % 1.7 %; Eosinophils # 0.2 K/mcL (0.0-0.6); Eosinophils % 3.8 %; Hematocrit 27.4 % (35.3-44.9); Hemoglobin 8.5 g/dL (11.5-15.4); Immature Granulocytes % 1.4 % (0-4); Lymphocytes # 1.3 K/mcL (0.6-4.6); Lymphocytes % 21.4 %; Mean Corpuscular Hemoglobin 28.6 pg (28.0-33.3); Mean Corpuscular Volume 92.3 fL (83.0-100.0); Mean Platelet Volume 11.7 fL (9.4-12.4); Monocytes # 0.6 K/mcL (0.0-1.3); Neutrophils # 3.6 K/mcL (1.6-8.9); Platelet Count 143 K/mcL (140-400); Red Blood Count 2.97 M/mcL (3.82-4.97); Red Cell Distribution Width 15.9 % (11.5-14.5); Segmented Neutrophils % 60.7 %; White Blood Count 5.8 K/mcL (4.3-11.1)
[2019-10-16 11:44] LABS: % Iron Saturation 34 % (15-50); Calcium 8.1 mg/dL (8.6-10.3); Iron 106 mcg/dL (50-170); Magnesium 1.9 mg/dL (1.6-2.6); Phosphorous 5.2 mg/dL (2.7-4.5); Potassium 4.4 mEq/L (3.5-5.1); Transferrin 222 mg/dL (203-362)
[2019-10-16 12:03] LABS: Ferritin 36 ng/mL (10-120)
[2019-10-16 12:11] LABS: Folate 13.8 ng/mL (3.0-16.0)
[2019-10-17] MEDS: Ondansetron ODT 4 MG TAB.RAPDIS PO PRN ×2 (02:42→16:18)
[2019-10-17 05:00] LABS: Basophils # 0.1 K/mcL (0.0-0.2); Basophils % 1.5 %; Eosinophils # 0.2 K/mcL (0.0-0.6); Hematocrit 31.1 % (35.3-44.9); Hemoglobin 9.2 g/dL (11.5-15.4); Immature Granulocytes % 1.2 % (0-4); Lymphocytes # 1.3 K/mcL (0.6-4.6); Lymphocytes % 22.3 %; Mean Corpuscular HGB Conc 29.6 g/dL (31.6-35.5); Mean Corpuscular Hemoglobin 28.9 pg (28.0-33.3); Mean Corpuscular Volume 97.8 fL (83.0-100.0); Mean Platelet Volume 12.5 fL (9.4-12.4); Monocytes # 0.7 K/mcL (0.0-1.3); Monocytes % 11.1 %; Neutrophils # 3.6 K/mcL (1.6-8.9); Platelet Count 128 K/mcL (140-400); Red Blood Count 3.18 M/mcL (3.82-4.97); Red Cell Distribution Width 16.2 % (11.5-14.5); Segmented Neutrophils % 59.9 %; White Blood Count 5.9 K/mcL (4.3-11.1)
[2019-10-17 05:32] LABS: Albumin 2.4 g/dL (3.5-5.7); Calcium 8.2 mg/dL (8.6-10.3); Phosphorous 5.2 mg/dL (2.7-4.5)
[2019-10-17] MEDS: Piperacillin/Tazobactam 3.375 GM in 0.9 % Sodium Chloride Mini Bag 100 ML IVPB SCH (07:40)
[2019-10-17] MEDS: Insulin LISPRO 300 UNITS/3 ML VIAL SQ SCH ×3 (07:40→16:16)
[2019-10-17] MEDS: polyethylene glycoL 3350 17 GM POWD.PACK PO SCH (07:40)
[2019-10-17] MEDS: Insulin DETEMIR 100 UNIT/ML X5UNITS SQ SCH ×2 (07:43→21:17)
[2019-10-17] MEDS: metOLazone 5 MG TABLET PO SCH (08:01)
[2019-10-17] MEDS: Furosemide 40 MG/4 ML VIAL IVP SCH ×2 (08:01→21:18)
[2019-10-17] MEDS ORDERED: Insulin LISPRO 300 UNITS/3 ML VIAL SQ SCH (21:00)
[2019-10-18] MEDS ORDERED: *HR* LORazepam 2 MG/ML VIAL IVP ONE (05:22)
[2019-10-18 06:46] LABS: Basophils # 0.1 K/mcL (0.0-0.2); Eosinophils # 0.2 K/mcL (0.0-0.6); Eosinophils % 3.6 %; Hematocrit 25.7 % (35.3-44.9); Hemoglobin 8.2 g/dL (11.5-15.4); Immature Granulocytes % 1.4 % (0-4); Lymphocytes # 1.3 K/mcL (0.6-4.6); Lymphocytes % 21.6 %; Mean Corpuscular HGB Conc 31.9 g/dL (31.6-35.5); Mean Corpuscular Hemoglobin 29.6 pg (28.0-33.3); Mean Corpuscular Volume 92.8 fL (83.0-100.0); Mean Platelet Volume 11.4 fL (9.4-12.4); Monocytes # 0.7 K/mcL (0.0-1.3); Monocytes % 11.4 %; Neutrophils # 3.6 K/mcL (1.6-8.9); Platelet Count 126 K/mcL (140-400); Red Blood Count 2.77 M/mcL (3.82-4.97); Red Cell Distribution Width 16.1 % (11.5-14.5); White Blood Count 5.9 K/mcL (4.3-11.1)
[2019-10-18 07:03] LABS: Calcium 8.1 mg/dL (8.6-10.3); Magnesium 1.9 mg/dL (1.6-2.6); Phosphorous 5.1 mg/dL (2.7-4.5); Potassium 3.8 mEq/L (3.5-5.1)
[2019-10-18 07:31] VITALS: BP 140/72
[2019-10-18] MEDS: polyethylene glycoL 3350 17 GM POWD.PACK PO SCH (09:02)
[2019-10-18] MEDS: metOLazone 5 MG TABLET PO SCH (09:11)
[2019-10-18] MEDS: Furosemide 40 MG/4 ML VIAL IVP SCH (09:12)
[2019-10-18] MEDS: Insulin DETEMIR 100 UNIT/ML X5UNITS SQ SCH (09:12)
[2019-10-18] MEDS: Insulin LISPRO 300 UNITS/3 ML VIAL SQ SCH (09:13)
== END 2019-10-18 11:43 | disposition home or self-care (01) | DRG 682 ==
LOC: EMEROOARM 17:42 → 2ANU 17:42
PROVIDERS: ADMIT Student in an Organized Health Care Education/Training Program; ATTEND Student in an Organized Health Care Education/Training Program

== ENCOUNTER 2019-12-12 10:25 | Inpatient (IN) ==
[2019-12-12] MEDS ORDERED: 0.9 % Sodium Chloride 1,000 ML IVC ONE (10:33)
[2019-12-12] MEDS ORDERED: Ondansetron 4 MG/2 ML VIAL IVP ONE ×2 (10:53→14:00)
[2019-12-12] MEDS ORDERED: Pantoprazole 40 MG VIAL IVP ONE (11:02)
[2019-12-12] MEDS ORDERED: cefTRIAXone 1,000 MG in 0.9 % Sodium Chloride Mini Bag 100 ML IVPB ONE (11:02)
[2019-12-12 11:07] LABS: INR 1.2; Prothrombin Time 13.7 Seconds (9.4-12.1)
[2019-12-12 11:08] LABS: Basophils % 0.6 %; Eosinophils # 0.1 K/mcL (0.0-0.6); Eosinophils % 1.2 %; Hematocrit 22.6 % (35.3-44.9); Hemoglobin 6.8 g/dL (11.5-15.4); Immature Granulocytes % 0.5 % (0-4); Lymphocytes # 0.7 K/mcL (0.6-4.6); Mean Corpuscular HGB Conc 30.1 g/dL (31.6-35.5); Mean Corpuscular Hemoglobin 28.6 pg (28.0-33.3); Mean Platelet Volume 11.1 fL (9.4-12.4); Monocytes # 0.5 K/mcL (0.0-1.3); Monocytes % 7.1 %; Neutrophils # 5.3 K/mcL (1.6-8.9); Platelet Count 135 K/mcL (140-400); Red Blood Count 2.38 M/mcL (3.82-4.97); Red Cell Distribution Width 16.6 % (11.5-14.5); Segmented Neutrophils % 80.6 %; White Blood Count 6.6 K/mcL (4.3-11.1)
[2019-12-12 11:10] LABS: Activated Partial Thrombo Time 29.1 Seconds (26.0-36.0)
[2019-12-12 12:20] LABS: Albumin 2.3 g/dL (3.5-5.7); Albumin/Globulin Ratio 0.5 (1.1-2.2); Bilirubin,Total 0.3 mg/dL (0.3-1.0); Calcium 7.7 mg/dL (8.6-10.3); Globulin 4.2 g/dL (2.4-3.5); Potassium 6.3 mEq/L (3.5-5.1); Total Protein 6.5 g/dL (6.4-8.9)
[2019-12-12] MEDS ORDERED: Calcium Gluconate 1gm/50mL 1 GM/50 ML BAG IVPB PRN (13:04)
[2019-12-12] MEDS ORDERED: *HR* Dextrose 50 % in Water (Syg) 50 ML SYRINGE IVP ONE ×2 (13:04→18:43)
[2019-12-12] MEDS ORDERED: Insulin Human Regular 10 UNIT in 0.9 % Sodium Chloride 10 ML IV ONE ×2 (13:04→18:45)
[2019-12-12] MEDS ORDERED: Albuterol 2.5 MG/3 ML NEBULIZER IH ONE (13:05)
[2019-12-12] MEDS: Pantoprazole 40 MG in 0.9 % Sodium Chloride Mini Bag 100 ML IVC SCH ×2 (13:17→17:52)
[2019-12-12] MEDS ORDERED: *HR* Dextrose 50 % in Water (Syg) 50 ML SYRINGE ONE (13:57)
[2019-12-12] MEDS ORDERED: Naloxone 0.4 MG/ML INJ IVP PRN (14:22)
[2019-12-12] MEDS ORDERED: Ondansetron 4 MG/2 ML VIAL IVP PRN (14:22)
[2019-12-12] MEDS ORDERED: 0.9 % Sodium Chloride 500 ML IVC ONE (14:24)
[2019-12-12] MEDS ORDERED: D5% in Water 1,000 ML IVC SCH (14:30)
[2019-12-12] MEDS ORDERED: Insulin LISPRO 300 UNITS/3 ML VIAL SQ SCH (14:30)
[2019-12-12] MEDS ORDERED: 0.9 % Sodium Chloride 250 ML ONE (14:49)
[2019-12-12] MEDS: Ondansetron 4 MG/2 ML VIAL IVP ONE ×2 (16:50→16:58)
[2019-12-12] MEDS ORDERED: Furosemide 40 MG/4 ML VIAL IVP ONE (17:31)
[2019-12-12] MEDS: D5% in Water 1,000 ML IVC SCH (17:49)
[2019-12-12 18:52] LABS: Calcium 7.8 mg/dL (8.6-10.3); Magnesium 1.5 mg/dL (1.6-2.6); Potassium 5.3 mEq/L (3.5-5.1)
[2019-12-12] MEDS ORDERED: D5% in Water 1,000 ML IVC PRN (19:10)
[2019-12-12] MEDS ORDERED: *HR* Dextrose 50 % in Water (Syg) 50 ML SYRINGE IVP PRN (19:10)
[2019-12-12] MEDS ORDERED: Dextrose Gel 15 GM/37.5 ML TUBE PO PRN ×2 (19:10)
[2019-12-13] MEDS: Pantoprazole 40 MG in 0.9 % Sodium Chloride Mini Bag 100 ML IVC SCH ×4 (00:22→15:19)
[2019-12-13 02:22] LABS: Calcium 7.6 mg/dL (8.6-10.3); Magnesium 1.5 mg/dL (1.6-2.6); Potassium 5.1 mEq/L (3.5-5.1)
[2019-12-13 02:30] LABS: Basophils # 0.1 K/mcL (0.0-0.2); Basophils % 0.8 %; Eosinophils # 0.1 K/mcL (0.0-0.6); Eosinophils % 1.2 %; Hematocrit 20.3 % (35.3-44.9); Hemoglobin 6.4 g/dL (11.5-15.4); Immature Granulocytes % 0.3 % (0-4); Lymphocytes # 0.9 K/mcL (0.6-4.6); Lymphocytes % 14.2 %; Mean Corpuscular HGB Conc 31.5 g/dL (31.6-35.5); Mean Corpuscular Volume 91.9 fL (83.0-100.0); Monocytes # 0.6 K/mcL (0.0-1.3); Monocytes % 8.8 %; Neutrophils # 4.8 K/mcL (1.6-8.9); Platelet Count 128 K/mcL (140-400); Red Blood Count 2.21 M/mcL (3.82-4.97); Red Cell Distribution Width 16.6 % (11.5-14.5); Segmented Neutrophils % 74.7 %; White Blood Count 6.5 K/mcL (4.3-11.1)
[2019-12-13] MEDS ORDERED: 0.9 % Sodium Chloride 250 ML ONE ×2 (04:56→08:15)
[2019-12-13 06:50] LABS: Estimated Average Glucose 163 mg/dl
[2019-12-13] MEDS: cefTRIAXone 1,000 MG in 0.9 % Sodium Chloride Mini Bag 100 ML IVPB SCH (08:22)
[2019-12-13] MEDS: Ondansetron 4 MG/2 ML VIAL IVP SCH ×2 (08:41→17:19)
[2019-12-13] MEDS ORDERED: Lidocaine -MPF 2% 2 ML VIAL ONE (08:53)
[2019-12-13] MEDS ORDERED: 0.9 % Sodium Chloride 500 ML IVC SCH (10:30)
[2019-12-13] MEDS: Insulin LISPRO 300 UNITS/3 ML VIAL SQ SCH ×3 (12:48→21:20)
[2019-12-13] MEDS: D5% in Water 1,000 ML IVC SCH (17:19)
[2019-12-13 18:10] LABS: Hematocrit 29.6 % (35.3-44.9)
[2019-12-13 18:14] LABS: Hemoglobin 9.3 g/dL (11.5-15.4)
[2019-12-13] MEDS: Sucralfate 1 GM TABLET PO SCH (21:19)
[2019-12-13] MEDS: Ondansetron 4 MG/2 ML VIAL IVP PRN (23:23)
[2019-12-14 02:33] LABS: Basophils # 0.1 K/mcL (0.0-0.2); Basophils % 0.8 %; Eosinophils # 0.2 K/mcL (0.0-0.6); Eosinophils % 2.3 %; Hematocrit 28.5 % (35.3-44.9); Hemoglobin 9.3 g/dL (11.5-15.4); Immature Granulocytes % 1.2 % (0-4); Lymphocytes % 11.7 %; Mean Corpuscular HGB Conc 32.6 g/dL (31.6-35.5); Mean Corpuscular Hemoglobin 29.1 pg (28.0-33.3); Mean Corpuscular Volume 89.1 fL (83.0-100.0); Mean Platelet Volume 12.1 fL (9.4-12.4); Monocytes # 0.8 K/mcL (0.0-1.3); Monocytes % 9.3 %; Neutrophils # 6.5 K/mcL (1.6-8.9); Platelet Count 124 K/mcL (140-400); Red Cell Distribution Width 17.3 % (11.5-14.5); Segmented Neutrophils % 74.7 %; White Blood Count 8.7 K/mcL (4.3-11.1)
[2019-12-14 02:43] LABS: Albumin 2.2 g/dL (3.5-5.7); Albumin/Globulin Ratio 0.5 (1.1-2.2); Bilirubin,Direct 0.2 mg/dL (0.0-0.2); Bilirubin,Indirect 0.4 mg/dL (0.0-1.0); Bilirubin,Total 0.6 mg/dL (0.3-1.0); Globulin 4.4 g/dL (2.4-3.5); Phosphorous 4.5 mg/dL (2.7-4.5); Total Protein 6.6 g/dL (6.4-8.9)
[2019-12-14 02:52] LABS: Calcium 8.1 mg/dL (8.6-10.3); Potassium 5.5 mEq/L (3.5-5.1)
[2019-12-14] MEDS: Insulin LISPRO 300 UNITS/3 ML VIAL SQ SCH ×4 (07:35→23:05)
[2019-12-14] MEDS: cefTRIAXone 1,000 MG in 0.9 % Sodium Chloride Mini Bag 100 ML IVPB SCH (07:36)
[2019-12-14] MEDS: Sucralfate 1 GM TABLET PO SCH ×4 (07:36→15:36)
[2019-12-14] MEDS: Ondansetron 4 MG/2 ML VIAL IVP PRN ×2 (07:42→15:42)
[2019-12-14] MEDS: lisinopriL 5 MG TABLET PO SCH (11:07)
[2019-12-14] MEDS: *HR* Promethazine 25 MG/ML VIAL IVP PRN ×2 (11:08→19:19)
[2019-12-14] MEDS: SODIUM ZIRCONIUM CYCLOSILICATE 5 GM POWD.PACK PO SCH (11:08)
[2019-12-14 14:29] LABS: Hematocrit 27.4 % (35.3-44.9); Hemoglobin 8.7 g/dL (11.5-15.4)
[2019-12-15] MEDS: Ondansetron 4 MG/2 ML VIAL IVP PRN ×2 (01:02→17:04)
[2019-12-15 03:02] LABS: Hematocrit 27.7 % (35.3-44.9); Hemoglobin 8.8 g/dL (11.5-15.4)
[2019-12-15 03:22] LABS: Calcium 8.1 mg/dL (8.6-10.3); Phosphorous 4.4 mg/dL (2.7-4.5); Potassium 4.7 mEq/L (3.5-5.1)
[2019-12-15] MEDS: *HR* Promethazine 25 MG/ML VIAL IVP PRN (05:46)
[2019-12-15] MEDS: SODIUM ZIRCONIUM CYCLOSILICATE 5 GM POWD.PACK PO SCH (07:50)
[2019-12-15] MEDS: lisinopriL 5 MG TABLET PO SCH (07:50)
[2019-12-15] MEDS: Sucralfate 1 GM TABLET PO SCH ×3 (07:50→17:04)
[2019-12-15] MEDS: cefTRIAXone 1,000 MG in 0.9 % Sodium Chloride Mini Bag 100 ML IVPB SCH (07:51)
[2019-12-15] MEDS: Insulin LISPRO 300 UNITS/3 ML VIAL SQ SCH ×4 (07:52→21:41)
[2019-12-16] MEDS: Ondansetron 4 MG/2 ML VIAL IVP PRN (01:46)
[2019-12-16 02:41] LABS: Hematocrit 29.4 % (35.3-44.9)
[2019-12-16 03:06] LABS: Potassium 4.8 mEq/L (3.5-5.1)
[2019-12-16] MEDS: Insulin LISPRO 300 UNITS/3 ML VIAL SQ SCH ×4 (07:57→20:31)
[2019-12-16] MEDS: Sucralfate 1 GM TABLET PO SCH ×3 (07:57→16:33)
[2019-12-16] MEDS: cefTRIAXone 1,000 MG in 0.9 % Sodium Chloride Mini Bag 100 ML IVPB SCH (07:58)
[2019-12-16] MEDS: lisinopriL 5 MG TABLET PO SCH (07:58)
[2019-12-16] MEDS: SODIUM ZIRCONIUM CYCLOSILICATE 5 GM POWD.PACK PO SCH (07:58)
[2019-12-16] MEDS: Ondansetron 4 MG/2 ML VIAL IVP SCH ×2 (11:24→16:34)
[2019-12-16] MEDS: Acetaminophen 325 MG TABLET PO PRN (16:31)
[2019-12-16] MEDS ORDERED: *HR* Metoprolol 5 MG/5 ML VIAL IVP ONE (16:36)
[2019-12-16] MEDS: *HR* Promethazine 25 MG/ML VIAL IVP PRN (20:29)
[2019-12-17] MEDS ORDERED: *HR* Promethazine 25 MG/ML VIAL IVP ONE (00:27)
[2019-12-17] MEDS: Acetaminophen 325 MG TABLET PO PRN (03:47)
[2019-12-17] MEDS ORDERED: *HR* Metoprolol 5 MG/5 ML VIAL IVP ONE (07:41)
[2019-12-17] MEDS: Insulin LISPRO 300 UNITS/3 ML VIAL SQ SCH ×2 (08:41→11:29)
[2019-12-17] MEDS: Ondansetron 4 MG/2 ML VIAL IVP SCH (08:46)
[2019-12-17] MEDS: SODIUM ZIRCONIUM CYCLOSILICATE 5 GM POWD.PACK PO SCH (08:46)
[2019-12-17] MEDS: Sucralfate 1 GM TABLET PO SCH ×2 (08:47→11:28)
[2019-12-17] MEDS: lisinopriL 5 MG TABLET PO SCH (08:47)
[2019-12-17 11:15] VITALS: BP 188/63
[2019-12-17] MEDS ORDERED: hydrALAZINE 10 MG TABLET PO ONE (11:55)
== END 2019-12-17 13:01 | disposition home health service (06) | DRG 432 ==
LOC: EMEROOARM 10:25 → 2ANU 10:25 → SUATTDRO 14:10 → 2ANU 15:37 → SUATTDRO 12-13 21:06
PROVIDERS: ADMIT Pharmacist; ATTEND Internal Medicine

== ENCOUNTER 2020-01-20 06:42 | Inpatient (IN) ==
[2020-01-20] MEDS ORDERED: Ondansetron 4 MG/2 ML VIAL IVP ONE (06:46)
[2020-01-20] MEDS ORDERED: 0.9 % Sodium Chloride 1,000 ML IV ONE (06:54)
[2020-01-20] MEDS ORDERED: Pantoprazole 40 MG VIAL IVP ONE (06:55)
[2020-01-20 07:11] LABS: Basophils % 0.6 %; Eosinophils % 0.6 %; Hematocrit 30.2 % (35.3-44.9); Hemoglobin 9.3 g/dL (11.5-15.4); Immature Granulocytes % 0.7 % (0-4); Lymphocytes # 0.7 K/mcL (0.6-4.6); Lymphocytes % 10.6 %; Mean Corpuscular HGB Conc 30.8 g/dL (31.6-35.5); Mean Corpuscular Hemoglobin 29.3 pg (28.0-33.3); Mean Corpuscular Volume 95.3 fL (83.0-100.0); Mean Platelet Volume 11.8 fL (9.4-12.4); Monocytes # 0.4 K/mcL (0.0-1.3); Monocytes % 5.3 %; Neutrophils # 5.7 K/mcL (1.6-8.9); Platelet Count 139 K/mcL (140-400); Red Blood Count 3.17 M/mcL (3.82-4.97); Red Cell Distribution Width 14.4 % (11.5-14.5); Segmented Neutrophils % 82.2 %
[2020-01-20 07:12] LABS: INR 1.3; Prothrombin Time 14.9 Seconds (9.4-12.1)
[2020-01-20] MEDS ORDERED: Pantoprazole 80 MG in 0.9 % Sodium Chloride 50 ML IVC ONE (07:15)
[2020-01-20 07:30] LABS: Alanine Aminotransferase 11 Units/L (7-52); Albumin 2.6 g/dL (3.5-5.7); Albumin/Globulin Ratio 0.5 (1.1-2.2); Alkaline Phosphatase 100 Units/L (34-104); Aspartate Amino Transferase 29 Units/L (13-39); BUN/Creatinine Ratio 17 (6-26); Bilirubin,Total 0.7 mg/dL (0.3-1.0); Blood Urea Nitrogen 57 mg/dL (8-23); Calcium 8.1 mg/dL (8.6-10.3); Carbon Dioxide 27 mEq/L (23-29); Chloride 103 mEq/L (98-107); Globulin 4.8 g/dL (2.4-3.5); Glucose 309 mg/dL (70-105); Lipase 52 Units/L (11-82); Osmolality,Calculated 312 (280-300); Potassium 6.1 mEq/L (3.5-5.1); Sodium 137 mEq/L (136-145); Total Protein 7.4 g/dL (6.4-8.9); Troponin I < 0.03 ng/mL (< 0.04); eGFR For African Americans 16 (> 60); eGFR For Non-African Americans 13 (> 60)
[2020-01-20] MEDS ORDERED: Octreotide 50 MCG/ML INJ IVP ONE (07:39)
[2020-01-20] MEDS ORDERED: Insulin Regular, Human 100 UNIT/ML SQ ONE (07:40)
[2020-01-20] MEDS ORDERED: *HR* Promethazine 25 MG/ML VIAL IVP ONE ×2 (08:18→16:56)
[2020-01-20 08:26] LABS: VBG HCO3 24 mEq/L (21-27); VBG PCO2 34 mmHg (41-51); VBG PH 7.45 pH Units (7.32-7.42); VBG PO2 214 mmHg (25-50)
[2020-01-20] MEDS ORDERED: Naloxone 0.4 MG/ML INJ IVP PRN (11:48)
[2020-01-20] MEDS ORDERED: Calcium Gluconate 2,000 MG in 0.9 % Sodium Chloride 100 ML IVPB STA (11:56)
[2020-01-20] MEDS ORDERED: Lactulose Oral Soln 20 GM/30 ML UDC PO STA (11:57)
[2020-01-20 12:26] LABS: Basophils % 0.1 %; Hematocrit 25.9 % (35.3-44.9); Immature Granulocytes % 0.3 % (0-4); Lymphocytes # 0.6 K/mcL (0.6-4.6); Lymphocytes % 8.8 %; Mean Corpuscular HGB Conc 30.9 g/dL (31.6-35.5); Mean Corpuscular Hemoglobin 29.2 pg (28.0-33.3); Mean Corpuscular Volume 94.5 fL (83.0-100.0); Mean Platelet Volume 11.5 fL (9.4-12.4); Monocytes # 0.2 K/mcL (0.0-1.3); Monocytes % 3.1 %; Neutrophils # 5.9 K/mcL (1.6-8.9); Nucleated Red Blood Cells 0.3 /100 WBC (0); Platelet Count 114 K/mcL (140-400); Red Blood Count 2.74 M/mcL (3.82-4.97); Red Cell Distribution Width 14.4 % (11.5-14.5); Segmented Neutrophils % 87.7 %; White Blood Count 6.7 K/mcL (4.3-11.1)
[2020-01-20] MEDS: Ondansetron 4 MG/2 ML VIAL IVP PRN (12:43)
[2020-01-20 12:52] LABS: Calcium 7.7 mg/dL (8.6-10.3); Potassium 6.6 mEq/L (3.5-5.1)
[2020-01-20] MEDS ORDERED: 0.9 % Sodium Chloride 500 ML IVC STA (13:11)
[2020-01-20] MEDS ORDERED: *HR* FentaNYL (PF) 100 MCG/2 ML VIAL ONE (13:11)
[2020-01-20] MEDS ORDERED: Ondansetron 4 MG/2 ML VIAL ONE (13:12)
[2020-01-20] MEDS ORDERED: Dexamethasone 4 MG/ML VIAL ONE (13:12)
[2020-01-20] MEDS ORDERED: *HR* Propofol 200 MG/20 ML VIAL IVP ONE (13:12)
[2020-01-20] MEDS ORDERED: Insulin Human Regular 8 UNIT in 0.9 % Sodium Chloride 10 ML IV STA (13:13)
[2020-01-20] MEDS ORDERED: 0.9 % Sodium Chloride 1,000 ML IVC STA (13:27)
[2020-01-20] MEDS ORDERED: *HR* Heparin 10,000 UNIT/10 ML VIAL IV PRN (14:37)
[2020-01-20] MEDS ORDERED: 0.9 % Sodium Chloride 250 ML IVC PRN (14:37)
[2020-01-20] MEDS ORDERED: 0.9 % Sodium Chloride 1,000 ML PRIME SCH (14:45)
[2020-01-20] MEDS ORDERED: Heparin 1,000 UNITS/500 mL 500 ML ONE (15:03)
[2020-01-20] MEDS ORDERED: *HR* Heparin 5,000 UNIT/ML VIAL ONE (15:15)
[2020-01-20 15:32] LABS: Calcium 8.3 mg/dL (8.6-10.3); Potassium 6.1 mEq/L (3.5-5.1)
[2020-01-20 17:02] LABS: Calcium 8.1 mg/dL (8.6-10.3); Potassium 5.4 mEq/L (3.5-5.1)
[2020-01-20] MEDS: Pantoprazole 40 MG VIAL IVP SCH (17:22)
[2020-01-20] MEDS: Sucralfate 1 GM TABLET PO SCH (17:23)
[2020-01-20 17:33] LABS: Hepatitis B Surface Antibody 18.26 mIU/mL
[2020-01-20 17:44] LABS: Hepatitis B Surface Antigen Nonreactive (Nonreactive)
[2020-01-20] MEDS ORDERED: 0.9 % Sodium Chloride 250 ML ONE (18:36)
[2020-01-20 18:52] LABS: Calcium 8.1 mg/dL (8.6-10.3)
[2020-01-20] MEDS: Insulin LISPRO 300 UNITS/3 ML VIAL SQ SCH (21:03)
[2020-01-20 22:55] LABS: Calcium 7.7 mg/dL (8.6-10.3); Potassium 4.6 mEq/L (3.5-5.1)
[2020-01-21 03:17] LABS: Bilirubin,Urine Negative (Negative); Blood,Urine Large (Negative); Clarity,Urine Clear (Clear); Color,Urine Yellow (Yellow); Glucose,Urine (UA) 250 mg/dL (Normal); Ketones,Urine Negative (Negative); Leukocyte Esterase,Urine Negative (Negative); Nitrite,Urine Negative (Negative); Protein,Urine >=300 mg/dL (Neg-Trace); Specific Gravity,Urine 1.017 (1.010-1.025); Urobilinogen,Urine Normal (Normal)
[2020-01-21 03:18] LABS: Bacteria,Urine None Seen per hpf (None-Few); Hyaline Casts,Urine None Seen per lpf (None-Few); RBC,Urine 50-100 per hpf (0-3); Squamous Epithelial Cell,Urine Many per lpf (None-Few)
[2020-01-21 03:34] LABS: Potassium,Urine < 2.0 mEq/L
[2020-01-21 03:58] LABS: Creatinine,Urine 6 mg/dL
[2020-01-21 05:15] LABS: Basophils % 0.6 %; Eosinophils # 0.1 K/mcL (0.0-0.6); Eosinophils % 1.4 %; Hematocrit 23.3 % (35.3-44.9); Hemoglobin 7.4 g/dL (11.5-15.4); Immature Granulocytes % 0.3 % (0-4); Lymphocytes # 1.3 K/mcL (0.6-4.6); Lymphocytes % 17.6 %; Mean Corpuscular HGB Conc 31.8 g/dL (31.6-35.5); Mean Corpuscular Hemoglobin 28.9 pg (28.0-33.3); Mean Platelet Volume 11.4 fL (9.4-12.4); Monocytes # 0.5 K/mcL (0.0-1.3); Neutrophils # 5.2 K/mcL (1.6-8.9); Platelet Count 112 K/mcL (140-400); Red Blood Count 2.56 M/mcL (3.82-4.97); Red Cell Distribution Width 16.7 % (11.5-14.5); Segmented Neutrophils % 73.1 %; White Blood Count 7.1 K/mcL (4.3-11.1)
[2020-01-21 05:30] LABS: Calcium 7.7 mg/dL (8.6-10.3); Potassium 4.7 mEq/L (3.5-5.1)
[2020-01-21] MEDS: Pantoprazole 40 MG VIAL IVP SCH ×2 (06:08→17:02)
[2020-01-21] MEDS: Sucralfate 1 GM TABLET PO SCH ×3 (08:29→17:02)
[2020-01-21] MEDS: Insulin LISPRO 300 UNITS/3 ML VIAL SQ SCH ×4 (08:29→21:12)
[2020-01-21] MEDS ORDERED: lisinopriL 5 MG TABLET PO SCH (09:00)
[2020-01-21] MEDS: Piperacillin/Tazobactam 3.375 GM in 0.9 % Sodium Chloride Mini Bag 100 ML IVPB SCH ×2 (10:38→21:12)
[2020-01-21] MEDS: Doxycycline 100 MG CAPSULE PO SCH ×2 (10:38→21:12)
[2020-01-21] MEDS ORDERED: SODIUM ZIRCONIUM CYCLOSILICATE 5 GM POWD.PACK PO ONE (14:22)
[2020-01-21 17:22] LABS: Hematocrit 31.3 % (35.3-44.9)
[2020-01-21 17:24] LABS: Hemoglobin 9.7 g/dL (11.5-15.4)
[2020-01-21] MEDS: Ondansetron 4 MG/2 ML VIAL IVP PRN (21:52)
[2020-01-22 01:06] LABS: Hematocrit 27.8 % (35.3-44.9); Hemoglobin 8.8 g/dL (11.5-15.4)
[2020-01-22] MEDS: Pantoprazole 40 MG VIAL IVP SCH ×2 (05:46→16:54)
[2020-01-22 06:42] LABS: Basophils % 0.7 %; Eosinophils # 0.3 K/mcL (0.0-0.6); Eosinophils % 4.3 %; Hematocrit 29.2 % (35.3-44.9); Hemoglobin 8.9 g/dL (11.5-15.4); Immature Granulocytes % 0.9 % (0-4); Mean Corpuscular HGB Conc 30.5 g/dL (31.6-35.5); Mean Corpuscular Hemoglobin 27.9 pg (28.0-33.3); Mean Corpuscular Volume 91.5 fL (83.0-100.0); Mean Platelet Volume 11.4 fL (9.4-12.4); Monocytes # 0.5 K/mcL (0.0-1.3); Monocytes % 8.2 %; Platelet Count 114 K/mcL (140-400); Red Blood Count 3.19 M/mcL (3.82-4.97); Segmented Neutrophils % 68.9 %; White Blood Count 5.8 K/mcL (4.3-11.1)
[2020-01-22 07:02] LABS: Calcium 7.9 mg/dL (8.6-10.3); Potassium 5.2 mEq/L (3.5-5.1)
[2020-01-22] MEDS: Sucralfate 1 GM TABLET PO SCH ×3 (07:53→16:54)
[2020-01-22] MEDS: Doxycycline 100 MG CAPSULE PO SCH ×2 (07:54→22:01)
[2020-01-22] MEDS: Insulin LISPRO 300 UNITS/3 ML VIAL SQ SCH ×4 (07:54→21:55)
[2020-01-22] MEDS ORDERED: SODIUM ZIRCONIUM CYCLOSILICATE 5 GM POWD.PACK PO ONE (08:29)
[2020-01-22] MEDS: 0.9 % Sodium Chloride 1,000 ML IVC SCH (08:30)
[2020-01-22] MEDS: Piperacillin/Tazobactam 3.375 GM in 0.9 % Sodium Chloride Mini Bag 100 ML IVPB SCH ×2 (08:30→22:01)
[2020-01-22] MEDS: Ondansetron 4 MG/2 ML VIAL IVP PRN (18:41)
[2020-01-23 03:40] LABS: Basophils % 0.7 %; Eosinophils # 0.4 K/mcL (0.0-0.6); Eosinophils % 6.8 %; Hematocrit 28.2 % (35.3-44.9); Hemoglobin 8.6 g/dL (11.5-15.4); Immature Granulocytes % 0.7 % (0-4); Lymphocytes # 1.1 K/mcL (0.6-4.6); Lymphocytes % 19.3 %; Mean Corpuscular HGB Conc 30.5 g/dL (31.6-35.5); Mean Corpuscular Hemoglobin 28.5 pg (28.0-33.3); Mean Corpuscular Volume 93.4 fL (83.0-100.0); Mean Platelet Volume 11.3 fL (9.4-12.4); Monocytes # 0.5 K/mcL (0.0-1.3); Monocytes % 9.6 %; Neutrophils # 3.5 K/mcL (1.6-8.9); Platelet Count 107 K/mcL (140-400); Red Blood Count 3.02 M/mcL (3.82-4.97); Red Cell Distribution Width 16.7 % (11.5-14.5); Segmented Neutrophils % 62.9 %; White Blood Count 5.6 K/mcL (4.3-11.1)
[2020-01-23 03:59] LABS: Calcium 7.9 mg/dL (8.6-10.3); Potassium 4.9 mEq/L (3.5-5.1)
[2020-01-23] MEDS: Pantoprazole 40 MG VIAL IVP SCH (06:38)
[2020-01-23] MEDS: Insulin LISPRO 300 UNITS/3 ML VIAL SQ SCH ×4 (08:30→21:28)
[2020-01-23] MEDS: Doxycycline 100 MG CAPSULE PO SCH ×2 (08:33→20:35)
[2020-01-23] MEDS: Sucralfate 1 GM TABLET PO SCH ×3 (08:34→16:51)
[2020-01-23] MEDS: Piperacillin/Tazobactam 3.375 GM in 0.9 % Sodium Chloride Mini Bag 100 ML IVPB SCH ×2 (08:34→20:35)
[2020-01-23 09:01] LABS: Magnesium 1.8 mg/dL (1.6-2.6); Phosphorous 3.8 mg/dL (2.7-4.5)
[2020-01-23] MEDS: 0.9 % Sodium Chloride 1,000 ML IVC SCH (17:38)
[2020-01-24 04:44] LABS: Basophils % 0.7 %; Eosinophils # 0.4 K/mcL (0.0-0.6); Eosinophils % 7.4 %; Hematocrit 28.4 % (35.3-44.9); Hemoglobin 8.6 g/dL (11.5-15.4); Immature Granulocytes % 0.6 % (0-4); Lymphocytes % 18.4 %; Mean Corpuscular HGB Conc 30.3 g/dL (31.6-35.5); Mean Corpuscular Hemoglobin 28.2 pg (28.0-33.3); Mean Corpuscular Volume 93.1 fL (83.0-100.0); Mean Platelet Volume 10.9 fL (9.4-12.4); Monocytes # 0.5 K/mcL (0.0-1.3); Monocytes % 9.9 %; Neutrophils # 3.4 K/mcL (1.6-8.9); Platelet Count 116 K/mcL (140-400); Red Blood Count 3.05 M/mcL (3.82-4.97); Red Cell Distribution Width 16.3 % (11.5-14.5); White Blood Count 5.4 K/mcL (4.3-11.1)
[2020-01-24 05:02] LABS: Potassium 4.9 mEq/L (3.5-5.1)
[2020-01-24 06:55] VITALS: BP 169/82
[2020-01-24] MEDS: Sucralfate 1 GM TABLET PO SCH (07:55)
[2020-01-24] MEDS: Doxycycline 100 MG CAPSULE PO SCH (07:55)
[2020-01-24] MEDS: Piperacillin/Tazobactam 3.375 GM in 0.9 % Sodium Chloride Mini Bag 100 ML IVPB SCH (07:55)
[2020-01-24] MEDS: Insulin LISPRO 300 UNITS/3 ML VIAL SQ SCH (07:56)
== END 2020-01-24 11:57 | disposition home or self-care (01) | DRG 377 ==
LOC: 3ANU 06:42 → EMEROOARM 06:42 → 3ANU 10:04 → 2NNU 13:51 → 2ANU 01-21 13:49
PROVIDERS: ADMIT Student in an Organized Health Care Education/Training Program; ATTEND Student in an Organized Health Care Education/Training Program

== ENCOUNTER 2020-05-28 10:09 | Inpatient (IN) ==
[2020-05-28] MEDS ORDERED: 0.9 % Sodium Chloride 1,000 ML IVC ONE (10:15)
[2020-05-28] MEDS ORDERED: Ondansetron ODT 4 MG TAB.RAPDIS SL ONE (10:35)
[2020-05-28 11:22] LABS: Basophils % 0.3 %; Eosinophils # 0.1 K/mcL (0.0-0.6); Eosinophils % 1.8 %; Immature Granulocytes % 1.3 % (0-4); Lymphocytes # 1.2 K/mcL (0.6-4.6); Lymphocytes % 14.9 %; Mean Corpuscular HGB Conc 28.4 g/dL (31.6-35.5); Mean Corpuscular Hemoglobin 23.7 pg (28.0-33.3); Mean Corpuscular Volume 83.5 fL (83.0-100.0); Mean Platelet Volume 10.8 fL (9.4-12.4); Monocytes # 0.7 K/mcL (0.0-1.3); Monocytes % 8.6 %; Neutrophils # 5.7 K/mcL (1.6-8.9); Nucleated Red Blood Cells 0.3 /100 WBC (0); Platelet Count 161 K/mcL (140-400); Red Blood Count 1.39 M/mcL (3.82-4.97); Red Cell Distribution Width 17.3 % (11.5-14.5); Segmented Neutrophils % 73.1 %; White Blood Count 7.8 K/mcL (4.3-11.1)
[2020-05-28 11:39] LABS: Albumin 2.5 g/dL (3.5-5.7); Albumin/Globulin Ratio 0.7 (1.1-2.2); Bilirubin,Total 0.3 mg/dL (0.3-1.0); Calcium 8.3 mg/dL (8.6-10.3); Globulin 3.6 g/dL (2.4-3.5); Potassium 4.9 mEq/L (3.5-5.1); Total Protein 6.1 g/dL (6.4-8.9)
[2020-05-28 11:44] LABS: Troponin I 0.04 ng/mL (< 0.04)
[2020-05-28 11:45] LABS: Hematocrit 11.6 % (35.3-44.9); Hemoglobin 3.3 g/dL (11.5-15.4)
[2020-05-28 11:46] LABS: Anisocytosis 1+ (Not Present); Hypochromasia Present (Not Present); Platelet Estimate Normal (Normal)
[2020-05-28 11:59] LABS: Thyroid Stimulating Hormone 5.562 mcIU/mL (0.340-5.600)
[2020-05-28] MEDS ORDERED: Furosemide 40 MG/4 ML VIAL IVP ONE ×2 (11:59→12:48)
[2020-05-28] MEDS ORDERED: Pantoprazole 40 MG VIAL IVP ONE (12:18)
[2020-05-28 12:39] LABS: INR 1.2; Prothrombin Time 14.3 Seconds (9.4-12.1)
[2020-05-28] MEDS ORDERED: D5% in Water 1,000 ML IVC PRN (12:59)
[2020-05-28] MEDS ORDERED: Dextrose Gel 15 GM/37.5 ML TUBE PO PRN ×2 (12:59)
[2020-05-28] MEDS ORDERED: *HR* Dextrose 50 % in Water (Vial) 50 ML VIAL IVP PRN (12:59)
[2020-05-28] MEDS ORDERED: cefTRIAXone 2,000 MG in Water for inj. (sterile) 20 ML IVP ONE (13:00)
[2020-05-28] MEDS ORDERED: Ringers Solution, Lactated 1,000 ML IVC ONE (14:41)
[2020-05-28] MEDS ORDERED: SODIUM CHLORIDE/NAHCO3/KCL/PEG 4,000 ML SOLN.RECON PO ONE (16:17)
[2020-05-28] MEDS ORDERED: Insulin LISPRO 300 UNITS/3 ML VIAL SQ SCH ×2 (16:30→21:00)
[2020-05-28 16:50] LABS: Mean Platelet Volume 11.4 fL (9.4-12.4)
[2020-05-28 16:51] LABS: Hematocrit 15.4 % (35.3-44.9); Mean Corpuscular HGB Conc 29.2 g/dL (31.6-35.5); Mean Corpuscular Hemoglobin 25.3 pg (28.0-33.3); Mean Corpuscular Volume 86.5 fL (83.0-100.0); Platelet Count 182 K/mcL (140-400); Red Blood Count 1.78 M/mcL (3.82-4.97); Red Cell Distribution Width 18.5 % (11.5-14.5); White Blood Count 7.4 K/mcL (4.3-11.1)
[2020-05-28 17:01] LABS: Hemoglobin 4.5 g/dL (11.5-15.4)
[2020-05-28] MEDS: Octreotide 400 MCG in 0.9 % Sodium Chloride 100 ML IVC SCH (18:50)
[2020-05-28] MEDS: *HR* Promethazine 25 MG/ML VIAL IVP PRN (19:54)
[2020-05-28] MEDS ORDERED: Pantoprazole 40 MG VIAL IVP SCH (23:00)
[2020-05-28 23:27] LABS: Hematocrit 18.1 % (35.3-44.9); Mean Corpuscular HGB Conc 30.4 g/dL (31.6-35.5); Mean Corpuscular Hemoglobin 26.6 pg (28.0-33.3); Mean Corpuscular Volume 87.4 fL (83.0-100.0); Mean Platelet Volume 10.8 fL (9.4-12.4); Platelet Count 136 K/mcL (140-400); Red Blood Count 2.07 M/mcL (3.82-4.97); White Blood Count 8.9 K/mcL (4.3-11.1)
[2020-05-28 23:33] LABS: Hemoglobin 5.5 g/dL (11.5-15.4)
[2020-05-29 00:38] LABS: Sodium, Urine 41.4 mEq/L
[2020-05-29 00:47] LABS: Bilirubin,Urine Negative (Negative); Blood,Urine Negative (Negative); Clarity,Urine Clear (Clear); Color,Urine Yellow (Yellow); Glucose,Urine (UA) Normal (Normal); Ketones,Urine Negative (Negative); Leukocyte Esterase,Urine Negative (Negative); Nitrite,Urine Negative (Negative); Protein,Urine 100 mg/dL (Neg-Trace); Urobilinogen,Urine Normal (Normal)
[2020-05-29] MEDS: Insulin LISPRO 300 UNITS/3 ML VIAL SQ SCH ×4 (01:02→17:28)
[2020-05-29] MEDS ORDERED: 0.9 % Sodium Chloride 250 ML ONE (01:25)
[2020-05-29] MEDS ORDERED: Furosemide 20 MG TABLET PO ONE (01:50)
[2020-05-29] MEDS: Octreotide 400 MCG in 0.9 % Sodium Chloride 100 ML IVC SCH ×3 (02:05→19:18)
[2020-05-29 08:08] LABS: Calcium 7.7 mg/dL (8.6-10.3); Magnesium 1.8 mg/dL (1.6-2.6); Phosphorous 7.1 mg/dL (2.7-4.5); Potassium 5.4 mEq/L (3.5-5.1)
[2020-05-29 12:37] LABS: Adenovirus Not Detected (Not Detect); Bordetella Pertussis Not Detected (Not Detect); Chlamydophila pneumoniae Not Detected (Not Detect); Coronavirus 229E Not Detected (Not Detect); Coronavirus HKU1 Not Detected (Not Detect); Coronavirus NL63 Not Detected (Not Detect); Coronavirus OC43 Not Detected (Not Detect); Human Metapneumovirus Not Detected (Not Detect); Human Rhinovirus/Enterovirus Not Detected (Not Detect); Influenza A Subtype 2009 H1 Not Detected (Not Detect); Influenza B Not Detected (Not Detect); Mycoplasma pneumoniae Not Detected (Not Detect); Parainfluenza Virus 1 Not Detected (Not Detect); Parainfluenza Virus 2 Not Detected (Not Detect); Parainfluenza Virus 3 Not Detected (Not Detect); Parainfluenza Virus 4 Not Detected (Not Detect); Respiratory Syncytial Virus Not Detected (Not Detect); SARS-CoV-2 Not Detected (Not Detect)
[2020-05-29] MEDS ORDERED: Darbepoetin 100 MCG/0.5 ML SYRINGE SQ SCH (15:00)
[2020-05-29 15:15] LABS: Albumin 2.2 g/dL (3.5-5.7); Albumin/Globulin Ratio 0.7 (1.1-2.2); Bilirubin,Direct 0.1 mg/dL (0.0-0.2); Bilirubin,Indirect 0.4 mg/dL (0.0-1.0); Bilirubin,Total 0.5 mg/dL (0.3-1.0); Globulin 3.3 g/dL (2.4-3.5); Total Protein 5.5 g/dL (6.4-8.9)
[2020-05-29] MEDS ORDERED: 0.9 % Sodium Chloride 500 ML ONE (15:34)
[2020-05-29] MEDS: Pantoprazole 40 MG VIAL IVP SCH (17:29)
[2020-05-29 18:48] LABS: Basophils # 0.1 K/mcL (0.0-0.2); Basophils % 0.8 %; Eosinophils # 0.3 K/mcL (0.0-0.6); Eosinophils % 2.9 %; Hematocrit 26.5 % (35.3-44.9); Lymphocytes # 0.7 K/mcL (0.6-4.6); Lymphocytes % 7.3 %; Mean Corpuscular HGB Conc 31.7 g/dL (31.6-35.5); Mean Corpuscular Hemoglobin 29.1 pg (28.0-33.3); Mean Corpuscular Volume 91.7 fL (83.0-100.0); Mean Platelet Volume 10.6 fL (9.4-12.4); Monocytes # 0.6 K/mcL (0.0-1.3); Monocytes % 6.1 %; Neutrophils # 7.4 K/mcL (1.6-8.9); Platelet Count 144 K/mcL (140-400); Red Blood Count 2.89 M/mcL (3.82-4.97); Red Cell Distribution Width 17.1 % (11.5-14.5); Segmented Neutrophils % 81.9 %
[2020-05-29 18:55] LABS: Hemoglobin 8.4 g/dL (11.5-15.4)
[2020-05-30] MEDS: Octreotide 400 MCG in 0.9 % Sodium Chloride 100 ML IVC SCH ×3 (00:57→16:35)
[2020-05-30] MEDS: Insulin LISPRO 300 UNITS/3 ML VIAL SQ SCH ×4 (01:00→16:35)
[2020-05-30 05:38] LABS: Basophils # 0.1 K/mcL (0.0-0.2); Basophils % 0.7 %; Eosinophils # 0.5 K/mcL (0.0-0.6); Eosinophils % 5.4 %; Hematocrit 26.9 % (35.3-44.9); Hemoglobin 8.4 g/dL (11.5-15.4); Immature Granulocytes % 0.7 % (0-4); Lymphocytes # 1.3 K/mcL (0.6-4.6); Lymphocytes % 13.7 %; Mean Corpuscular HGB Conc 31.2 g/dL (31.6-35.5); Mean Corpuscular Hemoglobin 28.3 pg (28.0-33.3); Mean Corpuscular Volume 90.6 fL (83.0-100.0); Monocytes % 10.3 %; Neutrophils # 6.4 K/mcL (1.6-8.9); Platelet Count 149 K/mcL (140-400); Red Blood Count 2.97 M/mcL (3.82-4.97); Red Cell Distribution Width 17.2 % (11.5-14.5); Segmented Neutrophils % 69.2 %; White Blood Count 9.2 K/mcL (4.3-11.1)
[2020-05-30] MEDS: Pantoprazole 40 MG VIAL IVP SCH ×2 (05:52→16:34)
[2020-05-30 05:58] LABS: Calcium 7.6 mg/dL (8.6-10.3); Potassium 5.2 mEq/L (3.5-5.1)
[2020-05-30 05:59] LABS: % Iron Saturation 84 % (15-50); Iron 314 mcg/dL (50-170); Transferrin 268 mg/dL (203-362)
[2020-05-30 06:19] LABS: Ferritin 22 ng/mL (10-120)
[2020-05-30] MEDS: *HR* Promethazine 25 MG/ML VIAL IVP PRN ×2 (08:41→19:46)
[2020-05-30] MEDS ORDERED: lisinopriL 5 MG TABLET PO SCH (09:00)
[2020-05-30 09:13] LABS: Estimated Average Glucose 151 mg/dl
[2020-05-30] MEDS: Iron Sucrose Complex 200 MG in 0.9 % Sodium Chloride 100 ML IVPB SCH (10:13)
[2020-05-30] MEDS ORDERED: Menthol 9.1 MG LOZENGE PO PRN (12:40)
[2020-05-30] MEDS: Melatonin 3 MG TABLET PO SCH (22:35)
[2020-05-31] MEDS: Octreotide 400 MCG in 0.9 % Sodium Chloride 100 ML IVC SCH ×2 (00:05→11:40)
[2020-05-31] MEDS: *HR* Promethazine 25 MG/ML VIAL IVP PRN (03:43)
[2020-05-31 04:05] LABS: INR 1.2; Prothrombin Time 14.2 Seconds (9.4-12.1)
[2020-05-31 04:27] LABS: Basophils # 0.1 K/mcL (0.0-0.2); Basophils % 0.7 %; Eosinophils # 0.4 K/mcL (0.0-0.6); Eosinophils % 4.8 %; Hematocrit 26.1 % (35.3-44.9); Hemoglobin 8.2 g/dL (11.5-15.4); Immature Granulocytes % 1.6 % (0-4); Lymphocytes # 1.3 K/mcL (0.6-4.6); Lymphocytes % 15.4 %; Mean Corpuscular HGB Conc 31.4 g/dL (31.6-35.5); Mean Corpuscular Hemoglobin 28.9 pg (28.0-33.3); Mean Corpuscular Volume 91.9 fL (83.0-100.0); Mean Platelet Volume 10.4 fL (9.4-12.4); Monocytes # 0.9 K/mcL (0.0-1.3); Monocytes % 10.4 %; Neutrophils # 5.8 K/mcL (1.6-8.9); Platelet Count 140 K/mcL (140-400); Red Blood Count 2.84 M/mcL (3.82-4.97); Red Cell Distribution Width 17.7 % (11.5-14.5); Segmented Neutrophils % 67.1 %; White Blood Count 8.6 K/mcL (4.3-11.1)
[2020-05-31 04:50] LABS: Calcium 7.4 mg/dL (8.6-10.3); Potassium 5.2 mEq/L (3.5-5.1)
[2020-05-31] MEDS: Pantoprazole 40 MG VIAL IVP SCH ×2 (06:23→16:54)
[2020-05-31] MEDS: Insulin LISPRO 300 UNITS/3 ML VIAL SQ SCH ×3 (07:55→16:54)
[2020-05-31] MEDS ORDERED: Sennosides 8.6 MG TABLET PO ONE (11:07)
[2020-05-31] MEDS: Iron Sucrose Complex 200 MG in 0.9 % Sodium Chloride 100 ML IVPB SCH (11:31)
[2020-05-31] MEDS: Levalbuterol Neb 0.63 MG/3 ML IH SCH ×3 (11:37→22:16)
[2020-05-31] MEDS ORDERED: Insulin LISPRO 300 UNITS/3 ML VIAL SQ SCH (21:00)
[2020-05-31] MEDS: Melatonin 3 MG TABLET PO SCH (22:34)
[2020-06-01] MEDS: Levalbuterol Neb 0.63 MG/3 ML IH SCH ×4 (03:13→16:13)
[2020-06-01 04:11] LABS: Basophils # 0.1 K/mcL (0.0-0.2); Basophils % 0.8 %; Eosinophils # 0.4 K/mcL (0.0-0.6); Eosinophils % 4.8 %; Hematocrit 25.6 % (35.3-44.9); Hemoglobin 7.8 g/dL (11.5-15.4); Immature Granulocytes % 1.3 % (0-4); Lymphocytes # 1.9 K/mcL (0.6-4.6); Lymphocytes % 24.4 %; Mean Corpuscular HGB Conc 30.5 g/dL (31.6-35.5); Mean Corpuscular Volume 91.8 fL (83.0-100.0); Mean Platelet Volume 10.3 fL (9.4-12.4); Monocytes # 0.8 K/mcL (0.0-1.3); Monocytes % 9.5 %; Neutrophils # 4.7 K/mcL (1.6-8.9); Platelet Count 126 K/mcL (140-400); Red Blood Count 2.79 M/mcL (3.82-4.97); Red Cell Distribution Width 18.6 % (11.5-14.5); Segmented Neutrophils % 59.2 %; White Blood Count 7.9 K/mcL (4.3-11.1)
[2020-06-01 04:13] LABS: INR 1.3; Prothrombin Time 14.6 Seconds (9.4-12.1)
[2020-06-01 04:25] LABS: Calcium 7.6 mg/dL (8.6-10.3)
[2020-06-01] MEDS: Pantoprazole 40 MG VIAL IVP SCH (05:27)
[2020-06-01 07:41] VITALS: BP 117/90
[2020-06-01] MEDS: Iron Sucrose Complex 200 MG in 0.9 % Sodium Chloride 100 ML IVPB SCH (08:16)
[2020-06-01] MEDS: Insulin LISPRO 300 UNITS/3 ML VIAL SQ SCH ×3 (08:18→16:04)
[2020-06-01] MEDS ORDERED: FLU Vac QV HD 20-21 (65YR+)/PF 0.7 ML SYRINGE IM ONE (12:26)
[2020-06-01] MEDS ORDERED: FLU Vac QV 20-21 (6Month+)/PF 0.5 ML SYRINGE IM ONE (12:45)
== END 2020-06-01 16:17 | disposition hospice, home (50) | DRG 682 ==
LOC: 2NNU 10:09 → EMEROOARM 10:09 → SUATTDRO 14:23 → 2NNU 14:49 → SUATTDRO 05-29 12:27
PROVIDERS: ADMIT Internal Medicine; ATTEND Internal Medicine

== ENCOUNTER 2020-09-25 10:57 | Observation (INO) ==
[2020-09-25] MEDS ORDERED: 0.9 % Sodium Chloride 1,000 ML IVC ONE (11:08)
[2020-09-25] MEDS ORDERED: Ondansetron 4 MG/2 ML VIAL IVP ONE ×2 (11:08→13:42)
[2020-09-25 11:36] LABS: Basophils % 0.6 %; Eosinophils # 0.2 K/mcL (0.0-0.6); Eosinophils % 2.9 %; INR 1.3; Immature Granulocytes % 0.6 % (0-4); Lymphocytes # 1.4 K/mcL (0.6-4.6); Lymphocytes % 19.4 %; Mean Corpuscular Volume 86.7 fL (83.0-100.0); Mean Platelet Volume 10.5 fL (9.4-12.4); Monocytes # 0.6 K/mcL (0.0-1.3); Monocytes % 8.2 %; Platelet Count 169 K/mcL (140-400); Prothrombin Time 14.4 Seconds (9.4-12.1); Red Blood Count 1.73 M/mcL (3.82-4.97); Red Cell Distribution Width 16.8 % (11.5-14.5); Segmented Neutrophils % 68.3 %
[2020-09-25 11:39] LABS: Activated Partial Thrombo Time 27.9 Seconds (26.0-36.0); Neutrophils # 4.8 K/mcL (1.6-8.9)
[2020-09-25 11:40] LABS: Hemoglobin 4.5 g/dL (11.5-15.4)
[2020-09-25 11:57] LABS: Albumin 2.6 g/dL (3.5-5.7); Albumin/Globulin Ratio 0.6 (1.1-2.2); Bilirubin,Total 0.3 mg/dL (0.3-1.0); Calcium 8.3 mg/dL (8.6-10.3); Globulin 4.4 g/dL (2.4-3.5); Troponin I 0.34 ng/mL (< 0.04)
[2020-09-25] MEDS ORDERED: 0.9 % Sodium Chloride 250 ML ONE (12:49)
[2020-09-25] MEDS ORDERED: *HR* Promethazine 25 MG/ML VIAL IM ONE (12:55)
[2020-09-25] MEDS ORDERED: Ondansetron 4 MG/2 ML VIAL IVP PRN (13:52)
[2020-09-25] MEDS ORDERED: *HR* Promethazine 25 MG/ML VIAL IM PRN (13:52)
[2020-09-25] MEDS ORDERED: Naloxone 0.4 MG/ML INJ IVP PRN (13:52)
[2020-09-25] MEDS ORDERED: *HR* LORazepam 2 MG/ML VIAL IVP PRN (13:54)
[2020-09-25] MEDS ORDERED: Temazepam 15 MG CAPSULE PO PRN (13:56)
[2020-09-25] MEDS: Furosemide 40 MG TABLET PO SCH (18:11)
[2020-09-25] MEDS: haloperidoL 1 MG TABLET PO SCH (18:11)
[2020-09-26] MEDS: haloperidoL 1 MG TABLET PO SCH ×2 (04:45→08:51)
[2020-09-26 05:54] LABS: Hematocrit 18.5 % (35.3-44.9)
[2020-09-26 06:01] LABS: Hemoglobin 5.7 g/dL (11.5-15.4)
[2020-09-26] MEDS: Furosemide 40 MG TABLET PO SCH (08:50)
[2020-09-26] MEDS ORDERED: 0.9 % Sodium Chloride 250 ML ONE (09:40)
[2020-09-26 13:47] LABS: Hematocrit 24.3 % (35.3-44.9)
[2020-09-26 13:48] LABS: Hemoglobin 7.5 g/dL (11.5-15.4)
[2020-09-26 15:42] VITALS: BP 166/78
== END 2020-09-26 15:57 | disposition hospice, home (50) ==
LOC: 2NENU 10:57 → EMEROOARM 10:57 → SUATTDRO 13:42 → 2NENU 14:33
PROVIDERS: ADMIT Internal Medicine; ATTEND Internal Medicine